=== PATIENT | male | born 1935 | race Caucasian/White ===

== ENCOUNTER → 2017-06-18 08:39 | Outpatient (POV) | payer MEDICARE, MEDICAID, SELFPAY | PROVIDERS: PCP Family Medicine; Visit Provider Podiatrist | DX: Z00.00 Encounter for general adult medical examination without abnormal findings (principal) ==

== ENCOUNTER → 2017-07-02 12:39 | Outpatient (POV) | payer MEDICARE, MEDICAID, SELFPAY | PROVIDERS: PCP Family Medicine; Visit Provider Podiatrist | DX: Z00.00 Encounter for general adult medical examination without abnormal findings (principal) ==

== ENCOUNTER → 2017-10-19 12:05 | Outpatient (CLI) | payer MEDICARE, MEDICAID, SELFPAY ==
[2017-10-19 12:24] LABS: Basophils # 0.1 K/mm3 (0-0.2); Basophils % 0.6 % (0.1-2.0); Eosinophils # 0.3 K/mm3 (0.0-0.4); Eosinophils % 2.5 % (0.1-12.0); Hematocrit 52.4 % (42.0-52.0); Hemoglobin 16.6 g/dL (14.1-18.0); Lymphocytes # 2.5 K/mm3 (0.7-4.5); Lymphocytes % 25.2 K/mm3 (10-50); Mean Corpuscular HGB Conc 31.7 g/dL (31.8-35.4); Mean Corpuscular Hemoglobin 30.7 pg (27.0-31.2); Mean Corpuscular Volume 96.9 fl (80-94); Mean Platelet Volume 7.1 fl (7.4-10.4); Monocytes # 0.6 K/mm3 (0.1-1.0); Monocytes % 5.5 % (1.7-9.3); Neutrophils # 6.5 K/mm3 (1.8-7.8); Neutrophils % 66.1 % (37.0-80.0); Platelet Count 220 K/mm3 (142-424); Red Blood Count 5.41 M/mm3 (4.60-6.20); White Blood Count 9.9 K/mm3 (4.8-10.8)
[2017-10-19 13:21] LABS: Hemoglobin A1C 8.4 % (0.0-7.0)
[2017-10-19 13:43] LABS: Erythrocyte Sedimentation Rate 12 mm/hr (0-20)
[2017-10-19 15:34] LABS: Alanine Aminotransferase 13 U/L (12-78); Albumin Level 3.6 gm/dL (3.4-5.0); Albumin/Globulin Ratio 0.9 (1.1-1.8); Alkaline Phosphatase 82 U/L (46-116); Anion Gap 14.7 mEq/L (5-15); Aspartate Amino Transferase 16 U/L (15-37); Bilirubin,Total 0.4 mg/dL (0.2-1.0); Blood Urea Nitrogen 33 mg/dL (7-18); Carbon Dioxide 29 mmol/L (21.0-32.0); Chloride 103 mmol/L (98-107); Creatinine,Serum 1.61 mg/dL (0.70-1.30); Estimated Glomerular Filt Rate 41 ml/min (>60); GFR (African American) 50 ML/MIN (>60); Globulin 3.8 gm/dl (1.3-3.2); Glucose 226 mg/dL (74-106); Potassium 4.7 mmoL/L (3.5-5.1); Sodium 142 mmol/L (136-145); Total Protein,Serum 7.4 gm/dL (6.4-8.2)
[2017-10-19 15:36] LABS: C-Reactive Protein < 0.2 mg/L (0.0-0.9)
== END ==
PROVIDERS: PCP Family Medicine; Visit Provider Podiatrist
DX: E11.8 Type 2 diabetes mellitus with unspecified complications (principal); Z51.89 Encounter for other specified aftercare
CPT/HCPCS: 36415; 80053; 83036; 85025; 85651; 86140

== ENCOUNTER → 2017-12-20 08:53 | Outpatient (CLI) | payer MEDICARE, MEDICAID, SELFPAY ==
[2017-12-20 10:11] LABS: Hemoglobin A1C 8.6 % (0.0-7.0)
[2017-12-20 10:52] LABS: Alanine Aminotransferase 10 U/L (12-78); Albumin Level 3.5 gm/dL (3.4-5.0); Albumin/Globulin Ratio 0.9 (1.1-1.8); Alkaline Phosphatase 81 U/L (46-116); Anion Gap 9.3 mEq/L (5-15); Aspartate Amino Transferase 13 U/L (15-37); Bilirubin,Total 0.6 mg/dL (0.2-1.0); Blood Urea Nitrogen 20 mg/dL (7-18); Calcium 9.3 mg/dL (8.5-10.1); Carbon Dioxide 32 mmol/L (21.0-32.0); Chloride 104 mmol/L (98-107); Chol/HDL Ratio 3.7 (1-3.5); Cholesterol 145 mg/dL (140-200); Creatinine,Serum 1.37 mg/dL (0.70-1.30); Estimated Glomerular Filt Rate 50 ml/min (>60); Free T4 (Free Thyroxine) 0.99 ng/dl (0.76-1.46); GFR (African American) 60 ML/MIN (>60); Globulin 3.7 gm/dl (1.3-3.2); Glucose 207 mg/dL (74-106); HDL Cholesterol 39 mg/dL (27-67); LDL Cholesterol 80 mg/dL (0-130); Potassium 4.3 mmoL/L (3.5-5.1); Sodium 141 mmol/L (136-145); Thyroid Stimulating Hormone 1.44 uIU/ml (0.358-3.740); Total Protein,Serum 7.2 gm/dL (6.4-8.2); Triglycerides 128 mg/dL (30-200); VLDL Cholesterol 26 mg/dL (0-40)
[2017-12-20 13:49] LABS: Creatinine,Urine Random 145 mg/dL (20-320)
[2017-12-21 16:05] LABS: Vitamin B12 1096 pg/mL (232-1245); Vitamin D 25 Hydroxy 37.9 ng/mL (30.0-100.0)
[2017-12-21 16:06] LABS: Microalbumin, Urine 12.7 ug/mL (Not Estab.)
== END ==
PROVIDERS: Visit Provider Family Medicine
DX: E11.42 Type 2 diabetes mellitus with diabetic polyneuropathy (principal); E53.8 Deficiency of other specified B group vitamins; E03.9 Hypothyroidism, unspecified; E78.2 Mixed hyperlipidemia; E55.9 Vitamin D deficiency, unspecified
CPT/HCPCS: 36415; 80053; 80061; 82043; 82570; 82607; 82652; 83036; 84439; 84443

== ENCOUNTER → 2018-03-22 16:16 | Outpatient (CLI) | payer MEDICARE, MEDICAID, SELFPAY | PROVIDERS: Visit Provider Podiatrist | DX: E11.621 Type 2 diabetes mellitus with foot ulcer (principal); L97.519 Non-pressure chronic ulcer of other part of right foot with unspecified severity | CPT/HCPCS: 87070; 87205 ==

== ENCOUNTER → 2018-03-30 13:09 | Outpatient (CLI) | payer MEDICARE, MEDICAID, SELFPAY ==
--- NOTE | 2018-03-30 13:13 | US_ITS ---
US Arterial Ankle Brachial Ind History: ITS.REASON: Ulcers Necrotic right great toe, peripheral vascular disease, claudication ORDERING PHYSICIAN: Yennifer Frey DPM PATIENT AGE: 82 years TECHNIQUE: Segmental pressures obtained of both right and left leg. These are compared to brachial blood pressure to yield index at each level sampled including summary PIPO. The data sheets from the procedure are available in PACS FINDINGS Rest study only performed today No prior studies available for comparison. Blood pressures reported are in millimeters mercury. RIGHT LEG PIPO = 1.0. RIGHT LEG TBI=1.07 Brachial BP: 140 Thigh BP: 183 Calf BP: 179 Ankle PT: 145 Ankle DP : 139 Digit =155 LEFT LEG PIPO = 0.61 LEFT LEG TBI= 0.60 Brachial BPD: 145 Thigh BP: 184 Calf BP: 86 Ankle PT:89 Ankle DP: 82 Digit = 87 Pulses and waveforms: Decreased pulses on the left with normal waveforms IMPRESSION: Low left PIPO of 0.6 indicating moderate arterial disease . The left TBI slightly low at 0.6 . There are decreased pulses on the left
--- NOTE | 2018-03-30 13:13 | XR_ITS ---
XR foot wt bearing RT 3V HISTORY: Pain and swelling ITS.REASON: ulcer ORDERING PHYSICIAN: Yennifer Frey DPM PATIENT AGE: 82 years COMPARISON: None FINDINGS: No fracture or dislocation. No lytic or blastic change. Flexion deformity of the toes most prominent at the second toe. No obvious bony erosive process. There are mild osteoarthritic changes of the first metatarsophalangeal joint IMPRESSION: No acute finding
--- NOTE | 2018-03-30 13:13 | XR_ITS ---
XR foot wt bearing LT 3V HISTORY: Pain and swelling, soft tissue ulceration ITS.REASON: ulcer ORDERING PHYSICIAN: Yennifer Frey DPM PATIENT AGE: 82 years COMPARISON: None FINDINGS: No fracture or dislocation. No lytic or blastic change. There is flexion of the toes. No obvious lytic lesion. No bony erosive process. There is prominent spur along the proximal and lateral aspect of the proximal phalanx of the great toe. There is some calcification along the plantar surface of the foot toward the calcaneus. A small calcaneal spur is present and there is an Achilles in these 5 noted. Mild osteoarthritic changes are present at the navicular cuneiform junction. IMPRESSION: 1. No acute finding. 2. Osteoarthritic and degenerative changes
== END ==
PROVIDERS: PCP Family Medicine; Visit Provider Podiatrist
DX: E11.621 Type 2 diabetes mellitus with foot ulcer (principal); L97.519 Non-pressure chronic ulcer of other part of right foot with unspecified severity; L89.612 Pressure ulcer of right heel, stage 2; L97.512 Non-pressure chronic ulcer of other part of right foot with fat layer exposed; L97.513 Non-pressure chronic ulcer of other part of right foot with necrosis of muscle; Z79.4 Long term (current) use of insulin
CPT/HCPCS: 73630; 93922

== ENCOUNTER → 2018-04-08 11:18 | Outpatient (CLI) | payer MEDICARE, MEDICAID, SELFPAY ==
[2018-04-08 12:01] LABS: Basophils # 0.1 K/mm3 (0-0.2); Basophils % 0.6 % (0.1-2.0); Eosinophils # 0.3 K/mm3 (0.0-0.4); Eosinophils % 2.6 % (0.1-12.0); Hematocrit 52.2 % (42.0-52.0); Hemoglobin 16.5 g/dL (14.1-18.0); Lymphocytes # 1.8 K/mm3 (0.7-4.5); Lymphocytes % 17.9 % (10-50); Mean Corpuscular HGB Conc 31.6 g/dL (31.8-35.4); Mean Platelet Volume 6.7 fl (7.4-10.4); Monocytes # 0.7 K/mm3 (0.1-1.0); Monocytes % 6.6 % (1.7-9.3); Neutrophils # 7.3 K/mm3 (1.8-7.8); Neutrophils % 72.4 % (37.0-80.0); Platelet Count 258 K/mm3 (142-424); Red Blood Count 5.33 M/mm3 (4.60-6.20); Red Cell Distribution Width 13.6 % (11.5-17.5); White Blood Count 10.1 K/mm3 (4.8-10.8)
[2018-04-08 12:28] LABS: Hemoglobin A1C 8.9 % (0.0-7.0)
[2018-04-08 14:10] LABS: Alanine Aminotransferase 10 U/L (12-78); Albumin Level 3.3 gm/dL (3.4-5.0); Albumin/Globulin Ratio 0.8 (1.1-1.8); Alkaline Phosphatase 78 U/L (46-116); Anion Gap 12.5 mEq/L (5-15); Aspartate Amino Transferase 22 U/L (15-37); Bilirubin,Total 0.5 mg/dL (0.2-1.0); Blood Urea Nitrogen 23 mg/dL (7-18); C-Reactive Protein 2.1 mg/L (0.0-0.9); Calcium 9.8 mg/dL (8.5-10.1); Carbon Dioxide 31 mmol/L (21.0-32.0); Chloride 103 mmol/L (98-107); Creatinine,Serum 1.46 mg/dL (0.70-1.30); Estimated Glomerular Filt Rate 46 ml/min (>60); GFR (African American) 56 ML/MIN (>60); Globulin 4.1 gm/dl (1.3-3.2); Glucose 183 mg/dL (74-106); Potassium 4.5 mmoL/L (3.5-5.1); Sodium 142 mmol/L (136-145); Total Protein,Serum 7.4 gm/dL (6.4-8.2)
[2018-04-08 14:26] LABS: Erythrocyte Sedimentation Rate 34 mm/hr (0-20)
== END ==
PROVIDERS: Visit Provider Podiatrist
DX: E11.42 Type 2 diabetes mellitus with diabetic polyneuropathy (principal); Z79.4 Long term (current) use of insulin; E11.621 Type 2 diabetes mellitus with foot ulcer; L97.519 Non-pressure chronic ulcer of other part of right foot with unspecified severity
CPT/HCPCS: 36415; 80053; 83036; 85025; 85651; 86140

== ENCOUNTER → 2018-04-15 09:47 | Outpatient (CLI) | payer MEDICARE, MEDICAID, SELFPAY ==
--- NOTE | 2018-04-15 09:49 | MR_ITS ---
MR foot RT wo/w con CLINICAL INDICATION: Diabetic foot ulcers on first and second toes as well as on the medial plantar and lateral surface of the midfoot. Foot pain redness and swelling ITS.REASON: multiple diabetic ulcers ORDERING PHYSICIAN: Yennifer Frey DPM PATIENT AGE: 82 years Comparison: None TECHNIQUE: Routine multiplanar multiecho sequences are performed without and with gadolinium enhancement FINDINGS: There is an old ununited transverse fracture at the base of the medial malleolus. There is mild enhancement of the head of the fifth metatarsal with slight increased STIR signal. There is slight soft tissue enhancement along the plantar surface at this area. No other abnormal areas of enhancement are evident. No other abnormal areas of bone marrow signal is evident. No abscess or sinus tract evident.. No obvious ligamentous or tendinous abnormalities. IMPRESSION: There is mild bone marrow edema at the head of the fifth metatarsal with mild contrast enhancement. Mild osteomyelitis cannot be excluded. There is also suggestion of some mild cellulitis at this region.
== END ==
PROVIDERS: PCP Family Medicine; Visit Provider Podiatrist
DX: L97.512 Non-pressure chronic ulcer of other part of right foot with fat layer exposed (principal); L97.513 Non-pressure chronic ulcer of other part of right foot with necrosis of muscle
CPT/HCPCS: 73720; A9576

== ENCOUNTER → 2018-04-19 14:19 | Outpatient (CLI) | payer MEDICARE, MEDICAID, SELFPAY | PROVIDERS: PCP Family Medicine; Visit Provider Urology | DX: R94.31 Abnormal electrocardiogram [ECG] [EKG] (principal) | CPT/HCPCS: 93225; 93226 ==

== ENCOUNTER 2018-04-20 08:21 | Observation (INO) ==
[2018-04-20 08:48] LABS: Basophils % 0.5 % (0.1-2.0); Eosinophils # 0.3 K/mm3 (0.0-0.4); Eosinophils % 3.6 % (0.1-12.0); Hematocrit 50.8 % (42.0-52.0); Hemoglobin 16.1 g/dL (14.1-18.0); Lymphocytes # 1.6 K/mm3 (0.7-4.5); Mean Corpuscular HGB Conc 31.7 g/dL (31.8-35.4); Mean Corpuscular Hemoglobin 30.7 pg (27.0-31.2); Mean Corpuscular Volume 96.6 fl (80-94); Mean Platelet Volume 6.9 fl (7.4-10.4); Monocytes # 0.6 K/mm3 (0.1-1.0); Neutrophils % 69.9 % (37.0-80.0); Platelet Count 265 K/mm3 (142-424); Red Blood Count 5.26 M/mm3 (4.60-6.20); Red Cell Distribution Width 13.6 % (11.5-17.5); White Blood Count 8.5 K/mm3 (4.8-10.8)
[2018-04-20 08:53] LABS: Anion Gap 11.9 mEq/L (5-15); Calcium 9.2 mg/dL (8.5-10.1); Potassium 3.9 mmoL/L (3.5-5.1)
--- NOTE | 2018-04-20 15:15 | History & Physical Report ---
*Admission Date: 04/20/18 *Chief complaint: Irregular heart beat *History of present illness: 1. Sinus Arrest (04/20/18) a. 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 Peripheral Artery Disease a. Single vessel runoff below the knee on the left side which is best treated medically and less recalcitrant claudication or limb threatening ischemia (04/20/18) 3. Diabetes a. 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 b. Brittle 4. Pressure Ulcers a. Bilateral pressure ulcers on feet. b. Managed by [facility] clinic 5. Coronary Artery Disease involving Coronary Bypass Graft of [place] heart without Angina Pectoris a. CABG x5 over 15 years ago. b. Primary industrial custodian (Dr. Casanova) 6. Essential Hypertension a. Well controlled 7. Hyperlipidemia a. Statin therapy 82 year old male admitted under [employer] service for Sinus arrest with 2nd and 3rd degree heart block. Pt underwent bilateral aortic iliac runoff this afternoon for abnormal PIPO (left 0.62) and Peripheral vascular disease. No blockages were noted. During procedure, pt was noted in sinus arrest in 2nd and 3rd degree heart block with heart rates in the 30's. Pt denies chest pain, tightness or pressure. Pt denies shortness of breath. Pt does have history of Coronary Artery disease, CABG x5 several years ago. Pt has not been following up regularly with his primary industrial custodian Dr. Casanova. Last cardiology evaluation was over one year per pt. Pt does have history of Insulin dependent diabetes which is somewhat controlled per . History of Hypertension (controlled) and Hyperlipidemia (statin therapy). Pt is currently being treated for pressure ulcers on feet managed by Dr. Frey. Preliminary echocardiogram (04/20/18) revealed Mild MR and Ejection Fraction of 50%. Aortic-Iliac Runoff (04/20/18) Impression: 1. Single vessel runoff below the knee on the left side which is best treated medically and less recalcitrant claudication or limb threatening ischemia 2. Peripheral artery disease as described above Plan: 1. Severe relative 2.5 by mouth twice a day plus aspirin 2. Medical management with aggressive risk factor modification 3. Patient appears to have pressure ulcers on the feet unrelated to macrovascular peripheral artery disease 4. Physical therapy with rehabilitation Plan: 1. Schedule pt for PPM in the morning. Discussed benefits and risk of PPM placement under anesthesia due to sinus arrest and 2nd -3rd degree heart block. Pt and are agreeable to procedure. [facility] History Medical History: Reports:: Coronary Artery Disease, Diabetes Mellitus Type 2, Gastroesophageal Reflux Disease(GERD), Hyperlipidemia, Hypertension Denies:: Asthma, Cancer, Chronic Obstructive Pulmonary Disease (COPD), MRSA, Seizures, Transient Ischemic Attacks (TIA) Other Medical History: Reports: Arthritis Laterality Cases: Right: Arthroscopy Knee Other Surgeries: Yes: Cardiac Surgery, Colonoscopy, Other Amputation: No Fractures: No - *Social History Educational Level: Completed High School Smoking Status: Never smoker Tobacco Type: smokeless tobacco # Packs/Day (cigarettes): 0 #Yrs smoked (if former smoker): 0 Alcohol Intake: never Alcohol Intake Frequency:: other Substance Use Type: denies use Occupational Status: employed, retired Housing: house Household Members: spouse - Psychiatric History Expresses thoughts of harming self/others: None Suicide Plan Description: No Plan *Family Hx:: Cancer Review of Systems - Review of Systems Review of systems:: pertinent systems reviewed and negative unless documented below - Constitutional Reports weakness - ENT Reports poor balance, Denies abnormal hearing, Denies dizziness, Denies pain with swallowing - *Cardiovascular Reports leg pain with activity, Reports irregular heart rhythm, Reports leg sores, Reports slow heart rate, Denies chest pain, Denies chest pain at rest, Denies chest pain with activity, Denies shortness of breath, Denies shortness of breath with activity - *Respiratory Denies chest congestion, Denies cough, Denies shortness of breath, Denies shortness of breath with activity, Denies wheezing - *Gastrointestinal Denies abdominal pain, Denies bloating, Denies difficulty swallowing - *Genitourinary Denies difficulty urinating - *Musculoskeletal Reports abnormal walking - Integumentary/Breasts Reports hair loss, Reports dry skin - *Neurologic Reports abnormal walking, Reports weakness, Denies abnormal hearing, Denies dizziness, Denies numbness, Denies dizziness - Psychiatric Denies abnormal sleep pattern, Denies hearing things others do not hear, Denies thoughts of hurting/killing yourself - Endocrine Denies cold intolerance, Denies increased thirst, Denies increased hunger, Denies increased urination - Hematologic/Lymphatic Denies easy bleeding - Allergic/Immunologic Denies itchy eyes, Denies seasonal runny nose Meds Home Medications Medication Instructions Recorded Confirmed Type carbidopa 25 mg-levodopa 100 1 tab PO Q8H 06/10/17 04/19/18 History mg-entacapone 200 mg tablet gabapentin 600 mg tablet 600 mg PO TID 06/10/17 04/19/18 History isosorbide mononitrate ER 30 mg 30 mg PO QAM 06/10/17 04/19/18 History tablet,extended release 24 hr linagliptin 5 mg tablet 5 mg PO QAM 06/10/17 04/19/18 History memantine 10 mg tablet 10 mg PO BID 06/10/17 04/19/18 History polyethylene glycol 3350 17 gram 17 g PO Q10M 06/10/17 04/19/18 History oral powder packet trazodone 50 mg tablet 50 mg PO QHS PRN 06/10/17 04/19/18 History atorvastatin 10 mg tablet 10 mg PO DAILY tab 04/19/18 04/19/18 History buspirone 5 mg tablet 5 mg PO DAILY tab 04/19/18 04/19/18 History docusate sodium 250 mg capsule 250 mg PO DAILY cap 04/19/18 04/19/18 History famotidine 20 mg tablet 20 mg PO DAILY 90 Days #90 tab 04/19/18 04/19/18 History fenofibrate nanocrystallized 145 145 mg PO DAILY tab 04/19/18 04/19/18 History mg tablet hydrochlorothiazide 12.5 mg capsule 12.5 mg PO DAILY cap 04/19/18 04/19/18 History insulin glargine (U-100) 100 1 unit SUB-Q DAILY ml 04/19/18 04/19/18 History unit/mL (3 mL) subcutaneous pen levothyroxine 112 mcg capsule 112 mcg PO DAILY cap 04/19/18 04/19/18 History Allergies Allergy/AdvReac Type Severity Reaction Status Date / Time codeine [CODEINE] Allergy Unknown Verified 04/19/18 13:10 Penicillins [PENICILLINS] Allergy Unknown Verified 04/19/18 13:10 Exam Vital signs and Labs for Last 24 Hours: Temp Pulse Resp BP Pulse Ox 97 F L 46 L 16 125/70 92 L 04/20/18 11:33 04/20/18 14:20 04/20/18 14:20 04/20/18 14:20 04/20/18 14:20 Laboratory Results - last 24 hr 04/20/18 08:40: WBC 8.5, RBC 5.26, Hgb 16.1, Hct 50.8, MCV 96.6 H, MCH 30.7, MCHC 31.7 L, RDW 13.6, Plt Count 265, MPV 6.9 L, Neut % (Auto) 69.9, Lymph % (Auto) 19.0, [place] % (Auto) 7.0, Eos % (Auto) 3.6, Baso % (Auto) 0.5, Neut # (Auto) 6.0, Lymph # (Auto) 1.6, [place] # (Auto) 0.6, Eos # (Auto) 0.3, Baso # (Auto) 0.0 04/20/18 08:40: Sodium 139, Potassium 3.9, Chloride 102, Carbon Dioxide 29, Anion Gap 11.9, BUN 20 H, Creatinine 1.27, Estimated Creat Clear 64, Estimated GFR 54 L, Est GFR ( Amer) 66, Glucose 266 H, Calcium 9.2 I & O for Last 24 hours: Intake & Output 04/17/18 04/18/18 04/19/18 04/20/18 23:59 23:59 23:59 23:59 Weight 223 lb - Constitutional no acute distress, obese, cooperative - *Routine HEENT Exam Head: Present: normocephalic ENT: Present: mucous membranes moist - *Routine Neck Exam Present: supple, full ROM, normal carotid upstroke, trachea midline. Absent: carotid bruit - Routine Chest/Breast/Axilla Exam Chest wall: Present: tenderness. Absent: mass, pacemaker - *Routine Respiratory Exam Present: accessory muscle use, CTA bilaterally. Absent: wheezes, crackles, diminished air movement - *Routine Cardiovascular Exam Present: RRR, Normal S1, Normal S2, murmur, bradycardia, irregularly irregular. Absent: gallop, rubs - *Routine Abdominal Exam Present: soft, normoactive bowel sounds. Absent: distended, guarding - *Routine Extremities Exam Present: full ROM, pulses intact, normal capillary refill. Absent: cyanosis, clubbing, edema Comments: Pressure ulcers noted on the feet - *Routine Skin Exam Present: intact, dry, warm. Absent: cyanosis, erythema - *Routine Neurological Exam Present: alert, oriented X3, CN II-XII intact, moving all extremities, normal speech - Routine Psychiatric Exam Present: normal affect, normal thought process, cooperative H&P: Result - Impressions Sinus Arrest with 2nd and 3rd Degree heart Block - Imaging and Cardiology EKG Status: final report (Sinus Arrest with 2nd and 3rd Degree Heart block) Assessment and Plan (1) Sinus arrest Current visit: Yes Status: Acute Category: Medical Code(s): I45.5 - Other specified heart block (2) 2nd degree AV block Current visit: Yes Status: Acute Category: Medical Code(s): I44.1 - Atrioventricular block, second degree (3) Third degree heart block Current visit: Yes Status: Acute Category: Medical Code(s): I44.2 - Atrioventricular block, complete (4) CAD (coronary artery disease) Current visit: Yes Status: Acute Category: Medical Code(s): I25.10 - Atherosclerotic heart disease of [place] coronary artery without angina pectoris (5) Hx of CABG Current visit: Yes Status: Acute Category: Surgical Code(s): Z95.1 - Presence of aortocoronary bypass graft (6) HTN (hypertension) Current visit: Yes Status: Acute Category: Medical Code(s): I10 - Essential (primary) hypertension (7) Hyperlipemia Current visit: Yes Status: Acute Category: Medical Code(s): E78.5 - Hyperlipidemia, unspecified (8) Pressure ulcer Current visit: Yes Status: Acute Category: Medical Code(s): L89.90 - Pressure ulcer of unspecified site, unspecified stage (9) PAD (peripheral artery disease) Current visit: Yes Status: Acute Category: Medical Code(s): I73.9 - Peripheral vascular disease, unspecified - Assessment and plan all Dx Assessment and Plan for all problems:: Plan: 1. Schedule pt for permanent pacemaker placement in morning due to Sinus Arrest annd 2nd-3rd degree Heart Block. 2. NPO after midnight. 3. monitor and storage bin tender. 4. Continue current home medications.
--- NOTE | 2018-04-20 15:26 | Pharmacy Consult Notes ---
[facility] VTE Monitoring - Patient Demographics Admission date: 04/20/18 Report Date: 04/20/18 Time: 15:26 Allergies/Adverse Reactions: Patient Allergies codeine [CODEINE] Allergy (Unknown, Verified 04/19/18 13:10) Penicillins [PENICILLINS] Allergy (Unknown, Verified 04/19/18 13:10) Height: 1.83 m Weight: 101.151 kg - VTE Risk Labs: VTE Related Lab Results Hgb 16.1 g/dL (14.1-18.0) 04/20/18 08:40 Hct 50.8 % (42.0-52.0) 04/20/18 08:40 Plt Count 265 K/mm3 (142-424) 04/20/18 08:40 BUN 20 mg/dL (7-18) H 04/20/18 08:40 Creatinine 1.27 mg/dL (0.70-1.30) 04/20/18 08:40 Estimated Creat Clear 64 mL/min (50-200) 04/20/18 08:40 VTE Score: 4 VTE Risk Level: Low Risk - Prophylaxis VTE Prophylaxis Ordered?: Yes Types of VTE Prophylaxis: TEDS Knee High Location of Applied Device: Bilateral Lower Extremeties
[2018-04-21 07:17] LABS: Hematocrit 49.8 % (42.0-52.0); Hemoglobin 15.6 g/dL (14.1-18.0)
--- NOTE | 2018-04-21 09:26 | Progress Note ---
Subjective Date: 04/21/18 Time: 09:22 Principal diagnosis: High degree AV block Interval history: 82-year-old white male in bed in no acute disease. Patient is ready to have his pacemaker placed today. All questions answered. No complaints overnight. Exam Vital signs and Labs for Last 24 Hours: Temp Pulse Resp BP Pulse Ox 98.0 F 52 L 16 149/75 H 94 L 04/21/18 08:00 04/21/18 08:00 04/21/18 08:00 04/21/18 08:00 04/21/18 08:00 Laboratory Results - last 24 hr 04/20/18 16:35: POC Glucose 375 H* 04/20/18 20:53: POC Glucose 264 H 04/21/18 05:58: POC Glucose 205 H 04/21/18 06:35: Hgb 15.6, Hct 49.8 04/21/18 06:35: Creatinine 1.27, Estimated Creat Clear 64, Estimated GFR 54 L, Est GFR ( Amer) 66 I & O for Last 24 hours: Intake & Output 04/18/18 04/19/18 04/20/18 04/21/18 11:59 11:59 11:59 11:59 Intake Total 360 / 360 Balance 360 / 360 Weight 223 lb 223 lb - *Routine Respiratory Exam Present: CTA bilaterally. Absent: accessory muscle use, rales, rhonchi, wheezes - *Routine Cardiovascular Exam Present: RRR. Absent: murmur, gallop, rubs Progress Note: A&P (1) Sinus arrest Status: Acute Current Visit: Yes (2) 2nd degree AV block Status: Acute Current Visit: Yes (3) Third degree heart block Status: Acute Current Visit: Yes (4) CAD (coronary artery disease) Status: Acute Current Visit: Yes (5) Hx of CABG Status: Acute Current Visit: Yes (6) HTN (hypertension) Status: Acute Current Visit: Yes (7) Hyperlipemia Status: Acute Current Visit: Yes (8) Pressure ulcer Status: Acute Current Visit: Yes (9) PAD (peripheral artery disease) Status: Acute Current Visit: Yes Assessment and Plan for All Diagnoses:: Permanent pacemaker placement today Recommend starting Xarelto 2.5 mg daily with aspirin 81 mg daily after pacemaker placement for peripheral arterial disease and coronary artery disease. Recommend medical therapy and exercise to continue to build collateral vessels.
--- NOTE | 2018-04-21 11:08 | Progress Note ---
[facility] Anesthesia Checklist - Patient Identification Patient Identification: Arm Band, Verbal (Name & ) - Structural Data Admitted From: Inpatient Planned Operative Procedure/s: Permanent pacemaker placement Consent for Planned Operative Procedure(s) Verified: Yes Verified Documents: Surgical Consent, History and Physical - NPO Status Verified Time NPO: 00:00 - Additional verifications Anesthesia Reactions: No - Airway Assessment C-Spine Mobility Assessed: Yes TMJ Mobility Assessed: Yes Dentition: Poor Dentition (Missing teeth, decay present, no upper teeth) - Neurological Assessment Level of Consciousness: Awake, Alert, Appropriate, Follows Commands Hx Seizures: No Numbness or tingling in extremities: No - Anesthesia Plan Anesthesia Risk discussed: Yes Anesthesia Plan: Verified ASA Class: III Anesthesia Type: [facility] History I have reviewed the patient's past medical history: Yes Medical History: Reports:: Coronary Artery Disease, Diabetes Mellitus Type 2, Gastroesophageal Reflux Disease(GERD), Hyperlipidemia, Hypertension, Peripheral Artery Disease Denies:: Asthma, Cancer, Chronic Obstructive Pulmonary Disease (COPD), MRSA, Seizures, Transient Ischemic Attacks (TIA) Other Medical History: Reports: Arthritis, Hypothyroidism Comment: Parkinson's disease Laterality Cases: Right: Arthroscopy Knee Other Surgeries: Yes: Cardiac Surgery (CABGx5 vessel), Colonoscopy, Other Amputation: No Fractures: No - *Social History Educational Level: Completed High School Smoking Status: Never smoker Tobacco Type: smokeless tobacco # Packs/Day (cigarettes): 0 #Yrs smoked (if former smoker): 0 Alcohol Intake: never Alcohol Intake Frequency:: other Substance Use Type: denies use Occupational Status: employed, retired Housing: house Household Members: spouse - Psychiatric History Expresses thoughts of harming self/others: None Suicide Plan Description: No Plan *Family Hx:: Cancer
--- NOTE | 2018-04-21 11:58 | Cardiology Report ---
PROCEDURE: INDICATIONS FOR THE TEST: Chest pain COPD Heart Murmur Tobacco Smoking Palpitations Fatigue+ Syncope Edema Hypertension+Diabetes Mellitus+ Rheumatic Fever SOB [place] Obesity Hyperlipidemia Family History HD Additional History PAD, CABG, ABN PIPO PATIENT INFORMATION HEIGHT: 72 WEIGHT: 222 GENDER: Male B/P: 133/75 2-D/M-MODE INTERPRETATION: 2-D MEASUREMENTS OBSERVED VALUES IN CMS Right Ventricular Dimension (RVDd) 3.1 Interventricular Septum (Thickness)(IVsd) 1.6 Left Ventricular Internal Dimensions(LVIDd) 2.1 Left Ventricular Posterior Wall (Thickness)(LVPWd) 1.5 Aortic Root 3.2 Aortic Cusp Separation Left Atrial Dimensions (LAD) 4.6 2D 1. Left atrium is mildly enlarged, left ventricle is normal size, there is mild concentric left ventricular hypertrophy, visually estimated ejection fraction 55% with no regional wall motion abnormality, Definity contrast was utilized to delineate endocardial surfaces. 2. The right atrium and right ventricle are mildly enlarged with normal contractility. 3. The aortic valve is thickened and fat leaflet continue to display mobility. 4. The mitral and tricuspid valve leaflets are minimally thickened. 5. The pulmonic valve is poorly visualized. 6. No significant pericardial effusion noted. DOPPLER INTERROGATION: Doppler interrogation of the aortic, mitral and tricuspid valvular presence of mild aortic, mild mitral and tricuspid regurgitation, tricuspid regurgitation jet velocity is inadequate for calculation of the right ventricular systolic pressure, grade 1 diastolic dysfunction seen with tissue Doppler evidence of raised left atrial pressure. CONCLUSION: 1. Mildly enlarged left atrium, normal left ventricular size, mild concentric left ventricular hypertrophy, visually estimated ejection fraction 55% with no regional wall motion abnormality, Definity contrast was utilized to delineate endocardial surfaces. Grade 1 diastolic dysfunction seen with tissue Doppler evidence of raised left atrial pressure. 2. Mild aortic, mild mitral and tricuspid regurgitation 3. No significant pericardial effusion noted.
--- NOTE | 2018-04-21 13:00 | Progress Note ---
[facility] Anesthesia Record Part I Intake, IV Amount: 400 Estimated blood loss (mL): 10 Urine output (mL): 0 (NM) Blood Products used (#): none Blood Pressure: 123/63 SaO2: 96 Pulse Rate: 70 Respiratory Rate: 14 Temperature: 97.4 F Patient is:: Awake, Stable Stable to PACU at:: 12:57
--- NOTE | 2018-04-21 13:01 | Progress Note ---
[facility] Anesthesia Record Part II Discharge Time: 13:27 Destination: Medical Surgical Department PACU nurse assessment reviewed?: Yes Patient Condition:: Good Anesthesia Complications:: None
--- NOTE | 2018-04-21 14:51 | Cardiology Report ---
[place] echo limited PROCEDURE: INDICATIONS FOR THE TEST: Chest pain COPD Heart Murmur Tobacco Smoking Palpitations Fatigue Syncope Edema Hypertension Diabetes Mellitus Rheumatic Fever SOB [place] Obesity Hyperlipidemia Family History HD Additional History DEFINITY PRE PACEMAKER LIMITED WITH DEFINITY PATIENT INFORMATION HEIGHT: 72 WEIGHT:223 GENDER: Male B/P: 2-D/M-MODE INTERPRETATION: 2-D MEASUREMENTS OBSERVED VALUES IN CMS Right Ventricular Dimension (RVDd) Interventricular Septum (Thickness)(IVsd) Left Ventricular Internal Dimensions(LVIDd) Left Ventricular Posterior Wall (Thickness)(LVPWd) Aortic Root Aortic Cusp Separation Left Atrial Dimensions (LAD) 2D DOPPLER INTERROGATION: CONCLUSION: Please refer to previously dictated echo report for Definity contrast
--- NOTE | 2018-04-22 09:23 | Discharge Summary ---
General - General Admission date:: 04/20/18 Discharge date: 04/22/18 HPI HPI: 1. Sinus Arrest (04/20/18) a. 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 Peripheral Artery Disease a. Single vessel runoff below the knee on the left side which is best treated medically and less recalcitrant claudication or limb threatening ischemia (04/20/18) 3. Diabetes a. 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 b. Brittle 4. Pressure Ulcers a. Bilateral pressure ulcers on feet. b. Managed by Wound clinic 5. Coronary Artery Disease involving Coronary Bypass Graft of nez perce heart without Angina Pectoris a. CABG x5 over 15 years ago. b. Primary jammer hooker (Dr. Casanova) 6. Essential Hypertension a. Well controlled 7. Hyperlipidemia a. Statin therapy 82 year old male admitted under [facility] service for Sinus arrest with 2nd and 3rd degree heart block. Pt underwent bilateral aortic iliac runoff this afternoon for abnormal PIPO (left 0.62) and Peripheral vascular disease. No blockages were noted. During procedure, pt was noted in sinus arrest in 2nd and 3rd degree heart block with heart rates in the 30's. Pt denies chest pain, tightness or pressure. Pt denies shortness of breath. Pt does have history of Coronary Artery disease, CABG x5 several years ago. Pt has not been following up regularly with his primary jammer hooker Dr. Casanova. Last cardiology evaluation was over one year per pt. Pt does have history of Insulin dependent diabetes which is somewhat controlled per . History of Hypertension (controlled) and Hyperlipidemia (statin therapy). Pt is currently being treated for pressure ulcers on feet managed by Dr. Frey. Preliminary echocardiogram (04/20/18) revealed Mild MR and Ejection Fraction of 50%. Aortic-Iliac Runoff (04/20/18) Impression: 1. Single vessel runoff below the knee on the left side which is best treated medically and less recalcitrant claudication or limb threatening ischemia 2. Peripheral artery disease as described above Plan: 1. Severe relative 2.5 by mouth twice a day plus aspirin 2. Medical management with aggressive risk factor modification 3. Patient appears to have pressure ulcers on the feet unrelated to macrovascular peripheral artery disease 4. Physical therapy with rehabilitation Plan: 1. Schedule pt for PPM in the morning. Discussed benefits and risk of PPM placement under anesthesia due to sinus arrest and 2nd -3rd degree heart block. Pt and are agreeable to procedure. Hospital Course Hospital Course: Admitted after LE arteriogram during which he developed transient, high degree AV block. Pt was kept on telemetry and underwent pacemaker insertion yesterday afternoon. He was kept overnight and this AM is feeling fine and ready to go home. Telemetry shows pacing in the 70's bpm. Limited use of left arm reviewed with pt and . Dr. Frey of Podiatry did see the patient for dressing changes of his feet for ongoing treatment of gangrene. Objective Vital signs: Temp Pulse Resp BP Pulse Ox 97.8 F 74 16 128/70 95 04/22/18 08:00 04/22/18 08:00 04/22/18 08:00 04/22/18 08:00 04/22/18 08:00 - *Routine Skin Exam Comments: Left chest insertion site dressing intact without drainage or evidence of complications. Results Labs on day of discharge: Labs from last 24 hours 04/22/18 04/21/18 04/21/18 06:56 21:01 16:14 POC Glucose 255 H 285 H 263 H DS: Diagnosis - Discharge Diagnosis (1) Sinus arrest Status: Acute (2) 2nd degree AV block Status: Acute (3) Third degree heart block Status: Acute (4) CAD (coronary artery disease) Status: Acute (5) Hx of CABG Status: Acute (6) HTN (hypertension) Status: Acute (7) Hyperlipemia Status: Acute (8) Pressure ulcer Status: Acute (9) PAD (peripheral artery disease) Status: Acute Discharge Plan - Patient Discharge Instructions ACTIVITY: Limited activity, No heavy lifting DIET: continue same diet Patient Instructions: DI for Surgical Site Infection, DI for Pacemaker Insertion - Follow up Plan Follow up with: Abran Rock MD [Staff Physician] - Disposition: Home, Self-Group Home Medications: Home Medications Medication Instructions Recorded Confirmed Type gabapentin 600 mg tablet 600 mg PO TID 06/10/17 04/20/18 History isosorbide mononitrate ER 30 mg 30 mg PO QAM 06/10/17 04/20/18 History tablet,extended release 24 hr linagliptin 5 mg tablet 5 mg PO QAM 06/10/17 04/20/18 History memantine 10 mg tablet 10 mg PO BID 06/10/17 04/20/18 History polyethylene glycol 3350 17 gram 17 g PO DAILY 06/10/17 04/20/18 History oral powder packet atorvastatin 10 mg tablet 10 mg PO DAILY tab 04/19/18 04/20/18 History buspirone 5 mg tablet 5 mg PO TID tab 04/19/18 04/21/18 History docusate sodium 250 mg capsule 250 mg PO DAILY cap 04/19/18 04/20/18 History famotidine 20 mg tablet 20 mg PO HS 90 Days #90 tab 04/19/18 04/21/18 History fenofibrate nanocrystallized 145 145 mg PO DAILY tab 04/19/18 04/20/18 History mg tablet hydrochlorothiazide 12.5 mg capsule 12.5 mg PO DAILY cap 04/19/18 04/20/18 History levothyroxine 112 mcg capsule 112 mcg PO DAILY cap 04/19/18 04/20/18 History Carbidopa/Levodopa 1 tab PO 1200 04/21/18 04/21/18 History [Carbidopa/Levodopa 25/100mg Tablet] Carbidopa/Levodopa 2 tab PO BID 04/21/18 04/21/18 History [Carbidopa/Levodopa 25/100mg Tablet] Insulin NPH Hum/Reg Insulin Hm 40 unit SQ BID 04/21/18 04/21/18 History [Humulin 70/30 Kwikpen] Trazodone HCl 50 mg PO HSP PRN 04/21/18 04/21/18 History Prescriptions/Medication Reconciliation: No Action memantine 10 mg tablet 10 mg PO BID isosorbide mononitrate ER 30 mg tablet,extended release 24 hr 30 mg PO QAM gabapentin 600 mg tablet 600 mg PO TID polyethylene glycol 3350 17 gram oral powder packet 17 g PO DAILY linagliptin 5 mg tablet 5 mg PO QAM collagenase clostridium histolyticum 250 unit/gram topical ointment 1 applic TOPICAL QDAY #30 g levothyroxine 112 mcg capsule 112 mcg PO DAILY cap hydrochlorothiazide 12.5 mg capsule 12.5 mg PO DAILY cap fenofibrate nanocrystallized 145 mg tablet 145 mg PO DAILY tab docusate sodium 250 mg capsule 250 mg PO DAILY cap buspirone 5 mg tablet 5 mg PO TID tab atorvastatin 10 mg tablet 10 mg PO DAILY tab famotidine 20 mg tablet 20 mg PO HS 90 Days #90 tab Trazodone HCl 50 mg PO HSP PRN PRN Reason: Sleep Insulin NPH Hum/Reg Insulin Hm [Humulin 70/30 Kwikpen] 40 unit SQ BID Carbidopa/Levodopa [Carbidopa/Levodopa 25/100mg Tablet] 1 tab PO 1200 Carbidopa/Levodopa [Carbidopa/Levodopa 25/100mg Tablet] 2 tab PO BID
--- NOTE | 2018-05-06 09:01 | Procedure Note ---
[facility] Pacemaker - Pacemaker Placement Date of Procedure:: 04/21/18 Time of Procedure:: 12:00 Procedure Performed:: Pocket formation for permanent pacemaker placement Placement of atrial sensing pacing lead into the right atrial appendage Placement of ventricular sensing pacing lead into the right ventricular apex Permanent pacemaker placement Preoperative Diagnosis:: Symptomatic Bradycardic AV Block Complications:: None Estimated Blood Loss (ml):: 10 Technique:: 1% Lidocaine with epinephrine used to anesthetize the left anterior aspect of the chest.Scalpel was used to make the initial cutaneous incision while electrocautery was used to dissect down into the fascia. The fascia was lifted off the pectoralis muscle and digitally manipulated creating a pocket for the pacemaker. The patient was then placed in Trendelenburg position and the subclavian vein was accessed via the Selinger technique. A 7 Divehi sheath was placed under fluoroscopic guidance into the subclavian vein. Following this, an additional wire was placed into the sheath. Now, with two wires inside the 7 Divehi sheath, this sheath was removed, maintaining the two wires in the subclav rose marie vein. The sheath and dilator was then placed over one of the wires while keeping the other wire in place within the subclavian vein. The dilator was removed from the sheath. Using fluoroscopic guidance, the ventricular lead was placed into the right ventricular apex, screwed and secured into place. Electronic interrogation proved acceptable thresholds and voltage within the lead. Using 3-0 silk, the ventricular lead was then secured into place. Lead was secured to the fascia using the 3-0 silk. Following this, the sheath was pealed away. An additional 7 Divehi fresh sheath and dilator was placed over the existing wire. Using fluoroscopic guidance, the atrial lead was then placed into the right atrial appendage and screwed and secured in place. Electrical interrogation demonstrated acceptable thresholds and voltage numbers. The atrial lead was then secured into place using 3-0 silk and then the lead was finally secured to the fascia. With both the atria and ventricular leads in place with acceptable thresholds and sensitivity, the atrial and ventricular leads were placed into the pacemaker generator. Pacemaker generator was then secured to the fascia using 3-0 silk. 1 gram of Ancef was used to flush the pocket. Following the pacemaker being secured to the fascia and in place, Monocryl was used to close the subcutaneous layers while jalen were used to close the cutaneous layer. A pressure dressing was placed and the patient was transferred to the postop holding area in stable condition for postoperative care. - Interrogation Narrative: Generator Model # [id number] Serial # [id number] RA Model # [id number] Serial # [id number] P-wave 2-3 mV Impedance 654 Ohms Threshold 0.5V Pulse Width .4 RVA Model #[id number] Serial # [id number] R-wave 11-12 mV Impedance 1016 Ohms Threshold 1.0 V Pulse Width .4 Pacing Parameters: Mode: DDDR Base/Max Track: 60/120 NO D/S @ 10 VOLTS Impression:: Successful pocket formation for permanent pacemaker placement Successful placement of atrial and sensing pacing lead into the right atrial appendage Successful placement of ventricular sensing and pacing lead into the right ventricular apex Successful permanent pacemaker placement Plan: Postoperative wound care
== END 2018-04-22 11:32 | disposition home or self-care (01) ==
LOC: 2ND 08:21 → CATHLAB 08:21
PROVIDERS: ADMIT Internal Medicine; ATTEND Internal Medicine
DX: E11.42 Type 2 diabetes mellitus with diabetic polyneuropathy; L97.512 Non-pressure chronic ulcer of other part of right foot with fat layer exposed; I44.2 Atrioventricular block, complete; I10 Essential (primary) hypertension; Z87.891 Personal history of nicotine dependence; L97.411 Non-pressure chronic ulcer of right heel and midfoot limited to breakdown of skin; I45.5 Other specified heart block; L97.513 Non-pressure chronic ulcer of other part of right foot with necrosis of muscle; I25.10 Atherosclerotic heart disease of native coronary artery without angina pectoris; L97.421 Non-pressure chronic ulcer of left heel and midfoot limited to breakdown of skin; Z79.4 Long term (current) use of insulin; E11.51 Type 2 diabetes mellitus with diabetic peripheral angiopathy without gangrene; I77.1 Stricture of artery; E11.621 Type 2 diabetes mellitus with foot ulcer; Z79.899 Other long term (current) drug therapy; I70.213 Atherosclerosis of native arteries of extremities with intermittent claudication, bilateral legs
CPT/HCPCS: 33208; 36246; 36248; 36415; 71010; 71045; 75630; 80048; 82565; 82962; 85014; 85018; 85025; 93005; 93225; 93306; 93308; 99152; 99153; C1725; C1769; C1785; C1898; G0378; J1644; J1956; Q9966; S0077

== ENCOUNTER → 2018-05-06 11:15 | Outpatient (CLI) | payer MEDICARE, MEDICAID, SELFPAY ==
--- NOTE | 2018-05-06 11:18 | NM_ITS ---
History and Indications: Coronary artery disease, status post bypass surgery, hypertension, diabetes, hyperlipidemia, family history and fatigue Procedure: Patient received a 0.4 mg of intravenous Lexiscan, resting heart rate was 66 bpm resting blood pressure 138/76, with Lexiscan maximum heart rate achieved was 77 bpm which is less than 85% of the maximum] heart rate and a blood pressure was 90/49. With Lexiscan patient complained of malaise. Electrocardiogram: Resting echocardiogram showed sinus rhythm first degree AV block left atrial enlargement, left bundle-branch block, with Lexiscan less than 1.[address] segment depression noted from the baseline EKG. The EKG portion of the Lexiscan Myoview is nondiagnostic. Cardiac stress and resting SPECT images: Cardiac stress and resting SPECT images were obtained using technetium 99 Myoview 31.1 mCi stress and 10.3 mCi at rest. Gated SPECT further analysis of segmental wall motion and calculation of the ejection fraction also done. Cardiac stress and rest SPECT images show a fixed defect involving the inferior and apical wall with normal contractility in the gated SPECT is likely secondary to soft tissue attenuation, no reversible ischemia seen. Computer derived ejection fraction is 53% with no regional wall motion abnormality, right ventricle is normal size and contractility, there is abnormal septal motion. Conclusion: 1. The EKG portion of the Lexiscan Myoview is nondiagnostic. 2. No scintigraphic evidence of reversible ischemia seen, computer derived ejection fraction is 53% with abnormal septal motion, right ventricle is normal size and contractility.
--- NOTE | 2018-05-06 13:33 | HMH.ITSHM ---
Current Home Medications as stated by this patient Steven Bautista or community health program representative. []RIVAROXABAN MEMANTINE LINAGLIPTIN ISOSORBIDE GABAPENTIN FAMOTIDINE BUSPIRONE TRAZODONE LEVODOPA ASA ATORVASTATIN
== END ==
PROVIDERS: PCP Family Medicine; Visit Provider Internal Medicine
DX: E78.5 Hyperlipidemia, unspecified (principal); I10 Essential (primary) hypertension; I25.10 Atherosclerotic heart disease of native coronary artery without angina pectoris; I73.9 Peripheral vascular disease, unspecified; L89.90 Pressure ulcer of unspecified site, unspecified stage; Z95.1 Presence of aortocoronary bypass graft
CPT/HCPCS: 78452; 93017; A9502; J2785

== ENCOUNTER → 2018-08-08 19:00 | Outpatient (CLI) | payer MEDICARE, MEDICAID, SELFPAY | PROVIDERS: Visit Provider Podiatrist | DX: Z51.89 Encounter for other specified aftercare (principal) | CPT/HCPCS: 87070; 87077; 87186; 87205 ==

== ENCOUNTER → 2018-09-05 11:24 | Outpatient (CLI) | payer MEDICARE, MEDICAID, SELFPAY ==
--- NOTE | 2018-09-05 11:30 | XR_ITS ---
XR foot wt bearing RT 3V HISTORY: ITS.REASON: pain ORDERING PHYSICIAN: Yennifer Frey DPM PATIENT AGE: 82 years COMPARISON: 03/30/2018 FINDINGS: No fracture or dislocation. No lytic or blastic change. There is normal mineralization.. There are osteoarthritic changes of the first metatarsal phalangeal joint. Prominent in these a thymus present at the Achilles insertion and there is a small calcaneal spur. IMPRESSION: No significant change. Osteoarthritis first metatarsophalangeal joint
--- NOTE | 2018-09-05 11:30 | XR_ITS ---
XR foot wt bearing LT 3V HISTORY: ITS.REASON: pain ORDERING PHYSICIAN: Yennifer Frey DPM PATIENT AGE: 82 years COMPARISON: 03/30/2018 FINDINGS: There are mild osteoarthritic changes of the first metatarsophalangeal joint and the first interphalangeal joint. Prominent bony spurring is noted along the plantar and lateral aspect of the proximal phalanx of the great toe. IMPRESSION: Overall no change in the osteoarthritic changes of the great toe as described above
[2018-09-05 12:48] LABS: Basophils # 0.1 K/mm3 (0-0.2); Basophils % 0.8 % (0.1-2.0); Eosinophils # 0.5 K/mm3 (0.0-0.4); Eosinophils % 5.7 % (0.1-12.0); Hematocrit 50.9 % (42.0-52.0); Hemoglobin 17.7 g/dL (14.1-18.0); Lymphocytes # 2.1 K/mm3 (0.7-4.5); Lymphocytes % 26.5 % (10-50); Mean Corpuscular HGB Conc 34.9 g/dL (31.8-35.4); Mean Corpuscular Hemoglobin 33.4 pg (27.0-31.2); Mean Corpuscular Volume 95.8 fl (80-94); Mean Platelet Volume 6.7 fl (7.4-10.4); Monocytes # 0.6 K/mm3 (0.1-1.0); Monocytes % 7.5 % (1.7-9.3); Neutrophils # 4.8 K/mm3 (1.8-7.8); Neutrophils % 59.5 % (37.0-80.0); Platelet Count 224 K/mm3 (142-424); Red Blood Count 5.31 M/mm3 (4.60-6.20); Red Cell Distribution Width 13.5 % (11.5-17.5)
[2018-09-05 13:17] LABS: Hemoglobin A1C 8.3 % (0.0-7.0)
[2018-09-05 13:52] LABS: Erythrocyte Sedimentation Rate 10 mm/hr (0-20)
[2018-09-05 14:22] LABS: Alanine Aminotransferase 17 U/L (12-78); Albumin Level 3.6 gm/dL (3.4-5.0); Albumin/Globulin Ratio 0.9 (1.1-1.8); Alkaline Phosphatase 84 U/L (46-116); Anion Gap 9.5 mEq/L (5-15); Aspartate Amino Transferase 13 U/L (15-37); Bilirubin,Total 0.4 mg/dL (0.2-1.0); Blood Urea Nitrogen 21 mg/dL (7-18); C-Reactive Protein 0.2 mg/L (0.0-0.9); Calcium 9.7 mg/dL (8.5-10.1); Carbon Dioxide 31 mmol/L (21.0-32.0); Chloride 103 mmol/L (98-107); Creatinine,Serum 1.44 mg/dL (0.70-1.30); Estimated Glomerular Filt Rate 47 ml/min (>60); GFR (African American) 57 ML/MIN (>60); Globulin 4.1 gm/dl (1.3-3.2); Glucose 267 mg/dL (74-106); Potassium 4.5 mmoL/L (3.5-5.1); Sodium 139 mmol/L (136-145); Total Protein,Serum 7.7 gm/dL (6.4-8.2)
== END ==
PROVIDERS: PCP Family Medicine; Visit Provider Podiatrist
DX: E11.621 Type 2 diabetes mellitus with foot ulcer (principal); L97.509 Non-pressure chronic ulcer of other part of unspecified foot with unspecified severity; Z51.89 Encounter for other specified aftercare; Z79.4 Long term (current) use of insulin
CPT/HCPCS: 36415; 73630; 80053; 83036; 85025; 85651; 86140

== ENCOUNTER 2018-11-16 16:00 | Outpatient (RCR) | payer MEDICARE, MEDICAID, SELFPAY ==
--- NOTE | 2018-10-26 15:38 | HMH.PTOPEV ---
PT Outpatient Evaluation Rehab PT Outpatient Evaluation Start: 10/26/18 14:11 Freq: Status: Active Protocol: Document 10/26/18 14:12 [email or web address] (Rec: 10/26/18 15:33 [email or web address] [id number]) Electronically Signed By Robb Sargent PT 10/26/18 14:12 Outpatient Therapy Subjective History Subjective History This is the initial physical therapy evaluation for Steven Bautista. Pt is an 82 y/o male referred to PT for c/o LBP. Pt reports pain began insidiously ~ 3 weeks ago. Pt reprots he feels pain when he has to rock himself to get out of his recliner or his bed . Pt reports on most sit/st transfers he has pain in low back and paraspinal areas but no radiculopathy. Pt reports standing and walking increase pain. Chief Complaint Pain,Stiff Symptom Type Ache,Throb,Dull Symptoms Relieved By Rest/Positioning,OTC Meds Symptoms Aggravated By Standing,Physical Activity, Lifting Prior Functional Limitations None Current Functional Limitations Lifting,Housework,Standing, Recreation Activity,Walking Symptom Description Intermittent Level of pain today (0-10) 0 Pain scale - at its best (0-10) 0 Pain scale - at its worst (0-10) 7 Lumbopelvic Eval Posture Thoracic Spine Posture Standing Position Increased Kyphosis Lumbar Spine Posture Standing Position Decreased Lordosis,Flexed Assistive device Assistive Devices Straight Cane Gait Observation General Gait Pattern Observation Ataxic Gait,Shuffling Step Palapation tenderness bilateral thoracic spinal tenderness Yes lumbar spinal tenderness Yes paraspinal tenderness Yes buttock tenderness No Lumbar/Sacral Palpation Findings Tenderness Range of Motion Lumbar Spine Active Flexion Range of WFL Motion (degrees) Lumbar Spine Active Extension Range of -5 deg from neutral Motion (degrees) Left Lumbar Spine Lateral Flexion Active 10 Range of Motion (degrees) Right Lumbar Spine Lateral Flexion 10 Active Range of Motion (degrees) Lumbar Spine ROM Limitations Soft Tissue Tightness,Bony Restriction Special Tests Lumbar Spine Screen Positive Forward Bending Test- Standing Negative Left,Negative Right Forward Bending Test- Sitting Negative Left,Negative Right Sciatic Nerve Tension Test Negative Left,N
== END 2018-11-16 16:05 | disposition home or self-care (01) ==
LOC: PT 16:00
PROVIDERS: Visit Provider Family Medicine
DX: M54.5 Low back pain (principal)
CPT/HCPCS: 97110; 97163

== ENCOUNTER → 2018-11-29 13:50 | Outpatient (CLI) | payer MEDICARE, MEDICAID, SELFPAY ==
[2018-11-29 14:47] LABS: Basophils # 0.1 K/mm3 (0-0.2); Basophils % 0.9 % (0.1-2.0); Eosinophils # 0.3 K/mm3 (0.0-0.4); Eosinophils % 3.4 % (0.1-12.0); Hematocrit 49.5 % (42.0-52.0); Hemoglobin 15.3 g/dL (14.1-18.0); Lymphocytes # 1.7 K/mm3 (0.7-4.5); Lymphocytes % 18.9 % (10-50); Mean Corpuscular HGB Conc 30.9 g/dL (31.8-35.4); Mean Corpuscular Hemoglobin 29.9 pg (27.0-31.2); Mean Corpuscular Volume 96.5 fl (80-94); Mean Platelet Volume 6.9 fl (7.4-10.4); Monocytes # 0.6 K/mm3 (0.1-1.0); Monocytes % 6.6 % (1.7-9.3); Neutrophils # 6.4 K/mm3 (1.8-7.8); Neutrophils % 70.2 % (37.0-80.0); Platelet Count 239 K/mm3 (142-424); Red Blood Count 5.14 M/mm3 (4.60-6.20); Red Cell Distribution Width 13.7 % (11.5-17.5); White Blood Count 9.2 K/mm3 (4.8-10.8)
[2018-11-29 16:49] LABS: Alanine Aminotransferase 13 U/L (12-78); Albumin Level 3.3 gm/dL (3.4-5.0); Albumin/Globulin Ratio 0.9 (1.1-1.8); Alkaline Phosphatase 67 U/L (46-116); Anion Gap 12.5 mEq/L (5-15); Aspartate Amino Transferase 14 U/L (15-37); Bilirubin,Total 0.6 mg/dL (0.2-1.0); Blood Urea Nitrogen 23 mg/dL (7-18); Calcium 9.4 mg/dL (8.5-10.1); Carbon Dioxide 29 mmol/L (21.0-32.0); Chloride 103 mmol/L (98-107); Creatinine,Serum 1.69 mg/dL (0.70-1.30); Estimated Glomerular Filt Rate 39 ml/min (>60); GFR (African American) 47 ML/MIN (>60); Globulin 3.6 gm/dl (1.3-3.2); Glucose 281 mg/dL (74-106); Potassium 4.5 mmoL/L (3.5-5.1); Sodium 140 mmol/L (136-145); Total Protein,Serum 6.9 gm/dL (6.4-8.2)
[2018-11-29 16:55] LABS: C-Reactive Protein < 0.2 mg/L (0.0-0.9)
[2018-11-29 18:40] LABS: Erythrocyte Sedimentation Rate 4 mm/hr (0-20)
== END ==
PROVIDERS: Visit Provider Podiatrist
DX: E11.621 Type 2 diabetes mellitus with foot ulcer (principal); L97.509 Non-pressure chronic ulcer of other part of unspecified foot with unspecified severity; Z79.4 Long term (current) use of insulin
CPT/HCPCS: 36415; 80053; 85025; 85651; 86140

== ENCOUNTER 2018-12-14 15:00 | Outpatient (RCR) | payer MEDICARE, MEDICAID, SELFPAY ==
--- NOTE | 2018-05-04 18:09 | HMH.PTOPWND ---
Rehab Outpt Wound Evaluation Rehab OP Wound Evaluation Start: 05/04/18 17:59 Freq: Status: Active Protocol: Document 05/04/18 17:59 [email or web address] (Rec: 05/04/18 18:09 [email or web address] [id number]) Electronically Signed By Robb Sargent PT 05/04/18 17:59 Subjective/History History History This is the initial OP PT wound clinic evaluation for Steven Bautista. Pt is an 82 y/o male referred to PT for wound care Subjective Subjective no complaints from pt Wound Eval Wound Left Heel Wound Type Diabetic Foot Ulcer Wound Length (cm) 5.0 Wound Width (cm) 4.0 Wound Bed Appearance Beefy Red Eschar Necrotic Percentage Granulated (%) 80 Percentage of Eschar (Black) (%) 20 Wound Margins Description Macerated Drainage Description Serosanguineous Drainage Amount Small Primary Dressing Silver Dressing Comment tegederm ag mesh Wound Debridement Method Sharps Wound Debridement Result Stopped Due to Bleeding Necrotic Tissue Remains Dressing Change Date 05/04/18 Dressing Change Patient Tolerance Tolerated Well Right Lateral Toe - 5th Digit Wound Type Diabetic Foot Ulcer Wound Length (cm) 1.3 Wound Width (cm) 1.3 Wound Bed Appearance Beefy Red Yellow Percentage Granulated (%) 25 Percentage of Slough (%) 75 Percentage of Eschar (Yellow) (%) 75 Wound Margins Description Well Defined Drainage Description Serous Drainage Amount Scant Drainage Odor No Odor Dressing Status Dry & Intact Wound Topical Solution/Irrigant Antibiotic Irrigant Primary Dressing Silver Dressing Comment tegederm AG mesh Wound Debridement Method Sharps Wound Debridement Amount of Tissue Minimal Removed Wound Debridement Result Stopped Due to Bleeding Dressing Change Date 05/04/18 Dressing Change Patient Tolerance Tolerated Well Right Great Toe Wound Type Diabetic Foot Ulcer Wound Length (cm) 1.0 Wound Width (cm) 0.7 Wound Bed Appearance Beefy Red Percentage Granulated (%) 100 Wound Margins Description Well Defined Drainage Description Sanguineous Drainage Amount Scant Drainage Odor No Odor Dressing
== END 2018-12-14 15:35 | disposition home or self-care (01) ==
LOC: PT 15:00
PROVIDERS: Visit Provider Podiatrist
DX: E11.621 Type 2 diabetes mellitus with foot ulcer (principal); L97.519 Non-pressure chronic ulcer of other part of right foot with unspecified severity
CPT/HCPCS: 97162; 97164; 97597; 97598

== ENCOUNTER → 2019-05-12 14:52 | Outpatient (CLI) | payer MEDICARE, MEDICAID, SELFPAY ==
--- NOTE | 2019-05-12 14:58 | XR_ITS ---
PROCEDURE: XR ACUTE ABDOMEN SERIES CLINICAL INDICATION: ABD PAIN Right-sided pain COMPARISON: No exams were available for comparison FINDINGS: Frontal view of the chest shows prior CABG with bipolar pacemaker. Lungs are clear. No evidence of CHF. Upright and supine views of the abdomen show a nonspecific nonobstructive bowel gas pattern. There are degenerative changes of the lumbar spine. Bilateral gamma nails are present within the hips IMPRESSION: No acute findings. Dictated by: Cornelio Younger MD 05/12/2019 17:04 Electronically signed by Cornelio Younger MD in [place] 05/12/2019 17:04
== END ==
PROVIDERS: PCP Family Medicine; Visit Provider Family Medicine
DX: R10.84 Generalized abdominal pain (principal)
CPT/HCPCS: 74021

== ENCOUNTER → 2019-05-15 15:29 | Outpatient (CLI) | payer MEDICARE, MEDICAID, SELFPAY ==
--- NOTE | 2019-05-15 15:35 | XR_ITS ---
PROCEDURE: XR FOOT WT BEARING RT 3V CLINICAL INDICATION: foot pain Diabetic ulcers COMPARISON: [id number] XR foot wt bearing RT 3V from 03/30/2018 [id number] XR foot wt bearing LT 3V from 03/30/2018 FINDINGS: There is diffuse osteopenia with flexion deformity of the toes. Prominent spurring is present along the proximal and lateral aspect of the proximal phalanx of the great toe. No bony destructive process evident that would indicate acute osteomyelitis. IMPRESSION: Chronic changes, no acute finding Dictated by: Cornelio Younger MD 05/15/2019 16:07 Electronically signed by Cornelio Younger MD in [place] 05/15/2019 16:07
[2019-05-15 16:27] LABS: Basophils # 0.1 K/mm3 (0-0.2); Basophils % 0.7 % (0.1-2.0); Eosinophils # 0.2 K/mm3 (0.0-0.4); Eosinophils % 2.4 % (0.1-12.0); Hematocrit 52.4 % (42.0-52.0); Lymphocytes # 1.9 K/mm3 (0.7-4.5); Lymphocytes % 21.4 % (10-50); Mean Corpuscular HGB Conc 30.5 g/dL (31.8-35.4); Mean Corpuscular Hemoglobin 30.6 pg (27.0-31.2); Mean Corpuscular Volume 100.3 fl (80-94); Mean Platelet Volume 7.2 fl (7.4-10.4); Monocytes # 0.6 K/mm3 (0.1-1.0); Monocytes % 6.4 % (1.7-9.3); Neutrophils # 6.3 K/mm3 (1.8-7.8); Neutrophils % 69.2 % (37.0-80.0); Platelet Count 241 K/mm3 (142-424); Red Blood Count 5.22 M/mm3 (4.60-6.20); Red Cell Distribution Width 13.3 % (11.5-17.5); White Blood Count 9.1 K/mm3 (4.8-10.8)
[2019-05-15 17:56] LABS: Hemoglobin A1C 8.3 % (0.0-7.0)
[2019-05-15 19:25] LABS: Alanine Aminotransferase 14 U/L (12-78); Albumin Level 3.5 gm/dL (3.4-5.0); Alkaline Phosphatase 77 U/L (46-116); Anion Gap 14.2 mEq/L (5-15); Aspartate Amino Transferase 17 U/L (15-37); Bilirubin,Total 0.3 mg/dL (0.2-1.0); Blood Urea Nitrogen 21 mg/dL (7-18); Calcium 9.4 mg/dL (8.5-10.1); Carbon Dioxide 28 mmol/L (21.0-32.0); Chloride 103 mmol/L (98-107); Creatinine,Serum 1.31 mg/dL (0.70-1.30); Estimated Glomerular Filt Rate 52 ml/min (>60); GFR (African American) 63 ML/MIN (>60); Globulin 3.4 gm/dl (1.3-3.2); Glucose 207 mg/dL (74-106); Potassium 4.2 mmoL/L (3.5-5.1); Sodium 141 mmol/L (136-145); Total Protein,Serum 6.9 gm/dL (6.4-8.2)
[2019-05-15 19:34] LABS: C-Reactive Protein < 0.2 mg/dL (0.0-0.9)
[2019-05-15 19:45] LABS: Erythrocyte Sedimentation Rate 6 mm/hr (0-20)
[2019-05-17 11:05] LABS: Vitamin D 25 Hydroxy 28.7 ng/mL (30.0-100.0)
== END ==
PROVIDERS: PCP Family Medicine; Visit Provider Podiatrist
DX: L84 Corns and callosities (principal); R53.83 Other fatigue; D72.829 Elevated white blood cell count, unspecified; E11.621 Type 2 diabetes mellitus with foot ulcer; Z79.4 Long term (current) use of insulin; R79.89 Other specified abnormal findings of blood chemistry; L97.519 Non-pressure chronic ulcer of other part of right foot with unspecified severity; E55.9 Vitamin D deficiency, unspecified
CPT/HCPCS: 36415; 73630; 80053; 82652; 83036; 85025; 85651; 86140; 87070; 87077; 87186; 87205

== ENCOUNTER → 2019-05-19 08:34 | Outpatient (CLI) | payer MEDICARE, MEDICAID, SELFPAY ==
--- NOTE | 2019-05-19 08:36 | US_ITS ---
APPROVED REPORT Exam Type: Lower Extremity Segmental Pressures Emergency Manager: Alicja Barragan RVT Indications Non-healing Ulcer: Bilaterally CAD Risk Factors Hypertension CAD Hyperlipidemia TIA/CVA History Diabetes Pressures/Indices Right Indices Left Indices Brachial 126.00 mmHg Brachial 126.00 mmHg Low Thigh 174.00 mmHg 1.38 Low Thigh 181.00 mmHg 1.44 Calf 158.00 mmHg 1.25 Calf 97.00 mmHg 0.77 Ankle(PT) 149.00 mmHg 1.18 Ankle(PT) 72.00 mmHg 0.57 Ankle(DP) 141.00 mmHg 1.12 Ankle(DP) 72.00 mmHg 0.57 Digit 125.00 mmHg 0.99 Digit 123.00 mmHg 0.98 Findings RT PIPO:1.18 LT PIPO:0.57 LT TBI:0.99 LT TBI:0.98 WAVEFORM DECREASED AT LEFT ANKLE OTHER LEVELS ARE NORMAL PULSES NORMAL BILATERAL Conclusion Low left PIPO with depressed waveform suggesting moderate PAD on the left Electronically signed by : Cornelio Younger MD 05/19/2019 15:52:09
== END ==
PROVIDERS: PCP Family Medicine; Visit Provider Podiatrist
DX: I73.9 Peripheral vascular disease, unspecified (principal)
CPT/HCPCS: 93923

== ENCOUNTER → 2019-05-25 10:41 | Outpatient (CLI) | payer MEDICARE, MEDICAID, SELFPAY ==
--- NOTE | 2019-05-25 10:45 | XR_ITS ---
PROCEDURE: XR CERVICAL SPINE 5V CLINICAL INDICATION: neck pain and atypical chest pain COMPARISON: No exams were available for comparison FINDINGS: The C-spine is only visualized to the C5 level on the lateral view. Multilevel degenerative disc disease is present from C1 to C7. There is foraminal narrowing on the right at C3-C4, C4-C5 and C5-C6. And on the left at C3-C4 C4-C5 and C5-C6. no obvious fracture or dislocation is evident. There is minimal calcification in the right carotid artery. IMPRESSION: Multilevel cervical spondylosis as described above. The lower cervical spine is not well visualized on the lateral view and may be better evaluated with CT or MRI if clinically desired Dictated by: Cornelio Younger MD 05/25/2019 16:57 Electronically signed by Cornelio Younger MD in [place] 05/25/2019 16:57
== END ==
PROVIDERS: PCP Family Medicine; Visit Provider Internal Medicine Cardiovascular Disease
DX: M54.2 Cervicalgia (principal)
CPT/HCPCS: 72050

== ENCOUNTER → 2019-06-02 05:58 | Outpatient (CLI) | payer MEDICARE, MEDICAID, SELFPAY ==
--- NOTE | 2019-06-02 06:14 | CA_ITS ---
APPROVED REPORT Exam: Pharmacologic Technologist: Paty Cho, Ht: 5 ft 0 in Wt: 227 lbs BSA: 1.97 m2 HR: 66 bpm BP: 145/69 mmHg Rhythm: PACED Indications: Chest pain / SOA Medical History Medical History: Diabetes, HTN Medications: Gabapentin,,,,, Citalopram,,,,, INSULIN,,,,, Montelukast,,,,, Famotidine,,,,, FeNOfibrate,,,,, DicyCLOMINE,,,,, MeMANTINE,,,,, DOxycycline,,,,, LevothROXINE,,,,, RIvaROXABAN,,,,, LiNAGLIPTIN,,,,, Allergies: CODEINE,PCN Cardiac Risk Factors: HTN, Diabetes (non-insulin), FHX of CAD Stress Test Details Test: LEXISCAN HR Resting HR: 62 bpm Max Heart Rate (APMHR): 137 bpm Max HR Achieved: 75 bpm Target HR (85% APMHR): 116 bpm % of APMHR: 54 Recovery HR: 72 bpm BP Resting BP: 145.0/69.0 mmHg Max BP: 145.0/69.0 mmHg Recovery BP: 122.0/55.0 mmHg ECG Resting ECG: PACED Clinical Exercise duration: 5.5 min Highest Stage Achieved: Exercise capacity: 1.0 METs Stress ECG Conclusion LEXICAN PORTION COMPLETED. PATIENT DENIED ANY C/O DURING PEAK INFUSION. NO CHEST PAIN,SOA OR NAUSEA/VOMITING. NO ECTOPY NOTED. GREATER THAN 1.[address] DEPRESSION NOTED. IMAGES TO FOLLOW. Test Summary REST 06:41 . . 62 . 145/ 69 . . Stage 1 01:00 . . 71 . . . . Stage 2 01:00 . . 74 . 101/ 44 . . Stage 3 01:00 . . 74 . 116/ 51 . . Stage 4 01:00 . . 72 . 116/ 52 . . Stage 4 01:01 . . 72 . 116/ 52 . Stop exercise at 04:01 RECOVERY 01:00 . . 73 . 111/ 55 . . RECOVERY 02:00 . . 72 . 122/ 55 . . RECOVERY 03:00 . . 71 . 128/ 58 . . RECOVERY 04:00 . . 71 . 127/ 63 . . RECOVERY 04:06 . . 70 . 127/ 63 . . Electronically signed by : Mika Ruiz, 06/02/2019 13:33:51
--- NOTE | 2019-06-02 06:14 | NM_ITS ---
APPROVED REPORT Exam: Nuclear Stress Test Indication: CAD, CABG X 5, HTN, D.M., HYPERLIPIDEMIA, FM. HX, C.P., SOB, FATIGUE Patient Location: Outpatient Stress Tech: Jessica Chatterjeenkson [place] Tech:Soco Saavedra, ARRT RT(R)(N) Ht: 6 ft 0 in Wt: 227 lbs HR: 66 bpm BP: 145/69 mmHg BSA: 2.25 m2 History: CAD, CABG X 5, HTN, D.M., HYPERLIPIDEMIA, FM. HX, C.P., SOB, FATIGUE Procedure: Patient received a 0.4 mg of intravenous Lexiscan, resting heart rate 66 bpm, resting blood pressure 145/69 mmHg, with Lexiscan maximum heart rate achived was 73 bpm which is Less than 85 % of the maximum predicted heart rate and blood pressure was 116/52 mmHg. Electrocardiogram Resting electrocardiogram showed electronically paced rhythm. With Lexiscan less than 1.[address] segment depression noted from the baseline EKG. The EKG portion of the Lexiscan Myoview is nondiagnostic. Cardiac Stress and Resting SPECT Images: Cardiac Stress and Resting SPECT images were obtained using technetium 99m Myoview 31.5 mCi stress and 10.67 mCi at rest. Gated SPECT with analysis of segmental wall motion and calculation of the ejection fraction also done. Cardiac stress and resting SPECT images show fixed defect involving the inferior, inferior apical and anteroseptal wall with normal contractility gated SPECT is likely secondary to soft tissue attenuation, no reversible ischemia seen. Computer derived ejection fraction is 64% with no regional wall motion abnormality, right ventricle is normal size and contractility. Conclusion: 1. The EKG portion of the Lexiscan Myoview is nondiagnostic. 2. Scintigraphic evidence of fixed defect involving the inferior, inferior apical and anteroseptal wall is likely secondary to soft tissue attenuation, computer derived ejection fraction is 64% with no regional wall motion abnormality, right ventricle is normal size and contractility. 3. Likely normal Lexiscan Myoview study. Electronically signed by : Mika Ruiz, 06/02/2019 13:37:34
== END ==
PROVIDERS: PCP Family Medicine; Visit Provider Internal Medicine Cardiovascular Disease
DX: E78.2 Mixed hyperlipidemia (principal); I10 Essential (primary) hypertension; I25.10 Atherosclerotic heart disease of native coronary artery without angina pectoris; I73.9 Peripheral vascular disease, unspecified; R07.89 Other chest pain; Z95.0 Presence of cardiac pacemaker; Z95.1 Presence of aortocoronary bypass graft
CPT/HCPCS: 78452; 93017; A9502; J2785

== ENCOUNTER → 2019-06-12 11:32 | Outpatient (CLI) | payer MEDICARE, MEDICAID, SELFPAY ==
--- NOTE | 2019-06-12 11:39 | XR_ITS ---
PROCEDURE: XR CHEST 2V CLINICAL HISTORY: HTN Atypical chest pain COMPARISON: CXR1 CHEST-PORTABLE from 03/03/2016 CXR1VP XR chest portable from 04/21/2018 XR CHEST PORTABLE from 04/22/2019 XR CHEST 2V from 04/22/2019 FINDINGS: Mild cardiomegaly. Prior CABG. Bipolar pacemaker is present. No CHF., no lobar consolidation or collapse. There is kyphosis of the thoracic spine with ankylosis of the thoracic spine and mild wedging of a mid dorsal vertebral bodies unchanged. IMPRESSION: No change with no acute finding Dictated by: Cornelio Younger MD 06/12/2019 13:42 Electronically signed by Cornelio Younger MD in [place] 06/12/2019 13:42
== END ==
PROVIDERS: PCP Family Medicine; Visit Provider Podiatrist
DX: Z01.818 Encounter for other preprocedural examination (principal); E11.621 Type 2 diabetes mellitus with foot ulcer; L97.321 Non-pressure chronic ulcer of left ankle limited to breakdown of skin; Z79.4 Long term (current) use of insulin
CPT/HCPCS: 71046

== ENCOUNTER → 2019-06-16 12:58 | Outpatient (CLI) | payer MEDICARE, MEDICAID, SELFPAY ==
--- NOTE | 2019-06-16 12:58 | CT_ITS ---
PROCEDURE: CT CERVICAL SPINE WO CON CLINICAL INDICATION: abnormal C-spine x-ray Neck pain, cervical spondylosis, incomplete imaging on the C-spine COMPARISON: CSWO CT CERVICAL SPINE W/O CONT from 11/06/2015 XR CERVICAL SPINE 5V from 05/25/2019 TECHNIQUE: Axial images obtained with sagittal and coronal reformats. All CT scans at the facility use one or more dose reduction, viz: automated exposure control, ma/kV adjustment per patient size (including targeted exams where dose is matched to indication, i.e. head), or iterative reconstruction technique. Axial spiral CT scanning performed of the cervical spine beginning at the base of the skull and continuing to the upper T-spine. 3-D multiplanar reconstruction with 3-D manipulation of volumetric data set in image rendering was completed by the radiologist and/or technologist with the supervision of the radiologist on independent workstation. FINDINGS: There is normal alignment. No fracture or dislocation. No lytic or blastic change. There is multilevel cervical spondylosis. C2-C3: Degenerative disc disease with mild left-sided foraminal narrowing from uncovertebral hypertrophy. C3-C4: Degenerate disc disease with bulging disc and endplate hypertrophic change. There is canal stenosis at 9 mm with bilateral foraminal narrowing. C4-C5: Degenerative disc disease. There is prominent posterior endplate osteophytes/calcified posterior longitudinal ligament causing severe canal stenosis of 6 mm unchanged with bilateral foraminal narrowing. C5-C6: Degenerate disc disease. C6-C7: Degenerate disc disease. C7-T1: Degenerate disc disease with posterior endplate hypertrophic change. The lung apices are clear. IMPRESSION: Multilevel cervical spondylosis as detailed above. There is canal stenosis at C3-C4 and to a greater degree at C4-C5. This does not appear significantly changed. Dictated by: Cornelio Younger MD 06/19/2019 08:25 Electronically signed by Cornelio Younger MD in [place] 06/19/2019 08:25
== END ==
PROVIDERS: PCP Family Medicine; Visit Provider Internal Medicine Cardiovascular Disease
DX: R93.7 Abnormal findings on diagnostic imaging of other parts of musculoskeletal system (principal); M54.2 Cervicalgia
CPT/HCPCS: 72125

== ENCOUNTER → 2019-06-21 09:37 | Outpatient (CLI) | payer MEDICARE, MEDICAID, SELFPAY ==
--- NOTE | 2019-06-21 09:44 | XR_ITS ---
PROCEDURE: XR CHEST 2V CLINICAL HISTORY: HTN Hypertension COMPARISON: XR CHEST PORTABLE from 04/22/2019 XR CHEST 2V from 04/22/2019 XR CHEST 2V from 06/12/2019 FINDINGS: Borderline cardiomegaly. Prior CABG with bipolar pacemaker present. No evidence of CHF. The lungs are clear without infiltrates, suspicious nodules, or pleural effusions. Mild kyphosis IMPRESSION: No change with no acute finding Dictated by: Cornelio Younger MD 06/21/2019 15:49 Electronically signed by Cornelio Younger MD in [place] 06/21/2019 15:49
--- NOTE | 2019-06-21 09:45 | XR_ITS ---
PROCEDURE: XR FOOT RT MIN 3V CLINICAL INDICATION: RT 5TH MET CHRONIC DM ULCER COMPARISON: [id number] XR foot wt bearing RT 3V from 03/30/2018 [id number] XR foot wt bearing LT 3V from 03/30/2018 XR FOOT WT BEARING RT 3V from 05/15/2019 FINDINGS: No fracture or dislocation. No lytic or blastic change. There is normal mineralization. There is diffuse osteopenia with mild osteoarthritic changes at the 1st metatarsophalangeal joint. Artifact is present from a bandage along the lateral aspect of the 5th metatarsophalangeal junction. No obvious bony erosive change. There are degenerative changes in the foot. Other findings:None. IMPRESSION: Diffuse osteopenia with osteoarthritic change Dictated by: Cornelio Younger MD 06/21/2019 15:46 Electronically signed by Cornelio Younger MD in [place] 06/21/2019 15:46
[2019-06-21 11:30] LABS: Basophils # 0.1 K/mm3 (0-0.2); Basophils % 0.7 % (0.1-2.0); Eosinophils # 0.1 K/mm3 (0.0-0.4); Eosinophils % 1.9 % (0.1-12.0); Hematocrit 47.3 % (42.0-52.0); Hemoglobin 14.8 g/dL (14.1-18.0); Lymphocytes # 1.2 K/mm3 (0.7-4.5); Lymphocytes % 15.9 % (10-50); Mean Corpuscular HGB Conc 31.2 g/dL (31.8-35.4); Mean Corpuscular Hemoglobin 30.9 pg (27.0-31.2); Mean Platelet Volume 7.8 fl (7.4-10.4); Monocytes # 0.4 K/mm3 (0.1-1.0); Neutrophils # 5.7 K/mm3 (1.8-7.8); Neutrophils % 76.4 % (37.0-80.0); Platelet Count 186 K/mm3 (142-424); Red Blood Count 4.78 M/mm3 (4.60-6.20); Red Cell Distribution Width 13.8 % (11.5-17.5); White Blood Count 7.5 K/mm3 (4.8-10.8)
[2019-06-21 12:29] LABS: Erythrocyte Sedimentation Rate 15 mm/hr (0-20)
[2019-06-21 12:46] LABS: Anion Gap 11.5 mEq/L (5-15); Blood Urea Nitrogen 22 mg/dL (7-18); C-Reactive Protein 0.4 mg/dL (0.0-0.9); Carbon Dioxide 30 mmol/L (21.0-32.0); Chloride 105 mmol/L (98-107); Creatinine,Serum 1.44 mg/dL (0.70-1.30); Estimated Glomerular Filt Rate 47 ml/min (>60); GFR (African American) 57 ML/MIN (>60); Glucose 247 mg/dL (74-106); Potassium 4.5 mmoL/L (3.5-5.1); Sodium 142 mmol/L (137-145)
== END ==
PROVIDERS: PCP Family Medicine; Visit Provider Podiatrist
DX: Z01.818 Encounter for other preprocedural examination (principal); E11.621 Type 2 diabetes mellitus with foot ulcer; L97.501 Non-pressure chronic ulcer of other part of unspecified foot limited to breakdown of skin; Z79.4 Long term (current) use of insulin
CPT/HCPCS: 36415; 71046; 73630; 80048; 85025; 85651; 86140

== ENCOUNTER → 2019-07-13 11:31 | Outpatient (CLI) | payer MEDICARE, MEDICAID, SELFPAY ==
[2019-07-13 13:27] LABS: Chloride 102 mmol/L (98-107); Potassium 4.4 mmoL/L (3.5-5.1); Sodium 139 mmol/L (136-145)
[2019-07-13 13:29] LABS: Alanine Aminotransferase 6 U/L (12-78); Aspartate Amino Transferase 26 U/L (17-59); Bilirubin,Unconjugated 0.5 mg/dL (0.0-1.1); Blood Urea Nitrogen 27 mg/dl (9-20); Estimated Glomerular Filt Rate 48 ml/min (>60); GFR (African American) 59 ML/MIN (>60)
[2019-07-13 13:30] LABS: Albumin Level 3.9 g/dl (3.5-5.0); Alkaline Phosphatase 67 U/L (38-126); Anion Gap 14.4 mEq/L (5-15); Bilirubin,Indirect 0.6 mg/dL (0.0-0.9); Bilirubin,Total 0.6 mg/dl (0.2-1.3); Carbon Dioxide 27 mmol/L (22.0-30.0)
[2019-07-13 13:36] LABS: Calcium 9.5 mg/dl (8.4-10.2)
[2019-07-13 13:41] LABS: NT Pro Brain Natriuretic Pep. 643 pg/mL (0-450)
[2019-07-13 13:48] LABS: Triiodothryronine (T3) Uptake 33 % (23.5-40.5)
[2019-07-13 13:49] LABS: Free Thyroxine Index 3.1 ug/dL (5.93-13.13); T4 (Thyroxine) 9.5 ug/dl (5.53-11.0)
[2019-07-13 14:03] LABS: Thyroid Stimulating Hormone 4.27 uIU/mL (0.465-4.68)
[2019-07-13 15:47] LABS: Glucose 245 mg/dl (74-100)
== END ==
PROVIDERS: Visit Provider Internal Medicine Cardiovascular Disease
DX: E78.2 Mixed hyperlipidemia (principal); I10 Essential (primary) hypertension; I25.10 Atherosclerotic heart disease of native coronary artery without angina pectoris; I48.91 Unspecified atrial fibrillation; I73.9 Peripheral vascular disease, unspecified; R07.89 Other chest pain; Z72.0 Tobacco use; Z95.0 Presence of cardiac pacemaker; Z95.1 Presence of aortocoronary bypass graft; E11.621 Type 2 diabetes mellitus with foot ulcer; E66.9 Obesity, unspecified; E78.5 Hyperlipidemia, unspecified; L97.509 Non-pressure chronic ulcer of other part of unspecified foot with unspecified severity; Z79.4 Long term (current) use of insulin; R06.00 Dyspnea, unspecified; R60.9 Edema, unspecified
CPT/HCPCS: 36415; 80048; 80076; 83880; 84436; 84443; 84479

== ENCOUNTER → 2019-07-18 13:00 | Outpatient (CLI) | payer MEDICARE, MEDICAID, SELFPAY ==
[2019-07-18 14:23] LABS: Anion Gap 15.8 mEq/L (5-15); Blood Urea Nitrogen 28 mg/dl (9-20); Calcium 9.9 mg/dl (8.4-10.2); Carbon Dioxide 33 mmol/L (22.0-30.0); Chloride 99 mmol/L (98-107); Estimated Glomerular Filt Rate 53 ml/min (>60); GFR (African American) 64 ML/MIN (>60); Glucose 317 mg/dl (74-100); Potassium 4.8 mmoL/L (3.5-5.1); Sodium 143 mmol/L (136-145)
[2019-07-18 14:29] LABS: NT Pro Brain Natriuretic Pep. 692 pg/mL (0-450)
== END ==
PROVIDERS: Nurse Practitioner Family; Visit Provider Internal Medicine Cardiovascular Disease
DX: E11.40 Type 2 diabetes mellitus with diabetic neuropathy, unspecified (principal); E11.621 Type 2 diabetes mellitus with foot ulcer; E66.9 Obesity, unspecified; E78.5 Hyperlipidemia, unspecified; G89.18 Other acute postprocedural pain; I10 Essential (primary) hypertension; I25.10 Atherosclerotic heart disease of native coronary artery without angina pectoris; I48.91 Unspecified atrial fibrillation; I73.9 Peripheral vascular disease, unspecified; L97.519 Non-pressure chronic ulcer of other part of right foot with unspecified severity; M21.6X1 Other acquired deformities of right foot; M21.6X2 Other acquired deformities of left foot; M79.671 Pain in right foot; M79.672 Pain in left foot; R06.00 Dyspnea, unspecified; R60.9 Edema, unspecified; Z72.0 Tobacco use; Z95.0 Presence of cardiac pacemaker; Z95.1 Presence of aortocoronary bypass graft; Z98.890 Other specified postprocedural states; Z79.4 Long term (current) use of insulin
CPT/HCPCS: 36415; 80048; 83880

== ENCOUNTER → 2019-07-27 14:29 | Outpatient (CLI) | payer MEDICARE, MEDICAID, SELFPAY ==
--- NOTE | 2019-07-27 14:37 | XR_ITS ---
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 The 5th toe remains in place . Flexion deformity involves 1st through 4th toes with mild degenerative changes in the navicular cuneiform region. Prominent Achilles enthesophyte is noted and there is a small calcaneal spur Other findings:None. IMPRESSION: A postsurgical and degenerative changes as described above Dictated by: Cornelio Younger MD 07/27/2019 17:01 Electronically signed by Cornelio Younger MD in [place] 07/27/2019 17:01
[2019-07-27 15:07] LABS: Hemoglobin A1C 6.9 % (4.0-6.0)
[2019-07-27 15:50] LABS: Basophils # 0.1 K/mm3 (0-0.2); Eosinophils # 0.5 K/mm3 (0.0-0.4); Eosinophils % 4.8 % (0.1-12.0); Hematocrit 48.1 % (42.0-52.0); Hemoglobin 15.7 g/dL (14.1-18.0); Lymphocytes # 2.2 K/mm3 (0.7-4.5); Lymphocytes % 20.7 % (10-50); Mean Corpuscular HGB Conc 32.6 g/dL (31.8-35.4); Mean Corpuscular Hemoglobin 31.4 pg (27.0-31.2); Mean Corpuscular Volume 96.3 fl (80-94); Mean Platelet Volume 7.7 fl (7.4-10.4); Monocytes # 0.7 K/mm3 (0.1-1.0); Monocytes % 6.5 % (1.7-9.3); Platelet Count 265 K/mm3 (142-424); Red Cell Distribution Width 14.2 % (11.5-17.5); White Blood Count 10.5 K/mm3 (4.8-10.8)
[2019-07-27 17:00] LABS: Erythrocyte Sedimentation Rate 37 mm/hr (0-20)
[2019-07-27 18:32] LABS: C-Reactive Protein 1.4 mg/L (0-4)
== END ==
PROVIDERS: Visit Provider Podiatrist
DX: E11.40 Type 2 diabetes mellitus with diabetic neuropathy, unspecified (principal); Z98.890 Other specified postprocedural states; E11.621 Type 2 diabetes mellitus with foot ulcer; L97.519 Non-pressure chronic ulcer of other part of right foot with unspecified severity; L97.521 Non-pressure chronic ulcer of other part of left foot limited to breakdown of skin; Z79.4 Long term (current) use of insulin
CPT/HCPCS: 36415; 73630; 83036; 85025; 85651; 86140

== ENCOUNTER 2019-08-03 12:23 | Day surgery (SDC) | payer MEDICARE, MEDICAID, SELFPAY ==
[2019-08-03 12:31] VITALS: BMI 32.0
[2019-08-03 13:29] VITALS: TEMP 37.2; O2SAT 97
[2019-08-03 13:30] VITALS: BP 89/56; PULSE 60; RESP 18; TEMP 36.7; O2SAT 98
[2019-08-03 13:34] VITALS: BP 89/56; BP 90/56; PULSE 60; RESP 18; RESP 20; TEMP 36.4; O2SAT 97; O2SAT 98
[2019-08-03 13:57] LABS: POC Glucose,Bedside 86 (70-110)
[2019-08-03 14:00] VITALS: BP 95/64; PULSE 60; RESP 16; TEMP 36.8; O2SAT 94
--- NOTE | 2019-08-03 14:09 | P.PN_ITS ---
[facility] Anesthesia Checklist - Patient Identification Patient Identification: Arm Band, Verbal (Name & ) - Structural Data Admitted From: Home Planned Operative Procedure/s: Cardioversion Consent for Planned Operative Procedure(s) Verified: Yes Verified Documents: Surgical Consent, History and Physical - NPO Status Verified Time NPO: 00:00 - Chart Verification Results Verified: CBC, BMP - Additional verifications Anesthesia Reactions: No Hx Blood Transfusions: No Blood Transfusion Reaction: No - Airway Assessment C-Spine Mobility Assessed: Yes TMJ Mobility Assessed: Yes Dentition: Poor Dentition - Neurological Assessment Level of Consciousness: Awake, Alert, Appropriate, Follows Commands Hx Seizures: No Numbness or tingling in extremities: Yes - Anesthesia Plan Anesthesia Risk discussed: Yes Anesthesia Plan: Verified ASA Class: III Anesthesia Type: MAC [facility] History I have reviewed the patient's past medical history: Yes Medical History: Reports:: Arrhythmia, Atrial Fibrillation, Coronary Artery Disease, Dementia, Depression, Diabetes Mellitus Type 2, Gastroesophageal Reflux Disease(GERD), Hyperlipidemia, Hypertension, Internal Pacemaker, Peripheral Artery Disease Denies:: Asthma, Cancer, Chronic Obstructive Pulmonary Disease (COPD), Diabetes Mellitus Type 1, MRSA, Seizures, Transient Ischemic Attacks (TIA) *Have you ever received a pneumonia vaccine?: Yes *Have you received a flu vaccine this season?: Yes Other Medical History: Reports: Arthritis, Hypothyroidism. Denies: Blood Transfusion Reaction Comment:: VELMA Anesthesia experience/problems:: none Laterality Cases: Right: Arthroscopy Knee, Bilateral: Other Other Surgeries: Yes: CABG, Cardiac Catheterization, Cardiac Surgery, Col onoscopy, Pacemaker, Other Amputation: No Fractures: No - *Social History Smoking Status: Never smoker Tobacco Type: smokeless tobacco # Packs/Day (cigarettes): 0 #Yrs smoked (if former smoker): 0 Alcohol Intake: never Alcohol Intake Frequency:: other Substance Use Type: denies use *Occupational Status:: retired Housing: house Household Members: spouse *Travel in the last 8 weeks: None (NA) - Psychiatric History Pschychiatric History:: Reports:: Depression Family Hx:: Diabetes, Hyperlipidemia, Hypertension
--- NOTE | 2019-08-31 11:16 | P.PCN_ITS ---
[facility] Cardioversion Date: 08/03/19 Provider:: JUNIOR Jansen Procedure Performed:: Synchronized electrical cardioversion Diagnosis:: Atrial fibrillation Procedure Summary:: Patient was brought to the cardiac [facility] as an outpatient. After informed consent obtained, anesthesia provided sedation and patient subsequently received synchronized 200 J shock subsequently converting the patient to sinus rhythm. Patient tolerated the procedure without complications. Monitor strip postprocedure shows sinus rhythm with intermittent AV pacing. Complications:: None Conculsion:: Successful electrical cardioversion from atrial fibrillation to sinus rhythm.
== END 2019-08-03 14:43 | disposition home or self-care (01) ==
LOC: CATHLAB 12:26
PROVIDERS: PCP Family Medicine; Visit Provider Internal Medicine Cardiovascular Disease
DX: I48.91 Unspecified atrial fibrillation (principal); I25.10 Atherosclerotic heart disease of native coronary artery without angina pectoris; I10 Essential (primary) hypertension; E11.9 Type 2 diabetes mellitus without complications; Z79.4 Long term (current) use of insulin; Z79.899 Other long term (current) drug therapy; Z88.8 Allergy status to other drugs, medicaments and biological substances; E78.5 Hyperlipidemia, unspecified
CPT/HCPCS: 82962; 87070; 87077; 87186; 87205; 92960

== ENCOUNTER → 2019-08-03 14:21 | Outpatient (CLI) | payer MEDICARE, MEDICAID, SELFPAY | PROVIDERS: Visit Provider Podiatrist | DX: S90.822A Blister (nonthermal), left foot, initial encounter (principal) | CPT/HCPCS: 87070; 87077; 87186; 87205 ==

== ENCOUNTER → 2019-08-15 10:33 | Outpatient (CLI) | payer MEDICARE, MEDICAID, SELFPAY ==
[2019-08-15 11:47] LABS: Basophils # 0.1 K/mm3 (0-0.2); Eosinophils # 0.2 K/mm3 (0.0-0.4); Eosinophils % 2.4 % (0.1-12.0); Hematocrit 48.2 % (42.0-52.0); Hemoglobin 14.8 g/dL (14.1-18.0); Lymphocytes # 1.3 K/mm3 (0.7-4.5); Lymphocytes % 16.6 % (10-50); Mean Corpuscular HGB Conc 30.7 g/dL (31.8-35.4); Mean Corpuscular Hemoglobin 30.7 pg (27.0-31.2); Mean Corpuscular Volume 100.1 fl (80-94); Mean Platelet Volume 7.5 fl (7.4-10.4); Monocytes # 0.6 K/mm3 (0.1-1.0); Monocytes % 7.4 % (1.7-9.3); Neutrophils # 5.6 K/mm3 (1.8-7.8); Neutrophils % 72.7 % (37.0-80.0); Platelet Count 227 K/mm3 (142-424); Red Blood Count 4.82 M/mm3 (4.60-6.20); White Blood Count 7.6 K/mm3 (4.8-10.8)
[2019-08-15 12:26] LABS: Anion Gap 10.7 mEq/L (5-15); Blood Urea Nitrogen 28 mg/dl (9-20); Calcium 10.2 mg/dl (8.4-10.2); Carbon Dioxide 33 mmol/L (22.0-30.0); Chloride 100 mmol/L (98-107); Estimated Glomerular Filt Rate 45 ml/min (>60); GFR (African American) 54 ML/MIN (>60); Glucose 231 mg/dl (74-100); Potassium 4.7 mmoL/L (3.5-5.1); Sodium 139 mmol/L (136-145)
[2019-08-15 12:31] LABS: C-Reactive Protein 5.1 mg/L (0-4)
[2019-08-15 12:35] LABS: Erythrocyte Sedimentation Rate 10 mm/hr (0-20)
== END ==
PROVIDERS: Podiatrist; Visit Provider Internal Medicine Cardiovascular Disease
DX: I25.10 Atherosclerotic heart disease of native coronary artery without angina pectoris (principal); Z95.0 Presence of cardiac pacemaker; Z95.1 Presence of aortocoronary bypass graft; L89.899 Pressure ulcer of other site, unspecified stage; Z98.890 Other specified postprocedural states
CPT/HCPCS: 36415; 80048; 85025; 85651; 86140

== ENCOUNTER → 2019-08-15 14:01 | Outpatient (CLI) | payer MEDICARE, MEDICAID, SELFPAY ==
--- NOTE | 2019-08-15 14:01 | CA_ITS ---
APPROVED REPORT EXAM: Comprehensive 2D, Doppler, and color-flow Echocardiogram Coating Line Worker: Chayo Pabon RT(R) Ht: 6 ft 0 in Wt: 222lbs BSA: 2.23 BP: 126/52 mmHg Indications: HTN, diabetes, hyperlipidemia, CAD, CABG, Pacemaker, hx of cardioversion, GERD, PAD M-Mode Dimensions RVDd 1.93 cm (0.9-2.6) LVDd 4.18 cm (3.5-5.7) LVDs 3.79 cm (3.5-5.7) IVSd 1.22 cm (0.6-1.1) PWd 1.14 cm (0.6-1.1) EF (Teich) 20.70% FS 9.30% EDV (Teich) 77.70 mL ESV (Teich) 61.60 mL LV Diastology E/A Ratio 0.70 Mitral Valve MV A Velocity 114.00 (40-130 cm/s) Left Ventricle Left atrium is mildly enlarged, left ventricle is normal size, mild concentric left ventricular hypertrophy, visually estimated ejection fraction 55% with no regional wall motion abnormality, endocardial sounds are poorly visualized, grade 1 diastolic dysfunction seen with tissue Doppler evidence of raise left atrial pressure. Right Ventricle Right atrium right ventricular mildly enlarged with normal contractility, there is a pacemaker lead seen right atrium and right ventricle. Aortic Valve Aortic valve is thickened and calcified leaflet chordae display good mobility, there is no aortic stenosis, there is moderate aortic insufficiency. Mitral Valve Mitral valve is minimally thickened, there is mild mitral regurgitation. Tricuspid Valve Tricuspid valve is grossly normal, there is mild tricuspid regurgitation. Tricuspid regurgitation jet velocity is inadequate for calculation of the right ventricular systolic pressure. Pulmonic Valve Pulmonic valve is poorly visualized. Pulmonic valve is poorly visualized. Great Vessels Aortic root is normal size. Pericardium No significant pericardial effusion noted. Conclusion 1. Mild biatrial abdomen, normal left ventricular size, mild concentric left ventricular hypertrophy, visually estimated ejection fraction of 55% with no regional wall motion abnormality, grade 1 diastolic dysfunction seen with tissue Doppler evidence of raise left atrial pressure. 2. Mildly enlarged right ventricle with normal contractility. 3. Thickened and calcified aortic valve without aortic stenosis, there is moderate aortic insufficiency. 4. Mild mitral and tricuspid regurgitation 5. No significant pericardial effusion noted. Electronically signed by : Mika Ruiz, 08/15/2019 17:57:11
== END ==
PROVIDERS: PCP Family Medicine; Visit Provider Internal Medicine Cardiovascular Disease
DX: I25.10 Atherosclerotic heart disease of native coronary artery without angina pectoris (principal)
CPT/HCPCS: 36415; 80048; 85025; 85651; 86140; 93306

== ENCOUNTER → 2019-08-31 14:37 | Outpatient (CLI) | payer MEDICARE, MEDICAID, SELFPAY | PROVIDERS: Visit Provider Podiatrist | DX: L89.892 Pressure ulcer of other site, stage 2 (principal) | CPT/HCPCS: 87070; 87077; 87205 ==

== ENCOUNTER → 2019-09-26 12:40 | Outpatient (CLI) | payer MEDICARE, MEDICAID, SELFPAY ==
[2019-09-26 14:11] LABS: Anion Gap 10.4 mEq/L (5-15); Blood Urea Nitrogen 31 mg/dl (9-20); Calcium 9.9 mg/dl (8.4-10.2); Carbon Dioxide 31 mmol/L (22.0-30.0); Chloride 100 mmol/L (98-107); Estimated Glomerular Filt Rate 48 ml/min (>60); GFR (African American) 59 ML/MIN (>60); Glucose 241 mg/dl (74-100); Potassium 4.4 mmoL/L (3.5-5.1); Sodium 137 mmol/L (136-145)
--- NOTE | 2019-09-26 14:27 | XR_ITS ---
PROCEDURE: XR FOOT WT BEARING RT 3V CLINICAL INDICATION: pain COMPARISON: XR FOOT WT BEARING RT 3V from 05/15/2019 XR FOOT RT MIN 3V from 06/21/2019 XR FOOT RT MIN 3V from 06/23/2019 XR FOOT WT BEARING RT 3V from 07/27/2019 FINDINGS: There has been prior amputation at the mid distal shaft of the 5th metatarsal. Osteoarthritic changes are present at the 1st MTP joint and 1st interphalangeal joint. Flexion deformity involves toes 1 through 4. There are mild osteoarthritic changes at the talonavicular and navicular cuneiform joint. 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
--- NOTE | 2019-09-26 14:27 | XR_ITS ---
PROCEDURE: XR FOOT WT BEARING LT 3V CLINICAL INDICATION: pain COMPARISON: XR FOOT WT BEARING RT 3V from 05/15/2019 XR FOOT RT MIN 3V from 06/21/2019 XR FOOT RT MIN 3V from 06/23/2019 XR FOOT WT BEARING RT 3V from 07/27/2019 FINDINGS: There are osteoarthritic changes at the 1st metatarsophalangeal joint and at the 1st interphalangeal joint. Prominent bony spurs present along the lateral aspect and proximal aspect of the proximal phalanx of the great toe. There are mild osteoarthritic changes of the posterior subtalar joint and the navicular cuneiform joint. No fracture or dislocation. No lytic or blastic change. There is some calcification along the plantar surface of the foot anterior to the calcaneal spur which may be seen with plantar fasciitis. IMPRESSION: Degenerative changes as described above. Dictated by: Cornelio Younger MD 09/26/2019 15:59 Electronically signed by Cornelio Younger MD in [place] 09/26/2019 15:59
== END ==
LOC: LAB 13:57 → RAD 14:23
PROVIDERS: PCP Family Medicine; Visit Provider Physician Assistant
DX: E11.69 Type 2 diabetes mellitus with other specified complication (principal); E66.9 Obesity, unspecified; I10 Essential (primary) hypertension; Z95.1 Presence of aortocoronary bypass graft; Z51.89 Encounter for other specified aftercare; Z79.4 Long term (current) use of insulin
CPT/HCPCS: 36415; 73630; 80048; 87070; 87077; 87186; 87205

== ENCOUNTER → 2019-10-06 08:39 | Outpatient (CLI) | payer MEDICARE, MEDICAID, SELFPAY ==
[2019-10-06 09:03] LABS: Basophils # 0.1 K/mm3 (0-0.2); Eosinophils # 0.2 K/mm3 (0.0-0.4); Eosinophils % 2.6 % (0.1-12.0); Hematocrit 49.2 % (42.0-52.0); Hemoglobin 15.6 g/dL (14.1-18.0); Lymphocytes # 1.7 K/mm3 (0.7-4.5); Lymphocytes % 20.7 % (10-50); Mean Corpuscular HGB Conc 31.7 g/dL (31.8-35.4); Mean Corpuscular Hemoglobin 32.6 pg (27.0-31.2); Mean Platelet Volume 7.4 fl (7.4-10.4); Monocytes # 0.6 K/mm3 (0.1-1.0); Monocytes % 6.9 % (1.7-9.3); Neutrophils # 5.6 K/mm3 (1.8-7.8); Neutrophils % 68.7 % (37.0-80.0); Platelet Count 225 K/mm3 (142-424); Red Blood Count 4.78 M/mm3 (4.60-6.20); Red Cell Distribution Width 14.7 % (11.5-17.5); White Blood Count 8.1 K/mm3 (4.8-10.8)
[2019-10-06 10:26] LABS: Erythrocyte Sedimentation Rate 11 mm/hr (0-20)
[2019-10-06 13:38] LABS: Hemoglobin A1C 6.4 % (4.0-6.0)
[2019-10-06 18:56] LABS: Chloride 103 mmol/L (98-107); Potassium 4.2 mmoL/L (3.5-5.1); Sodium 141 mmol/L (136-145)
[2019-10-06 18:58] LABS: Alanine Aminotransferase 10 U/L (12-78); Alkaline Phosphatase 81 U/L (38-126); Aspartate Amino Transferase 26 U/L (17-59); Bilirubin,Total 0.6 mg/dl (0.2-1.3); Blood Urea Nitrogen 32 mg/dl (9-20); Estimated Glomerular Filt Rate 45 ml/min (>60); GFR (African American) 54 ML/MIN (>60)
[2019-10-06 18:59] LABS: Albumin Level 3.8 g/dl (3.5-5.0); Albumin/Globulin Ratio 1.2 (1.1-1.8); Anion Gap 13.2 mEq/L (5-15); Calcium 9.5 mg/dl (8.4-10.2); Carbon Dioxide 29 mmol/L (22.0-30.0); Globulin 3.2 g/dL (1.3-3.2); Glucose 232 mg/dl (74-100)
[2019-10-06 19:04] LABS: C-Reactive Protein 3.8 mg/L (0-4)
== END ==
PROVIDERS: Visit Provider Podiatrist
DX: E11.40 Type 2 diabetes mellitus with diabetic neuropathy, unspecified (principal); Z51.89 Encounter for other specified aftercare; Z79.4 Long term (current) use of insulin
CPT/HCPCS: 36415; 80053; 83036; 85025; 85651; 86140

== ENCOUNTER 2019-10-27 12:41 | Emergency (ER) | payer MEDICARE, MEDICAID, SELFPAY ==
[2019-10-27 12:42] VITALS: BP 139/67; PULSE 70; RESP 16; TEMP 36.8; O2SAT 95; BMI 31.8
[2019-10-27 13:08] VITALS: BP 133/60; PULSE 67; O2SAT 93
[2019-10-27 13:10] LABS: Basophils # 0.1 K/mm3 (0-0.2); Basophils % 0.8 % (0.1-2.0); Eosinophils # 0.2 K/mm3 (0.0-0.4); Eosinophils % 1.5 % (0.1-12.0); Hematocrit 48.3 % (42.0-52.0); Hemoglobin 16.3 g/dL (14.1-18.0); Lymphocytes # 1.3 K/mm3 (0.7-4.5); Lymphocytes % 13.5 % (10-50); Mean Corpuscular HGB Conc 33.6 g/dL (31.8-35.4); Mean Corpuscular Hemoglobin 33.4 pg (27.0-31.2); Mean Corpuscular Volume 99.2 fl (80-94); Mean Platelet Volume 6.9 fl (7.4-10.4); Monocytes # 0.5 K/mm3 (0.1-1.0); Monocytes % 5.6 % (1.7-9.3); Neutrophils # 7.6 K/mm3 (1.8-7.8); Neutrophils % 78.6 % (37.0-80.0); Platelet Count 213 K/mm3 (142-424); Red Blood Count 4.87 M/mm3 (4.60-6.20); Red Cell Distribution Width 14.7 % (11.5-17.5); White Blood Count 9.7 K/mm3 (4.8-10.8)
[2019-10-27 13:12] LABS: Chloride 102 mmol/L (98-107)
[2019-10-27 13:13] LABS: Potassium 4.4 mmoL/L (3.5-5.1); Sodium 137 mmol/L (136-145)
[2019-10-27 13:15] LABS: Alanine Aminotransferase 20 U/L (12-78); Albumin Level 4.2 g/dl (3.5-5.0); Albumin/Globulin Ratio 1.2 (1.1-1.8); Alkaline Phosphatase 82 U/L (38-126); Anion Gap 10.4 mEq/L (5-15); Aspartate Amino Transferase 32 U/L (17-59); Bilirubin,Total 0.5 mg/dl (0.2-1.3); Blood Urea Nitrogen 26 mg/dl (9-20); Calcium 9.3 mg/dl (8.4-10.2); Carbon Dioxide 29 mmol/L (22.0-30.0); Creatinine Clearance Estimated 56 mL/min (50-200); Estimated Glomerular Filt Rate 45 ml/min (>60); GFR (African American) 54 ML/MIN (>60); Globulin 3.5 g/dL (1.3-3.2); Glucose 293 mg/dl (74-100); Total Protein,Serum 7.7 g/dl (6.3-8.2)
--- NOTE | 2019-10-27 13:41 | CT_ITS ---
PROCEDURE: CT ABDOMEN PELVIS WO CON CLINICAL INDICATION: abd pain Nausea vomiting and diarrhea COMPARISON: No exams were available for comparison TECHNIQUE: Axial images obtained with sagittal and coronal reformats. All CT scans at the facility use one or more dose reduction, viz: automated exposure control, ma/kV adjustment per patient size (including targeted exams where dose is matched to indication, i.e. head), or iterative reconstruction technique. FINDINGS: Lower thorax: The lower lung jones are clear and there is no pleural fluid. There is moderate generalized cardiomegaly with pacemaker electrodes noted. There is borderline aneurysmal dilatation of the ascending aorta. ABDOMEN: Liver: No masses or biliary dilatation. Gallbladder: The gallbladder is markedly contracted filled with multiple calcified gallstones. Pancreas: Somewhat atrophic in appearance with no inflammatory changes. Spleen: unremarkable Adrenals: unremarkable Kidneys/ureters: The kidneys are lower limits of normal in size and no calculi and there is no obstructive uropathy. ABDOMEN & PELVIS: Stomach bowel: The stomach is moderately distended with ingested food particles. The duodenal sweep and small bowel appear normal. There is scattered stool and gas seen throughout the entire colon. There is diffuse diverticulosis of the lower descending and particularly the sigmoid colon without evidence of diverticulitis. Peritoneum: No abnormal fluid collections. No obvious inflammatory changes. No free air. Lymph nodes: No enlarged lymph nodes apparent. Vasculature: There is diffuse arthrosclerotic calcification of the abdominal aorta and proximal common iliac arteries but there is no aneurysm. Bones: There multilevel degenerate changes of the lower thoracic and lumbar spine. There is orthopedic hardware in both hips causing streak artifact across the lower pelvis. PELVIS: Reproductive: unremarkable Bladder: The bladder is moderately distended with urine and appears normal. The prostate is borderline enlarged. There is a small right inguinal hernia containing fat only. Appendix: The appendix is not definitely visualized but there are no findings to suggest appendicitis. IMPRESSION: Contracted gallbladder without obvious cholelithiasis, prominent diffuse diverticulosis of the lower descending and sigmoid colon without evidence of diverticulitis. Dictated by: Dr. Abilio Nation MD 10/27/2019 14:[address] Abilio Nation MD in [place] 10/27/2019 14:42
[2019-10-27 13:44] LABS: Amylase 45 U/L (30-110); Lipase 41 U/L (23-300)
--- NOTE | 2019-10-27 13:53 | ECG_ITS ---
APPROVED REPORT Exam: Resting ECG HR:66 bpm ECG Measurements Heart Rate 66 AXES QRSd 202 QRS -86 QT 516 T 63 QTc 540 <Conclusion> Electronic atrial pacemaker LBBB Abnormal ECG Electronically signed by : Emanuel Laughlin, 10/28/2019 07:49:04
[2019-10-27 13:59] LABS: Troponin I < 0.01 ng/ml (0.00-0.034)
--- NOTE | 2019-10-27 14:00 | HMH.EDNVD ---
ED Disposition Clinical Impression: Renal insufficiency, Obesity (BMI 30.0-34.9) Cholelithiasis Qualifiers: Cholelithiasis location: gallbladder Cholecystitis presence: without cholecystitis Biliary obstruction: without biliary obstruction Qualified Code(s): K80.20 - Calculus of gallbladder without cholecystitis without obstruction Disposition: Home, Self-Care Condition on Discharge: Good Instructions: DI for Gallstones Additional Instructions: fluids and see pcp about gallbladder eval Prescriptions: ondansetron HCL [Zofran 4mg Tab] 4 mg PO TID #30 tab Transmission Status: Pending to [facility] Referrals: James Ambrocio MD [Primary Care Provider] - - Critical Care Critical Care Time: No Attestation: On 10/27/19, the high probability of a clinically significant, sudden or life threatening deterioration of the following system(s) required my full and direct attention, intervention and personal management. The time I documented below is in addition to time spent performing reported procedures but includes the following listed in this critical care notation. Medical Decision Making - Medical Records Medical records reviewed: Yes: I reviewed the patient's medical records. - [place] Inquiry Pt receiving controlled substance: No Vital Signs: 10/27/19 12:42 10/27/19 13:08 Temperature 98.2 F Temperature Source Oral Pulse Rate [Right Radial] 70 67 Respiratory Rate 16 Blood Pressure [Right Arm] 139/67 133/60 Blood Pressure Mean [Right Arm] 91 84 Blood Pressure Source [Right Arm] Automatic Cuff Automatic Cuff Blood Pressure Position [Right Arm] Sitting Sitting 02 Sat by Pulse Oximetry 95 93 L Oxygen Delivery Method Room Air Room Air - Lab Data Lab results reviewed: Yes: I reviewed the patient's lab results. Lab Results 10/27/19 13:00: WBC 9.7, RBC 4.87, Hgb 16.3, Hct 48.3, MCV 99.2 H, MCH 33.4 H, MCHC 33.6, RDW 14.7, Plt Count 213, MPV 6.9 L, Neut % (Auto) 78.6, Lymph % (Auto) 13.5, Beckham % (Auto) 5.6, Eos % (Auto) 1.5, Baso % (Auto) 0.8, Neut # (Auto) 7.6, Lymph # (Auto) 1.3, Beckham # (Auto) 0.5, Eos # (Auto) 0.2, Baso # (Auto) 0.1 10/27/19 13:00: Sodium 137, Potassium 4.4, Chloride 102, Carbon Dioxide 29, Anion Gap 10.4, BUN 26 H, Creatinine 1.50 H, Estimated Creat Clear 56, Estimated GFR 45 L, Est GFR ( Amer) 54 L, Glucose 293 H, Calcium 9.3, Total Bilirubin 0.5, AST 32, ALT 20, Alkaline Phosphatase 82, Total Protein 7.7, Albumin 4.2, Globulin 3.5 H, Albumin/Globulin Ratio 1.2 10/27/19 13:00: Troponin I < 0.01, Amylase 45, Lipase 41 Result diagrams: 10/27/19 13:00 10/27/19 13:00 Orders (Tests/Meds): ED MEDICATIONS Discontinued Medications Generic Name Dose Route Start Last Admin Trade Name Freq PRN Reason Stop Dose Admin Sodium Chloride 1,000 mls @ 999 mls/hr 10/27/19 12:55 10/27/19 13:03 Sod Chlor 0.9% 1000ml Bag IV 10/27/19 13:55 999 mls/hr .Q1H1M ONE Administration Ondansetron HCl 4 mg 10/27/19 12:54 10/27/19 13:01 Zofran 4mg/2ml Vial IV 10/27/19 12:55 4 mg ONCE ONE Administration ORDERS Category Date Time Status Troponin I Q3H Lab 10/27/19 16:45 Ordered Troponin I Q3H Lab 10/27/19 19:45 Ordered - Radiology Data #1 Image(s): Chest Image Reviewed: Yes I reviewed the patient's radiology image Preliminary Findings: Normal/NAD - CT Data CT Scan: Abdomen, Pelvis Time Received: 14:[address] Reviewed: Yes: I have viewed the radiologist's interpretation Preliminary Findings: Abnormal (gallstones) - ECG Data Tracing #1 Ischemic changes: other (pacemaker) Pacemaker function: normal pacer function Nausea/Vomiting/Diarrhea HPI - General Chief complaint: Nausea/Vomiting/Diarrhea Stated complaint: Nausea Time Seen by Provider: 10/27/19 13:00 Mode of Arrival: EMS Source of Information: Patient, EMS, Medical Record Limitations: No Limitations Description of Symptoms (Recalled from ER Triage Doc. by RN): PT C/O NAUSEA SINCE LA
--- NOTE | 2019-10-27 14:12 | XR_ITS ---
PROCEDURE: XR CHEST PORTABLE CLINICAL HISTORY: abd pain COMPARISON: XR CHEST 2V from 04/22/2019 XR CHEST 2V from 06/12/2019 XR CHEST 2V from 06/21/2019 FINDINGS: The lung jones are well-expanded and appear clear of infiltrate. There is mild generalized cardiomegaly, the pulmonary vascularity is normal and there is no pleural fluid. There is a left-sided cardiac pacemaker with dual chamber electrodes both in good position. There are sternal wire sutures and surgical clips from a previous CABG. IMPRESSION: Stable generalized cardiomegaly, no acute chest pathology noted Dictated by: Dr. Abilio Nation MD 10/27/2019 14:[address] Abilio Nation MD in [place] 10/27/2019 14:44
--- NOTE | 2019-10-27 14:30 | PC.NURSE ---
Pt returned from rad
[2019-10-27 15:24] VITALS: BP 133/60; PULSE 67; RESP 16; TEMP 36.8; O2SAT 93
== END 2019-10-27 15:26 | disposition home or self-care (01) ==
PROVIDERS: Emergency Provider Emergency Medicine; PCP Family Medicine
DX: K80.20 Calculus of gallbladder without cholecystitis without obstruction (principal); N28.9 Disorder of kidney and ureter, unspecified; E66.9 Obesity, unspecified; Z68.31 Body mass index [BMI] 31.0-31.9, adult; I48.20 Chronic atrial fibrillation, unspecified; I25.10 Atherosclerotic heart disease of native coronary artery without angina pectoris; K21.9 Gastro-esophageal reflux disease without esophagitis; E03.9 Hypothyroidism, unspecified; F33.1 Major depressive disorder, recurrent, moderate; I10 Essential (primary) hypertension; E78.5 Hyperlipidemia, unspecified; Z95.0 Presence of cardiac pacemaker; Z95.1 Presence of aortocoronary bypass graft; Z79.899 Other long term (current) drug therapy; Z88.0 Allergy status to penicillin; Z88.5 Allergy status to narcotic agent
CPT/HCPCS: 71045; 74176; 80053; 82150; 83690; 84484; 85025; 93005; 96365; 96375; 99283; J2405

== ENCOUNTER → 2019-11-06 08:54 | Outpatient (CLI) | payer MEDICARE, MEDICAID, SELFPAY ==
--- NOTE | 2019-11-06 09:09 | US_ITS ---
PROCEDURE: US ABDOMEN LIMITED CLINICAL INDICATION: ABD PAIN,CALCULUS OF GB Upper quadrant pain COMPARISON: CT ABDOMEN PELVIS WO CON from 10/27/2019 FINDINGS: PANCREAS: Unremarkable. No obvious mass or abnormal fluid collection. No ductal dilatation LIVER: No focal liver lesions demonstrated. Homogeneous echogenicity. No intrahepatic biliary ductal dilatation evident. There is appropriate direction of blood flow within a non dilated portal vein RIGHT KIDNEY: Unremarkable. Normal size and echogenicity. No hydronephrosis GALLBLADDER: Gallstones. No gallbladder wall thickening, pericholecystic fluid, or biliary dilatation. Common bile duct 4 mm. IMPRESSION: Cholelithiasis Dictated by: Cornelio Younger MD 11/06/2019 13:18 Electronically signed by Cornelio Younger MD in [place] 11/06/2019 13:18
== END ==
PROVIDERS: PCP Family Medicine; Visit Provider Family Medicine
DX: R10.9 Unspecified abdominal pain (principal); K80.20 Calculus of gallbladder without cholecystitis without obstruction
CPT/HCPCS: 76705

== ENCOUNTER → 2019-11-30 10:44 | Outpatient (CLI) | payer MEDICARE, MEDICAID, SELFPAY ==
[2019-11-30 12:45] LABS: Coronavirus 19 IgG Antibody Negative (Negative); Coronavirus 19 IgM Antibody Negative (Negative)
== END ==
PROVIDERS: Visit Provider Surgery
DX: K80.10 Calculus of gallbladder with chronic cholecystitis without obstruction; Z01.818 Encounter for other preprocedural examination
CPT/HCPCS: 36415; 86328

== ENCOUNTER 2019-12-01 05:52 | Day surgery (SDC) | payer MEDICARE, MEDICAID, SELFPAY ==
[2019-11-29 10:15] VITALS: BMI 31.1
[2019-12-01] VITALS (13 sets, daily range): BP systolic 120–155; BP diastolic 53–82; PULSE 60–63; RESP 16–18; TEMP 36.4–43; O2SAT 93–98
[2019-12-01 06:43] LABS: POC Glucose,Bedside 163 (70-110)
--- NOTE | 2019-12-01 07:02 | P.PN_ITS ---
[facility] Anesthesia Checklist - Patient Identification Patient Identification: Arm Band - Structural Data Admitted From: Home Planned Operative Procedure/s: laparoscopic cholecystectomy Consent for Planned Operative Procedure(s) Verified: Yes Verified Documents: Surgical Consent, History and Physical - NPO Status Verified Time NPO: 00:00 - Additional verifications Anesthesia Reactions: No Hx Blood Transfusions: No Blood Transfusion Reaction: No - Airway Assessment C-Spine Mobility Assessed: Yes TMJ Mobility Assessed: Yes Dentition: Poor Dentition (upper edentulous, lower very poor dentition with only a few remaining teeth) - Neurological Assessment Level of Consciousness: Awake, Alert - Anesthesia Plan Anesthesia Risk discussed: Yes Anesthesia Plan: Verified ASA Class: III Anesthesia Type: General [facility] History I have reviewed the patient's past medical history: Yes Medical History: Reports:: Arrhythmia, Atrial Fibrillation, Coronary Artery Disease, Dementia, Depression, Diabetes Mellitus Type 1, Diabetes Mellitus Type 2, Gastroesophageal Reflux Disease(GERD), Hyperlipidemia, Hypertension, Internal Pacemaker, Peripheral Artery Disease Denies:: Asthma, Cancer, Chronic Obstructive Pulmonary Disease (COPD), MRSA, Seizures, Transient Ischemic Attacks (TIA) *Have you ever received a pneumonia vaccine?: Yes *Have you received a flu vaccine this season?: No Other Medical History: Reports: Arthritis, Hypothyroidism, Other (parkinson's). Denies: Blood Transfusion Reaction Anesthesia experience/problems:: nac Laterality Cases: Right: Arthroscopy Knee, Bilateral: Other Other Surgeries: Yes: CABG, Cardiac Catheterization, Cardiac Surgery, Colonoscopy, Pacemaker, Other Amputation: No Fractures: No - *Social History Last grade of school completed: High school graduate Smoking Status: Never smoker Tobacco Type: smokeless tobacco # Packs/Day (cigarettes): 0 #Yrs smoked (if former smoker): 0 Alcohol Intake: never Alcohol Intake Frequency:: other Substance Use Type: denies use *Occupational Status:: retired Housing: house Household Members: spouse *Travel in the last 8 weeks: None - Psychiatric History Pschychiatric History:: Reports:: Depression Family Hx:: Diabetes, Hyperlipidemia, Hypertension
--- NOTE | 2019-12-01 09:05 | P.OP_ITS ---
Date of procedure: 12/01/19 Pre-op Diagnosis:: Chronic calculus cholecystitis Post-op Diagnosis:: Same Procedure performed:: Laparoscopic cholecystectomy Surgeon:: Yonatan Dsouza MD LIQUID COMPOUNDER:: Hosea Rodriguez Anesthesia: SUSANNE Estimated blood loss (mL): 20 Operative findings:: Elongated gallbladder Friable gallbladder tissue Severe angulation and thickening of the entire infundibulum Alek-Azevedo drains (x2) placed in gallbladder fossa Operative note:: After informed consent was obtained, the patient was taken to the operating room and placed in the supine position. General anesthesia was induced and the abdomen was prepped and draped in a sterile fashion. After infiltration with local anesthetic an infraumbilical incision was made. A Veress needle was placed in position. The abdomen was insufflated. A 5 mm optical trocar was placed in position. Under direct visualization, a 12 mm trocar was placed in the subxiphoid position and 2 additional 5 mm trocars were placed in the right upper quadrant. The gallbladder was elevated up and over the liver margin. What appeared to be the infundibulum was carefully evaluated. Dissection in this region revealed that in fact this was the mid gallbladder region . Severe angulation of the infundibulum posteriorly created anomalous changes visually. In addition, the infundibular region was elongated and thickened. Careful dissection more proximally on the gallbladder with elevation of the actual infundibulum did reveal friable tissue. Careful blunt dissection around the cystic duct revealed significant chronic inflammatory changes/elongation, as well as, friability of tissue. The decision was made to proceed with a dome down approach . The gallbladder was carefully removed from the liver margin utilizing harmonic waleska. Endoloops (x2) were then placed in position to control the cystic duct stump/infundibulum. Transection of the infundibulum with harmonic waleska was then completed. The gallbladder was placed in a retrieval bag and removed through the subxiphoid trocar site. The right upper quadrant was thoroughly irrigated. No active bleeding or bile leak was noted. #10 Alek-Azevedo drains (x2) were placed in the gallbladder fossa and exited through the right upper quadrant trocar sites. Fascia at the subxiphoid trocar site was reapproximated utilizing the NeoClose device. The remaining trocars were removed. All wounds were irrigated and skin was closed with 4-0 Monocryl in a subcuticular fashion. Steri-Strips were applied. The patient's anesthetic agents were reversed and extubation was completed prior to transfer to recovery in stable condition. Condition: stable Disposition: PACU Specimens:: Gallbladder Complications:: No immediate
--- NOTE | 2019-12-01 09:19 | HMH.ANESI ---
[facility] Anesthesia Record Part I Intake, IV Amount: 1,100 Estimated blood loss (mL): 20 Urine output (mL): 0 (NM) Blood Products used (#): none Blood Pressure: 138/78 SaO2: 93 Pulse Rate: 60 Respiratory Rate: 16 Temperature: 97.7 F Patient is:: Drowsy, Nasal O2, Stable Stable to PACU at:: 09:15
[2019-12-01 09:42] LABS: POC Glucose,Bedside 175 (70-110)
--- NOTE | 2019-12-01 18:54 | P.PN_ITS ---
[facility] Anesthesia Record Part II Discharge Time: 09:55 Destination: Surgical Day Care (OP Surgery) PACU nurse assessment reviewed?: Yes Patient Condition:: Good Anesthesia Complications:: None Swallowing reflex intact?: Yes Cyanosis?: No Blood Pressure: 136/81 Pulse Rate: 60 Temperature: 97.5 F Mental Status: Alert & Oriented (Baseline status) Pain level:: 0 Nausea and/or vomitting:: None Intake, IV Amount: 0 (Normovolemia)
== END 2019-12-01 10:45 | disposition home or self-care (01) ==
PROVIDERS: PCP Family Medicine; Visit Provider Surgery
PROC: 0FT44ZZ Resection of Gallbladder, Percutaneous Endoscopic Approach (ICD-10-PCS; CPT 47562; principal; 2019-12-01 07:30)
DX: K80.10 Calculus of gallbladder with chronic cholecystitis without obstruction (principal); K82.8 Other specified diseases of gallbladder; I48.91 Unspecified atrial fibrillation; I25.10 Atherosclerotic heart disease of native coronary artery without angina pectoris; F32.9 Major depressive disorder, single episode, unspecified; E10.9 Type 1 diabetes mellitus without complications; E11.9 Type 2 diabetes mellitus without complications; K21.9 Gastro-esophageal reflux disease without esophagitis; E78.5 Hyperlipidemia, unspecified; I10 Essential (primary) hypertension; Z95.0 Presence of cardiac pacemaker; I73.9 Peripheral vascular disease, unspecified
CPT/HCPCS: 47562; 82962; 88304; 96374; J2405

== ENCOUNTER → 2019-12-11 08:45 | Outpatient (CLI) | payer MEDICARE, MEDICAID, SELFPAY ==
--- NOTE | 2019-12-11 08:55 | XR_ITS ---
PROCEDURE: XR FOOT WT BEARING LT 3V CLINICAL INDICATION: wound, great toe COMPARISON: XR FOOT RT MIN 3V from 06/23/2019 XR FOOT WT BEARING RT 3V from 07/27/2019 XR FOOT WT BEARING RT 3V from 09/26/2019 XR FOOT WT BEARING LT 3V from 09/26/2019 FINDINGS: No fracture or dislocation. No lytic or blastic change. There is normal mineralization. Osteoarthritic changes involve the 1st metatarsophalangeal joint and the 1st interphalangeal joint. There are degenerative changes in the midfoot as before. No bony destructive process evident. Calcification is present just distal to the calcaneal spur Other findings:None. IMPRESSION: No change with no acute finding. Chronic changes Dictated by: Cornelio Younger MD 12/11/2019 10:34 Electronically signed by Cornelio Younger MD in [place] 12/11/2019 10:34
== END ==
PROVIDERS: PCP Family Medicine; Visit Provider Podiatrist
DX: Z51.89 Encounter for other specified aftercare (principal)
CPT/HCPCS: 73630

== ENCOUNTER → 2019-12-27 09:55 | Outpatient (CLI) | payer MEDICARE, MEDICAID, SELFPAY ==
[2019-12-27 10:37] LABS: Hematocrit 47.7 % (42.0-52.0); Hemoglobin 15.4 g/dL (14.1-18.0)
== END ==
PROVIDERS: Visit Provider Surgery
DX: K92.1 Melena (principal)
CPT/HCPCS: 36415; 85014; 85018

== ENCOUNTER → 2019-12-28 16:17 | Outpatient (CLI) | payer MEDICARE, MEDICAID, SELFPAY ==
[2019-12-28 16:54] LABS: Occult Blood,Stool Negative (Negative)
== END ==
PROVIDERS: Visit Provider Surgery
DX: K92.1 Melena (principal)
CPT/HCPCS: 82272; G0328

== ENCOUNTER 2020-01-08 08:00 | Outpatient (RCR) | payer MEDICARE, MEDICAID, SELFPAY ==
--- NOTE | 2019-10-09 09:17 | HMH.PTOPWND ---
Rehab Outpt Wound Evaluation Rehab OP Wound Evaluation Start: 10/09/19 07:56 Freq: Status: Active Protocol: Document 10/09/19 09:02 BYRON (Rec: 10/09/19 09:17 PHOSUKUMAR [id number]) Electronically Signed By Moris Krueger, PT 10/09/19 09:02 Subjective/History History History Pt is 83 yowm who presents with multiple wounds to B feet x many months secondary to DM -II and PAD. He has hx of frequent wounds to his feet with slow healing rate. He underwent R superior 5th MT head resection on 06/23/2019. He had PIPO performed at that time as well which shows R LE 1.18 and L LE 0.57. He has PMH of DM-II, CAD, pacemaker, HL, HTN, A-fib, PAD, depression. Subjective Subjective Currently he reports mild discomfort, worse on the R foot. 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 Wound Length (cm) 1.0 Wound Width (cm) 1.5 Wound Bed Appearance Eschar Percentage of Eschar (Black) (%) 100 Wound Margins Description Well Defined Surrounding Tissue Appearance Axis Drainage Description Serosanguineous Drainage Amount Small Primary Dressing Gauze Pad Comment betadine Wound Secondary Dressing Type Gauze Roll/Wrap,Adhering Gauze Roll Wound Debridement Method Sharps Wound Debridement Amount of Tissue Moderate Removed Dressing Change Patient Tolerance Tolerated Well Right Medial Toe - 4th Digit 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
--- NOTE | 2019-11-13 13:11 | HMH.RHREAS ---
Rehab Reassessment Rehab OP Re-assessment Start: 11/13/19 13:00 Freq: Status: Active Protocol: Document 11/13/19 13:01 BYRON (Rec: 11/13/19 13:07 BYRON [id number]) Electronically Signed By Moris Krueger, PT 11/13/19 13:01 Rehab Re-assessment Subjective Subjective Pt reports little tenderness in B feet at this point. His continues to perform dressing changes at home. Objective Objective Notes L Great toe wound: L= 0.3 cm, W= 0.2 cm. R Foot 3rd toe: med wound L= 0 .8 cm, W= 1.1 cm. Assessment Progress Assessment Progressing as Expected Assessment Notes Wounds healing steadily, R foot well granulated. Patient goals met ST,2 Goals Not Met LT,2,3,4 Revised Goals none Plan Plan Continue per initial POC. Frequency of Therapy 2 x/wk Duration of therapy 8 wks Time and Billing Re-Eval Time 15 Re-Eval Billing Units 1 PHYSICIAN CERTIFICATION: I certify the specified therapy services for Steven Bautista are required, authorized, and reviewed every 30 days.
--- NOTE | 2019-12-25 10:00 | HMH.RHREAS ---
Rehab Reassessment Rehab OP Re-assessment Start: 11/13/19 13:00 Freq: Status: Active Protocol: Document 12/25/19 09:58 BYRON (Rec: 12/25/19 10:00 BYRON [id number]) Electronically Signed By Moris Krueger, PT 12/25/19 09:58 Rehab Re-assessment Subjective Subjective Pt reports no new changes this date. Objective Objective Notes L great toe wound appears somewhat better with partial epithelialization since last visit. callus surrounding the wound, but healthy tissue at wound base. L Great toe wound: L= 0.5 cm, W= o.5 cm. Assessment Progress Assessment Progressing as Expected Assessment Notes Improving L foot wounds, R foot appears completely healed . Patient goals met ST,2 Goals Not Met LT,2,3,4 Revised Goals none Plan Plan Continue per initial POC. Frequency of Therapy 2 x/wk Duration of therapy 8 wks Time and Billing Re-Eval Time 15 Re-Eval Billing Units 1 PHYSICIAN CERTIFICATION: I certify the specified therapy services for Steven Bautista are required, authorized, and reviewed every 30 days.
== END 2020-01-08 08:45 | disposition home or self-care (01) ==
LOC: PT 08:00
PROVIDERS: PCP Family Medicine; Visit Provider Podiatrist
DX: E11.621 Type 2 diabetes mellitus with foot ulcer (principal); L97.529 Non-pressure chronic ulcer of other part of left foot with unspecified severity; L97.519 Non-pressure chronic ulcer of other part of right foot with unspecified severity; Z51.89 Encounter for other specified aftercare
CPT/HCPCS: 97163; 97164; 97597; 97598

== ENCOUNTER → 2020-03-04 11:04 | Outpatient (CLI) | payer MEDICARE, MEDICAID, SELFPAY ==
--- NOTE | 2020-03-04 11:10 | XR_ITS ---
PROCEDURE: XR CHEST 2V CLINICAL HISTORY: on amio therapy Amiodarone therapy, heart disease COMPARISON: DX XR CHEST 2V from 06/12/2019 CR XR CHEST 2V from 06/21/2019 CR XR CHEST PORTABLE from 10/27/2019 FINDINGS: There is a bipolar pacemaker present from left subclavian approach. There has been a prior CABG. Heart size is normal. No mediastinal or hilar mass. Nodularity is noted in the left hilar region and is felt to be due to overlapping vessels. The lungs are clear without infiltrates, suspicious nodules, or pleural effusions. There are degenerative changes of the thoracic spine with kyphosis and chronic wedging in the midthoracic spine. IMPRESSION: No change with no acute finding. No evidence of amiodarone lung toxicity. Dictated by: Cornelio Younger MD 03/04/2020 11:50 Cornelio Younger MD in [place] 03/04/2020 11:50
[2020-03-04 12:56] LABS: Alanine Aminotransferase 9 U/L (12-78); Albumin Level 4.3 g/dl (3.5-5.0); Alkaline Phosphatase 64 U/L (38-126); Aspartate Amino Transferase 27 U/L (17-59); Bilirubin,Direct 0.1 mg/dl (0.0-0.4); Bilirubin,Indirect 0.5 mg/dL (0.0-0.9); Bilirubin,Total 0.6 mg/dl (0.2-1.3); Bilirubin,Unconjugated 0.5 mg/dL (0.0-1.1); Chol/HDL Ratio 3.3 (1-3.5); Cholesterol 176 mg/dl (140-200); HDL Cholesterol 53 mg/dl (40-60); Total Protein,Serum 7.8 g/dl (6.3-8.2); Triglycerides 180 mg/dl (30-150); VLDL Cholesterol 36 mg/dL (0-40)
[2020-03-04 13:08] LABS: Direct LDL Cholesterol 85.52 mg/dL (100-129)
[2020-03-04 13:14] LABS: Triiodothryronine (T3) Uptake 32 % (23.5-40.5)
[2020-03-04 13:15] LABS: Free Thyroxine Index 3.6 ug/dL (5.93-13.13); T4 (Thyroxine) 11.2 ug/dl (5.53-11.0)
[2020-03-04 13:28] LABS: Thyroid Stimulating Hormone 4.08 uIU/mL (0.465-4.68)
== END ==
PROVIDERS: PCP Family Medicine; Visit Provider Internal Medicine Cardiovascular Disease
DX: R42 Dizziness and giddiness (principal); I48.91 Unspecified atrial fibrillation; Z79.899 Other long term (current) drug therapy
CPT/HCPCS: 36415; 71046; 80061; 80076; 84436; 84443; 84479

== ENCOUNTER → 2020-03-14 11:26 | Outpatient (CLI) | payer MEDICARE, MEDICAID, SELFPAY ==
[2020-03-14 11:59] LABS: Basophils # 0.1 K/mm3 (0-0.2); Eosinophils # 0.1 K/mm3 (0.0-0.4); Eosinophils % 1.2 % (0.1-12.0); Hematocrit 49.4 % (42.0-52.0); Hemoglobin 15.3 g/dL (14.1-18.0); Lymphocytes # 1.6 K/mm3 (0.7-4.5); Lymphocytes % 17.2 % (10-50); Mean Corpuscular HGB Conc 30.9 g/dL (31.8-35.4); Mean Corpuscular Hemoglobin 32.4 pg (27.0-31.2); Mean Corpuscular Volume 104.9 fl (80-94); Mean Platelet Volume 7.3 fl (7.4-10.4); Monocytes # 0.5 K/mm3 (0.1-1.0); Monocytes % 5.1 % (1.7-9.3); Neutrophils # 7.3 K/mm3 (1.8-7.8); Neutrophils % 75.6 % (37.0-80.0); Platelet Count 198 K/mm3 (142-424); Red Blood Count 4.71 M/mm3 (4.60-6.20); Red Cell Distribution Width 13.8 % (11.5-17.5); White Blood Count 9.6 K/mm3 (4.8-10.8)
[2020-03-14 13:03] LABS: Erythrocyte Sedimentation Rate 40 mm/hr (0-20)
[2020-03-14 13:30] LABS: Alanine Aminotransferase 8 U/L (12-78); Albumin/Globulin Ratio 1.3 (1.1-1.8); Alkaline Phosphatase 77 U/L (38-126); Anion Gap 11.6 mEq/L (5-15); Aspartate Amino Transferase 25 U/L (17-59); Bilirubin,Total 0.5 mg/dl (0.2-1.3); Blood Urea Nitrogen 44 mg/dl (9-20); Calcium 9.5 mg/dl (8.4-10.2); Carbon Dioxide 30 mmol/L (22.0-30.0); Chloride 105 mmol/L (98-107); Estimated Glomerular Filt Rate 36 ml/min (>60); GFR (African American) 44 ML/MIN (>60); Globulin 3.1 g/dL (1.3-3.2); Glucose 260 mg/dl (74-100); Potassium 4.6 mmoL/L (3.5-5.1); Sodium 142 mmol/L (136-145); Total Protein,Serum 7.1 g/dl (6.3-8.2)
[2020-03-14 13:37] LABS: C-Reactive Protein 2.2 mg/L (0-4)
[2020-03-14 13:52] LABS: Hemoglobin A1C 7.1 % (4.0-6.0)
== END ==
PROVIDERS: Visit Provider Nurse Practitioner
DX: E11.40 Type 2 diabetes mellitus with diabetic neuropathy, unspecified (principal); E11.621 Type 2 diabetes mellitus with foot ulcer; L97.529 Non-pressure chronic ulcer of other part of left foot with unspecified severity; Z51.89 Encounter for other specified aftercare
CPT/HCPCS: 36415; 80053; 83036; 85025; 85651; 86140

== ENCOUNTER 2020-03-23 04:56 | Emergency (ER) | payer MEDICARE, MEDICAID, SELFPAY ==
[2020-03-23 04:56] VITALS: BP 143/75; PULSE 60; RESP 16; TEMP 36.4; O2SAT 95; BMI 31.8
--- NOTE | 2020-03-23 05:09 | XR_ITS ---
PROCEDURE: 1...CR XR SHOULDER LT MIN 2V..... From 03/23/2020 2...CR XR HUMERUS LT..... From 03/23/2020 Referring Doctor: Jose Sr Patient Age:84Y CLINICAL INDICATION: Fall. Left shoulder and left humerus pain COMPARISON: CR SHOU1R [id number] VIEW-RT from 11/26/2014 CR XR HUMERUS LT from 03/23/2020 CR XR SHOULDER RT MIN 2V from 03/23/2020 FINDINGS: Left SHOULDER: 3 views AP internal and external rotation along with Y-view No acute fracture or dislocation. Glenohumeral joint intact humeral head and neck intact. Left AC joint hypertrophy-Mild to moderate Left upper ribs intact mild chronic changes left apex. Left scapula intact Left HUMERUS 2 view: AP and lateral Left humerus intact with no fracture. No lesions and symmetrical to the left humerus IMPRESSION: No acute findings left shoulder or left upper arm. Left shoulder. Mild AC joint hypertrophy Left humerus-negative/intact IMPRESSION: No acute findings. Dictated by: Federico Shultz MD 03/23/2020 11:58 Federico Shultz MD in [place] 03/23/2020 12:09
--- NOTE | 2020-03-23 05:09 | XR_ITS ---
PROCEDURE: 1..CR SHOU1R [id number] VIEW-RT. From 11/26/2014 2..CR XR SHOULDER RT MIN 2V Referring Doctor: Jose Sr Patient Age:84Y CLINICAL INDICATION: fall Right shoulder and right upper arm pain COMPARISON: CR SHOU1R [id number] VIEW-RT from 11/26/2014 CR XR CHEST 2V from 03/04/2020 CR XR CHEST AP from 03/23/2020 CR XR SHOULDER LT MIN 2V from 03/23/2020 CR XR HUMERUS LT from 03/23/2020 CR XR HUMERUS RT from 03/23/2020 FINDINGS: RIGHT SHOULDER: 3 views AP internal and external rotation along with Y-view No acute fracture or dislocation. Glenohumeral joint intact humeral head and neck intact. AC joint hypertrophy-Mild to moderate RIGHT HUMERUS 2 view: AP and lateral Right humerus intact with no fracture. No lesions and symmetrical to the left humerus IMPRESSION: No acute findings. Right shoulder. Mild AC joint hypertrophy Right humerus-negative/intact Dictated by: Federico Shultz MD 03/23/2020 11:56 Federico Shultz MD in [place] 03/23/2020 11:56
--- NOTE | 2020-03-23 05:09 | CT_ITS ---
PROCEDURE: CT CERVICAL SPINE WO CON Referring Doctor: Jose Sr Patient Age:84Y CLINICAL INDICATION: Fall at 4 a.m.. Multiple injuries. Neck pain. Head injury and laceration evident COMPARISON: CT CT CERVICAL SPINE WO CON from 06/16/2019 TECHNIQUE: No IV contrast Helical axial images obtained with thickened axial as well as sagittal and coronal reformats on CT workstation. All CT scans at the facility use one or more dose reduction, viz: automated exposure control, ma/kV adjustment per patient size (including targeted exams where dose is matched to indication, i.e. head), or iterative reconstruction technique. FINDINGS: No acute fracture or subluxation evident. Normal alignment C-spine. No lytic or blastic changes. No compression fractures. Prevertebral soft tissues satisfactory Multilevel degenerative changes cervical spondylosis throughout most evident C3/4 and C4/5: C1-C2, normal relationships C2-C3: Mild degenerative disc disease... Incomplete segmentation and fusion of the facets and posterior elements noted. C3-C4: Prominent degenerate disc disease with central disc bulge/protrusion and endplate hypertrophic change.. These features yield central canal stenosis measuring 7.5 mm at midline ; also mild foraminal encroachment due to be mild uncovertebral joint hypertrophy and bilateral facet hypertrophy . C4-C5: Prominent degenerative disc disease.. Prominent posterior endplate osteophytes midline into the left of midline/calcified posterior longitudinal ligament. This focal spurring yields causing severe canal stenosis. 6.5 Mm AP at midline due this central spurring spur. Also mild bilateral recess/foraminal stenosis at this level. The. C5-C6: Mild degenerate disc disease. C6-C7: Moderate degenerate disc disease and narrowing. C7-T1: Degenerate disc disease with posterior endplate hypertrophic change, central spurring which slightly narrows the spinal canal The lung apices are clear. Calcified right carotid bifurcation more so than left incidentally noted IMPRESSION: No acute fracture or subluxation cervical spine. Multilevel cervical spondylosis and degenerative changes. These features most pronounced C3/4 and C4/5 yielding central canal stenosis; &followed by the C7/T1 Overall findings similar to previous study. Dictated by: Federico Shultz MD 03/23/2020 09:02 Federico Shultz MD in [place] 03/23/2020 09:02
--- NOTE | 2020-03-23 05:09 | XR_ITS ---
PROCEDURE: XR PELVIS 1-2V Referring Doctor: Jose Sr Patient Age:84Y CLINICAL INDICATION: fall multiple injuries. Bilateral previous hip fractures with ORIF hips COMPARISON: CR PELAP PELVIS AP ONLY from 11/06/2015 TECHNIQUE: XR Pelvis AP View FINDINGS: Single AP view pelvis radiograph performed and compared to October 2015. No acute fracture or dislocation is evident.. Bilateral hip ORIF unchanged since prior studies. Right hip of intramedullary sandra and gamma nail compression screw. Left hip with compression screw in conjunction with metallic plate applied laterally to the proximal femoral shaft. There is hypertrophic ridging at the superior rim of acetabulum bilaterally. Superior hip joint space is fairly well maintained and stable. The bones are well mineralized with the iliac bone, is pubic symphysis superior and inferior ramus unchanged. Some additional calcification, hypertrophic changes along the mid and inner margin of the right acetabulum are stable Urinary bladder mildly distended. At left pelvis vascular calcifications at the left iliac,, more so than right. Degenerative changes L4/5 IMPRESSION: No acute fracture at pelvis Old bilateral hip ORIF appear stable Dictated by: Federico Shultz MD 03/23/2020 12:14 Federico Shultz MD in [place] 03/23/2020 12:14
--- NOTE | 2020-03-23 05:09 | XR_ITS ---
PROCEDURE: 1..CR SHOU1R [id number] VIEW-RT. From 11/26/2014 2..CR XR SHOULDER RT MIN 2V Referring Doctor: Jose Sr Patient Age:84Y CLINICAL INDICATION: fall Right shoulder and right upper arm pain COMPARISON: CR SHOU1R [id number] VIEW-RT from 11/26/2014 CR XR CHEST 2V from 03/04/2020 CR XR CHEST AP from 03/23/2020 CR XR SHOULDER LT MIN 2V from 03/23/2020 CR XR HUMERUS LT from 03/23/2020 CR XR HUMERUS RT from 03/23/2020 FINDINGS: RIGHT SHOULDER: 3 views AP internal and external rotation along with Y-view No acute fracture or dislocation. Glenohumeral joint intact humeral head and neck intact. AC joint hypertrophy-Mild to moderate RIGHT HUMERUS 2 view: AP and lateral Right humerus intact with no fracture. No lesions and symmetrical to the left humerus IMPRESSION: No acute findings. Right shoulder. Mild AC joint hypertrophy Right humerus-negative/intact Dictated by: Federico Shultz MD 03/23/2020 11:56 Federico Shultz MD in [place] 03/23/2020 11:56
--- NOTE | 2020-03-23 05:09 | CT_ITS ---
PROCEDURE: CT HEAD/BRAIN WO CON Referring Doctor: Jose Sr Patient Age:84Y CLINICAL INDICATION: fall hit head slipped on rug 4 a.m. this morning hit head on counter then landed on left shoulder and right shoulder. Unsure regarding LOC. Abrasions forehead and laceration top of head COMPARISON: CT HDWO CT HEAD W/O CONTRAST from 11/26/[address] CERVICAL SPINE W/O CONT from 11/06/[address] HEAD W/O CONTRAST from 11/06/[address] CERVICAL SPINE WO CON from 06/16/[address] CERVICAL SPINE WO CON from 03/23/2020 TECHNIQUE: No IV contrast axial images were obtained. All CT scans at the facility use one or more dose reduction, viz: automated exposure control, ma/kV adjustment per patient size (including targeted exams where dose is matched to indication, i.e. head), or iterative reconstruction technique. FINDINGS: Brain. As reported on the [facility] preliminary report note subtle minimal thickening of the slight hyperdense left tentorial leaflet which is a subtle change since previous CT head studies, and possibly reflecting a very acute small subdural hematoma along the left tentorial leaflet.. This subtle thickening also suggested on coronal reconstruction images from today's CT C-spine. No associated mass effect no subdural collections overlying the cerebral hemispheres but. The falx superior to this demonstrates dense falx calcifications but no intra hemispheric falx hematoma.. Left transverse sinus is slightly more evident on today's study and perhaps very slightly more generous. The slightly more evident hyperdense appearance at transverse sinus could merely reflect the patient's elevated hematocrit and dehydration; nonetheless on follow-up studies of you may want consider including post contrast CTV head better exclude unlikely dural venous abnormality or thrombosis changes. More likely this is merely asymmetric transverse sinus. Diffuse cerebral atrophy is similar to previous 2016 exam.. Patchy low-density in the periventricular deep white matter reflecting chronic small vessel deep white-matter ischemic gliotic changes was seen previously and if anything slightly more evident today.. With this note small stable roughly 5 mm lacune centrum semiovale deep white matter left cerebral hemisphere Note slight additional low-density extending from white matter overlying the anterior aspect right lateral ventricle, extending laterally into peripherally right frontal lobe (axial slice 26, 27). Subtle interval change, which suggests there has been some additional ischemic changes here and encephalomalacia right frontal lobe-most likely old but cannot exclude recent event Lateral ventricles are mildly dilated reflecting the cerebral atrophy but clear and stable. The basal cisterns are clear. Trace cerebellar atrophy stable The Skull appears intact. No skull fracture or lesion There is soft tissue swelling at left forehead of reflecting contusion and small hematoma here.. Underlying skull and left frontal sinus region unremarkable .. Mastoid air cells are well developed and and overall clear except to note opacification 1 or 2 mastoid air cells at right mastoid tip.. Unimpressive.. The middle ear clear. IAC's symmetric. Nosinus air-fluid level. Visualized portions of the paranasal sinuses clear with tooth seen at base of right maxillary sinus IMPRESSION: 1.. Subtle left tentorial leaflet thickening mildly hyperdense. This subtle change since previous studies, and may reflect a subtle, very small subdural hematoma along the left tentorial leaflet. No associated mass effect. 2..Diffuse cerebral atrophy with chronic small vessel white matter ischemic gliotic changes. .
--- NOTE | 2020-03-23 05:09 | XR_ITS ---
PROCEDURE: 1...CR XR SHOULDER LT MIN 2V..... From 03/23/2020 2...CR XR HUMERUS LT..... From 03/23/2020 Referring Doctor: Jose Sr Patient Age:84Y CLINICAL INDICATION: Fall. Left shoulder and left humerus pain COMPARISON: CR SHOU1R [id number] VIEW-RT from 11/26/2014 CR XR HUMERUS LT from 03/23/2020 CR XR SHOULDER RT MIN 2V from 03/23/2020 FINDINGS: Left SHOULDER: 3 views AP internal and external rotation along with Y-view No acute fracture or dislocation. Glenohumeral joint intact humeral head and neck intact. Left AC joint hypertrophy-Mild to moderate Left upper ribs intact mild chronic changes left apex. Left scapula intact Left HUMERUS 2 view: AP and lateral Left humerus intact with no fracture. No lesions and symmetrical to the left humerus IMPRESSION: No acute findings left shoulder or left upper arm. Left shoulder. Mild AC joint hypertrophy Left humerus-negative/intact IMPRESSION: No acute findings. Dictated by: Federico Shultz MD 03/23/2020 11:58 Federico Shultz MD in [place] 03/23/2020 12:09
--- NOTE | 2020-03-23 05:13 | XR_ITS ---
PROCEDURE: XR CHEST AP Referring Doctor: Jose Sr Patient Age:84Y CLINICAL HISTORY: fall Chest pain with bilateral shoulder injuries and pain. Patient history of CABG and pacemaker COMPARISON: CR XR CHEST 2V from 06/21/2019 CR XR CHEST PORTABLE from 10/27/2019 CR XR CHEST 2V from 03/04/2020 FINDINGS: AP portable upright CXR performed today and compared to 10/27/2019 P CXR; and 03/04/2020 PA and lateral CXR Less optimal inspiration today with diaphragm only down to the anterior 5th rib appears a down to the anterior 7th rib on previous CXR studies but this crowds markings slightly with some mild basilar atelectasis I suspect at the medial right and lung base but no discrete acute findings otherwise but no pneumothorax but no pleural effusion. Stable small calcified granuloma at the left mid lung. Central markings upper normal in prominence most likely reflecting the less than optimal inspiration.. Similarly the heart is upper normal likely accentuated by suboptimal inspiration-. Borderline/mild cardiomegaly noted today.. Prior CABG and median sternotomy. Pacemaker enters from left leads appear unchanged. Chest wall unremarkable on this study. AC joint hypertrophy bilaterally noted IMPRESSION: Nothing definitely acute Less optimal inspiration on today's portable chest film a likely accounts for the mild accentuation in crowding of central markings. The central pulmonary vascularity upper normal in prominence . Borderline/mild cardiomegaly with CABG and pacemaker Dictated by: Federico Shultz MD 03/23/2020 11:41 Federico Shultz MD in [place] 03/23/2020 11:41
--- NOTE | 2020-03-23 06:42 | PC.NURSE ---
speaking with KOFI at this time.
--- NOTE | 2020-03-23 06:43 | PC.NURSE ---
speaking to citlali
--- NOTE | 2020-03-23 06:44 | PC.NURSE ---
C spine cleared, c-collar removed at this time per MD
[2020-03-23 06:48] VITALS: BP 169/75; PULSE 60; RESP 18; O2SAT 97
[2020-03-23 06:48] LABS: Basophils # 0.1 K/mm3 (0-0.2); Basophils % 0.7 % (0.1-2.0); Eosinophils # 0.2 K/mm3 (0.0-0.4); Eosinophils % 2.3 % (0.1-12.0); Hematocrit 52.8 % (42.0-52.0); Hemoglobin 16.9 g/dL (14.1-18.0); Lymphocytes # 1.4 K/mm3 (0.7-4.5); Lymphocytes % 14.9 % (10-50); Mean Corpuscular Hemoglobin 32.7 pg (27.0-31.2); Mean Corpuscular Volume 102.3 fl (80-94); Mean Platelet Volume 7.9 fl (7.4-10.4); Monocytes # 0.5 K/mm3 (0.1-1.0); Monocytes % 5.4 % (1.7-9.3); Neutrophils # 7.3 K/mm3 (1.8-7.8); Neutrophils % 76.7 % (37.0-80.0); Platelet Count 219 K/mm3 (142-424); Red Blood Count 5.16 M/mm3 (4.60-6.20); Red Cell Distribution Width 14.4 % (11.5-17.5); White Blood Count 9.6 K/mm3 (4.8-10.8)
--- NOTE | 2020-03-23 06:48 | PC.NURSE ---
calling [facility] at this time
--- NOTE | 2020-03-23 06:49 | PC.NURSE ---
Pt remains A&Ox4, PERRL at 2mm, pt able to move all extremities. Pt only c/o pain in shoulders at this time.
[2020-03-23 06:53] LABS: Chloride 102 mmol/L (98-107); Potassium 4.4 mmoL/L (3.5-5.1); Sodium 140 mmol/L (136-145)
--- NOTE | 2020-03-23 06:54 | PC.NURSE ---
[employer] called and accepted flight
[2020-03-23 06:56] LABS: Alanine Aminotransferase 7 U/L (12-78); Albumin Level 4.1 g/dl (3.5-5.0); Albumin/Globulin Ratio 1.2 (1.1-1.8); Alkaline Phosphatase 80 U/L (38-126); Anion Gap 9.4 mEq/L (5-15); Aspartate Amino Transferase 32 U/L (17-59); Bilirubin,Total 0.6 mg/dl (0.2-1.3); Blood Urea Nitrogen 34 mg/dl (9-20); Carbon Dioxide 33 mmol/L (22.0-30.0); Creatinine Clearance Estimated 55 mL/min (50-200); Estimated Glomerular Filt Rate 45 ml/min (>60); GFR (African American) 54 ML/MIN (>60); Globulin 3.5 g/dL (1.3-3.2); Glucose 224 mg/dl (74-100); Total Protein,Serum 7.6 g/dl (6.3-8.2)
--- NOTE | 2020-03-23 06:56 | PC.NURSE ---
[employer] in route at this time. 12 min eta
[2020-03-23 06:57] LABS: Creatine Kinase 156 U/L (55-170)
--- NOTE | 2020-03-23 07:01 | HMH.EDFALL ---
ED Disposition Clinical Impression: Multiple contusions, Subdural hematoma Disposition: Xfer Short-Term Hosp Condition on Discharge: Good Instructions: How to Prevent Falls Referrals: James Ambrocio MD [Primary Care Provider] - - Critical Care Critical Care Time: No Attestation: On 03/23/20, the high probability of a clinically significant, sudden or life threatening deterioration of the following system(s) required my full and direct attention, intervention and personal management. The time I documented below is in addition to time spent performing reported procedures but includes the following listed in this critical care notation. Medical Decision Making - Medical Records Medical records reviewed: Yes: I reviewed the patient's medical records. - Albaro Inquiry Pt receiving controlled substance: No Vital Signs: 03/23/20 04:56 03/23/20 06:48 Temperature 97.6 F Temperature Source Oral Pulse Rate [Left Radial] 60 60 Respiratory Rate 16 18 Blood Pressure [Right Arm] 143/75 H 169/75 H Blood Pressure Mean [Right Arm] 97 106 Blood Pressure Source [Right Arm] Automatic Cuff Blood Pressure Position [Right Arm] Supine 02 Sat by Pulse Oximetry 95 97 Oxygen Delivery Method Room Air - Lab Data Lab results reviewed: Yes: I reviewed the patient's lab results. Lab Results 03/23/20 06:42: Total Creatine Kinase 156 03/23/20 06:42: WBC 9.6, RBC 5.16, Hgb 16.9, Hct 52.8 H, MCV 102.3 H, MCH 32.7 H, MCHC 32.0, RDW 14.4, Plt Count 219, MPV 7.9, Neut % (Auto) 76.7, Lymph % (Auto) 14.9, [place] % (Auto) 5.4, Eos % (Auto) 2.3, Baso % (Auto) 0.7, Neut # (Auto) 7.3, Lymph # (Auto) 1.4, [place] # (Auto) 0.5, Eos # (Auto) 0.2, Baso # (Auto) 0.1 03/23/20 06:42: Sodium 140, Potassium 4.4, Chloride 102, Carbon Dioxide 33 H, Anion Gap 9.4, BUN 34 H, Creatinine 1.50 H, Estimated Creat Clear 55, Estimated GFR 45 L, Est GFR ( Amer) 54 L, Glucose 224 H, Calcium 10.0, Total Bilirubin 0.6, AST 32, ALT 7 L, Alkaline Phosphatase 80, Total Protein 7.6, Albumin 4.1, Globulin 3.5 H, Albumin/Globulin Ratio 1.2 Result diagrams: 03/23/20 06:42 03/23/20 06:42 Orders (Tests/Meds): ED MEDICATIONS Discontinued Medications Generic Name Dose Route Start Last Admin Trade Name Freq PRN Reason Stop Dose Admin Enalaprilat 1.25 mg 03/23/20 06:51 03/23/20 06:53 Enalaprilat 2.5mg/2ml Vial IV 03/23/20 06:52 1.25 mg ONCE ONE Administration Morphine Sulfate 4 mg 03/23/20 06:53 03/23/20 06:55 Morphine 4mg/Ml Syringe IV 03/23/20 06:54 4 mg ONCE ONE Administration Ondansetron HCl 4 mg 03/23/20 06:53 03/23/20 06:55 Ondansetron 4mg/2ml Vial IV 03/23/20 06:54 4 mg ONCE ONE Administration ORDERS Category Date Time Status CT cervical spine wo con Stat Cat Scan 03/23/20 05:[address] head/brain wo con Stat Cat Scan 03/23/20 05:09 Taken Chest XR AP view [XR chest AP] Stat Exams 03/23/20 05:13 Taken XR humerus LT Stat Exams 03/23/20 05:09 Taken XR humerus RT Stat Exams 03/23/20 05:09 Taken XR pelvis 1-2V Stat Exams 03/23/20 05:09 Taken XR shoulder LT min 2V Stat Exams 03/23/20 05:09 Taken XR shoulder RT min 2V Stat Exams 03/23/20 05:09 Taken - Radiology Data #1 Image(s): Shoulder, Pelvis, Hip Preliminary Findings: Normal/NAD - CT Data CT Scan: Head Time Received: 07:00 Preliminary Findings: Abnormal (Subdural hematoma) Medical Decision Narrative: Patient's pain improved after medication. Patient's blood pressure is now improved as well. She has been transferred [facility] [place] Dr. Cohen is the accepting physician Fall HPI - General Chief Complaint: Fall Stated Complaint: fall Time Seen by Provider: 03/23/20 07:00 Mode of Arrival: EMS Source of Information: Patient Limitations: No Limitations Description of Symptoms (Recalled from ER Triage Doc. by RN): Pt fell getting out of bed to use bathroom. Pt unsure of how long he was down. Pt thinks he fell over his rug
[2020-03-23 07:10] VITALS: BP 147/90; PULSE 62; O2SAT 95
--- NOTE | 2020-03-23 07:10 | PC.NURSE ---
Report called to Brigitte Granda RN at at this time.
[2020-03-23 07:28] VITALS: BP 145/87; PULSE 65; RESP 18; TEMP 36.7; O2SAT 96
--- NOTE | 2020-03-23 07:30 | PC.NURSE ---
Pt transported via [facility] at this time
== END 2020-03-23 07:29 | disposition short-term general hospital (02) ==
PROVIDERS: Emergency Provider Family Medicine; PCP Family Medicine
DX: S06.5X9A Traumatic subdural hemorrhage with loss of consciousness of unspecified duration, initial encounter (principal); T07.XXXA Unspecified multiple injuries, initial encounter; W06.XXXA Fall from bed, initial encounter; Y92.013 Bedroom of single-family (private) house as the place of occurrence of the external cause; I10 Essential (primary) hypertension; E03.9 Hypothyroidism, unspecified; E11.9 Type 2 diabetes mellitus without complications; I48.20 Chronic atrial fibrillation, unspecified; E78.5 Hyperlipidemia, unspecified; K21.9 Gastro-esophageal reflux disease without esophagitis; Z79.899 Other long term (current) drug therapy; Z88.0 Allergy status to penicillin
CPT/HCPCS: 70450; 71045; 72125; 72170; 73030; 73060; 80053; 82550; 85025; 96374; 96375; 99284; J2405

== ENCOUNTER 2020-04-29 10:49 | Emergency (ER) | payer MEDICARE, MEDICAID, SELFPAY ==
[2020-04-29] VITALS (7 sets, daily range): BP systolic 90–108; BP diastolic 41–58; PULSE 60–80; RESP 13–20; TEMP 36.8; O2SAT 94–98; BMI 31.6
--- NOTE | 2020-04-29 10:51 | ECG_ITS ---
APPROVED REPORT Exam: Resting ECG HR:60 bpm ECG Measurements Heart Rate 60 AXES IL 208 P QRSd 224 QRS 269 QT 536 T 79 QTc 536 Conclusion Electronic atrial pacemaker Abnormal ECG Electronically signed by : Emanuel Laughlin, 04/30/2020 17:29:41
--- NOTE | 2020-04-29 11:03 | XR_ITS ---
PROCEDURE: XR CHEST PORTABLE CLINICAL HISTORY: near syncope Heart disease COMPARISON: CR XR CHEST PORTABLE from 10/27/2019 CR XR CHEST 2V from 03/04/2020 CR XR CHEST AP from 03/23/2020 FINDINGS: There is a bipolar pacemaker present from left subclavian approach. There has been a prior CABG. The heart size normal. The lungs are clear without infiltrates, suspicious nodules, or pleural effusions. No acute bony abnormalities. IMPRESSION: No acute findings. Dictated by: Cornelio Younger MD 04/29/2020 13:50 Cornelio Younger MD in [facility] 04/29/2020 13:50
--- NOTE | 2020-04-29 11:05 | XR_ITS ---
PROCEDURE: XR KNEE RT 3V CLINICAL INDICATION: recent fall Pain COMPARISON: No exams were available for comparison FINDINGS: No fracture or dislocation. No lytic or blastic change. There is normal mineralization. Mild osteoarthritic changes are present. There is generalized vascular calcification. Other findings:None. IMPRESSION: Degenerative changes, no acute finding Dictated by: Cornelio Younger MD 04/29/2020 13:52 Cornelio Younger MD in [facility] 04/29/2020 13:52
--- NOTE | 2020-04-29 11:05 | XR_ITS ---
PROCEDURE: XR HIP RT 2-3V W/PELVIS CLINICAL INDICATION: recent fall Pain COMPARISON: CR XR PELVIS 1-2V from 03/23/2020 FINDINGS: There is a right-sided gamma nail with short intramedullary sandra. Bony hypertrophic changes are present along the greater trochanter. There are moderate osteoarthritic changes of both hips. No acute fracture or dislocation is evident. Calcification is present along the lower pelvis on the left not significantly changed. There is also a left gamma nail with bony sideplate IMPRESSION: No acute fracture Dictated by: Cornelio Younger MD 04/29/2020 13:53 Cornelio Younger MD in [facility] 04/29/2020 13:53
[2020-04-29 11:18] LABS: Basophils # 0.1 K/mm3 (0-0.2); Basophils % 1.1 % (0.1-2.0); Eosinophils # 0.2 K/mm3 (0.0-0.4); Eosinophils % 1.6 % (0.1-12.0); Hemoglobin 16.8 g/dL (14.1-18.0); Lymphocytes # 2.4 K/mm3 (0.7-4.5); Mean Corpuscular HGB Conc 31.6 g/dL (31.8-35.4); Mean Corpuscular Hemoglobin 32.9 pg (27.0-31.2); Mean Corpuscular Volume 103.9 fl (80-94); Mean Platelet Volume 7.6 fl (7.4-10.4); Monocytes # 0.8 K/mm3 (0.1-1.0); Monocytes % 7.5 % (1.7-9.3); Neutrophils # 7.3 K/mm3 (1.8-7.8); Neutrophils % 67.8 % (37.0-80.0); Platelet Count 277 K/mm3 (142-424); Red Cell Distribution Width 14.5 % (11.5-17.5); White Blood Count 10.7 K/mm3 (4.8-10.8)
[2020-04-29 11:24] LABS: Chloride 103 mmol/L (98-107); Potassium 4.4 mmoL/L (3.5-5.1); Sodium 141 mmol/L (136-145)
[2020-04-29 11:27] LABS: Alanine Aminotransferase 10 U/L (12-78); Albumin Level 4.5 g/dl (3.5-5.0); Albumin/Globulin Ratio 1.2 (1.1-1.8); Alkaline Phosphatase 72 U/L (38-126); Anion Gap 14.4 mEq/L (5-15); Aspartate Amino Transferase 29 U/L (17-59); Bilirubin,Total 0.6 mg/dl (0.2-1.3); Blood Urea Nitrogen 35 mg/dl (9-20); Calcium 10.2 mg/dl (8.4-10.2); Carbon Dioxide 28 mmol/L (22.0-30.0); Creatinine Clearance Estimated 39 mL/min (50-200); Estimated Glomerular Filt Rate 30 ml/min (>60); GFR (African American) 37 ML/MIN (>60); Globulin 3.7 g/dL (1.3-3.2); Glucose 163 mg/dl (74-100); Total Protein,Serum 8.2 g/dl (6.3-8.2)
[2020-04-29 11:32] LABS: D-Dimer 1.34 ug/mL (0.15-8.0)
--- NOTE | 2020-04-29 11:40 | HMH.EDGENADL ---
ED Disposition Clinical Impression: Dizziness, nonspecific, Dehydration, Acute kidney injury Deep vein blood clot of right lower extremity Qualifiers: Affected thrombotic vein of extremity: tibial Chronicity: acute Qualified Code(s): I82.441 - Acute embolism and thrombosis of right tibial vein Disposition: Home, Self-Care Condition on Discharge: Good Instructions: Dizziness, Nonvertigo Additional Instructions: Use the blood thinner as prescribed and increase oral hydration daily. Recommend following up with your primary care within a week for reevaluation. Take extra care to prevent falls due to the initiation of the blood thinner. Return to the ED for any new or worsening symptoms including dark or bloody stools vomiting blood or a fall with injury to the head. Prescriptions: Apixaban [Eliquis 5mg Tablet] 5 mg PO BID 30 Days #60 tab Transmission Status: Pending to [facility] Referrals: James Ambrocio MD [Primary Care Provider] - - Critical Care Critical Care Time: No Attestation: On 04/29/20, the high probability of a clinically significant, sudden or life threatening deterioration of the following system(s) required my full and direct attention, intervention and personal management. The time I documented below is in addition to time spent performing reported procedures but includes the following listed in this critical care notation. Total Critical Care Time: 0 Medical Decision Making - Medical Records Medical records reviewed: Yes: I reviewed the patient's medical records. - Albaro Inquiry Pt receiving controlled substance: No Vital Signs: 04/29/20 10:59 04/29/20 12:49 Temperature 98.2 F Temperature Source Oral Pulse Rate [Left Radial] 80 60 Respiratory Rate 13 16 Blood Pressure [Right Arm] 97/41 L 101/53 L Blood Pressure Mean [Right Arm] 59 69 Blood Pressure Source [Right Arm] Automatic Cuff Automatic Cuff Blood Pressure Position [Right Arm] Sitting 02 Sat by Pulse Oximetry 96 98 Oxygen Delivery Method Room Air - Lab Data Lab Results 04/29/20 10:55: WBC 10.7, RBC 5.10, Hgb 16.8, Hct 53.0 H, MCV 103.9 H, MCH 32.9 H, MCHC 31.6 L, RDW 14.5, Plt Count 277, MPV 7.6, Neut % (Auto) 67.8, Lymph % (Auto) 22.0, [place] % (Auto) 7.5, Eos % (Auto) 1.6, Baso % (Auto) 1.1, Neut # (Auto) 7.3, Lymph # (Auto) 2.4, [place] # (Auto) 0.8, Eos # (Auto) 0.2, Baso # (Auto) 0.1 04/29/20 10:55: Sodium 141, Potassium 4.4, Chloride 103, Carbon Dioxide 28, Anion Gap 14.4, BUN 35 H, Creatinine 2.10 H, Estimated Creat Clear 39, Estimated GFR 30 L, Est GFR ( Amer) 37 L, Glucose 163 H, Calcium 10.2, Total Bilirubin 0.6, AST 29, ALT 10 L, Alkaline Phosphatase 72, Total Protein 8.2, Albumin 4.5, Globulin 3.7 H, Albumin/Globulin Ratio 1.2 04/29/20 10:55: D-Dimer 1.34 Result diagrams: 04/29/20 10:55 04/29/20 10:55 Orders (Tests/Meds): ED MEDICATIONS Generic Name Dose Route Start Last Admin Trade Name Freq PRN Reason Stop Dose Admin Sodium Chloride 500 mls @ 500 mls/hr 04/29/20 12:15 04/29/20 12:16 Sod Chlor 0.9% 500ml Bag IV 05/29/20 12:14 500 mls/hr .Q1H NICK Administration Discontinued Medications Generic Name Dose Route Start Last Admin Trade Name Freq PRN Reason Stop Dose Admin Cyanocobalamin 1,000 mcg 04/29/20 11:26 04/29/20 11:48 Vitamin B-12 1,000 Mcg 1ml Vial IM 04/29/20 11:27 1,000 mcg ONCE ONE Administration Folic Acid 1 mg 04/29/20 11:26 04/29/20 11:48 Folic Acid 1mg Tablet PO 04/29/20 11:27 1 mg ONCE ONE Administration Sodium Chloride 1,000 mls @ 999 mls/hr 04/29/20 11:15 04/29/20 11:10 Sod Chlor 0.9% 1000ml Bag IV 04/29/20 12:15 999 mls/hr .Q1H1M NICK Administration ORDERS Category Date Time Status Hip XR right minimum 2 views [XR hip RT 2-3V w/pelvis] Exams 04/29/20 11:05 Taken Stat Knee XR right 3 views [XR knee RT 3V] Stat Exams 04/29/20 11:05 Taken XR chest portable Stat Exams 04/29/20 11:03 Taken MAG [Magnesium] Stat
--- NOTE | 2020-04-29 12:08 | PC.NURSE ---
Radiology states that due to pt kidney function they cannot do IV contrast for Chest/pe. MD aware and they are checking to see if they can do a VQ scan
--- NOTE | 2020-04-29 12:13 | CA_ITS ---
APPROVED REPORT Right Lower Extremity Venous Study for DVT. Insurance Claim Approver: Alicja Barragan RVT Indications Lower Extremity Pain: Right CAD dvt exam elevated d dimer,weakness rle Risk Factors Cardiac Disease CAD Medications Pt was on Xarelto Vein Imaging CFV (R): compressive, spontaneous, phasic, augmentation FEM (R): compressive, spontaneous, phasic, augmentation POP (R): compressive, spontaneous, phasic, augmentation PTV (R): Partially Compressible, Thrombus GSV (R): Compressible Peroneals (R):Compressible GAS (R): Compressible Findings Study suggests parital thrombus distal right posterior tibial vein. Other deep veins are normal. Study suggests no evidence of SVT of the right lower extremity. Conclusion Study suggests parital thrombus distal right posterior tibial vein. Other deep veins are normal. Study suggests no evidence of SVT of the right lower extremity. Critical Notification Physician Notified Date: 04/29/2020 Time: 13:20 Physician Name: Lesly Rodney Electronically signed by : Cornelio Younger MD 04/30/2020 17:02:48
[2020-04-29 13:41] LABS: Magnesium 2.3 mg/dl (1.6-2.3)
[2020-04-30 02:15] LABS: POC Glucose,Bedside 150 (70-110)
== END 2020-04-29 15:30 | disposition home or self-care (01) ==
PROVIDERS: Emergency Provider Student in an Organized Health Care Education/Training Program; PCP Family Medicine
DX: G89.18 Other acute postprocedural pain (principal); R42 Dizziness and giddiness; M54.5 Low back pain; M79.661 Pain in right lower leg
CPT/HCPCS: 71045; 73502; 73562; 80053; 82962; 83735; 85025; 85378; 93005; 93971; 96365; 96367; 99283

== ENCOUNTER → 2020-05-07 16:08 | Outpatient (CLI) | payer MEDICARE, MEDICAID, SELFPAY | PROVIDERS: Visit Provider Nurse Practitioner | DX: Z51.89 Encounter for other specified aftercare (principal); E11.621 Type 2 diabetes mellitus with foot ulcer; L97.502 Non-pressure chronic ulcer of other part of unspecified foot with fat layer exposed; Z79.4 Long term (current) use of insulin | CPT/HCPCS: 87070; 87077; 87186; 87205 ==

== ENCOUNTER → 2020-05-21 10:54 | Outpatient (CLI) | payer MEDICARE, MEDICAID, SELFPAY ==
--- NOTE | 2020-05-21 11:09 | XR_ITS ---
PROCEDURE: XR FOOT WT BEARING LT 3V CLINICAL INDICATION: foot pain COMPARISON: CR XR FOOT WT BEARING RT 3V from 07/27/2019 CR XR FOOT WT BEARING RT 3V from 09/26/2019 CR XR FOOT WT BEARING LT 3V from 09/26/2019 CR XR FOOT WT BEARING LT 3V from 12/11/2019 FINDINGS: Mild osteoarthritic changes are present at the 1st metatarsophalangeal joint with prominent bony spurring laterally similar to the previous exam. Mild osteoarthritic changes are present at the talonavicular and navicular cuneiform joint. Calcaneal spurs present. There is calcification along the plantar fascial region which could be seen with chronic plantar fasciitis or old injury. Overall no significant change from the previous exam. Other findings:None. IMPRESSION: Chronic degenerative changes as described above. Focal calcification of the plantar fascia which may be seen with chronic plantar fasciitis. Overall no significant change Dictated by: Cornelio Younger MD 05/21/2020 18:59 Cornelio Younger MD in [place] 05/21/2020 18:59
== END ==
PROVIDERS: PCP Family Medicine; Visit Provider Nurse Practitioner
DX: M79.675 Pain in left toe(s) (principal); Z51.89 Encounter for other specified aftercare
CPT/HCPCS: 73630

== ENCOUNTER → 2020-06-04 09:11 | Outpatient (CLI) | payer MEDICARE, MEDICAID, SELFPAY ==
--- NOTE | 2020-06-04 09:11 | US_ITS ---
APPROVED REPORT Seconds Handler: Hannah RCS, RVS Indications left foot ulcer Pressures/Indices Right Indices Left Indices Brachial 120.00 mmHg Brachial 120.00 mmHg Low Thigh 183.00 mmHg 1.53 Low Thigh 255.00 mmHg 0.00 Calf 137.00 mmHg 1.14 Calf 83.00 mmHg 0.69 Ankle(PT) 128.00 mmHg 1.07 Ankle(PT) 93.00 mmHg 0.78 Ankle(DP) 136.00 mmHg 1.13 Ankle(DP) 68.00 mmHg 0.57 Digit 120.00 mmHg 1.00 Digit 98.00 mmHg 0.82 Findings RT PIPO=1.13 LT PIPO=0.78 RT TPI=1.0 LT PIPO=0.82 DUE TO OPEN WOUND ON LEFT GREAT TOE, SECOND DIGIT WAS UTILIZED FOR LEFT TOE PRESSURE. Conclusion RT PIPO=1.13 LT PIPO=0.78 RT TPI=1.0 LT PIPO=0.82 DUE TO OPEN WOUND ON LEFT GREAT TOE, SECOND DIGIT WAS UTILIZED FOR LEFT TOE PRESSURE. Moderate left arterial disease Electronically signed by : Cornelio Younger MD 06/04/2020 16:35:02
== END ==
PROVIDERS: PCP Family Medicine; Visit Provider Podiatrist
DX: E11.621 Type 2 diabetes mellitus with foot ulcer (principal); L97.521 Non-pressure chronic ulcer of other part of left foot limited to breakdown of skin; L97.529 Non-pressure chronic ulcer of other part of left foot with unspecified severity; Z79.4 Long term (current) use of insulin
CPT/HCPCS: 93923

== ENCOUNTER → 2020-07-09 17:39 | Outpatient (CLI) | payer MEDICARE, MEDICAID, SELFPAY | PROVIDERS: Visit Provider Podiatrist | DX: Z51.89 Encounter for other specified aftercare (principal); L97.521 Non-pressure chronic ulcer of other part of left foot limited to breakdown of skin | CPT/HCPCS: 87070; 87186; 87205 ==

== ENCOUNTER → 2020-07-19 09:29 | Outpatient (CLI) | payer MEDICARE, MEDICAID, SELFPAY ==
[2020-07-19 12:04] LABS: Alanine Aminotransferase 5 U/L (12-78); Albumin Level 4.1 g/dl (3.5-5.0); Alkaline Phosphatase 75 U/L (38-126); Aspartate Amino Transferase 30 U/L (17-59); Bilirubin,Direct 0.1 mg/dl (0.0-0.4); Bilirubin,Indirect 0.4 mg/dL (0.0-0.9); Bilirubin,Total 0.5 mg/dl (0.2-1.3); Bilirubin,Unconjugated 0.4 mg/dL (0.0-1.1); Cholesterol 176 mg/dl (140-200); HDL Cholesterol 58 mg/dl (40-60); Total Protein,Serum 7.3 g/dl (6.3-8.2); Triglycerides 143 mg/dl (30-150); VLDL Cholesterol 29 mg/dL (0-40)
[2020-07-19 12:15] LABS: Direct LDL Cholesterol 84.01 mg/dL (100-129)
== END ==
PROVIDERS: Visit Provider Internal Medicine Cardiovascular Disease
DX: E66.9 Obesity, unspecified (principal); E78.2 Mixed hyperlipidemia; I10 Essential (primary) hypertension; I25.10 Atherosclerotic heart disease of native coronary artery without angina pectoris; I48.91 Unspecified atrial fibrillation; I73.9 Peripheral vascular disease, unspecified; R06.09 Other forms of dyspnea; R29.898 Other symptoms and signs involving the musculoskeletal system; R42 Dizziness and giddiness; R60.9 Edema, unspecified; R68.89 Other general symptoms and signs; Z95.0 Presence of cardiac pacemaker; Z95.1 Presence of aortocoronary bypass graft
CPT/HCPCS: 36415; 80061; 80076

== ENCOUNTER 2020-07-22 10:30 | Outpatient (RCR) | payer MEDICARE, MEDICAID, SELFPAY ==
--- NOTE | 2020-05-13 11:03 | HMH.RHREAS ---
Rehab Reassessment Rehab OP Re-assessment Start: 05/13/20 10:56 Freq: Status: Active Protocol: Document 05/13/20 10:57 BYRON (Rec: 05/13/20 11:03 BYRON [id number]) Electronically Signed By Moris rKueger, PT 05/13/20 10:57 Rehab Re-assessment Subjective Subjective Pt reports the [employer] E[employer]MENT INST[employer]ER at his [facility] office performed significant debridement on his last visit. Objective Objective Notes L plantar great toe wound: L= 1.0 cm, W= 0.6 cm. Wound base remains dusky red with no apparent slough noted currently. Assessment Progress Assessment Progressing as Expected Assessment Notes Pt continues to requires frequent sharp excisional debridement. Some mild tunneling noted this date. Patient goals met none Goals Not Met ST LT,2 Revised Goals none Plan Plan Continues per initial POC Frequency of Therapy 2 x/wk Duration of therapy 8 wks Time and Billing Re-Eval Time 15 Re-Eval Billing Units 1 PHYSICIAN CERTIFICATION: I certify the specified therapy services for Steven Bautista are required, authorized, and reviewed every 30 days.
--- NOTE | 2020-06-17 10:30 | HMH.RHREAS ---
Rehab Reassessment Rehab OP Re-assessment Start: 05/13/20 10:56 Freq: Status: Active Protocol: Document 06/17/20 10:28 BYRON (Rec: 06/17/20 10:30 BYRON [id number]) Electronically Signed By Moris Krueger, PT 06/17/20 10:28 Rehab Re-assessment Subjective Subjective Pt with no c/o pain, he reports cardiology changed some of his meds which seems to be helping him overall. Objective Objective Notes Wound on the plantar surface of L great toe appears closed, medial L great toe is smaller but with continued serosanguineous drainage. L Med Great Toe wound: L= 1.7 cm, W= 2.6 cm. Assessment Progress Assessment Progressing as Expected Assessment Notes WOund had increased on medial side of L great toe for unknown reason, remains macerated slightly. Some improved healing this date. Patient goals met none Goals Not Met ST LT,2 Revised Goals none Plan Plan Continues per initial POC Frequency of Therapy 2 x/wk Duration of therapy 8 wks Time and Billing Re-Eval Time 15 Re-Eval Billing Units 1 PHYSICIAN CERTIFICATION: I certify the specified therapy services for Steven Bautista are required, authorized, and reviewed every 30 days.
--- NOTE | 2020-07-16 10:18 | HMH.RHREAS ---
Rehab Reassessment Rehab OP Re-assessment Start: 05/13/20 10:56 Freq: Status: Active Protocol: Document 07/16/20 10:15 BYRON (Rec: 07/16/20 10:18 BYRON [id number]) Electronically Signed By Moris Krueger, PT 07/16/20 10:15 Rehab Re-assessment Subjective Subjective Pt with no c/o pain. He reports, They cut on my other heel last time, I don't know why they did that.' Objective Objective Notes L great toe wound: L= 0.1 cm, W= 0.1 cm on lateral side of great toe. Assessment Progress Assessment Progressing as Expected Assessment Notes L great toe wound appears much more healthy and almost completely healed at this time . Some overlying dry, callused skin noted may need further treatment as necessary. Patient goals met ST Goals Not Met LT,2 Revised Goals none Plan Plan Continues per initial POC Frequency of Therapy 2 x/wk Duration of therapy 8 wks Time and Billing Re-Eval Time 15 Re-Eval Billing Units 1 PHYSICIAN CERTIFICATION: I certify the specified therapy services for Steven Bautista are required, authorized, and reviewed every 30 days.
== END 2020-07-22 10:35 | disposition home or self-care (01) ==
LOC: PT 10:30
PROVIDERS: PCP Family Medicine; Visit Provider Nurse Practitioner
DX: E11.621 Type 2 diabetes mellitus with foot ulcer (principal); L97.521 Non-pressure chronic ulcer of other part of left foot limited to breakdown of skin; Z79.4 Long term (current) use of insulin
CPT/HCPCS: 97162; 97164; 97597

== ENCOUNTER → 2020-10-18 10:24 | Outpatient (CLI) | payer MEDICARE, MEDICAID, SELFPAY ==
--- NOTE | 2020-10-18 11:08 | XR_ITS ---
PROCEDURE: XR CHEST 2V CLINICAL HISTORY: on amio Evaluate for amiodarone fibrosis COMPARISON: CR XR CHEST 2V from 03/04/2020 CR XR CHEST AP from 03/23/2020 CR XR CHEST PORTABLE from 04/29/2020 FINDINGS: Prior CABG. Bipolar pacemaker is present from left subclavian approach. Borderline cardiomegaly without failure. The lungs are clear without infiltrates, suspicious nodules, or pleural effusions. No convincing evidence of amiodarone lung fibrosis. Thoracic kyphosis with wedge compression changes of T11-T10 and T9 T8 and T7 not significantly changed. IMPRESSION: No acute finding. No evidence of amiodarone lung fibrosis Dictated by: Cornelio Younger MD 10/18/2020 11:31 Cornelio Younger MD in [place] 10/18/2020 11:31
[2020-10-18 12:38] LABS: Triiodothryronine (T3) Uptake 33 % (23.5-40.5)
[2020-10-18 12:39] LABS: Free Thyroxine Index 3.9 ug/dL (5.93-13.13); T4 (Thyroxine) 11.8 ug/dl (5.53-11.0)
[2020-10-18 12:52] LABS: Thyroid Stimulating Hormone 0.99 uIU/mL (0.465-4.68)
== END ==
PROVIDERS: Visit Provider Urology
DX: I73.9 Peripheral vascular disease, unspecified (principal); Z79.899 Other long term (current) drug therapy; Z51.81 Encounter for therapeutic drug level monitoring; Z79.01 Long term (current) use of anticoagulants; I48.91 Unspecified atrial fibrillation
CPT/HCPCS: 36415; 71046; 84436; 84443; 84479

== ENCOUNTER 2021-01-04 13:52 | Observation (INO) | payer MEDICARE, MEDICAID, SELFPAY ==
[2021-01-04] VITALS (10 sets, daily range): BP systolic 111–140; BP diastolic 49–71; PULSE 68–79; RESP 18–20; TEMP 36.7–37.2; O2SAT 92–95; BMI 27.1
--- NOTE | 2021-01-04 14:08 | XR_ITS ---
PROCEDURE INFORMATION: Exam: XR Chest Exam date and time: 01/04/2021 2:08 PM Age: 85 years old Clinical indication: Other: Weakness; Prior surgery; Surgery date: 6+ months; Surgery type: Open heart, pacemaker TECHNIQUE: Imaging protocol: XR of the chest. Views: 1 view. COMPARISON: CR XR CHEST 2V 10/18/2020 11:09 AM FINDINGS: Tubes, catheters and devices: A pacemaker device is present, and its leads are in appropriate position. There are sternal wires consistent with previous sternotomy incision. Lungs: Atelectatic changes noted within both lung bases. Pleural spaces: There is no evidence of pneumothorax. There are no pleural effusions present. Heart/Mediastinum: The heart demonstrates mild diffuse enlargement. Bones/joints: The thoracic spine demonstrates mild degenerative changes at multiple levels. IMPRESSION: 1. The heart demonstrates mild diffuse enlargement. 2. Atelectatic changes noted within both lung bases.
--- NOTE | 2021-01-04 14:08 | XR_ITS ---
PROCEDURE INFORMATION: Exam: XR Left Foot Exam date and time: 01/04/2021 2:08 PM Age: 85 years old Clinical indication: Pain; Toes; Patient HX: Left great toe wound; Additional info: Weakness TECHNIQUE: Imaging protocol: XR Left foot. Views: 3 or more views. COMPARISON: CT FOOT LT WO CON 01/04/2021 2:29 PM FINDINGS: Bones/joints: There is no evidence of acute fracture. Moderate degenerative changes of the 1st metatarsophalangeal and interphalangeal joints. There is no evidence of joint malalignment or dislocation. Bones are osteopenic. Calcaneal spurs are present. Soft tissues: Soft tissue swelling is noted along the distal aspect of the great toe along the plantar aspect with soft tissue disruption is well. IMPRESSION: 1. No evidence of acute fracture. 2. Soft tissue swelling is noted along the distal aspect of the great toe along the plantar aspect with soft tissue disruption is well. 3. Moderate degenerative changes of the 1st metatarsophalangeal and interphalangeal joints. 4. No evidence of acute dislocation. 5. Bones are osteopenic. 6. Calcaneal spurs are present.
--- NOTE | 2021-01-04 14:08 | CT_ITS ---
PROCEDURE INFORMATION: Exam: CT Left Lower Extremity Without Contrast, Foot Exam date and time: 01/04/2021 2:08 PM Age: 85 years old Clinical indication: Pain; Toes; Left; Patient HX: Patient has great toe wound, redness, swollen; Additional info: Left great toe wound TECHNIQUE: Imaging protocol: CT of the Left lower extremity without contrast was performed. Exam focused on the foot. Radiation optimization: All CT scans at this facility use at least one of these dose optimization techniques: automated exposure control; mA and/or kV adjustment per patient size (includes targeted exams where dose is matched to clinical indication); or iterative reconstruction. COMPARISON: US ARTERIAL LOWER EXT REST 06/04/2020 9:16 AM FINDINGS: Bones/joints: Large calcaneal spurs are present. Bones are osteopenic. No definite evidence of osteomyelitis as imaged. There is no evidence of acute fracture. There is no evidence of joint malalignment or dislocation. [id number] degenerative changes of the foot. Soft tissues: There is soft tissue disruption noted along the plantar aspect of the great toe distally. IMPRESSION: 1. There is soft tissue disruption noted along the plantar aspect of the great toe distally. 2. No definite evidence of osteomyelitis as imaged. 3. No evidence of acute fracture. 4. No evidence of acute dislocation.
--- NOTE | 2021-01-04 14:18 | HMH.EDSKAF ---
ED Disposition Clinical Impression: Type 2 diabetes mellitus with foot ulcer, with long-term current use of insulin, Cardiac pacemaker in situ, Cellulitis and abscess of foot Disposition: Admitted as Observation Condition on Discharge: Good - Critical Care Critical Care Time: No Attestation: On , the high probability of a clinically significant, sudden or life threatening deterioration of the following system(s) required my full and direct attention, intervention and personal management. The time I documented below is in addition to time spent performing reported procedures but includes the following listed in this critical care notation. Medical Decision Making - Medical Records Medical records reviewed: Yes: I reviewed the patient's medical records. - [place] Inquiry Pt receiving controlled substance: No Vital Signs: 01/04/21 13:52 01/04/21 15:01 01/04/21 15:30 Temperature 98.2 F Temperature Source Oral Pulse Rate 69 68 Pulse Rate [Right Radial] 79 Respiratory Rate 18 20 18 Blood Pressure 133/64 122/62 Blood Pressure [Right Arm] 135/57 L Blood Pressure Mean 75 73 Blood Pressure Mean [Right Arm] 83 Blood Pressure Source [Right Arm] Automatic Cuff Blood Pressure Position [Right Arm] Sitting 02 Sat by Pulse Oximetry 92 L 92 L 92 L Oxygen Delivery Method Room Air Nasal Cannula Nasal Cannula Oxygen Flow Rate (LPM) 2 2 - Lab Data Lab results reviewed: Yes: I reviewed the patient's lab results. Lab Results 01/04/21 15:33: WBC 11.6 H, RBC 5.23, Hgb 16.6, Hct 53.4 H, MCV 102.2 H, MCH 31.8 H, MCHC 31.1 L, RDW 13.5, Plt Count 252, MPV 8.6, Neut % (Auto) 89.1 H, Lymph % (Auto) 4.4 L, [place] % (Auto) 5.3, Eos % (Auto) 0.4, Baso % (Auto) 0.8, Neut # (Auto) 10.3 H, Lymph # (Auto) 0.5 L, [place] # (Auto) 0.6, Eos # (Auto) 0.1, Baso # (Auto) 0.1, Total Counted 100, Neutrophils % (Manual) 73, Band Neutrophils % 7.0, Lymphocytes % (Manual) 16, Monocytes % (Manual) 2, Eosinophils % (Manual) 1, Basophils % (Manual) 1.0, Platelet Estimate Normal, RBC Morphology Not Reportable, Hypochromasia 1+, Macrocytosis 1+, ESR 14 01/04/21 15:33: Sodium 141, Potassium 4.5, Chloride 102, Carbon Dioxide 31 H, Anion Gap 12.5, BUN 30 H, Creatinine 1.60 H, Estimated Creat Clear 43, Estimated GFR 41 L, Est GFR ( Amer) 50 L, Glucose 220 H, Calcium 9.4, Total Bilirubin 0.6, AST 49, ALT 14, Alkaline Phosphatase 94, C-Reactive Protein 46.8 H, Total Protein 8.0, Albumin 4.0, Globulin 4.0 H, Albumin/Globulin Ratio 1.0 L 01/04/21 15:33: Lactate 1.9 01/04/21 16:04: SARS-CoV-2 (PCR) Not detected, Influenza A Untype (PCR) Not detected, Influenza Type B (PCR) Not detected Result diagrams: 01/04/21 15:33 01/04/21 15:33 Orders (Tests/Meds): ED MEDICATIONS Discontinued Medications Generic Name Dose Route Start Last Admin Trade Name Freq PRN Reason Stop Dose Admin Vancomycin HCl 2,000 mg/ 250 mls @ 125 mls/hr 01/04/21 14:30 01/04/21 15:44 Sodium Chloride IV 01/04/21 16:29 125 mls/hr ONCE ONE Administration ORDERS Category Date Time Status Blood Culture Stat Micro 01/04/21 15:33 Received - Radiology Data #1 Image(s): Chest, Foot/Toes Image Reviewed: Yes I have reviewed radiologist's interpretation Preliminary Findings: Abnormal - CT Data CT Scan: Other (lt foot ) Time Received: 16:[address] Reviewed: Yes: I have viewed the radiologist's interpretation Preliminary Findings: Abnormal (see report) - ECG Data Tracing #1 Arrhythmias present: other (paced) Conduction abnormalities present: LBBB ECG compared to prior tracings: there are no significant changes - Physician Consults Physician Consulted: dinesh Reason -: Admission Medical Decision Narrative: has weakness and abn xrays and clinical exam lt great toe Skin/Abscess/FB HPI - General Chief complaint: Weakness Stated complaint: weakness Time Seen by Provider: 01/04/21 14:18 Mode of Arrival: EMS Source of Information: [facility]
--- NOTE | 2021-01-04 15:03 | ECG_ITS ---
APPROVED REPORT Exam: Resting ECG HR:71 bpm ECG Measurements Heart Rate 71 AXES WY 166 P 6 QRSd 218 QRS 267 QT 482 T 77 QTc 523 Conclusion Normal sinus rhythm Nonspecific intraventricular block Possible Lateral infarct, age undetermined Inferior infarct, age undetermined Abnormal ECG Electronically signed by : Emanuel Laughlin MD 01/05/2021 17:07:11
[2021-01-04 15:56] LABS: Basophils # 0.1 K/mm3 (0-0.2); Basophils % 0.8 % (0.1-2.0); Eosinophils # 0.1 K/mm3 (0.0-0.4); Eosinophils % 0.4 % (0.1-12.0); Hematocrit 53.4 % (42.0-52.0); Hemoglobin 16.6 g/dL (14.1-18.0); Lymphocytes # 0.5 K/mm3 (0.7-4.5); Lymphocytes % 4.4 % (10-50); Mean Corpuscular HGB Conc 31.1 g/dL (31.8-35.4); Mean Corpuscular Hemoglobin 31.8 pg (27.0-31.2); Mean Corpuscular Volume 102.2 fl (80-94); Mean Platelet Volume 8.6 fl (7.4-10.4); Monocytes # 0.6 K/mm3 (0.1-1.0); Monocytes % 5.3 % (1.7-9.3); Neutrophils # 10.3 K/mm3 (1.8-7.8); Neutrophils % 89.1 % (37.0-80.0); Platelet Count 252 K/mm3 (142-424); Red Blood Count 5.23 M/mm3 (4.60-6.20); Red Cell Distribution Width 13.5 % (11.5-17.5); White Blood Count 11.6 K/mm3 (4.8-10.8)
[2021-01-04 16:16] LABS: MANUAL DIFFERENTIAL MANUAL DIFFERENTIAL (MANUAL DIFF)
[2021-01-04 16:18] LABS: Coronavirus 19, PCR Not Detected (NotDetected); Influenza A, PCR Not Detected (NotDetected); Influenza B, PCR Not Detected (NotDetected)
[2021-01-04 16:26] LABS: Chloride 102 mmol/L (98-107); Potassium 4.5 mmoL/L (3.5-5.1); Sodium 141 mmol/L (136-145)
[2021-01-04 16:28] LABS: Blood Urea Nitrogen 30 mg/dl (9-20); Creatinine Clearance Estimated 43 mL/min (50-200); Estimated Glomerular Filt Rate 41 ml/min (>60); GFR (African American) 50 ML/MIN (>60)
[2021-01-04 16:29] LABS: Alanine Aminotransferase 14 U/L (12-78); Alkaline Phosphatase 94 U/L (38-126); Anion Gap 12.5 mEq/L (5-15); Aspartate Amino Transferase 49 U/L (17-59); Bilirubin,Total 0.6 mg/dl (0.2-1.3); Calcium 9.4 mg/dl (8.4-10.2); Carbon Dioxide 31 mmol/L (22.0-30.0); Glucose 220 mg/dl (74-100); Lactic Acid 1.9 mmol/L (0.7-2.1)
[2021-01-04 16:34] LABS: C-Reactive Protein 46.8 mg/L (0-4); Erythrocyte Sedimentation Rate 14 mm/hr (0-20)
[2021-01-04 16:56] LABS: Eosinophils % 1 % (0-3); Lymphocytes % 16 % (10-50); Macrocytosis 1+; Monocytes % 2 % (2-9); Neutrophils % 73 % (42-76); Platelet Estimate Normal; Total Cells Counted 100
[2021-01-04 16:57] LABS: Hypochromasia 1+
--- NOTE | 2021-01-04 18:39 | PC.NURSE ---
Report called to [facility].
--- NOTE | 2021-01-04 19:42 | PC.NURSE ---
Called and gave an update on pts condition, admission status, and POC. Set up password as Darnell Alejo as pt has a hx of dementia.
--- NOTE | 2021-01-04 20:16 | PC.NURSE ---
UNABLE TO RECONCILE MEDS AT THIS TIME. PATIENT UNABLE TO CONFIRM MED LIST.
--- NOTE | 2021-01-04 21:24 | PC.NURSE ---
PT ARRIVED TO FLOOR VIA STRETCHER FROM ED W/STAFF AT 2123
[2021-01-05 01:06] LABS: POC Glucose,Bedside 229 (70-110)
[2021-01-05 04:00] VITALS: BP 134/60; PULSE 63; RESP 18; TEMP 36.8; O2SAT 95
--- NOTE | 2021-01-05 04:33 | PC.NURSE ---
A&OX4. TOLERATING 2LNC WELL. PT HAS HAD NO C/O PAIN/NA/VO THUS FAR. PT HAS SLEPT WELL MAJORITY OF SHIFT. ABSCESS NOTED TO LARGE TOE ON L FOOT. PICTURE HAS BEEN TAKEN. PT HAS HAD EPISODES OF INCONTINENCE T/O SHIFT. BRIEF APPLIED, KEPT CLEAN AND DRY. VSS WILL CONTINUE TO MONITOR.
--- NOTE | 2021-01-05 05:39 | PC.NURSE ---
UNABLE TO OBTAIN WEIGHT . BED SCALE DOES NOT WORK. RN AWARE
[2021-01-05 08:00] VITALS: BP 130/60; PULSE 64; RESP 24; TEMP 36.3; O2SAT 95
[2021-01-05 08:03] LABS: Chloride 103 mmol/L (98-107); Sodium 138 mmol/L (136-145)
[2021-01-05 08:05] LABS: Blood Urea Nitrogen 26 mg/dl (9-20); Creatinine Clearance Estimated 58 mL/min (50-200); Estimated Glomerular Filt Rate 58 ml/min (>60); GFR (African American) 70 ML/MIN (>60)
[2021-01-05 08:06] LABS: Calcium 8.7 mg/dl (8.4-10.2); Carbon Dioxide 27 mmol/L (22.0-30.0); Glucose 201 mg/dl (74-100); Magnesium 1.8 mg/dl (1.6-2.3)
[2021-01-05 08:17] LABS: Basophils # 0.1 K/mm3 (0-0.2); Basophils % 0.8 % (0.1-2.0); Eosinophils % 0.3 % (0.1-12.0); Hematocrit 44.7 % (42.0-52.0); Lymphocytes # 1.2 K/mm3 (0.7-4.5); Lymphocytes % 12.9 % (10-50); Mean Corpuscular HGB Conc 32.4 g/dL (31.8-35.4); Mean Corpuscular Hemoglobin 32.3 pg (27.0-31.2); Mean Corpuscular Volume 99.7 fl (80-94); Monocytes # 0.9 K/mm3 (0.1-1.0); Monocytes % 9.7 % (1.7-9.3); Neutrophils # 6.9 K/mm3 (1.8-7.8); Neutrophils % 76.3 % (37.0-80.0); Platelet Count 195 K/mm3 (142-424); Red Blood Count 4.48 M/mm3 (4.60-6.20); Red Cell Distribution Width 13.7 % (11.5-17.5)
--- NOTE | 2021-01-05 08:34 | HMH.HP ---
*Admission Date: 01/04/21 *Chief complaint: Weakness *History of present illness: 85 year old male with an extensive medical history presented to [facility] ER yesterday complaining of a couple day history of not feeling well. He had symptoms of generalized fatigue and weakness and poor oral intake. He states he has a wound on the bottom of his left great toe and he has seen Dr. Frey for treatment but he can not recall specific treatment plan at this time. [facility] History Medical History: Reports:: Arrhythmia, Atrial Fibrillation, Coronary Artery Disease, Dementia, Depression, Diabetes Mellitus Type 2, Gastroesophageal Reflux Disease(GERD), Hyperlipidemia, Hypertension, Internal Pacemaker, Peripheral Artery Disease Denies:: Asthma, Cancer, Chronic Obstructive Pulmonary Disease (COPD), MRSA, Seizures, Transient Ischemic Attacks (TIA) *Have you ever received a pneumonia vaccine?: No *Have you received a flu vaccine this season?: No Other Medical History: Reports: Arthritis, Cataracts, Hypothyroidism, Other. Denies: Blood Transfusion Reaction Laterality Cases: Left: Arthroscopy Knee, Bilateral: Other Other Surgeries: Yes: No Previous Surgery, CABG, Cardiac Catheterization, Cardiac Surgery, Cholecystectomy, Colonoscopy, Pacemaker, Other Amputation: No Fractures: No - *Social History Last grade of school completed: High school graduate Smoking Status: Never smoker Tobacco Type: smokeless tobacco # Packs/Day (cigarettes): 0 #Yrs smoked (if former smoker): 0 Alcohol Intake: never Alcohol Intake Frequency:: other Substance Use Type: denies use *Occupational Status:: retired, disabled Housing: apartment Household Members: spouse *Travel in the last 8 weeks: None - Psychiatric History Pschychiatric History:: Reports:: Depression Family Hx:: Diabetes, Hyperlipidemia, Hypertension Review of Systems - Constitutional Denies chills, Denies fever(s) - Eyes Denies blurry vision - ENT Denies bleeding gums - *Cardiovascular Denies chest pain - *Respiratory Denies cough - *Gastrointestinal Denies abdominal pain - *Genitourinary Denies difficulty urinating - *Musculoskeletal Reports joint pain (knees) - Integumentary/Breasts Denies rash - *Neurologic Reports weakness, Denies headache(s) - Psychiatric Denies anxiety Meds Home Medications Medication Instructions Recorded Confirmed Type gabapentin 600 mg tablet 600 mg PO TID 06/10/17 12/17/20 History memantine 10 mg tablet 10 mg PO BID 06/10/17 12/17/20 History atorvastatin 10 mg tablet 10 mg PO DAILY tab 04/19/18 12/17/20 History famotidine 20 mg tablet 20 mg PO HS 90 Days #90 tab 04/19/18 12/17/20 History levothyroxine 112 mcg capsule 112 mcg PO DAILY cap 04/19/18 12/17/20 History Trazodone HCl 50 mg PO HS PRN 04/21/18 12/17/20 History montelukast 10 mg tablet 10 mg PO QPM 01/16/19 12/17/20 History isosorbide mononitrate 30 mg 30 mg PO QAM #30 tab 05/25/19 12/17/20 Rx tablet,extended release 24 hr citalopram 20 mg tablet 20 mg PO DAILY 05/30/19 12/17/20 History linagliptin 5 mg tablet 5 mg PO DAILY 05/30/19 12/17/20 History fenofibric acid (choline) 45 mg 45 mg PO DAILY 06/06/19 12/17/20 History capsule,delayed release insulin NPH-regular 70-30 U-100 55 unit SQ BID ml 06/12/19 12/17/20 History insulin 100 unit/mL subcutaneous pen Cholecalciferol (Vitamin D3) 1,000 unit PO DAILY 03/23/20 12/17/20 History [Vitamin D3 1,000 Unit Cap] Cyanocobalamin (Vitamin B-12) 1,000 mcg PO DAILY 03/23/20 12/17/20 History [Vitamin B12 2.5mg Tab] Potassium 99 mg PO DAILY 03/23/20 12/17/20 History amiodarone 200 mg tablet See Rx Instructions .ROUTE 10/18/20 12/17/20 Rx .COMPLEX #90 tab carbidopa 25 mg-levodopa 100 mg 2 tab PO DIRECTED tab 10/18/20 12/17/20 History tablet cilostazol 50 mg tablet 25 mg PO BID tab 10/18/20 12/17/20 History furosemide 40 mg tablet 40 mg PO DAILY tab 10/18/20 12/17/20 History metoprolol succinate 25 mg 25 mg PO DAILY tab
[2021-01-05 08:36] LABS: Hemoglobin 14.9 g/dL (14.1-18.0)
--- NOTE | 2021-01-05 09:25 | HMH.PHACONS ---
- Pharmacy Consult Date: 01/05/21 Time: 09:25 Referring provider: JERO Reason for Consult:: VANCOMYCIN DOSING CONSULT Allergies and ADEs:: Allergies Allergy/AdvReac Type Severity Reaction Status Date / Time codeine [CODEINE] Allergy Unknown Verified 12/17/20 10:51 Penicillins [PENICILLINS] Allergy Unknown Verified 12/17/20 10:51 Home Medications:: Home Medications Medication Instructions Recorded Confirmed Type gabapentin 600 mg tablet 600 mg PO TID 06/10/17 12/17/20 History memantine 10 mg tablet 10 mg PO BID 06/10/17 12/17/20 History atorvastatin 10 mg tablet 10 mg PO DAILY tab 04/19/18 12/17/20 History famotidine 20 mg tablet 20 mg PO HS 90 Days #90 tab 04/19/18 12/17/20 History levothyroxine 112 mcg capsule 112 mcg PO DAILY cap 04/19/18 12/17/20 History Trazodone HCl 50 mg PO HS PRN 04/21/18 12/17/20 History montelukast 10 mg tablet 10 mg PO QPM 01/16/19 12/17/20 History isosorbide mononitrate 30 mg 30 mg PO QAM #30 tab 05/25/19 12/17/20 Rx tablet,extended release 24 hr citalopram 20 mg tablet 20 mg PO DAILY 05/30/19 12/17/20 History linagliptin 5 mg tablet 5 mg PO DAILY 05/30/19 12/17/20 History fenofibric acid (choline) 45 mg 45 mg PO DAILY 06/06/19 12/17/20 History capsule,delayed release insulin NPH-regular 70-30 U-100 55 unit SQ BID ml 06/12/19 12/17/20 History insulin 100 unit/mL subcutaneous pen Cholecalciferol (Vitamin D3) 1,000 unit PO DAILY 03/23/20 12/17/20 History [Vitamin D3 1,000 Unit Cap] Cyanocobalamin (Vitamin B-12) 1,000 mcg PO DAILY 03/23/20 12/17/20 History [Vitamin B12 2.5mg Tab] Potassium 99 mg PO DAILY 03/23/20 12/17/20 History amiodarone 200 mg tablet See Rx Instructions .ROUTE 10/18/20 12/17/20 Rx .COMPLEX #90 tab carbidopa 25 mg-levodopa 100 mg 2 tab PO DIRECTED tab 10/18/20 12/17/20 History tablet cilostazol 50 mg tablet 25 mg PO BID tab 10/18/20 12/17/20 History furosemide 40 mg tablet 40 mg PO DAILY tab 10/18/20 12/17/20 History metoprolol succinate 25 mg 25 mg PO DAILY tab 10/18/20 12/17/20 History tablet,extended release 24 hr rivaroxaban 15 mg tablet 15 mg PO DAILY #90 tab 10/18/20 12/17/20 Rx spironolactone 25 mg tablet 12.5 mg PO Q OTHER DAY #30 tab 12/27/20 Rx Height: 1.83 m Weight: 90.718 kg Laboratory Results:: Laboratory Results - last 24 hr 01/04/21 15:33: WBC 11.6 H, RBC 5.23, Hgb 16.6, Hct 53.4 H, MCV 102.2 H, MCH 31.8 H, MCHC 31.1 L, RDW 13.5, Plt Count 252, MPV 8.6, Neut % (Auto) 89.1 H, Lymph % (Auto) 4.4 L, [place] % (Auto) 5.3, Eos % (Auto) 0.4, Baso % (Auto) 0.8, Neut # (Auto) 10.3 H, Lymph # (Auto) 0.5 L, [place] # (Auto) 0.6, Eos # (Auto) 0.1, Baso # (Auto) 0.1, Total Counted 100, Neutrophils % (Manual) 73, Band Neutrophils % 7.0, Lymphocytes % (Manual) 16, Monocytes % (Manual) 2, Eosinophils % (Manual) 1, Basophils % (Manual) 1.0, Platelet Estimate Normal, RBC Morphology Not Reportable, Hypochromasia 1+, Macrocytosis 1+, ESR 14 01/04/21 15:33: Sodium 141, Potassium 4.5, Chloride 102, Carbon Dioxide 31 H, Anion Gap 12.5, BUN 30 H, Creatinine 1.60 H, Estimated Creat Clear 43, Estimated GFR 41 L, Est GFR ( Amer) 50 L, Glucose 220 H, Calcium 9.4, Total Bilirubin 0.6, AST 49, ALT 14, Alkaline Phosphatase 94, C-Reactive Protein 46.8 H, Total Protein 8.0, Albumin 4.0, Globulin 4.0 H, Albumin/Globulin Ratio 1.0 L 01/04/21 15:33: Lactate 1.9 01/04/21 16:04: SARS-CoV-2 (PCR) Not detected, Influenza A Untype (PCR) Not detected, Influenza Type B (PCR) Not detected 01/04/21 22:34: POC Glucose 229 H 01/05/21 07:15: WBC 9.0, RBC 4.48 L, Hgb 14.9 D, Hct 44.7, MCV 99.7 H, MCH 32.3 H, MCHC 32.4, RDW 13.7, Plt Count 195, MPV 8.0, Neut % (Auto) 76.3, Lymph % (Auto) 12.9, [place] % (Auto) 9.7 H, Eos % (Auto) 0.3, Baso % (Auto) 0.8, Neut # (Auto) 6.9, Lymph # (Auto) 1.2, [place] # (Auto) 0.9, Eos # (Auto) 0.0, Baso # (Auto) 0.1 01/05/21 07:15: Sodium 138, Potassium 4.0, Chloride 103, Carbon Dioxide 27, Anion Gap 12.0, BUN 26 H, Creatinine 1.20 D, Estimated
[2021-01-05 16:00] VITALS: BP 143/64; PULSE 60; RESP 20; TEMP 37; O2SAT 95
[2021-01-05 17:32] LABS: POC Glucose,Bedside 288 (70-110)
[2021-01-05 20:00] VITALS: BP 140/73; PULSE 60; RESP 20; TEMP 36.6; O2SAT 95
[2021-01-06 01:01] LABS: POC Glucose,Bedside 194 (70-110)
[2021-01-06 01:01] LABS: POC Glucose,Bedside 252 (70-110)
[2021-01-06 01:01] LABS: POC Glucose,Bedside 287 (70-110)
[2021-01-06 01:01] LABS: POC Glucose,Bedside 273 (70-110)
[2021-01-06 04:00] VITALS: BP 110/71; PULSE 58; RESP 20; TEMP 36.6; O2SAT 97
[2021-01-06 05:00] VITALS: BMI 26.9
[2021-01-06 05:43] LABS: POC Glucose,Bedside 203 (70-110)
--- NOTE | 2021-01-06 06:56 | PC.NURSE ---
A&OX4. TOLERATING 2LNC. PT HAS HAD NO C/O THUS FAR. REMAINS INCONTINENT. RESTING WELL T/O SHIFT. VSS WILL CONTINUE TO MONITOR.
[2021-01-06 08:00] VITALS: BP 149/67; PULSE 68; RESP 20; TEMP 36.6; O2SAT 94
--- NOTE | 2021-01-06 08:23 | HMH.ORTHOCON ---
*Admission Date: 01/04/21 <Natalie Callahan - 01/06/21 08:33> *Reason for consult:: Left foot wound with cellulitis <Natalie Callahan - 01/06/21 08:33> *History of present illness: 85 year old male with an extensive medical history presented to [facility] ER yesterday complaining of a couple day history of not feeling well. He had symptoms of generalized fatigue and weakness and poor oral intake. He states he has a wound on the bottom of his left great toe and he has seen Dr. Frey for treatment but he can not recall specific treatment plan at this time. [facility] History Medical History: Reports:: Arrhythmia, Atrial Fibrillation, Coronary Artery Disease, Dementia, Depression, Diabetes Mellitus Type 2, Gastroesophageal Reflux Disease(GERD), Hyperlipidemia, Hypertension, Internal Pacemaker, Peripheral Artery Disease Denies:: Asthma, Cancer, Chronic Obstructive Pulmonary Disease (COPD), MRSA, Seizures, Transient Ischemic Attacks (TIA) *Have you ever received a pneumonia vaccine?: No *Have you received a flu vaccine this season?: No Other Medical History: Reports: Arthritis, Cataracts, Hypothyroidism, Other. Denies: Blood Transfusion Reaction Laterality Cases: Left: Arthroscopy Knee, Bilateral: Other Other Surgeries: Yes: No Previous Surgery, CABG, Cardiac Catheterization, Cardiac Surgery, Cholecystectomy, Colonoscopy, Pacemaker, Other Amputation: No Fractures: No - *Social History Last grade of school completed: High school graduate Smoking Status: Never smoker Tobacco Type: smokeless tobacco # Packs/Day (cigarettes): 0 #Yrs smoked (if former smoker): 0 Alcohol Intake: never Alcohol Intake Frequency:: other Substance Use Type: denies use *Occupational Status:: retired, disabled Housing: apartment Household Members: spouse *Travel in the last 8 weeks: None Podiatry consult-patient sitting up in bed this morning denies any pain with his left foot. Patient states is feeling better than he was when he got admitted. Patient's labs are improving and white count and ESR is within normal limits and CRP from 01/04/2021 is still little elevated at 46.8. Patient had been receiving IV vancomycin while inpatient. Based on patient's last cultures he will need doxycycline 100 mg p.o. twice daily x14 days after discharge. We will dress and lightly debride the left subfirst and patient has a area to the right anterior mckeon that is superficial. Patient's nails are long and I will trim them today. Patient's left lateral heel has a small bruise-like area that appears to be like a pressure area starting. Discussed with RN and showed her the area of concern and discussed keeping the heel offloaded to avoid any breakdown to the area. Patient still very weak will need to physical therapy to help him up out of bed today before discharge. From the looks of the wound today there will be no surgical procedures performed or needed at this time. <Natalie Callahan 01/06/21 08:33> [facility] History I have reviewed the patient's past medical history: Yes <Natalie Callahan 01/06/21 16:39> Medical History: Reports:: Arrhythmia, Atrial Fibrillation, Coronary Artery Disease, Dementia, Depression, Diabetes Mellitus Type 1, Diabetes Mellitus Type 2, Gastroesophageal Reflux Disease(GERD), Hyperlipidemia, Hypertension, Internal Pacemaker, Peripheral Artery Disease Denies:: Asthma, Cancer, Chronic Obstructive Pulmonary Disease (COPD), MRSA, Seizures, Transient Ischemic Attacks (TIA) <Natalie Callahan 01/06/21 08:33> *Have you ever received a pneumonia vaccine?: No <Natalie Callahan 01/06/21 08:33> *Have you received a flu vaccine this season?: No <Natalie Callahan 01/06/21 08:33> Other Medical History: Reports: Arthritis, Cataracts, Hypothyroidism, Other. Denies: Blood Transfusion Reaction <Natalie Callahan 01/06/21 08:33> Laterality Cases: Left: Arthroscopy Knee, Bilateral: Other <Natalie Callahan 01/06/21 08:33> Other Surgeries: Yes: No Previous Surgery, CABG, Cardiac Cathete
--- NOTE | 2021-01-06 08:46 | HMH.ACPN2 ---
Internal Medicine - PN: Subj *Date: 01/06/21 *Time: 08:46 Interval history: Patient has no new complaints today, anxious to go home. Exam Vital signs and Labs for Last 24 Hours: Temp Pulse Resp BP Pulse Ox 98 F 58 L 20 110/71 97 01/06/21 04:00 01/06/21 04:00 01/06/21 04:00 01/06/21 04:00 01/06/21 04:00 Laboratory Results - last 24 hr 01/05/21 05:18: POC Glucose 194 H 01/05/21 09:34: POC Glucose 287 H 01/05/21 11:28: POC Glucose 252 H 01/05/21 17:16: POC Glucose 288 H 01/05/21 20:59: POC Glucose 273 H 01/06/21 05:32: POC Glucose 203 H Vital Signs - 24 hr 01/05/21 16:00 01/05/21 20:00 01/06/21 04:00 Temperature 98.6 F 97.9 F 98 F Pulse Rate [Right Radial] 60 60 58 L Respiratory Rate 20 20 20 Blood Pressure [Right Arm] 143/64 H 140/73 110/71 02 Sat by Pulse Oximetry 95 95 97 I & O for Last 24 hours: Intake & Output 01/03/21 01/04/21 01/05/21 01/06/21 23:59 23:59 23:59 23:59 Intake Total 1920 / 2160 240 / 240 Output Total 650 / 650 Balance 1920 / 1510 -410 / -410 Weight 200 lb 199 lb - Constitutional no acute distress - *Routine Respiratory Exam Present: CTA bilaterally - *Routine Cardiovascular Exam Present: RRR Assessment and Plan (1) Cellulitis and abscess of foot Status: Acute Category: Medical Code(s): L03.119 - Cellulitis of unspecified part of limb; L02.619 - Cutaneous abscess of unspecified foot (2) Cardiac pacemaker in situ Status: Chronic Category: Medical Code(s): Z95.0 - Presence of cardiac pacemaker (3) Type 2 diabetes mellitus with foot ulcer, with long-term current use of insulin Status: Chronic Category: Medical Code(s): E11.621 - Type 2 diabetes mellitus with foot ulcer; L97.509 - Non-pressure chronic ulcer of other part of unspecified foot with unspecified severity; Z79.4 - care home (current) use of insulin (4) Acquired bilateral pes cavus Status: Acute Category: Medical Code(s): M21.6X1 - Other acquired deformities of right foot; M21.6X2 - Other acquired deformities of left foot (5) Acquired equinus deformity of both feet Status: Acute Category: Medical Code(s): M21.6X1 - Other acquired deformities of right foot; M21.6X2 - Other acquired deformities of left foot (6) Acquired hallux valgus of right foot Status: Acute Category: Medical Code(s): M20.11 - Hallux valgus (acquired), right foot (7) Acquired hammer toes of both feet Status: Acute Category: Medical Code(s): M20.41 - Other hammer toe(s) (acquired), right foot; M20.42 - Other hammer toe(s) (acquired), left foot (8) Renal insufficiency Status: Acute Category: Medical Code(s): N28.9 - Disorder of kidney and ureter, unspecified (9) Atrial fibrillation Status: Chronic Qualifiers: Qualified Code(s): I48.91 - Unspecified atrial fibrillation Category: Medical Code(s): I48.91 - Unspecified atrial fibrillation (10) CAD (coronary artery disease) Status: Chronic Qualifiers: Qualified Code(s): I25.10 - Atherosclerotic heart disease of [place] coronary artery without angina pectoris Category: Medical Code(s): I25.10 - Atherosclerotic heart disease of [place] coronary artery without angina pectoris (11) HTN (hypertension) Status: Chronic Category: Medical Code(s): I10 - Essential (primary) hypertension (12) Hx of CABG Status: Chronic Category: Surgical Code(s): Z95.1 - Presence of aortocoronary bypass graft (13) Hyperlipemia Status: Chronic Qualifiers: Qualified Code(s): E78.2 - Mixed hyperlipidemia Category: Medical Code(s): E78.5 - Hyperlipidemia, unspecified (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 Frey.
--- NOTE | 2021-01-06 10:53 | HMH.PTEV ---
Physical Therapy Evaluation Rehab PT IP Evaluation Start: 01/06/21 08:54 Freq: ONCE Status: Active Protocol: Document 01/06/21 09:30 [email or web address] (Rec: 01/06/21 10:53 PHORNE [id number]) Subjective/History History History 85 yowm adm to [facility] with L great toe cellulitis. He reports he lives with , no steps to enter the home, uses a RW for ambulation. Subjective Subjective Currently no c/o pain at this time. Rehab PT IP Eval Objective Appearance Patient Behavior Appropriate Patient Orientation Person,Place,Time Difficulty following instructions none Speech Pattern Clear Ambulation Patient Able to Ambulate Yes Ambulation Observation IP General Gait Pattern Observation Wide Based Gait,Shuffling Step Ambulation Distance (feet) 30 Ambulation Assistive Device Rolling Walker Ambulation Ability Supervision/Stand by Balance Ability to Arise Able, uses arms to help Sitting Balance Steady, safe Standing Balance Steady, wide stance Dynamic Sitting Balance Ability Good Dynamic Standing Balance Ability Fair Transfers Bed Transfer Ability Supervision/Stand by Chair Transfer Ability Supervision/Stand by Sit to Stand Bed Transfer Ability Supervision/Stand by Sit to Stand Chair Transfer Ability Supervision/Stand by ROM All Extremities PT ROM Status WFL MMT All Extremities PT MMT WFL Rehab PT IP prob,goals,plan Problems Date of Evaluation: 01/06/21 Discharge Plan PT Discharge Plan Pt is appropriate to return home once medically stable. Recommend continued outpatient wound care. G -code Required No Eval Complexity Eval Charge Codes 31115 - Moderate Complexity PHYSICIAN CERTIFICATION: I certify the specified therapy services for Steven Bautista are required, authorized, and reviewed every 30 days.
[2021-01-06 11:50] LABS: POC Glucose,Bedside 301 (70-110)
[2021-01-06 13:58] VITALS: BMI 26.9
--- NOTE | 2021-01-06 15:13 | HMH.PHAINT ---
MEDICATION DISCHARGE COUNSELING COMPLETE. PATIENT HAD NO QUESTIONS HE STATED HE HAD TAKEN NEW MEDICATION BEFORE. I COUNSELED HIM ON HOW TO TAKE ABX / WHAT TO EXPECT / WHAT TO WATCH OUT FOR.
--- NOTE | 2021-01-09 14:08 | HMH.DCSUM ---
General - General Admission date:: 01/04/21 Discharge date: 01/06/21 HPI HPI: 85 year old male with an extensive medical history presented to [facility] ER yesterday complaining of a couple day history of not feeling well. He had symptoms of generalized fatigue and weakness and poor oral intake. He stated he had a wound on the bottom of his left great toe and he had seen Dr. Frey for treatment. He was unable to recall a specific treatment plan. Hospital Course Hospital Course: Patient was given IV vancomycin on admission. Podiatry was consulted with the following notation: Assessment and Plan for all problems:: Onychodystrophy- [facility] NAIL CARE: nail debridement on 01/06/21 Plan 1. Nails were debrided x?s 10 utilizing manual debridement with a nail nipper. 2. Patient tolerated the procedure well. 3. Recommend the use of pauly board to file nails down and keep thinner. 4. Follow up in 3 months or as needed. 5. Patient should call me sooner if any questions or concerns arise. DM Wound: left hallux ulcer, Left great toe ulcer: distal plantar, dorsal lateral ulcer, dorsal medial HIPJ ulcer, Right anterior mckeon Wounds cleansed with Betadine..Ulcer was sharply excisionally debrided with a 15 blade: plantar ulcer through skin into/involving subcutaneous tissue No new drainage to culture. Improving cellulitis. Patient will need once discharged to continue Doxy 100mg BID x 2 weeks. Date of Service: 01/04/21 Procedure(s): XR foot LT min 3V FINDINGS: Bones/joints: There is no evidence of acute fracture. Moderate degenerative changes of the 1st metatarsophalangeal and interphalangeal joints. There is no evidence of joint malalignment or dislocation. Bones are osteopenic. Calcaneal spurs are present.Soft tissues: Soft tissue swelling is noted along the distal aspect of the great toe along the plantar aspect with soft tissue disruption is well. IMPRESSION: 1. No evidence of acute fracture. 2. Soft tissue swelling is noted along the distal aspect of the great toe along the plantar aspect with soft tissue disruption is well. 3. Moderate degenerative changes of the 1st metatarsophalangeal and interphalangeal joints. 4. No evidence of acute dislocation. 5. Bones are osteopenic. 6. Calcaneal spurs are present. Date of Service: 08/28/21 Procedure(s): CT foot LT wo con FINDINGS: Bones/joints: Large calcaneal spurs are present. Bones are osteopenic. No definite evidence of osteomyelitis as imaged. There is no evidence of acute fracture. There is no evidence of joint malalignment or dislocation. [id number] degenerative changes of the foot. Soft tissues: There is soft tissue disruption noted along the plantar aspect of the great toe distally. IMPRESSION: 1. There is soft tissue disruption noted along the plantar aspect of the great toe distally. 2. No definite evidence of osteomyelitis as imaged. 3. No evidence of acute fracture. 4. No evidence of acute dislocation. -Do not soak or bathe the area. Dry between the interspaces -Betadine dressings changes daily -WBAT in postop shoe to avoid pressure to the ulcers. -Patient will need physical therapy to help get him up today to help him ambulate before discharge -We discussed with the patient of possible application of wound graft to the area while inpatient but after discussing with the wound graft company regarding his insurance would not be beneficial for graft placement inpatient and if he was to receive outpatient the patient would still be responsible for 20% of the expense of the graft each application of the graft. We will hold off on this idea until circumstances may change at a later time. For now we will continue wound care and dressing changes. -No plans for surgical intervention at this time. -Patient needs to keep the left heel offloaded to avoid any pressure ulcer starting on the lateral heel. -Patient is good from Podiatry standpoint to be discharged when ready per
== END 2021-01-06 14:30 | disposition home or self-care (01) ==
LOC: ER 15:16 → 2ND 17:32
PROVIDERS: Admitting Provider Family Medicine; Emergency Provider Emergency Medicine; PCP Family Medicine; Visit Provider Family Medicine
DX: L03.116 Cellulitis of left lower limb (principal); E11.621 Type 2 diabetes mellitus with foot ulcer; L97.521 Non-pressure chronic ulcer of other part of left foot limited to breakdown of skin; L97.211 Non-pressure chronic ulcer of right calf limited to breakdown of skin; Z20.822 Contact with and (suspected) exposure to COVID-19; I48.91 Unspecified atrial fibrillation; I25.10 Atherosclerotic heart disease of native coronary artery without angina pectoris; E03.9 Hypothyroidism, unspecified; Z79.4 Long term (current) use of insulin; M21.6X1 Other acquired deformities of right foot; M21.6X2 Other acquired deformities of left foot; M20.41 Other hammer toe(s) (acquired), right foot; M20.42 Other hammer toe(s) (acquired), left foot; Z95.0 Presence of cardiac pacemaker; Z95.1 Presence of aortocoronary bypass graft
CPT/HCPCS: 11042; G0378; 36415; 71045; 73630; 73700; 80048; 80053; 82962; 83605; 83735; 85007; 85025; 85651; 86140; 87040; 93005; 96365; 97162; 99284; J3370; U0003

== ENCOUNTER → 2021-01-14 20:37 | Outpatient (CLI) | payer MEDICARE, MEDICAID, SELFPAY | PROVIDERS: Visit Provider Podiatrist | DX: E11.621 Type 2 diabetes mellitus with foot ulcer (principal); L97.529 Non-pressure chronic ulcer of other part of left foot with unspecified severity; Z51.89 Encounter for other specified aftercare; Z79.4 Long term (current) use of insulin | CPT/HCPCS: 87070; 87077; 87186; 87205 ==

== ENCOUNTER → 2021-01-28 12:08 | Outpatient (CLI) | payer MEDICARE, MEDICAID, SELFPAY ==
[2021-01-28 12:59] LABS: Basophils # 0.1 K/mm3 (0-0.2); Eosinophils # 0.2 K/mm3 (0.0-0.4); Eosinophils % 2.1 % (0.1-12.0); Hematocrit 51.1 % (42.0-52.0); Hemoglobin 15.6 g/dL (14.1-18.0); Lymphocytes # 1.9 K/mm3 (0.7-4.5); Lymphocytes % 20.7 % (10-50); Mean Corpuscular HGB Conc 30.6 g/dL (31.8-35.4); Mean Corpuscular Hemoglobin 31.6 pg (27.0-31.2); Mean Corpuscular Volume 103.5 fl (80-94); Mean Platelet Volume 8.2 fl (7.4-10.4); Monocytes # 0.7 K/mm3 (0.1-1.0); Monocytes % 7.4 % (1.7-9.3); Neutrophils # 6.2 K/mm3 (1.8-7.8); Neutrophils % 68.8 % (37.0-80.0); Platelet Count 238 K/mm3 (142-424); Red Blood Count 4.94 M/mm3 (4.60-6.20); Red Cell Distribution Width 13.9 % (11.5-17.5)
[2021-01-28 13:42] LABS: Chloride 105 mmol/L (98-107); Potassium 5.2 mmoL/L (3.5-5.1); Sodium 143 mmol/L (136-145)
[2021-01-28 13:45] LABS: Alanine Aminotransferase 6 U/L (12-78); Albumin Level 3.6 g/dl (3.5-5.0); Albumin/Globulin Ratio 1.1 (1.1-1.8); Alkaline Phosphatase 88 U/L (38-126); Anion Gap 13.2 mEq/L (5-15); Aspartate Amino Transferase 38 U/L (17-59); Bilirubin,Total 0.4 mg/dl (0.2-1.3); Blood Urea Nitrogen 23 mg/dl (9-20); Calcium 9.4 mg/dl (8.4-10.2); Carbon Dioxide 30 mmol/L (22.0-30.0); Estimated Glomerular Filt Rate 48 ml/min (>60); GFR (African American) 58 ML/MIN (>60); Globulin 3.3 g/dL (1.3-3.2); Glucose 210 mg/dl (74-100); Total Protein,Serum 6.9 g/dl (6.3-8.2)
[2021-01-28 13:47] LABS: Erythrocyte Sedimentation Rate 15 mm/hr (0-20)
[2021-01-28 13:51] LABS: C-Reactive Protein 11.4 mg/L (0-4)
== END ==
PROVIDERS: Visit Provider Podiatrist
DX: E11.621 Type 2 diabetes mellitus with foot ulcer (principal); L97.529 Non-pressure chronic ulcer of other part of left foot with unspecified severity; Z79.4 Long term (current) use of insulin
CPT/HCPCS: 36415; 80053; 85025; 85651; 86140

== ENCOUNTER → 2021-02-10 12:42 | Outpatient (CLI) | payer MEDICARE, MEDICAID, SELFPAY | PROVIDERS: Visit Provider Podiatrist | DX: E11.621 Type 2 diabetes mellitus with foot ulcer (principal); L97.529 Non-pressure chronic ulcer of other part of left foot with unspecified severity | CPT/HCPCS: 87070; 87077; 87186; 87205 ==

== ENCOUNTER → 2021-02-10 12:50 | Outpatient (CLI) | payer MEDICARE, MEDICAID, SELFPAY ==
--- NOTE | 2021-02-10 13:02 | XR_ITS ---
PROCEDURE: XR FOOT WT BEARING LT 3V CLINICAL INDICATION: Left Great Hallux Ulcer COMPARISON: CR XR FOOT WT BEARING LT 3V from 09/26/2019 CR XR FOOT WT BEARING LT 3V from 12/11/2019 CR XR FOOT WT BEARING LT 3V from 05/21/2020 CR XR FOOT LT MIN 3V from 01/04/2021 FINDINGS: Hyperdensity is present in the nail bed of the great toe somewhat obscuring the mid and distal aspect the distal phalanx. A lucent defect is present at the tuft of the distal phalanx not readily apparent on previous exams only well seen on the AP view which is somewhat obscured by artifact. This defect measures approximately 5 by 3 mm consistent with osteomyelitis. There are degenerative changes in the midfoot, small calcaneal spur, Achilles enthesophyte, and calcification along the plantar fascia posteriorly unchanged. Other findings:None. IMPRESSION: Suspected lytic defect at the tuft of the distal phalanx of the great toe suspicious for osteomyelitis. Artifact somewhat obscures this area. Would suggest confirmation with repeat exam without the artifact. Dictated by: Cornelio Younger MD 02/10/2021 17:40 Cornelio Younger MD in [place] 02/10/2021 17:40
== END ==
PROVIDERS: PCP Family Medicine; Visit Provider Podiatrist
DX: E11.621 Type 2 diabetes mellitus with foot ulcer (principal); L97.529 Non-pressure chronic ulcer of other part of left foot with unspecified severity; Z79.4 Long term (current) use of insulin
CPT/HCPCS: 73630; 87070; 87077; 87186; 87205

== ENCOUNTER → 2021-02-14 09:20 | Outpatient (CLI) | payer MEDICARE, MEDICAID, SELFPAY ==
[2021-02-14 10:46] LABS: Alanine Aminotransferase 7 U/L (12-78); Albumin Level 3.7 g/dl (3.5-5.0); Albumin/Globulin Ratio 1.1 (1.1-1.8); Alkaline Phosphatase 99 U/L (38-126); Anion Gap 10.3 mEq/L (5-15); Aspartate Amino Transferase 29 U/L (17-59); Bilirubin,Total 0.5 mg/dl (0.2-1.3); Blood Urea Nitrogen 21 mg/dl (9-20); Calcium 9.4 mg/dl (8.4-10.2); Carbon Dioxide 31 mmol/L (22.0-30.0); Chloride 105 mmol/L (98-107); Estimated Glomerular Filt Rate 58 ml/min (>60); GFR (African American) 70 ML/MIN (>60); Globulin 3.5 g/dL (1.3-3.2); Glucose 174 mg/dl (74-100); Phosphorous 3.3 mg/dl (2.5-4.5); Potassium 4.3 mmoL/L (3.5-5.1); Sodium 142 mmol/L (136-145); Total Protein,Serum 7.2 g/dl (6.3-8.2)
[2021-02-14 10:59] LABS: 25-OH Vitamin D, Total 29.9 ng/mL (30-100)
[2021-02-14 11:14] LABS: Intact Parathyroid Hormone 70.5 pg/mL (7.5-53.5)
[2021-02-14 11:51] LABS: Vitamin B12 802 pg/mL (239-931)
== END ==
PROVIDERS: Visit Provider Family Medicine
DX: N18.32 Chronic kidney disease, stage 3b (principal); E53.8 Deficiency of other specified B group vitamins; E55.9 Vitamin D deficiency, unspecified
CPT/HCPCS: 36415; 80053; 82306; 82607; 83970; 84100

== ENCOUNTER → 2021-02-18 08:09 | Outpatient (CLI) | payer MEDICARE, MEDICAID, SELFPAY ==
--- NOTE | 2021-02-18 08:20 | CT_ITS ---
PROCEDURE: CT FOOT LT WO CON CLINICAL HISTORY: Toe ulcer, osteomyelitis COMPARISON: CT CT FOOT LT WO CON from 01/04/2021 CR XR FOOT WT BEARING LT 3V from 02/10/2021 TECHNIQUE: Axial images obtained with sagittal and coronal reformats. All CT scans at the facility use one or more dose reduction, viz: automated exposure control, ma/kV adjustment per patient size (including targeted exams where dose is matched to indication, i.e. head), or iterative reconstruction technique. FINDINGS: There is an enthesophyte at the Achilles insertion. There is normal mineralization. Scattered osteophytes and ununited ossicles are present in the foot. No acute fracture or dislocation. Minimal calcification noted in the plantar fascia posteriorly with a small calcaneal spur. Soft tissue swelling is present surrounding the great toe. New erosive changes are present at the tuft of the distal phalanx of the great toe consistent with osteomyelitis. Along the nail bed there is artifact presumably from prior surgery. Soft tissue disruption is present at the distal and lateral aspect of the great toe.. IMPRESSION: New mild erosive changes involving the tuft of the distal phalanx of the great toe consistent with osteomyelitis with surrounding soft tissue swelling indicating cellulitis and minimal disruption in the cutaneous tissue of the great toe distally and laterally. Dictated by: Cornelio Younger MD 02/19/2021 12:11 Cornelio Younger MD in [facility] 02/19/2021 12:11
== END ==
PROVIDERS: PCP Family Medicine; Visit Provider Podiatrist
DX: E11.621 Type 2 diabetes mellitus with foot ulcer (principal); L97.529 Non-pressure chronic ulcer of other part of left foot with unspecified severity; L03.116 Cellulitis of left lower limb; Z79.4 Long term (current) use of insulin
CPT/HCPCS: 73700

== ENCOUNTER → 2021-02-25 15:28 | Outpatient (CLI) | payer MEDICARE, MEDICAID, SELFPAY ==
--- NOTE | 2021-02-25 15:36 | XR_ITS ---
PROCEDURE INFORMATION: Exam: XR Chest Exam date and time: 02/25/2021 3:36 PM Age: 85 years old Clinical indication: Pre-operative exam; Respiratory screening exam; Additional info: HX of allergies that cause SOB TECHNIQUE: Imaging protocol: XR of the chest. Views: 2 views. COMPARISON: CR XR CHEST PORTABLE 01/04/2021 2:46 PM FINDINGS: Tubes, catheters and devices: Again noted is the pacemaker. Lungs: Unremarkable. No consolidation. Pleural spaces: Unremarkable. No pleural effusion. No pneumothorax. Heart/Mediastinum: Surgical changes consistent with CABG again noted. No cardiomegaly. Bones/joints: Diffuse osteopenia in the spine. Exaggerated kyphotic curvature. No acute fractures. IMPRESSION: No acute cardiopulmonary disease.
--- NOTE | 2021-02-25 16:12 | ECG_ITS ---
APPROVED REPORT Exam: Resting ECG HR:63 bpm ECG Measurements Heart Rate 63 AXES VA 202 P 103 QRSd 226 QRS 263 QT 532 T 58 QTc 544 Conclusion Suspect arm lead reversal, interpretation assumes no reversal Normal sinus rhythm Nonspecific intraventricular block Possible Lateral infarct, age undetermined Inferior infarct, age undetermined Abnormal ECG Electronically signed by : Emanuel Laughlin MD 02/26/2021 17:28:03
[2021-02-25 16:22] LABS: Basophils # 0.1 K/mm3 (0-0.2); Basophils % 1.4 % (0.1-2.0); Eosinophils # 0.2 K/mm3 (0.0-0.4); Eosinophils % 2.1 % (0.1-12.0); Hematocrit 52.5 % (42.0-52.0); Hemoglobin 16.2 g/dL (14.1-18.0); Lymphocytes # 1.6 K/mm3 (0.7-4.5); Lymphocytes % 16.2 % (10-50); Mean Corpuscular HGB Conc 30.8 g/dL (31.8-35.4); Mean Corpuscular Volume 103.9 fl (80-94); Mean Platelet Volume 7.3 fl (7.4-10.4); Monocytes # 0.7 K/mm3 (0.1-1.0); Monocytes % 7.1 % (1.7-9.3); Neutrophils # 7.2 K/mm3 (1.8-7.8); Neutrophils % 73.2 % (37.0-80.0); Platelet Count 249 K/mm3 (142-424); Red Blood Count 5.06 M/mm3 (4.60-6.20); Red Cell Distribution Width 13.6 % (11.5-17.5); White Blood Count 9.9 K/mm3 (4.8-10.8)
[2021-02-25 17:36] LABS: Chloride 108 mmol/L (98-107); Potassium 4.5 mmoL/L (3.5-5.1); Sodium 145 mmol/L (136-145)
[2021-02-25 17:38] LABS: Blood Urea Nitrogen 19 mg/dl (9-20); Estimated Glomerular Filt Rate 64 ml/min (>60); GFR (African American) 77 ML/MIN (>60)
[2021-02-25 17:39] LABS: Alanine Aminotransferase 15 U/L (12-78); Albumin Level 3.7 g/dl (3.5-5.0); Alkaline Phosphatase 97 U/L (38-126); Anion Gap 14.5 mEq/L (5-15); Aspartate Amino Transferase 34 U/L (17-59); Bilirubin,Total 0.3 mg/dl (0.2-1.3); Calcium 9.4 mg/dl (8.4-10.2); Carbon Dioxide 27 mmol/L (22.0-30.0); Globulin 3.6 g/dL (1.3-3.2); Glucose 216 mg/dl (74-100); Total Protein,Serum 7.3 g/dl (6.3-8.2)
[2021-02-25 17:41] LABS: Erythrocyte Sedimentation Rate 22 mm/hr (0-20)
[2021-02-25 17:44] LABS: C-Reactive Protein 13.9 mg/L (0-4)
== END ==
PROVIDERS: PCP Family Medicine; Visit Provider Podiatrist
DX: Z01.818 Encounter for other preprocedural examination (principal); Z11.52 Encounter for screening for COVID-19; E11.621 Type 2 diabetes mellitus with foot ulcer; L97.529 Non-pressure chronic ulcer of other part of left foot with unspecified severity; L03.032 Cellulitis of left toe; M86.9 Osteomyelitis, unspecified; Z79.4 Long term (current) use of insulin
CPT/HCPCS: 36415; 71046; 80053; 85025; 85651; 86140; 93005; C9803; U0003; U0005

== ENCOUNTER 2021-02-27 10:49 | Day surgery (SDC) | payer MEDICARE, MEDICAID, SELFPAY ==
[2021-02-27 11:18] VITALS: BP 134/59; PULSE 60; RESP 20; TEMP 36.8; O2SAT 95; BMI 32.5
[2021-02-27 11:20] LABS: POC Glucose,Bedside 162 (70-110)
--- NOTE | 2021-02-27 13:41 | HMH.ANESCL ---
[facility] Anesthesia Checklist - Structural Data Admitted From: Home Planned Operative Procedure/s: l hallux amp Consent for Planned Operative Procedure(s) Verified: Yes - Additional verifications Anesthesia Reactions: No Hx Blood Transfusions: No Blood Transfusion Reaction: No - Airway Assessment C-Spine Mobility Assessed: Yes TMJ Mobility Assessed: Yes Dentition: Poor Dentition - Neurological Assessment Level of Consciousness: Awake, Alert, Appropriate - Anesthesia Plan Anesthesia Risk discussed: Yes Anesthesia Plan: Verified ASA Class: III Anesthesia Type: MAC [facility] History I have reviewed the patient's past medical history: Yes Medical History: Reports:: Arrhythmia, Atrial Fibrillation, Coronary Artery Disease, Dementia, Depression, Diabetes Mellitus Type 2, Gastroesophageal Reflux Disease(GERD), Hyperlipidemia, Hypertension, Internal Pacemaker, Peripheral Artery Disease Denies:: Asthma, Cancer, Chronic Obstructive Pulmonary Disease (COPD), Diabetes Mellitus Type 1, MRSA, Seizures, Transient Ischemic Attacks (TIA) *Have you ever received a pneumonia vaccine?: Yes *Have you received a flu vaccine this season?: Yes Other Medical History: Reports: Arthritis, Cataracts, Hypothyroidism, Other. Denies: Blood Transfusion Reaction Anesthesia experience/problems:: none Laterality Cases: Left: Arthroscopy Knee, Bilateral: Other Other Surgeries: Yes: No Previous Surgery, CABG, Cardiac Catheterization, Cardiac Surgery, Cholecystectomy, Colonoscopy, Pacemaker, Other Amputation: No Fractures: No - *Social History Last grade of school completed: High school graduate Smoking Status: Never smoker Tobacco Type: smokeless tobacco # Packs/Day (cigarettes): 0 #Yrs smoked (if former smoker): 0 Alcohol Intake: never Alcohol Intake Frequency:: other Substance Use Type: denies use *Occupational Status:: retired Housing: apartment Household Members: spouse *Travel in the last 8 weeks: None - Psychiatric History Pschychiatric History:: Reports:: Depression Family Hx:: No significant family history
--- NOTE | 2021-02-27 14:04 | XR_ITS ---
PROCEDURE: XR FOOT LT MIN 3V CLINICAL INDICATION: Post op partial hallux amp COMPARISON: CR XR FOOT WT BEARING LT 3V from 12/11/2019 CR XR FOOT WT BEARING LT 3V from 05/21/2020 CR XR FOOT LT MIN 3V from 01/04/2021 CR XR FOOT WT BEARING LT 3V from 02/10/2021 FINDINGS: Status post amputation the distal phalanx of the 1st digit. No bony erosive process. Calcification present in the plantar fascia posteriorly as before. Hammertoe deformity digits 2 through 5. IMPRESSION: S/p amputation distal phalanx 1st digit Dictated by: Cornelio Younger MD 02/27/2021 14:31 Cornelio Younger MD in [place] 02/27/2021 14:31
[2021-02-27 14:10] VITALS: BP 134/72; PULSE 68; RESP 18; TEMP 36.3; O2SAT 93
--- NOTE | 2021-02-27 14:17 | HMH.OPNOTE ---
Date of procedure: 02/27/21 Pre-op Diagnosis:: 1. Left hallux osteomyelitis 2. Left diabetic foot ulcer Post-op Diagnosis:: Same Procedure performed:: 1. Left hallux partial amputation 2. Left hallux irrigation and debridement with ulcer excision 3. Left HIPJ sesamoid excision Surgeon:: Yennifer Frey DPM Anesthesia: MAC, local (10cc 0.5% marcaine plain) Estimated blood loss (mL): 5 Clinical Note:: We discussed conservative versus surgical treatment options. Conservative treatment options include local wound care, oral and IV antibiotics, change in shoe wear, taping/padding, and off-loading. We discussed surgical intervention for amputation of the left great toe. Patient understands that there is a chance that the toes can migrate to fill the gap or the foot may change shape after surgery. Patient also understands that they could have wound healing complications including delayed healing and infection. We discussed that if the wound does not heal, it is possible that they may need a more proximal amputation and could result in further loss of digits, loss of partial foot or loss of leg. We discussed the risks and benefits in great detail. Other surgical risks include: prolonged pain and swelling, further infection requiring oral or IV antibiotics, delay in healing of soft tissue or bone, nerve or blood vessel damage, CRPS/RSD, DVT, anesthesia complications, and even . All questions answered. Patient verbalized understanding. Consent obtained. Discussed plan of care with PCP, Dr. Ambrocio. Cardiology granted clearance. Pre-op labs reviewed. Operative findings:: Left hallux has absent toenail. There is a small opening 0.3 x 0.2 x 0.4 cm that does track to the distal phalanx bone medially. Ulcer noted to the distal hallux tip. Predebridement the ulcer was 0.5 x 0.3 x 0.1 cm and extended through skin into subcutaneous tissue. No omari purulence noted. The distal phalanx was soft and crumbly. The ulcers were moved in total with partial hallux amputation. The head of the proximal phalanx was intact. Infection appeared to be localized distally and did not track up the tendons. Operative note:: On this date and time patient was deemed an appropriate surgical candidate. With informed consent signed, the patient was taken to the operating theater. The patient was positioned supine. MAC anesthesia was induced. No tourniquet used. IV Vanocmycin given. The lower extremity was prepped and drapped in normal sterile fashion. 10cc 0.5% marcaine plain given. Left hallux partial amputation, irrigation and debridement with ulcer excision: A fish mouth incision was mapped out over the HIPJ of the great toe. Utilizing a 15 blade dissection was carried down sharply to the level of the bone around the distal phalanx which was disarticulated from the proximal phalanx. The ulcers were removed in total along with the toe distal phalanx bone. All nonviable soft tissue was debrided. The distal phalanx bone was soft and crumbly and no malodor to it. It was sent for bone culture. The base the distal phalanx was sent for bone path proximal margin. Attention was then directed to the proximal phalanx. The head was intact with no cortical erosions noted. It was not removed. Left HIPJ sesamoid excision: There was a prominent sesamoid noted under the proximal phalanx head. It was removed to avoid plantar prominence. Neck saline with gentamicin was used as irrigation to flush the wound. The wound was reexplored and no further signs of infection noted. Bleeding noted to the plantar aspect of the hallux. Vessels ligated with electrocautery and tied. 2-0 Prolene was used to close skin in an interrupted suture fashion. The wounds were cleansed. Xerofrom, dry sterile dressing was then applied to the foot. The patient was awoken from anesthesia and transferred to recovery with vital signs stable and neurovascular status intact, further monitoring before being discharged home today. Materials:
[2021-02-27 14:20] VITALS: BP 124/69; PULSE 60; RESP 18; O2SAT 92
[2021-02-27 14:31] VITALS: BP 133/73; PULSE 60; RESP 18; O2SAT 93
== END 2021-02-27 14:40 | disposition home or self-care (01) ==
LOC: OR 10:50
PROVIDERS: PCP Family Medicine; Visit Provider Podiatrist
PROC: (CPT 28315; principal; 2021-02-27 12:30)
DX: E11.621 Type 2 diabetes mellitus with foot ulcer (principal); L97.522 Non-pressure chronic ulcer of other part of left foot with fat layer exposed; L03.032 Cellulitis of left toe; Z79.4 Long term (current) use of insulin; M86.672 Other chronic osteomyelitis, left ankle and foot; E11.69 Type 2 diabetes mellitus with other specified complication; I48.91 Unspecified atrial fibrillation; E03.9 Hypothyroidism, unspecified; Z95.0 Presence of cardiac pacemaker; Z95.1 Presence of aortocoronary bypass graft; Z79.899 Other long term (current) drug therapy; Z79.01 Long term (current) use of anticoagulants; I10 Essential (primary) hypertension
CPT/HCPCS: 28315; 28825; 73630; 82962; 88304; 88305; 88311; 96374

== ENCOUNTER → 2021-03-11 14:14 | Outpatient (CLI) | payer MEDICARE, MEDICAID, SELFPAY ==
[2021-03-11 14:25] LABS: Basophils # 0.1 K/mm3 (0-0.2); Basophils % 1.2 % (0.1-2.0); Eosinophils # 0.3 K/mm3 (0.0-0.4); Eosinophils % 2.6 % (0.1-12.0); Hematocrit 48.9 % (42.0-52.0); Hemoglobin 15.4 g/dL (14.1-18.0); Lymphocytes # 1.3 K/mm3 (0.7-4.5); Lymphocytes % 13.5 % (10-50); Mean Corpuscular HGB Conc 31.4 g/dL (31.8-35.4); Mean Corpuscular Hemoglobin 31.6 pg (27.0-31.2); Mean Corpuscular Volume 100.6 fl (80-94); Mean Platelet Volume 8.5 fl (7.4-10.4); Monocytes # 0.8 K/mm3 (0.1-1.0); Monocytes % 7.8 % (1.7-9.3); Neutrophils # 7.2 K/mm3 (1.8-7.8); Neutrophils % 74.9 % (37.0-80.0); Platelet Count 309 K/mm3 (142-424); Red Blood Count 4.86 M/mm3 (4.60-6.20); White Blood Count 9.6 K/mm3 (4.8-10.8)
[2021-03-11 14:53] LABS: Erythrocyte Sedimentation Rate 18 mm/hr (0-20)
[2021-03-11 15:48] LABS: Alanine Aminotransferase 8 U/L (12-78); Albumin Level 3.6 g/dl (3.5-5.0); Alkaline Phosphatase 98 U/L (38-126); Anion Gap 12.2 mEq/L (5-15); Aspartate Amino Transferase 30 U/L (17-59); Bilirubin,Total 0.8 mg/dl (0.2-1.3); Blood Urea Nitrogen 22 mg/dl (9-20); Calcium 9.2 mg/dl (8.4-10.2); Carbon Dioxide 30 mmol/L (22.0-30.0); Chloride 105 mmol/L (98-107); Estimated Glomerular Filt Rate 58 ml/min (>60); GFR (African American) 70 ML/MIN (>60); Globulin 3.7 g/dL (1.3-3.2); Glucose 155 mg/dl (74-100); Potassium 4.2 mmoL/L (3.5-5.1); Sodium 143 mmol/L (136-145); Total Protein,Serum 7.3 g/dl (6.3-8.2)
[2021-03-11 15:54] LABS: C-Reactive Protein 20.7 mg/L (0-4)
== END ==
PROVIDERS: Visit Provider Podiatrist
DX: Z98.890 Other specified postprocedural states (principal); S90.425A Blister (nonthermal), left lesser toe(s), initial encounter; I45.5 Other specified heart block
CPT/HCPCS: 80053; 85025; 85651; 86140; 87070; 87205

== ENCOUNTER 2021-05-20 10:00 | Outpatient (RCR) | payer MEDICARE, MEDICAID, SELFPAY ==
--- NOTE | 2020-11-20 13:20 | HMH.PTOPWND ---
Rehab Outpt Wound Evaluation Rehab OP Wound Evaluation Start: 11/20/20 13:14 Freq: Status: Active Protocol: Document 11/20/20 13:15 BYRON (Rec: 11/20/20 13:20 PHORNE [id number]) Electronically Signed By Moris Krueger, PT 11/20/20 13:15 Subjective/History History History Pt is 85 yowm who presents with c/o L great toe wound x ~ 1 mo. He reports he is unsure when this wound re-appeared exactly. He has undergone treatment for a wound in the same area earlier this year. 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 He reports no pain, but has limited sensation in the L foot. Subjective Subjective No c/o this pm. 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 No Wound Length (cm) 0.9 Wound Width (cm) 0.9 Wound Bed Appearance Beefy Red,Dusky Red Percentage Granulated (%) 99 Wound Margins Description Well Defined Surrounding Tissue Appearance [place] Drainage Description Sanguineous Drainage Amount Small Wound Topical Solution/Irrigant Saline Irrigant Primary Dressing Silver Dressing Comment opticell Ag Wound Secondary Dressing Type Composite,Gauze Roll/Wrap Comment optifoam gentle border lite Wound Debridement Method Sharps,Gauze Wound Debridement Amount of Tissue Minimal Removed Wound Debridement Result Healthy Tissue Revealed Dressing Change Patient Tolerance Tolerated Well Wound Problems/Impairments Impairments Problems/Impairmments Wound Care Needs,Impaired Self Care/Self Management Prognosis Rehab Potential Good Clinical Impression Consistent with Diagnosis Yes Short Term Goals Number of Weeks 4 Decrease Wound Area Yes: by 50% Senior Care Goals Number of Weeks 8 Decrease Wound Area Yes: by 100% Patient to be Ind w/ Home Wound Care/ Yes Dressing Changes Outpatient Therapy Plan of Care Treatment Plan May Include Therapeutic Exercise Including Home Yes Exercise Program Manual Therapy Techniques Yes Neuromuscular Re-education Yes Therapeutic Activities to Return to Yes Previous Functional/Work Level ADL/Self Care Education Yes Orthotics/Bracing/Splinting Yes Mass
--- NOTE | 2021-01-09 10:59 | HMH.RHREAS ---
Rehab Reassessment Rehab OP Re-assessment Start: 01/09/21 10:54 Freq: Status: Active Protocol: Document 01/09/21 10:57 BYRON (Rec: 01/09/21 10:59 BYRON [id number]) Electronically Signed By Moris Krueger, PT 01/09/21 10:57 Rehab Re-assessment Subjective Subjective Pt reports no new c/o pain or tenderness to the Left great toe. He was recently hospitalized with dx of Left great toe cellulitis. Objective Objective Notes Wound appears to be stable at this time, mild callus around the perimeter. L= 0.7 cm, W= 0 .7 cm. Assessment Progress Assessment Progressing as Expected Assessment Notes Wound appears to be healing steadily, although recent cellulits has slowed healing at this point. Patient goals met none Goals Not Met ST LT,2 Revised Goals none Plan Plan Continue per initial POC Frequency of Therapy 2 x/wk Duration of therapy 8 wks Time and Billing Re-Eval Time 15 Re-Eval Billing Units 0 PHYSICIAN CERTIFICATION: I certify the specified therapy services for Steven Bautista are required, authorized, and reviewed every 30 days.
--- NOTE | 2021-02-05 10:37 | HMH.RHREAS ---
Rehab Reassessment Rehab OP Re-assessment Start: 01/09/21 10:54 Freq: Status: Active Protocol: Document 02/05/21 10:31 BYRON (Rec: 02/05/21 10:37 BYRON [id number]) Electronically Signed By Moris Krueger, PT 02/05/21 10:31 Rehab Re-assessment Subjective Subjective Pt reports no new c/o this date, No pain in the L great toe. Pt is concerned about redness of his L foot. Objective Objective Notes L great toe wound: L= 2.2 cm, W= 3.0 cm. ~ 75 eschar on wound this date. Assessment Progress Assessment Progressing as Expected Assessment Notes L great toe wound appears to have more eschar this date, with wound dressing extremely dry and adhered to the wound bed. Area of abcess noted under eschar on the anterior/ plantar surface fo the L great toe. Sharp excisional debridement performed with scalpel to remove as much eschar as possible this date. Patient goals met none Goals Not Met ST LT,2 Revised Goals none Plan Plan Continue per initial POC Frequency of Therapy 2 x/wk Duration of therapy 8 wks Time and Billing Re-Eval Time 15 Re-Eval Billing Units 0 PHYSICIAN CERTIFICATION: I certify the specified therapy services for Steven Bautista are required, authorized, and reviewed every 30 days.
--- NOTE | 2021-03-07 10:13 | HMH.RHREAS ---
Rehab Reassessment Rehab OP Re-assessment Start: 01/09/21 10:54 Freq: Status: Active Protocol: Document 03/07/21 10:09 BYRON (Rec: 03/07/21 10:13 BYRON [id number]) Electronically Signed By Moris Krueger, PT 03/07/21 10:09 Rehab Re-assessment Subjective Subjective Pt reports mild soreness in the L great toe this date. Objective Objective Notes Pt S/P OR 02/27 for resection of L distal great toe due to osteomyeliits. Currently incision is dry and appears intact with crusted scab around the perimeter and sutures in place. Incision L= 1.0 cm, W= 4.0 cm. Concern for lateral corner of incision irritation on the medial side of L 2nd toe with mild maceration noted in this area. Small area of eschar noted at lateral edge of L great toe incision this date. Assessment Progress Assessment Slower Than Expected Assessment Notes Pt had surgical intervention which directly results in delayed healing at this time. Concern for poor healing to continue despite surgery. Bone culture showed no growth after 5 days. As noted above, L lateral great toe incision has eschar and is likely to cause problems on the medial L 2nd toe without proper interventions and wound care. Patient goals met none Goals Not Met ST LT,2 Revised Goals none Plan Plan Continue per initial POC Frequency of Therapy 2 x/wk Duration of therapy 8 wks Time and Billing Re-Eval Time 15 Re-Eval Billing Units 0 PHYSICIAN CERTIFICATION: I certify the specified therapy services for Steven Bautista are required, authorized, and reviewed every 30 days.
--- NOTE | 2021-04-15 10:51 | HMH.RHREAS ---
Rehab Reassessment Rehab OP Re-assessment Start: 01/09/21 10:54 Freq: Status: Active Protocol: Document 04/15/21 10:50 BYRON (Rec: 04/15/21 10:51 BYRON [id number]) Electronically Signed By Moris Krueger, PT 04/15/21 10:50 Rehab Re-assessment Subjective Subjective Pt reports no new c/o this date. Objective Objective Notes Pt L great toe incisions appear to be well healed. Some erythema noted on top of L great toe, but appears healthy at this time. L Lateral heel wound with slight increase in depth and mild maceration noted. L Lateral Heel: L= 2.3 cm, W= 1.4 cm, D= 0.3 cm Assessment Progress Assessment Progressing as Expected Assessment Notes Continues to improve steadily, L Lateral heel wound more concerning at this time due to depth and cara-wound maceration. Patient goals met none Goals Not Met ST LT,2 Revised Goals none Plan Plan Continue per initial POC Frequency of Therapy 2 x/wk Duration of therapy 8 wks Time and Billing Re-Eval Time 15 Re-Eval Billing Units 0 PHYSICIAN CERTIFICATION: I certify the specified therapy services for Steven Bautista are required, authorized, and reviewed every 30 days.
--- NOTE | 2021-05-20 11:34 | HMH.RHREAS ---
Rehab Reassessment Rehab OP Re-assessment Start: 01/09/21 10:54 Freq: Status: Active Protocol: Document 05/20/21 11:32 BYRON (Rec: 05/20/21 11:34 BYRON [id number]) Electronically Signed By Moris Krueger, PT 05/20/21 11:32 Rehab Re-assessment Subjective Subjective Pt reports he feels like he is doing better with his wounds. Objective Objective Notes Pt L great toe incisions appear to be well healed. L lateral heel wound with less maceration and increasing granulation tissue. L Lateral Heel: L= 1.9 cm, W= 1.4 cm, D= 0.3 cm Assessment Progress Assessment Progressing as Expected Assessment Notes Continues to heel slowly due to multiple co-morbidities. More granulation tissue noted, L Great Toe fully healed. Patient goals met none Goals Not Met ST LT,2 Revised Goals none Plan Plan Continue per initial POC Frequency of Therapy 2 x/wk Duration of therapy 8 wks Time and Billing Re-Eval Time 15 Re-Eval Billing Units 0 PHYSICIAN CERTIFICATION: I certify the specified therapy services for Steven Bautista are required, authorized, and reviewed every 30 days.
== END 2021-05-20 10:05 | disposition home or self-care (01) ==
LOC: PT 10:00
PROVIDERS: PCP Family Medicine; Visit Provider Podiatrist
DX: E11.621 Type 2 diabetes mellitus with foot ulcer (principal); L97.529 Non-pressure chronic ulcer of other part of left foot with unspecified severity
CPT/HCPCS: 97162; 97164; 97597

== ENCOUNTER 2021-06-22 15:34 | Observation (INO) | payer MEDICARE, MEDICAID, SELFPAY ==
[2021-06-22 15:36] VITALS: BP 135/65; PULSE 62; RESP 18; TEMP 37.1; O2SAT 86; BMI 28.0
--- NOTE | 2021-06-22 15:40 | XR_ITS ---
PROCEDURE INFORMATION: Exam: XR Chest Exam date and time: 06/22/2021 3:40 PM Age: 85 years old Clinical indication: Shortness of breath; Additional info: New oxygen requirement TECHNIQUE: Imaging protocol: XR of the chest. Views: 1 view. COMPARISON: CR XR CHEST 2V 02/25/2021 3:40 PM FINDINGS: Tubes, catheters and devices: Transvenous pacemaker leads are unchanged in position. Lungs: Mild pulmonary vascular congestion. No acute airspace consolidation. Pleural spaces: Unremarkable. No pleural effusion. No pneumothorax. Heart/Mediastinum: Cardiomegaly. Bones/joints: Median sternotomy. IMPRESSION: Cardiomegaly and mild pulmonary vascular congestion.
[2021-06-22 15:45] VITALS: BP 126/63; PULSE 64; O2SAT 94
--- NOTE | 2021-06-22 15:54 | PC.NURSE ---
per nurse; oxygen was placed on pt on 2L at this time. pt resting in bed.
[2021-06-22 16:00] VITALS: BP 138/71; PULSE 60; O2SAT 94
--- NOTE | 2021-06-22 16:27 | HMH.EDGENADL ---
ED Disposition Clinical Impression: Acute encephalopathy, Weakness Disposition: Admitted As Inpatient Condition on Discharge: Good - Critical Care Critical Care Time: No Attestation: On 06/22/21, the high probability of a clinically significant, sudden or life threatening deterioration of the following system(s) required my full and direct attention, intervention and personal management. The time I documented below is in addition to time spent performing reported procedures but includes the following listed in this critical care notation. Medical Decision Making - Medical Records Medical records reviewed: Yes: I reviewed the patient's medical records. - Albaro Inquiry Pt receiving controlled substance: No Vital Signs: 06/22/21 15:36 06/22/21 15:45 06/22/21 16:00 Temperature 98.7 F Temperature Source Oral Pulse Rate 64 60 Pulse Rate [Right Radial] 62 Respiratory Rate 18 Blood Pressure 126/63 138/71 Blood Pressure [Right Arm] 135/65 Blood Pressure Mean 78 Blood Pressure Mean [Right Arm] 88 Blood Pressure Source [Right Arm] Automatic Cuff Blood Pressure Position [Right Arm] Sitting 02 Sat by Pulse Oximetry 86 L 94 L 94 L Oxygen Delivery Method Room Air Nasal Cannula Nasal Cannula Oxygen Flow Rate (LPM) 2 2 06/22/21 17:00 Temperature Temperature Source Pulse Rate 60 Pulse Rate [Right Radial] Respiratory Rate 16 Blood Pressure 134/76 Blood Pressure [Right Arm] Blood Pressure Mean Blood Pressure Mean [Right Arm] Blood Pressure Source [Right Arm] Blood Pressure Position [Right Arm] 02 Sat by Pulse Oximetry 95 Oxygen Delivery Method Nasal Cannula Oxygen Flow Rate (LPM) 2 - Lab Data Lab results reviewed: Yes: I reviewed the patient's lab results. Lab Results 06/22/21 15:42: VBG pH 7.33, VBG pCO2 53.4 H, VBG pO2 37.8, VBG HCO3 27.7, VBG Total CO2 29.4 H, VBG O2 Saturation 70.8 H, VBG Base Excess 1.8 06/22/21 16:11: WBC 14.1 H, RBC 4.63, Hgb 14.5, Hct 46.3, MCV 100.0 H, MCH 31.3 H, MCHC 31.3 L, RDW 14.9, Plt Count 285, MPV 8.0, Neut % (Auto) 87.8 H, Lymph % (Auto) 4.7 L, Kenton % (Auto) 6.0, Eos % (Auto) 0.9, Baso % (Auto) 0.6, Neut # (Auto) 12.4 H, Lymph # (Auto) 0.7, Kenton # (Auto) 0.9, Eos # (Auto) 0.1, Baso # (Auto) 0.1, Total Counted 100, Neutrophils % (Manual) 79 H, Band Neutrophils % 10.0 H, Lymphocytes % (Manual) 8 L, Monocytes % (Manual) 3, Platelet Estimate Normal, Hypochromasia 1+, Macrocytosis 2+ 06/22/21 16:11: Sodium 138, Potassium 5.2 H, Chloride 102, Carbon Dioxide 31 H, Anion Gap 10.2, BUN 30 H, Creatinine 1.60 H, Estimated Creat Clear 41, Estimated GFR 41 L, Est GFR ( Amer) 50 L, Glucose 223 H, Calcium 8.8, Total Bilirubin 0.7, AST 34, ALT 17, Alkaline Phosphatase 84, Troponin I < 0.01, Total Protein 7.3, Albumin 3.9, Globulin 3.4 H, Albumin/Globulin Ratio 1.1 06/22/21 16:11: Lactate 2.0 06/22/21 16:42: Urine Color Yellow, Urine Appearance Clear, Urine pH 6.0, Ur Specific Pierpont 1.020, Urine Protein Negative, Urine Glucose (UA) Negative, Urine Ketones Negative, Urine Blood Negative, Urine Nitrate Negative, Urine Bilirubin Negative, Urine Urobilinogen 0.2, Ur Leukocyte Esterase Negative, Urine RBC None, Urine WBC Occasional, Ur Squamous Epith Cells None, Urine Bacteria Trace Result diagrams: 06/22/21 16:11 06/22/21 16:11 Orders (Tests/Meds): ED MEDICATIONS Generic Name Dose Route Start Last Admin Trade Name Freq PRN Reason Stop Dose Admin Levothyroxine Sodium 112 mcg 06/23/21 07:00 Levothyroxine 112mcg (0.112mg) Tab PO 07/23/21 06:59 DAILYDM NICK Memantine 10 mg 06/22/21 21:00 Memantine 10mg Tablet PO 07/22/21 20:59 BID NICK Montelukast Sodium 10 mg 06/22/21 18:00 Montelukast Sodium 10mg Tab PO 07/22/21 17:59 PM NICK ORDERS Category Date Time Status Rapid PCR Covid and Flu A/B Stat Lab 06/22/21 17:23 Received Troponin I Q3H Lab 06/22/21 18:45 Ordered Troponin I Q3H Lab 06/22/21 21:45 Ordered Urine Cultur
--- NOTE | 2021-06-22 16:28 | CT_ITS ---
PROCEDURE INFORMATION: Exam: CT Head Without Contrast Exam date and time: 06/22/2021 4:28 PM Age: 85 years old Clinical indication: Injury or trauma; Fall; Bleeding/hemorrhage; Additional info: Multipel falls TECHNIQUE: Imaging protocol: Computed tomography of the head without contrast. Radiation optimization: All CT scans at this facility use at least one of these dose optimization techniques: automated exposure control; mA and/or kV adjustment per patient size (includes targeted exams where dose is matched to clinical indication); or iterative reconstruction. COMPARISON: CT HEAD/BRAIN WO CON 03/23/2020 6:00 AM FINDINGS: Brain: There is age-appropriate cerebral atrophy. Severe changes of chronic small vessel ischemia within the cerebral white matter regions bilaterally. Areas of right frontal lobe encephalomalacia. No acute infarct or hemorrhage. Cerebral ventricles: No ventriculomegaly. Paranasal sinuses: Chronic left maxillary and bilateral ethmoid sinus disease. Mastoid air cells: Visualized mastoid air cells are well aerated. Bones/joints: Unremarkable. No acute fracture. Soft tissues: Unremarkable. Other findings: . IMPRESSION: 1. No acute intracranial abnormality. 2. 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 3. Chronic sinus disease.
--- NOTE | 2021-06-22 16:30 | ECG_ITS ---
APPROVED REPORT Exam: Resting ECG HR:60 bpm ECG Measurements Heart Rate 60 AXES MI 210 P -1 QRSd 200 QRS 235 QT 526 T 58 QTc 526 Conclusion ELECTRONIC ATRIAL PACEMAKER ELECTRONIC VENTRICULAR PACEMAKER ABNORMAL RHYTHM ECG UNCONFIRMED REPORT Electronically signed by : Emanuel Laughlin MD 06/25/2021 21:10:24
--- NOTE | 2021-06-22 16:41 | PC.NURSE ---
radiology bedside taking patient to CT scan at this time.
[2021-06-22 16:52] LABS: VBG Base Excess 1.8 mmol/L (-2.4-2.3); VBG HCO3 27.7 mmol/L (23-30); VBG Oxygen Saturation 70.8 % (50-70); VBG PCO2 53.4 mmol/L (35-51); VBG PH 7.33 mmol/L (7.31-7.41); VBG PO2 37.8 mmol/L (28-40); VBG Total CO2 29.4 mmol/L (23-27)
--- NOTE | 2021-06-22 16:56 | PC.NURSE ---
pt is back from CT scan
[2021-06-22 16:59] LABS: Alanine Aminotransferase 17 U/L (12-78); Albumin Level 3.9 g/dl (3.5-5.0); Albumin/Globulin Ratio 1.1 (1.1-1.8); Alkaline Phosphatase 84 U/L (38-126); Anion Gap 10.2 mEq/L (5-15); Aspartate Amino Transferase 34 U/L (17-59); Bilirubin,Total 0.7 mg/dl (0.2-1.3); Blood Urea Nitrogen 30 mg/dl (9-20); Calcium 8.8 mg/dl (8.4-10.2); Carbon Dioxide 31 mmol/L (22.0-30.0); Chloride 102 mmol/L (98-107); Creatinine Clearance Estimated 41 mL/min (50-200); Estimated Glomerular Filt Rate 41 ml/min (>60); GFR (African American) 50 ML/MIN (>60); Globulin 3.4 g/dL (1.3-3.2); Glucose 223 mg/dl (74-100); Potassium 5.2 mmoL/L (3.5-5.1); Sodium 138 mmol/L (136-145); Total Protein,Serum 7.3 g/dl (6.3-8.2)
[2021-06-22 17:00] VITALS: BP 134/76; PULSE 60; RESP 16; O2SAT 95
[2021-06-22 17:09] LABS: Microscopic, Urine URINE MICROSCOPIC (MICROSCOPIC)
[2021-06-22 17:11] LABS: Appearance,Urine CLEAR (Clear); Bilirubin,Urine Negative (Negative); Blood, Urine Negative (Negative); Color,Urine YELLOW (Yellow); Glucose,Urine (UA) Negative (Negative); Ketones,Urine Negative (Negative); Leukocyte Esterase,Urine Negative (Negative); Nitrate,Urine Negative (Negative); Protein,Urine Negative (Negative); Urobilinogen,Urine 0.2 EU/dl (0.2)
[2021-06-22 17:12] LABS: Troponin I < 0.01 ng/ml (0.00-0.034)
[2021-06-22 17:17] LABS: Basophils # 0.1 K/mm3 (0-0.2); Basophils % 0.6 % (0.1-2.0); Eosinophils # 0.1 K/mm3 (0.0-0.4); Eosinophils % 0.9 % (0.1-12.0); Hematocrit 46.3 % (42.0-52.0); Hemoglobin 14.5 g/dL (14.1-18.0); Lymphocytes # 0.7 K/mm3 (0.7-4.5); Lymphocytes % 4.7 % (10-50); Mean Corpuscular HGB Conc 31.3 g/dL (31.8-35.4); Mean Corpuscular Hemoglobin 31.3 pg (27.0-31.2); Monocytes # 0.9 K/mm3 (0.1-1.0); Neutrophils # 12.4 K/mm3 (1.8-7.8); Neutrophils % 87.8 % (37.0-80.0); Platelet Count 285 K/mm3 (142-424); Red Blood Count 4.63 M/mm3 (4.60-6.20); Red Cell Distribution Width 14.9 % (11.5-17.5); White Blood Count 14.1 K/mm3 (4.8-10.8)
[2021-06-22 17:21] LABS: MANUAL DIFFERENTIAL MANUAL DIFFERENTIAL (MANUAL DIFF)
--- NOTE | 2021-06-22 17:23 | PC.NURSE ---
COVID swab obtained and sent to lab
[2021-06-22 17:24] LABS: Bacteria,Urine Trace /lpf; WBC,Urine Occasional #/hpf (0-3)
--- NOTE | 2021-06-22 17:33 | PC.NURSE ---
call placed to molder operator to get in touch with whoever is on for Dr. Ambrocio.
--- NOTE | 2021-06-22 17:40 | PC.NURSE ---
Dr. Weinstein called back and spoke with ED Dr. Ellison at this time.
--- NOTE | 2021-06-22 18:00 | PC.NURSE ---
Call house to report an admission. Will get a bed.
[2021-06-22 18:11] VITALS: BMI 35.7
[2021-06-22 18:13] LABS: Lymphocytes % 8 % (10-50); Monocytes % 3 % (2-9); Neutrophils % 79 % (42-76); Total Cells Counted 100
[2021-06-22 18:14] LABS: Hypochromasia 1+; Macrocytosis 2+; Platelet Estimate Normal
[2021-06-22 18:18] LABS: Coronavirus 19, PCR Not Detected (NotDetected); Influenza A, PCR Not Detected (NotDetected); Influenza B, PCR Not Detected (NotDetected)
--- NOTE | 2021-06-22 18:39 | PC.NURSE ---
lab is bedside
--- NOTE | 2021-06-22 18:58 | PC.NURSE ---
Med surgical services manager down here to get patient to take him up to his inpatient room.
--- NOTE | 2021-06-22 19:05 | PC.NURSE ---
PT ARRIVED TO FLOOR VIA STRETCHER FROM ED W/STAFF@ 1905
[2021-06-22 19:07] VITALS: BP 153/75; PULSE 89; RESP 19; TEMP 36.7; O2SAT 98
[2021-06-22 19:13] LABS: Alanine Aminotransferase 18 U/L (12-78); Albumin Level 3.4 g/dl (3.5-5.0); Albumin/Globulin Ratio 1.1 (1.1-1.8); Alkaline Phosphatase 73 U/L (38-126); Anion Gap 8.8 mEq/L (5-15); Aspartate Amino Transferase 34 U/L (17-59); Bilirubin,Total 0.5 mg/dl (0.2-1.3); Blood Urea Nitrogen 32 mg/dl (9-20); Calcium 8.1 mg/dl (8.4-10.2); Carbon Dioxide 27 mmol/L (22.0-30.0); Chloride 107 mmol/L (98-107); Creatinine Clearance Estimated 44 mL/min (50-200); Estimated Glomerular Filt Rate 44 ml/min (>60); GFR (African American) 54 ML/MIN (>60); Globulin 3.2 g/dL (1.3-3.2); Glucose 225 mg/dl (74-100); Potassium 4.8 mmoL/L (3.5-5.1); Sodium 138 mmol/L (136-145); Total Protein,Serum 6.6 g/dl (6.3-8.2)
[2021-06-22 19:33] LABS: Troponin I < 0.01 ng/ml (0.00-0.034)
[2021-06-22 20:00] VITALS: BP 137/69; PULSE 60; PULSE 62; RESP 16; TEMP 37.1; O2SAT 92
[2021-06-23] VITALS (7 sets, daily range): BP systolic 127–172; BP diastolic 52–62; PULSE 60–81; RESP 18–22; TEMP 36.6–37.6; O2SAT 90–95; BMI 35.7
--- NOTE | 2021-06-23 01:24 | PC.NURSE ---
Admission is done to the best of this RN's ability. Patient is partially confused at times.
[2021-06-23 06:41] LABS: Basophils # 0.1 K/mm3 (0-0.2); Basophils % 0.4 % (0.1-2.0); Eosinophils # 0.2 K/mm3 (0.0-0.4); Eosinophils % 1.6 % (0.1-12.0); Hematocrit 43.4 % (42.0-52.0); Hemoglobin 13.5 g/dL (14.1-18.0); Lymphocytes # 0.9 K/mm3 (0.7-4.5); Lymphocytes % 7.4 % (10-50); Mean Corpuscular HGB Conc 31.2 g/dL (31.8-35.4); Mean Corpuscular Hemoglobin 31.1 pg (27.0-31.2); Mean Corpuscular Volume 99.8 fl (80-94); Monocytes # 0.8 K/mm3 (0.1-1.0); Monocytes % 6.1 % (1.7-9.3); Neutrophils # 10.6 K/mm3 (1.8-7.8); Neutrophils % 84.4 % (37.0-80.0); Platelet Count 237 K/mm3 (142-424); Red Blood Count 4.35 M/mm3 (4.60-6.20); Red Cell Distribution Width 14.9 % (11.5-17.5); White Blood Count 12.5 K/mm3 (4.8-10.8)
[2021-06-23 06:59] LABS: Chloride 104 mmol/L (98-107); Sodium 135 mmol/L (136-145)
[2021-06-23 07:00] LABS: Potassium 4.4 mmoL/L (3.5-5.1)
[2021-06-23 07:02] LABS: Alanine Aminotransferase 19 U/L (12-78); Albumin Level 3.5 g/dl (3.5-5.0); Alkaline Phosphatase 80 U/L (38-126); Anion Gap 6.4 mEq/L (5-15); Aspartate Amino Transferase 31 U/L (17-59); Bilirubin,Total 1.1 mg/dl (0.2-1.3); Blood Urea Nitrogen 28 mg/dl (9-20); Carbon Dioxide 29 mmol/L (22.0-30.0); Creatinine Clearance Estimated 60 mL/min (50-200); Estimated Glomerular Filt Rate 48 ml/min (>60); GFR (African American) 58 ML/MIN (>60); Globulin 3.4 g/dL (1.3-3.2); Total Protein,Serum 6.9 g/dl (6.3-8.2)
[2021-06-23 07:03] LABS: Glucose 191 mg/dl (74-100)
--- NOTE | 2021-06-23 07:11 | P.CONPHA_ITS ---
[facility] Pharmacy VTE Monitoring - Patient Demographics Admission date: 06/22/21 Report Date: 06/23/21 Time: 07:11 Allergies/Adverse Reactions: Patient Allergies codeine [CODEINE] Allergy (Unknown, Verified 05/29/21 10:43) Penicillins [PENICILLINS] Allergy (Unknown, Verified 05/29/21 10:43) Height: 1.75 m Weight: 109.588 kg Patient Problems: Current Active Problems Acute encephalopathy (Acute) Weakness (Acute) - VTE Risk Labs: VTE Related Lab Results Hgb 13.5 g/dL (14.1-18.0) L 06/23/21 05:26 Hct 43.4 % (42.0-52.0) 06/23/21 05:26 Plt Count 237 K/mm3 (142-424) 06/23/21 05:26 BUN 32 mg/dl (9-20) H 06/22/21 18:45 Creatinine 1.50 mg/dl (0.66-1.25) H 06/22/21 18:45 Estimated Creat Clear 44 mL/min (50-200) 06/22/21 18:45 Was VTE Risk Assessment Performed: Yes VTE Score: 5 VTE Risk Level: Low Risk - Prophylaxis VTE Prophylaxis Ordered?: Yes Types of VTE Prophylaxis: TEDS Knee High Location of Applied Device: Bilateral Lower Extremeties
--- NOTE | 2021-06-23 08:33 | HMH.HP ---
*Admission Date: 06/22/21 <Alejandra Ventura - 06/23/21 08:34> *Chief complaint: Falls; weakness, altered mental status <Alejandra Ventura - 06/23/21 08:34> *History of present illness: HPI narrative: Mr. Bautista is a 85 yo male w/ PMH for Parkinson disease, s/p pacemaker, CABG, afib, HTN, HLD, T2DM non insulin dependent who presents to the ED for multiple unexplained falls and increased confusion. History provided by EMS. Patient usually ambulates with walker. EMS reports they have been called multiple times to scene for falls. Patient reports dysuria, but denies any other symptoms. No headache, abdominal pain, chest pain, back pain or extremity pain. Limited hx given patients current mentation. I spoke to the patients via phone and she reports the patient has had hateful behavior and is extremely weak in his LE. Patient has had multiple falls due to weakness. She reports there are periods where he can hardly stand and support himself, she is having difficulty taking care of him. Patient PCP currently monitors his parkinsons', no neurology team as of yet per . She also reports the patient has had diarrhea over the last week, but has been drinking fluids. The above is per emergency room documentation. Mr. 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 His noticed increased in his confusion and a change of behavior. He was last seen in the office of [facility] by Dr. Ambrocio on June 16, 2021 with refill of medications. Laboratory data at that time showed A1c of 6.5, and CBC with a hemoglobin of 14.7 hematocrit of 46.5 and white blood cell count of 8800. TSH was noted to be 0.561. Cholesterol profile showed a total cholesterol of 149 triglycerides of 97 HDL of 44 and LDL of 85. Complete metabolic profile showed a sodium of 144, potassium of 4.6, chloride 106, calcium of 9.3, BUN of 21 and creatinine of 1.23. Vitamin D was noted to be low at 22.6. Vitamin B12 was normal at 624. With assessment this a.m. with physical exam patient states his whole body hurts. This includes arms, legs, chest and abdomen. He states he has a headache. He does not recall yesterday and does not remember exactly when and how he fell. This a.m. he states he is short of breath as well. He does not remember if he was eating or drinking well. His did report that he had diarrhea for about a week. . With evaluation in the emergency room he was noted to be afebrile with a normal blood pressure. O2 sats were 86% on room air 94% with oxygen per nasal cannula. White blood cell count was noted to be 14,100, potassium was 5.2, BUN 30 and creatinine of 1.6. <Alejandra Ventura 06/23/21 13:37> [facility] History Medical History: Reports:: Arrhythmia, Atherosclerotic Heart Disease, Atrial Fibrillation, Coronary Artery Disease, Dementia, Depression, Diabetes Mellitus Type 2, Gastroesophageal Reflux Disease(GERD), Hyperlipidemia, Hypertension, Internal Pacemaker, Myocardial Infarction, Peripheral Artery Disease Denies:: Asthma, Cancer, Chronic Obstructive Pulmonary Disease (COPD), Diabetes Mellitus Type 1, MRSA, Seizures, Transient Ischemic Attacks (TIA) <Alejandra Ventura 06/23/21 12:15> *Have you ever received a pneumonia vaccine?: Yes <Alejandra Ventura 06/23/21 08:34> *Have you received a flu vaccine this season?: Yes <Alejandra Ventura 06/23/21 08:34> Other Medical History: Reports: Arthritis, Cataracts, Hypothyroidism, Other. Denies: Blood Transfusion Reaction <Alejandra Ventura 06/23/21 08:34> Laterality Cases: Left: Arthroscopy Knee, Bilateral: Other <Alejandra Ventura 06/23/21 08:34> [facility]
--- NOTE | 2021-06-23 10:00 | HMH.PHAINT ---
Home Med Rec complete. Verified via insurance prescription list and primary care physician office.
--- NOTE | 2021-06-23 13:39 | PC.NURSE ---
notified podiatry of consult
--- NOTE | 2021-06-23 14:06 | DIET.NUTRFU ---
Rd notified of high residuals with TF on hold. Spoke to NH that patient lives at, he uses 2cal at 45ml/hr x18hrs. Formula is not available to hospital. Current formula continues to be best choice. Spoke to nursing about checking residuals in 4 hours and starting at 30ml/hr and increase as tolerated. Also spoke to nursing about starting his regular omeprazole dose. Patient was also started on dextrose to tx hyponatremia. The dextrose/potassium was discontinued yesterday d/t potassium WNL.
--- NOTE | 2021-06-23 15:48 | HMH.PTEV ---
Physical Therapy Evaluation Rehab PT IP Evaluation Start: 06/23/21 13:32 Freq: ONCE Status: Active Protocol: Document 06/23/21 15:45 BYRON (Rec: 06/23/21 15:48 PHOSUKUMAR [id number]) Subjective/History History History 85 yowm adm to [facility] with LUANN and encephaolopathy. He is generally independent with all mobility using RW and lives with his with no steps to enter the home. Subjective Subjective Currently pt reports feeling very tired and weak. Rehab PT IP Eval Objective Appearance Patient Behavior Appropriate,Confused Patient Orientation Person Difficulty following instructions none Speech Pattern Clear,Delayed Ambulation Patient Able to Ambulate No Balance Ability to Arise Unable Sitting Balance Leans or slides in chair Standing Balance Unsteady Dynamic Sitting Balance Ability Poor Dynamic Standing Balance Ability Zero Transfers Bed Transfer Ability Maximum x 1 (75% assist) Sit to Stand Bed Transfer Ability Total/Dependent (100%) Rehab PT IP prob,goals,plan Problems Date of Evaluation: 06/23/21 PT IP Problems Bed Mobility,Transfers,Gait, Balance,Self care Rehab Potential Rehab Potential Fair Plan PT Intervention Plan Bed Mobility,Transfers,Gait, Balance,Self care,Therapeutic Exercise PT Plan Frequency BID Duration LOS Discharge Goals Bed Transfer Ability Moderate x 2 (50% assist) Sit to Stand Chair Transfer Ability Maximum x 1 (75% assist) Ambulation Assistive Device Rolling Walker Ambulation Distance (feet) 3 Discharge Plan PT Discharge Plan Pt is currently most appropriate for rehab placement once medically stable. G -code Required No Eval Complexity Eval Charge Codes 04093 - Moderate Complexity PHYSICIAN CERTIFICATION: I certify the specified therapy services for Steven Bautista are required, authorized, and reviewed every 30 days.
--- NOTE | 2021-06-23 15:57 | XR_ITS ---
PROCEDURE INFORMATION: Exam: XR Right Foot Exam date and time: 06/23/2021 3:57 PM Age: 85 years old Clinical indication: Other: H/o ulcer; Additional info: HX ulcer TECHNIQUE: Imaging protocol: XR Right foot. Views: 3 or more views. 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 Degenerative changes of the DIP joints. Soft tissues: Mild soft tissue swelling. Other findings: No discrete abscess formation. IMPRESSION: 1. 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 2. Mild soft tissue swelling. 3. No discrete abscess formation. 4. Degenerative changes of the DIP joints.
--- NOTE | 2021-06-23 15:57 | XR_ITS ---
PROCEDURE INFORMATION: Exam: XR Left Foot Complete, Hallux Valgus Exam date and time: 06/23/2021 3:57 PM Age: 85 years old Clinical indication: Condition or disease; Other: Lt hallux dfu; Additional info: Left hallux dfu TECHNIQUE: Imaging protocol: XR Left foot. Views: 3 or more views. 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 Degenerative changes of the 2nd through 5th DIP joints. There is no evidence of acute fracture. There is no evidence of joint malalignment or dislocation. Calcaneal spurs are present. Soft tissues: Soft tissue swelling noted over the 1st digit without evidence of abscess formation. IMPRESSION: 1. 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 2. Soft tissue swelling noted over the 1st digit without evidence of abscess formation. 3. Degenerative changes of the 2nd through 5th DIP joints. 4. No evidence of acute fracture. 5. No evidence of acute dislocation.
[2021-06-23 16:26] LABS: POC Glucose,Bedside 237 (70-110)
--- NOTE | 2021-06-23 16:52 | PC.NURSE ---
[facility] SEAN SCORE TRIGGERED NUTRITION CONSULT AND PT WOUND EVAL
--- NOTE | 2021-06-23 16:58 | PC.NURSE ---
PLEASANTLY CONFUSED THIS SHIFT. 2LNC FOR O2 SUPPORT. PT WILL RING OUT AND WHEN STAFF ANSWERS HE WILL STATE THAT HE DOESNT NEED ANYTHING. BED ALARM FOR SAFETY. TOLERATING PO MEDS AND THIN LIQUIDS WELL BUT APPETITE IS DECREASED.
--- NOTE | 2021-06-23 18:44 | P.CONS_ITS ---
*Admission Date: 06/22/21 <Zoya Mayorga 06/23/21 18:48> *Reason for consult:: Foot ulcer <Zoya Mayorga 06/23/21 20:08> *History of present illness: Patient is a 85 year- old diabetic male well-known to the podiatry team who was admitted 06/22/21 for falls, weakness, altered mental status. PCP team consulted podiatry for continued ongoing management of foot ulcers. Patient resting in bed alert and oriented to person and place. He was calm and cooperative. Podiatry cu rrent order is for b/l foot diabetic ulcers dressing to be changed every other day with allegra. <Zoya Mayorga 06/23/21 20:43> [facility] History Medical History: Reports:: Arrhythmia, Atherosclerotic Heart Disease, Atrial Fibrillation, Coronary Artery Disease, Dementia, Depression, Diabetes Mellitus Type 2, Gastroesophageal Reflux Disease(GERD), Hyperlipidemia, Hypertension, Internal Pacemaker, Myocardial Infarction, Peripheral Artery Disease Denies:: Asthma, Cancer, Chronic Obstructive Pulmonary Disease (COPD), Diabetes Mellitus Type 1, MRSA, Seizures, Transient Ischemic Attacks (TIA) <Parul Mayorgaher 06/23/21 18:48> *Have you ever received a pneumonia vaccine?: Yes <TierraZoya 06/23/21 18:48> *Have you received a flu vaccine this season?: Yes <Parul Mayorgaher 06/23/21 18:48> Other Medical History: Reports: Arthritis, Cataracts, Hypothyroidism, Other. Denies: Blood Transfusion Reaction <padmaZoya 06/23/21 18:48> Laterality Cases: Left: Arthroscopy Knee, Bilateral: Other <[facility] 06/23/21 18:48> Other Surgeries: Yes: No Previous Surgery, CABG, Cardiac Catheterization, Cardiac Surgery, Cholecystectomy, Colonoscopy, Coronary Stent, Hernia Repair (X2), Pacemaker, Other <DaianaZoya 06/23/21 18:48> Amputation: No <[facility] 06/23/21 18:48> Fractures: No <[facility] 06/23/21 18:48> - *Social History Smoking Status: Never smoker <[facility] 06/23/21 18:48> Tobacco Type: smokeless tobacco [facility] 06/23/21 18:48> # Packs/Day (cigarettes): 0 <[facility] 06/23/21 18:48> #Yrs smoked (if former smoker): 0 <[facility] 06/23/21 18:48> Alcohol Intake: never <[facility] 06/23/21 18:48> Alcohol Intake Frequency:: other <[facility] 06/23/21 18:48> Substance Use Type: denies use <[facility] 06/23/21 18:48> *Occupational Status:: retired <[facility] 06/23/21 18:48> Housing: [facility] 06/23/21 18:48> Household Members: spouse <[facility] 06/23/21 18:48> *Travel in the last 8 weeks: None <[facility] 06/23/21 18:48> - Psychiatric History Pschychiatric History:: Reports:: Depression <[facility] 06/23/21 18:48> Family Hx:: Coronary Artery Disease, Diabetes, Hypertension, Stroke <[facility] 06/23/21 18:48> Review of Systems - Constitutional Reports weakness <[facility] 06/23/21 20:08> - Eyes Denies change in vision <[facility] 06/23/21 20:08> - ENT Denies abnormal hearing <[facility] 06/23/21 20:08> - *Cardiovascular Denies chest pain <[facility] 06/23/21 20:08> - *Respiratory Denies shortness of breath <[facility] 06/23/21 20:08> - *Gastrointestinal Denies abdominal pain <[facility] 06/23/21 20:08> - *Genitourinary Reports other (patient has an indwelling conn catheter in place.) <Zoya Mayorga - 06/23/21 20:08> - *Musculoskeletal Reports muscle weakness, Denies back pain <Zoya Mayorga 06/23/21 20:08> - Integumentary/Breasts Reports wounds (left lateral plantar heel and right medial heel) <Zoya Mayorga 06/23
--- NOTE | 2021-06-23 18:44 | HMH.ORTHOCON ---
*Admission Date: 06/22/21 <Zoya Mayorga 06/23/21 18:48> *Reason for consult:: Foot ulcer <Parul Mayorgaher 06/23/21 20:08> *History of present illness: Patient is a 85 year- old diabetic male well-known to the podiatry team who was admitted 06/22/21 for falls, weakness, altered mental status. PCP team consulted podiatry for continued ongoing management of foot ulcers. Patient resting in bed alert and oriented to person and place. He was calm and cooperative. Podiatry current order is for b/l foot diabetic ulcers dressing to be changed every other day with allegra. <Parul Mayorgaher 06/23/21 20:43> [facility] History Medical History: Reports:: Arrhythmia, Atherosclerotic Heart Disease, Atrial Fibrillation, Coronary Artery Disease, Dementia, Depression, Diabetes Mellitus Type 2, Gastroesophageal Reflux Disease(GERD), Hyperlipidemia, Hypertension, Internal Pacemaker, Myocardial Infarction, Peripheral Artery Disease Denies:: Asthma, Cancer, Chronic Obstructive Pulmonary Disease (COPD), Diabetes Mellitus Type 1, MRSA, Seizures, Transient Ischemic Attacks (TIA) <padmaZoya 06/23/21 18:48> *Have you ever received a pneumonia vaccine?: Yes <[facility] 06/23[facility] 18[facility]48> *Have you received a flu vaccine this season?: Yes <padmaZoya 06/23/21 18:48> Other Medical History: Reports: Arthritis, Cataracts, Hypothyroidism, Other. Denies: Blood Transfusion Reaction <[facility] 06/[facility] 18[facility]48> Laterality Cases: Left: Arthroscopy Knee, Bilateral: Other <[facility] 06/23/21 18:48> Other Surgeries: Yes: No Previous Surgery, CABG, Cardiac Catheterization, Cardiac Surgery, Cholecystectomy, Colonoscopy, Coronary Stent, Hernia Repair (X2), Pacemaker, Other [facility] 06/23/21 18:48> Amputation: No <[facility] 06/23/21 18:48> Fractures: No <[facility] 06/23/21 18:48> - *Social History Smoking Status: Never smoker <Parul Mayorgaher 06/23/21 18:48> Tobacco Type: smokeless tobacco <[facility] 06/23/21 18:48> # Packs/Day (cigarettes): 0 <[facility] 06/23/21 18:48> #Yrs smoked (if former smoker): 0 <[facility] 06/23/21 18:48> Alcohol Intake: never <[facility] 06/23/21 18:48> Alcohol Intake Frequency:: other <[facility] 06/23/21 18:48> Substance Use Type: denies use <[facility] 06/23/21 18:48> *Occupational Status:: retired [facility] 06/[facility] 18:48> Housing: apartment <[facility] 06/23/21 18:48> Household Members: spouse <[facility] 06/23/21 18:48> *Travel in the last 8 weeks: None <[facility] 06/23/21 18:48> - Psychiatric History Pschychiatric History:: Reports:: Depression <[facility] 06/23/21 18:48> Family Hx:: Coronary Artery Disease, Diabetes, Hypertension, Stroke <[facility] 06/23/21 18:48> Review of Systems - Constitutional Reports weakness <[facility] 06/23/21 20:08> - Eyes Denies change in vision <[facility] 06/23/21 20:08> - ENT Denies abnormal hearing <[facility] 06/23/21 20:08> - *Cardiovascular Denies chest pain <[facility] 06/23/21 20:08> - *Respiratory Denies shortness of breath <[facility] 06/23/21 20:08> - *Gastrointestinal Denies abdominal pain <[facility] 06/23/21 20:08> - *Genitourinary Reports other (patient has an indwelling conn catheter in place.) <[facility] 06/23/21 20:08> - *Musculoskeletal Reports muscle weakness, Denies back pain <[facility] 06/23/21 20:08> - Integumentary/Breasts Reports wounds (left lateral plantar heel and right medial heel) <[facility] 06/23/21 20:08> - *Neurologic Reports abnormal walking, Reports confusion (A& O x 2 person and time), Reports weakness (admitted for weakness) <padmaZoya 06/23/21 20:08> Meds Home Medications Medication Instructions Recorded Confirmed Type gabapentin 600 mg tablet 600 mg PO TID 06/10/17 06/23/21 Hist
[2021-06-23 21:56] LABS: POC Glucose,Bedside 276 (70-110)
[2021-06-23 21:56] LABS: POC Glucose,Bedside 200 (70-110)
[2021-06-24] VITALS (9 sets, daily range): BP systolic 132–145; BP diastolic 52–74; PULSE 60–80; RESP 16–20; TEMP 36.7–37.3; O2SAT 92–96; BMI 35.0
[2021-06-24 06:16] LABS: POC Glucose,Bedside 227 (70-110)
--- NOTE | 2021-06-24 06:44 | PC.NURSE ---
Pt has been a + o to person only. Pt has remained awake t/o most of shift, has been very confused, and has tried to get out of bed multiple times t/o shift. Magdaleno catheter in place draining hematuria to gravity. No complaints have been voiced to staff. Dressing in place to bilat heels, CDI. Bed alarm on for safety. Call nicole within reach.
--- NOTE | 2021-06-24 08:17 | HMH.ACPN2 ---
<Alejandra Ventura - Last Filed: 06/24/21 08:17> Internal Medicine - PN: Subj *Date: 06/24/21 *Time: 08:17 Interval history: Patient states he is doing okay today. He feels that he slept well. He ate well for breakfast. He denies chest pain, shortness of breath, and any discomfort. He did work with physical therapy and needed maximum assist. He walked 3 feet with PT. He continues with Magdaleno catheter to bedside drainage Patient seen by podiatry yesterday with the following note: Date of Service: 06/23/21. Procedure (s): XR foot RT min 3V. 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 Degenerative changes of the DIP joints. Soft tissues: Mild soft tissue swelling. other findings: No discrete abcess formation. IMPRESSION: 1. 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 2. Mild soft tissue swelling. 3. No discrete abscess formation. 4. Degenerative changes of the DIP joints. Date of Service: 06/23/21. Procedure (s): XR left foot Complete, Hallux Valgus. FINDINGS: Bones/joints: Status post amputation of the distal phalanx of the great toe. Denegerative changes of the 2nd trhough 5th DIP joints. There is no evidence of acute fracture. There is no evidence of joint malalignment or dislocation. Calcaneal spurs are present. Soft tissues: Soft tissue swelling noted over the 1st digit without evidence of abscess formation. IMPRESSION: 1. 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 2. Soft tissue swelling noted over the 1st digit without evidence of abscess formation. 3. Degenerative changes of the 2nd through 5th DIP joints. 4. No evidence of acute fracture. 5. No evidence of acute dislocation. -Patient seen at bedside, wound sharply debrided (see skin section). -Drea dressing applied to b/l heels ulcers. Secure with optifoam pads and coban tape. -Change dressing every other day with drea collagen. -Off load b/l heels. Avoid pressure to heels. -Plan for podiatry dressing change with drea every other day. -No plans for surgical intervention at this time. Documented By: Zoya Mayorga APRN Exam Vital signs and Labs for Last 24 Hours: Temp Pulse Resp BP Pulse Ox 98.7 F 70 16 141/68 H 96 06/24/21 07:31 06/24/21 07:31 06/24/21 07:31 06/24/21 07:31 06/24/21 07:31 Laboratory Results - last 24 hr 06/23/21 06:05: POC Glucose 200 H 06/23/21 15:44: POC Glucose 237 H 06/23/21 20:13: POC Glucose 276 H 06/24/21 05:34: POC Glucose 227 H I & O for Last 24 hours: Intake & Output 06/21/21 06/22/21 06/23/21 06/24/21 11:59 11:59 11:59 11:59 Intake Total 360 / 360 540 / 540 Output Total 1525 / 1525 950 / 950 Balance -1165 / -1165 -410 / -410 Weight 241 lb 6.499 oz 236 lb 12.8 oz Microbiology Reports for the Last 24 Hours: Microbiology 06/22/21 16:42 Urethra Urine Culture - Preliminary NO GROWTH AFTER 24 HOURS - Constitutional no acute distress - *Routine Respiratory Exam Present: CTA bilaterally (Anteriorly and posteriorly) - *Routine Cardiovascular Exam Present: RRR - *Routine Abdominal Exam Present: soft, normoactive bowel sounds. Absent: tenderness, distended - *Routine Extremities Exam Present: edema (Trace) - *Routine Neurological Exam Present: alert, facial asymmetry. Absent: oriented X3 Responses are slow. Speech is clear. Assessment and Plan (1) Acute encephalopathy Status: Acute Category: Medical Code(s): G93.40 - Encephalopathy, unspecified (2) Weakness Status: Acute Category: Medical Code(s): R53.1 - Weakness (3) Dehydration Status: Acute Category: Medical Code(s): E86.0 - Dehydration (4) Renal insufficiency Status: Acute Category: Medical Code(s): N28.9 - Disorder of kidney and ureter, unspecified (5) Weakness of both lower extremities Status: Chronic Category: Medical Code(s): R29.898 - Other symptoms and signs involving the musculoskeletal system
--- NOTE | 2021-06-24 10:04 | SW/DCPLANNER ---
Addendum entered by [facility] 06/26/21 14:31: Mac has stated that patient does NOT require a COVID swab prior to discharge. Addendum entered by [facility] 06/26/21 08:58: This patient will discharge to [facility] today via ambulance. Patient will require a COVID swab prior to discharging. Addendum entered by [facility] 06/25/21 07:31: Mac with [facility] has stated that she can accept this patient once medically stable for discharge. Patient will require a prior auth and COVID swab prior to discharge. Addendum entered by [facility] 06/24/21 14:56: Mac is coming to [facility] to evaluate this patient. Addendum entered by [facility] 06/24/21 12:41: [facility] is currently reviewing patient information and is calling patients . Original Note: I spoke with patients regarding plans once medically stable for discharge. I explained to that PT evaluated this patient yesterday and has recommended SNF level of care once medically stable for discharge. I explained SNF level of care and options with patients insurance include [facility] and [facility] ([facility] and [facility] are NOT in network with patients insurance). has stated that she prefers [facility] and if they can not meet patients needs she [facility] be [facility] Patient information has been faxed to [facility] at this time. I will continue to follow up with: patient, family, MD and facilities. Discharge date is unknown at this time.
--- NOTE | 2021-06-24 10:28 | DIET.NUTRFU ---
RD reviewed diet with pt's . Pt likes snacking, fish, tuna, potato chips, soups, sandwiches, breakfast sandwiches, thin oatmeal, cereal, sausage, eggs, cottage cheese and fruit. He dislikes chicken. noted that pt can chew but limits tough meats d/t teeth. She indicated that pt may improve with snack foods and items easy to black pickler. Nursing reported that pt needs assistance with eating. Food selection discussed with kitchen staff. Rd consulted d/t low kathy score and risk for skin breakdown, indicating pt has increased protein needs. Providing Glucerna TID for additional calories and protein, will discontinue if appetite improves.
--- NOTE | 2021-06-24 10:37 | HMH.PTWOUND ---
Rehab Inpt Wound Evaluation Rehab IP Wound Evaluation Start: 06/23/21 16:51 Freq: ONCE Status: Active Protocol: Document 06/24/21 10:33 [email or web address] (Rec: 06/24/21 10:37 [email or web address] [id number]) Rehab PT Wound Assessment Patient Status Premedicated Prior to Dressing Change No Subjective Subjective Pt reports he wishes to return home and not go to [facility] home Wound Left Heel Wound Type Pressure Ulcer Wound Staging Stage II Query Text:Stage I - Unbroken, red skin, no blanching. Stage II - Skin broken, superficial skin loss involving epidermis alone or also dermis. Partial loss of skin layers. Stage III - Pressure area involves epidermis, dermis and subcutaneous tissue, full thickness skin loss. Stage IV - Pressure area involves epidermis, subcutaneous tissue, bone and other supportive tissue. Full thickness skin loss with extensive destruction of underlying tissue and structures. Wound Length (cm) 3.0 Wound Width (cm) 1.5 Wound Bed Appearance Beefy Red,Yellow Wound Margins Description Well Defined Primary Dressing Absorbant Pad Comment optifoam Right Heel Wound Type Pressure Ulcer Wound Staging Stage III Query Text:Stage I - Unbroken, red skin, no blanching. Stage II - Skin broken, superficial skin loss involving epidermis alone or also dermis. Partial loss of skin layers. Stage III - Pressure area involves epidermis, dermis and subcutaneous tissue, full thickness skin loss. Stage IV - Pressure area involves epidermis, subcutaneous tissue, bone and other supportive tissue. Full thickness skin loss with extensive destruction of underlying tissue and structures. Wound Length (cm) 3.0 Wound Width (cm) 2.0 Wound Bed Appearance Beefy Red,Yellow Wound Margins Description Well Defined Primary Dressing Absorbant Pad Comment optifoam Plan/Recommendation Comment wounds being followed by podiatric medicine - DPM to change dressings PRN - wound care team to follow but no direct intervention needed at this time. Eval Complexity Eval Charge Codes 48889 - High Complexity G-codes PT Carolyne
--- NOTE | 2021-06-24 18:30 | PC.NURSE ---
AO TO PERSON AND HAS BEEN CONFUSED THIS SHIFT. BHATIA CATH REMAINS IN PLACE WITH HEMATURIA NOTED IN DRAINAGE BACK
[2021-06-24 22:00] LABS: POC Glucose,Bedside 264 (70-110)
[2021-06-24 22:00] LABS: POC Glucose,Bedside 240 (70-110)
[2021-06-25] VITALS (9 sets, daily range): BP systolic 124–157; BP diastolic 53–74; PULSE 60–70; RESP 16–20; TEMP 36.6–37.9; O2SAT 92–97; BMI 35.4
[2021-06-25 05:08] LABS: POC Glucose,Bedside 207 (70-110)
[2021-06-25 06:36] LABS: Chloride 102 mmol/L (98-107); Potassium 4.4 mmoL/L (3.5-5.1); Sodium 132 mmol/L (136-145)
[2021-06-25 06:39] LABS: Anion Gap 7.4 mEq/L (5-15); Blood Urea Nitrogen 22 mg/dl (9-20); Carbon Dioxide 27 mmol/L (22.0-30.0); Creatinine Clearance Estimated 83 mL/min (50-200); Estimated Glomerular Filt Rate 71 ml/min (>60); GFR (African American) 86 ML/MIN (>60); Glucose 209 mg/dl (74-100)
[2021-06-25 06:52] LABS: Basophils # 0.1 K/mm3 (0-0.2); Basophils % 0.4 % (0.1-2.0); Eosinophils # 0.3 K/mm3 (0.0-0.4); Eosinophils % 2.5 % (0.1-12.0); Hematocrit 41.8 % (42.0-52.0); Hemoglobin 13.3 g/dL (14.1-18.0); Lymphocytes # 1.1 K/mm3 (0.7-4.5); Lymphocytes % 8.9 % (10-50); Mean Corpuscular HGB Conc 31.9 g/dL (31.8-35.4); Mean Corpuscular Hemoglobin 30.8 pg (27.0-31.2); Mean Corpuscular Volume 96.5 fl (80-94); Mean Platelet Volume 7.6 fl (7.4-10.4); Monocytes % 8.1 % (1.7-9.3); Neutrophils % 80.2 % (37.0-80.0); Platelet Count 222 K/mm3 (142-424); Red Blood Count 4.33 M/mm3 (4.60-6.20); Red Cell Distribution Width 14.3 % (11.5-17.5); White Blood Count 12.5 K/mm3 (4.8-10.8)
--- NOTE | 2021-06-25 08:19 | HMH.ACPN2 ---
Internal Medicine - PN: Subj *Date: 06/25/21 *Time: 08:19 Interval history: Patient with no new complaints today, still reports occasional abdominal pain, eating well. Exam Vital signs and Labs for Last 24 Hours: Temp Pulse Resp BP Pulse Ox 98.6 F 60 18 151/73 H 94 L 06/25/21 07:26 06/25/21 07:26 06/25/21 07:26 06/25/21 07:26 06/25/21 07:26 Laboratory Results - last 24 hr 06/24/21 16:56: POC Glucose 264 H 06/24/21 21:48: POC Glucose 240 H 06/25/21 04:58: POC Glucose 207 H 06/25/21 06:09: WBC 12.5 H, RBC 4.33 L, Hgb 13.3 L, Hct 41.8 L, MCV 96.5 H, MCH 30.8, MCHC 31.9, RDW 14.3, Plt Count 222, MPV 7.6, Neut % (Auto) 80.2 H, Lymph % (Auto) 8.9 L, Island % (Auto) 8.1, Eos % (Auto) 2.5, Baso % (Auto) 0.4, Neut # (Auto) 10.0 H, Lymph # (Auto) 1.1, Island # (Auto) 1.0, Eos # (Auto) 0.3, Baso # (Auto) 0.1 06/25/21 06:09: Sodium 132 L, Potassium 4.4, Chloride 102, Carbon Dioxide 27, Anion Gap 7.4, BUN 22 H, Creatinine 1.00 D, Estimated Creat Clear 83, Estimated GFR 71, Est GFR ( Amer) 86 D, Glucose 209 H, Calcium 8.0 L Vital Signs - 24 hr 06/24/21 10:58 06/24/21 12:00 06/24/21 14:55 Temperature 99.2 F 98.0 F Pulse Rate 70 Pulse Rate [Right Radial] 69 67 Respiratory Rate 16 18 Blood Pressure [Right Arm] 136/64 141/69 H 02 Sat by Pulse Oximetry 93 L 94 L 06/24/21 16:00 06/24/21 20:00 06/25/21 00:00 Temperature 98.4 F 97.8 F Pulse Rate 70 70 60 Pulse Rate [Right Radial] 65 66 Respiratory Rate 20 16 Blood Pressure [Right Arm] 132/74 152/64 H 02 Sat by Pulse Oximetry 95 93 L 06/25/21 04:00 06/25/21 05:02 06/25/21 07:26 Temperature 100.3 F H 98.8 F 98.6 F Pulse Rate 60 Pulse Rate [Right Radial] 67 60 Respiratory Rate 20 18 Blood Pressure [Right Arm] 157/74 H 151/73 H 02 Sat by Pulse Oximetry 97 94 L I & O for Last 24 hours: Intake & Output 06/22/21 06/23/21 06/24/21 06/25/21 23:59 23:59 23:59 23:59 Intake Total 780 / 780 720 / 720 360 / 360 Output Total 2175 / 2475 1425 / 2425 1000 / 1000 Balance -1395 / -1695 -705 / -1705 -640 / -640 Weight 241 lb 9.6 oz 241 lb 6.499 oz 236 lb 12.8 oz 239 lb 6.4 oz Microbiology Reports for the Last 24 Hours: Microbiology 06/22/21 16:42 Urethra Urine Culture - Final NO GROWTH AFTER 48 HOURS - Constitutional no acute distress - *Routine HEENT Exam Head: Present: normocephalic Eye: Present: EOMI, PERRL ENT: Present: mucous membranes moist - *Routine Neck Exam Present: supple. Absent: lymphadenopathy - *Routine Respiratory Exam Present: CTA bilaterally - *Routine Cardiovascular Exam Present: RRR - *Routine Abdominal Exam Present: soft, normoactive bowel sounds. Absent: tenderness - *Routine Extremities Exam Absent: cyanosis, clubbing, edema - *Routine Skin Exam Present: warm. Absent: rash - *Routine Neurological Exam Present: alert (mentation is still slow) Assessment and Plan (1) Acute encephalopathy Status: Acute Category: Medical Code(s): G93.40 - Encephalopathy, unspecified (2) Weakness Status: Acute Category: Medical Code(s): R53.1 - Weakness (3) Dehydration Status: Acute Category: Medical Code(s): E86.0 - Dehydration (4) Renal insufficiency Status: Acute Category: Medical Code(s): N28.9 - Disorder of kidney and ureter, unspecified (5) Weakness of both lower extremities Status: Chronic Category: Medical Code(s): R29.898 - Other symptoms and signs involving the musculoskeletal system (6) Atrial fibrillation Status: Chronic Qualifiers: Atrial fibrillation type: unspecified Qualified Code(s): I48.91 - Unspecified atrial fibrillation Category: Medical Code(s): I48.91 - Unspecified atrial fibrillation (7) CAD (coronary artery disease) Status: Chronic Qualifiers: Coronary Disease-Associated Artery/Lesion type: [place] artery [place] vs. transplanted heart: [place] heart Associated angina: witho
--- NOTE | 2021-06-25 08:53 | P.PN_ITS ---
Subjective Date: 06/25/21 Time: 08:10 Principal diagnosis: B/L DM pressure ulcers Interval history: Patient was sitting in bed with physical therapy, Tereso at bedside. Patient seemed slow and a little confused upon first interaction. Bilateral foot dressings changed. PN: Obj Ex Vital signs: Temp Pulse Resp BP Pulse Ox 98.6 F 60 18 151/73 H 94 L 06/25/21 07:26 06/25/21 07:26 06/25/21 07:26 06/25/21 07:26 06/25/21 07:26 - Constitutional no acute distress, chronically ill appearing, disheveled - Routine HEENT Exam Head: Present: normocephalic - Routine Respiratory Exam Absent: respiratory distress - Routine Extremities Exam Absent: edema - Detailed Lower Extremity Exam Bottom foot image: 1 - Diabetic foot ulcers noted to b/l heels. 1) left lateral plantar heel sharply and excisionally debrided with a currette thru skin into/including subq. Post debridement ulcer measures: 3.0 x 2.5 x 0.1cm. Wound bed 100% granular. 2) The right medial heel has minimal erythema surrounding the ulcer. Post: right medial heel ulcer, 2.0 x 2.0 x 0.1cm, superficial thru skin/subq pressure sore, no deep ulcer. B/l feet dry skin noted. 3) Left hallux amputation site sutures previously removed, skin abrasion <0.2x0.2x0.0cm. No opening and no new SOI. - Urinary Catheter Management Magdaleno Cath placed during this visit: no Progress Note: A&P (1) Acute encephalopathy Status: Acute (2) Weakness Status: Acute (3) Dehydration Status: Acute (4) Renal insufficiency Status: Acute (5) Weakness of both lower extremities Status: Chronic (6) Atrial fibrillation Status: Chronic (7) CAD (coronary artery disease) Status: Chronic (8) Cardiac pacemaker in situ Status: Chronic (9) HTN (hypertension) Status: Chronic (10) Type 2 diabetes mellitus with foot ulcer, with long-term current use of insulin Status: Chronic (11) Altered mental status Status: Acute (12) Diabetic ulcer of both feet Status: Acute Assessment and Plan for All Diagnoses:: B/L Plantar Heel DM Pressure Ulcers: -Patient seen at bedside, b/l heel wounds sharply debrided (see skin section). -Betadine soaked gauze, dressing applied to b/l heels ulcers. -Change dressing every other day with allegra collagen. Secure with optifoam pads and coban tape. -Off load b/l heels. Avoid pressure to heels. -Outpatient: continue weekly [facility] and altering with every other week Podiatry f/u. -No plans for Podiatric surgical intervention at this time.
--- NOTE | 2021-06-25 09:17 | CT_ITS ---
FINAL REPORT TECHNIQUE: After the administration of IV contrast, axial images through the head/brain was performed by computed tomography. This study was performed with techniques to keep radiation doses as low as reasonably achievable (ALARA). Individualized dose reduction techniques using automated exposure control or adjustment of mA and/or kV according to the patient's size were employed. CLINICAL HISTORY: Rule out CVA COMPARISON: 06/22/2021 FINDINGS: Axial images of the head were obtained without contrast. Coronal reformatted images were also obtained. This study was performed with techniques to keep radiation doses as low as reasonably achievable (ALARA). Individualized dose reduction techniques using automated exposure control or adjustment of mA and/or kV according to the patient''s size were employed. There is generalized age-appropriate atrophy. Periventricular low-attenuation areas are seen consistent with moderate chronic ischemic changes. There are areas of right frontal encephalomalacia, stable. No definite acute abnormality is identified. There is no evidence of intracranial hemorrhage or mass. There is no evidence of acute infarct. There is no evidence of shift of the midline structures. No skull abnormality is seen on the bone window images. There is no abnormal contrast enhancement. There is mucosal thickening of the left maxilla sinus with fluid level. IMPRESSION: Chronic ischemic changes with encephalomalacia. No definite acute abnormality is identified. If indicated, MRI may be helpful. Reviewed, Interpreted and Dictated by Rudy Dietrich III, MD Transcribed by Alejandra Bowers Authenticated by Rudy Dietrich III, MD on 06/25/2021 09:12:08 AM [facility]
[2021-06-25 16:49] LABS: POC Glucose,Bedside 335 (70-110)
[2021-06-25 16:49] LABS: POC Glucose,Bedside 255 (70-110)
[2021-06-26] VITALS: BP 124/68; PULSE 68; PULSE 75; RESP 19; TEMP 37; O2SAT 93
[2021-06-26 01:54] LABS: POC Glucose,Bedside 270 (70-110)
[2021-06-26 04:00] VITALS: BP 134/68; PULSE 60; PULSE 64; RESP 17; TEMP 37.1; O2SAT 96
[2021-06-26 05:00] VITALS: BMI 35.4
[2021-06-26 06:21] LABS: POC Glucose,Bedside 222 (70-110)
[2021-06-26 08:00] VITALS: BP 162/56; PULSE 61; PULSE 64; RESP 19; TEMP 36.6; O2SAT 94
--- NOTE | 2021-06-26 08:12 | HMH.ACPN2 ---
<Ely Hand - Last Filed: 06/26/21 08:12> Internal Medicine - PN: Subj *Date: 06/26/21 *Time: 08:12 Interval history: Patient states he is feeling a little bit better this morning. He still has some upper abdominal pain. He states he did not sleep well. He is ready to sit up and try to eat some breakfast this morning. Exam Vital signs and Labs for Last 24 Hours: Temp Pulse Resp BP Pulse Ox 98.7 F 64 17 134/68 96 06/26/21 04:00 06/26/21 04:00 06/26/21 04:00 06/26/21 04:00 06/26/21 04:00 Laboratory Results - last 24 hr 06/24/21 11:22: POC Glucose 270 H 06/25/21 11:26: POC Glucose 255 H 06/25/21 16:30: POC Glucose 335 H* 06/26/21 06:08: POC Glucose 222 H I & O for Last 24 hours: Intake & Output 06/23/21 06/24/21 06/25/21 06/26/21 11:59 11:59 11:59 11:59 Intake Total 360 / 360 540 / 540 960 / 960 600 / 600 Output Total 1525 / 1525 950 / 950 2125 / 2125 3200 / 3200 Balance -1165 / -1165 -410 / -410 -1165 / -1165 -2600 / -2600 Weight 241 lb 6.499 oz 236 lb 12.8 oz 239 lb 6.4 oz 239 lb 5 oz - Constitutional no acute distress - *Routine HEENT Exam Head: Present: normocephalic Eye: Present: EOMI, PERRL ENT: Present: mucous membranes dry - *Routine Neck Exam Present: supple. Absent: lymphadenopathy - *Routine Respiratory Exam Present: CTA bilaterally - *Routine Cardiovascular Exam Present: RRR - *Routine Abdominal Exam Present: soft, normoactive bowel sounds, tenderness (Right upper quadrant) - *Routine Extremities Exam Absent: cyanosis, clubbing, edema - *Routine Skin Exam Present: warm. Absent: rash - *Routine Neurological Exam Present: alert, oriented X3 Assessment and Plan (1) Acute encephalopathy Status: Acute Category: Medical Code(s): G93.40 - Encephalopathy, unspecified (2) Weakness Status: Acute Category: Medical Code(s): R53.1 - Weakness (3) Dehydration Status: Acute Category: Medical Code(s): E86.0 - Dehydration (4) Renal insufficiency Status: Acute Category: Medical Code(s): N28.9 - Disorder of kidney and ureter, unspecified (5) Weakness of both lower extremities Status: Chronic Category: Medical Code(s): R29.898 - Other symptoms and signs involving the musculoskeletal system (6) Atrial fibrillation Status: Chronic Qualifiers: Atrial fibrillation type: unspecified Qualified Code(s): I48.91 - Unspecified atrial fibrillation Category: Medical Code(s): I48.91 - Unspecified atrial fibrillation (7) CAD (coronary artery disease) Status: Chronic Qualifiers: Coronary Disease-Associated Artery/Lesion type: [place] artery [place] vs. transplanted heart: [place] heart Associated angina: without angina Qualified Code(s): I25.10 - Atherosclerotic heart disease of [place] coronary artery without angina pectoris Category: Medical Code(s): I25.10 - Atherosclerotic heart disease of [place] coronary artery without angina pectoris (8) Cardiac pacemaker in situ Status: Chronic Category: Medical Code(s): Z95.0 - Presence of cardiac pacemaker (9) HTN (hypertension) Status: Chronic Qualifiers: Hypertension type: unspecified Qualified Code(s): I10 - Essential (primary) hypertension Category: Medical Code(s): I10 - Essential (primary) hypertension (10) Type 2 diabetes mellitus with foot ulcer, with long-term current use of insulin Status: Chronic Category: Medical Code(s): E11.621 - Type 2 diabetes mellitus with foot ulcer; L97.509 - Non-pressure chronic ulcer of other part of unspecified foot with unspecified severity; Z79.4 - snf (current) use of insulin (11) Altered mental status Status: Acute Category: Medical Code(s): R41.82 - Altered mental status, unspecified (12) Diabetic ulcer of both feet Status: Acute Category: Medical Code(s): E11.621 - Type 2 diabetes mellitus with foot ulcer; L97.519 - Non-pressure chronic ulcer of other part of right foot wit
[2021-06-26 09:02] VITALS: O2SAT 93
--- NOTE | 2021-06-26 09:43 | PC.NURSE ---
O2 weaned successfully, oxygen saturation is 93 RA
--- NOTE | 2021-06-26 10:44 | PC.NURSE ---
Pt has urinated since conn has been removed
--- NOTE | 2021-06-26 11:48 | HMH.DCSUM ---
General - General Admission date:: 06/22/21 Discharge date: 06/26/21 HPI HPI: HPI narrative: Mr. Bautista is a 85 yo male w/ PMH for Parkinson disease, s/p pacemaker, CABG, afib, HTN, HLD, T2DM non insulin dependent who presents to the ED for multiple unexplained falls and increased confusion. History provided by EMS. Patient usually ambulates with walker. EMS reports they have been called multiple times to scene for falls. Patient reports dysuria, but denies any other symptoms. No headache, abdominal pain, chest pain, back pain or extremity pain. Limited hx given patients current mentation. I spoke to the patients via phone and she reports the patient has had hateful behavior and is extremely weak in his LE. Patient has had multiple falls due to weakness. She reports there are periods where he can hardly stand and support himself, she is having difficulty taking care of him. Patient PCP currently monitors his parkinsons', no neurology team as of yet per . She also reports the patient has had diarrhea over the last week, but has been drinking fluids. The above is per emergency room documentation. Mr. 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 His noticed increased in his confusion and a change of behavior. He was last seen in the office of [facility] by Dr. Ambrocio on June 16, 2021 with refill of medications. Laboratory data at that time showed A1c of 6.5, and CBC with a hemoglobin of 14.7 hematocrit of 46.5 and white blood cell count of 8800. TSH was noted to be 0.561. Cholesterol profile showed a total cholesterol of 149 triglycerides of 97 HDL of 44 and LDL of 85. Complete metabolic profile showed a sodium of 144, potassium of 4.6, chloride 106, calcium of 9.3, BUN of 21 and creatinine of 1.23. Vitamin D was noted to be low at 22.6. Vitamin B12 was normal at 624. With assessment this a.m. with physical exam patient states his whole body hurts. This includes arms, legs, chest and abdomen. He states he has a headache. He does not recall yesterday and does not remember exactly when and how he fell. This a.m. he states he is short of breath as well. He does not remember if he was eating or drinking well. His did report that he had diarrhea for about a week. With evaluation in the emergency room he was noted to be afebrile with a normal blood pressure. O2 sats were 86% on room air 94% with oxygen per nasal cannula. White blood cell count was noted to be 14,100, potassium was 5.2, BUN 30 and creatinine of 1.6. Hospital Course Hospital Course: The patient's white blood cell count improved as did his renal function. His chest x-ray showed cardiomegaly and pulmonary vascular congestion. 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 He was placed on sliding scale insulin and Dr. Funes was consulted for wound care of his foot ulcers. The patient's wounds were debrided and dressings were applied. There was no plan for surgical intervention. The x-rays of his left foot showed soft tissue swelling over the first digit without evidence of abscess formation. X-rays of the right foot showed mild soft tissue swelling but no discrete abscess. The patient was able to work with physical therapy and needed maximum assistance. He was able to walk 3 feet with therapy. Care management was consulted for disposition. He did complain off-and-on of some abdominal pain. There was blood in his urine but it showed no growth after 48 hours. He had a repeat CT scan of the brain w
[2021-06-26 12:00] VITALS: BP 144/62; PULSE 60; PULSE 63; RESP 20; TEMP 36.7; O2SAT 92
[2021-06-26 14:39] VITALS: O2SAT 94
--- NOTE | 2021-06-26 15:09 | PC.NURSE ---
Report called to Luisa at [facility]
--- NOTE | 2021-06-26 15:10 | PC.NURSE ---
Ambulance notified for transport, state they will be here shortly
--- NOTE | 2021-06-26 15:55 | PC.NURSE ---
Ambulance here for transport
[2021-06-28 01:15] LABS: POC Glucose,Bedside 295 (70-110)
[2021-06-28 01:15] LABS: POC Glucose,Bedside 220 (70-110)
== END 2021-06-26 16:00 ==
LOC: ER 16:08 → 2ND 18:12
PROVIDERS: Admitting Provider Family Medicine; Emergency Provider Student in an Organized Health Care Education/Training Program; PCP Family Medicine; Visit Provider Family Medicine
DX: G93.40 Encephalopathy, unspecified (principal); G20 Parkinson's disease; R29.6 Repeated falls; I10 Essential (primary) hypertension; I48.91 Unspecified atrial fibrillation; E78.5 Hyperlipidemia, unspecified; E86.0 Dehydration; N39.0 Urinary tract infection, site not specified; F02.81 Dementia in other diseases classified elsewhere, unspecified severity, with behavioral disturbance; Z20.822 Contact with and (suspected) exposure to COVID-19; E11.621 Type 2 diabetes mellitus with foot ulcer; L97.422 Non-pressure chronic ulcer of left heel and midfoot with fat layer exposed; L97.412 Non-pressure chronic ulcer of right heel and midfoot with fat layer exposed; Z95.0 Presence of cardiac pacemaker; Z79.01 Long term (current) use of anticoagulants; Z95.1 Presence of aortocoronary bypass graft; Z79.4 Long term (current) use of insulin
CPT/HCPCS: 11042; G0378; 36415; 70450; 70460; 71045; 73630; 80048; 80053; 81001; 82803; 82962; 83605; 84484; 85007; 85025; 87086; 93005; 94761; 97162; 97530; 99284; C9803; Q9967; U0003; U0005

== ENCOUNTER 2021-08-13 15:24 | Emergency (ER) | payer MEDICARE, MEDICAID, SELFPAY ==
[2021-08-13 15:25] VITALS: BP 144/63; PULSE 62; RESP 16; TEMP 36.8; O2SAT 94; BMI 31.8
--- NOTE | 2021-08-13 15:26 | XR_ITS ---
FINAL REPORT CLINICAL HISTORY: foot wound COMPARISON: June 23, 2021 FINDINGS: LEFT FOOT Three views of the left foot demonstrate no acute fracture or dislocation. There has been amputation of the great toe at the IP joint. There are mild and moderate degenerative changes. The bones are osteopenic. Calcaneal spurs are present. There is calcification in the region of the posterior plantar aponeurosis. IMPRESSION: Postoperative and degenerative changes. Reviewed, Interpreted and Dictated by Rudy Dietrich III, MD Transcribed by Duong Amin Authenticated by Rudy Dietrich III, MD on 08/13/2021 04:24:59 PM [facility]
--- NOTE | 2021-08-13 15:26 | XR_ITS ---
FINAL REPORT CLINICAL HISTORY: foot pian FINDINGS: LEFT ANKLE Three views demonstrate no acute fracture or dislocation. There are mild degenerative changes. Calcaneal spurs are present. There is calcification in the region of the posterior plantar aponeurosis. IMPRESSION: No acute bony abnormality. Reviewed, Interpreted and Dictated by Rudy Dietrich III, MD Transcribed by Duong Amin Authenticated by Rudy Dietrich III, MD on 08/13/2021 04:24:58 PM [facility]
--- NOTE | 2021-08-13 15:31 | HMH.EDGENADL ---
ED Disposition Clinical Impression: Visit for wound check Disposition: Home, Self-Care Condition on Discharge: Good Instructions: Skin Wound Additional Instructions: Please follow-up with your primary care physician in 2 to 3 days for further management and wound check. You have also been referred to wound care for outpatient management. Please continue to change dressing daily with your home health nurse. If any worsening symptoms such as pain, redness, purulent white drainage, fevers, chills, vomiting or any other infectious symptoms please return back to the emergency department. Prescriptions: Sulfamethoxazole/Trimethoprim [Bactrim DS tablet] 1 each PO BID #20 tab Transmission Status: Received by [facility] Referrals: James Ambrocio MD [Primary Care Provider] - - Critical Care Critical Care Time: No Attestation: On , the high probability of a clinically significant, sudden or life threatening deterioration of the following system(s) required my full and direct attention, intervention and personal management. The time I documented below is in addition to time spent performing reported procedures but includes the following listed in this critical care notation. Medical Decision Making - Medical Records Medical records reviewed: Yes: I reviewed the patient's medical records. - [place] Inquiry Pt receiving controlled substance: No Vital Signs: 08/13/21 15:25 08/13/21 17:20 Temperature 98.3 F 98.3 F Temperature Source Oral Oral Pulse Rate 60 Pulse Rate [Right Radial] 62 Respiratory Rate 16 16 Blood Pressure 140/64 Blood Pressure [Right Arm] 144/63 H Blood Pressure Mean [Right Arm] 90 02 Sat by Pulse Oximetry 94 L Oxygen Delivery Method Room Air Room Air - Lab Data Lab results reviewed: Yes: I reviewed the patient's lab results. Lab Results 08/13/21 15:45: WBC 9.7, RBC 4.39 L, Hgb 14.0 L, Hct 44.2, MCV 100.9 H, MCH 31.8 H, MCHC 31.5 L, RDW 14.8, Plt Count 282, MPV 7.6, Neut % (Auto) 71.4, Lymph % (Auto) 17.9, [place] % (Auto) 7.9, Eos % (Auto) 2.0, Baso % (Auto) 0.8, Neut # (Auto) 6.9, Lymph # (Auto) 1.7, [place] # (Auto) 0.8, Eos # (Auto) 0.2, Baso # (Auto) 0.1, ESR 27 H 08/13/21 15:45: Sodium 142, Potassium 3.9, Chloride 106, Carbon Dioxide 32 H, Anion Gap 7.9, BUN 28 H, Creatinine 1.40 H, Estimated Creat Clear 58, Estimated GFR 48 L, Est GFR ( Amer) 58 L, Glucose 80, Calcium 8.4, Total Bilirubin 0.5, AST 28, ALT 7 L, Alkaline Phosphatase 103, C-Reactive Protein 40.4 H, Total Protein 7.7, Albumin 3.7, Globulin 4.0 H, Albumin/Globulin Ratio 0.9 L Result diagrams: 08/13/21 15:45 08/13/21 15:45 Medical Decision Narrative: Mr. Bautista is a 85 yo male w/ PMH for poorly controlled DM who presents to the ED for worsening infection of (L) foot. Patient is afebrile and hemodynamically stable on arrival, non toxic appearing. Physical exam remarkable for well-appearing male. 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 Patient has mild to moderate erythema but nonpainful to palpation. No purulent drainage noted. No odor noted. X-ray of the left foot and ankle show no evidence of bony involvement low suspicion for osteomyelitis at this time given current physical exam and x-ray findings. Patient likely has a superficial cellulitis of a chronic wound. Basic labs, ESR, CRP are remarkable for normal WBC and mildly elevated inflammatory markers. Given LRINEC score low and physical exam I have low suspicion for necrotizing infection at this time we will not investigate further. Patient is given Bactrim for outpatient management and is discharged in stable condition. Patient is provided strict return precautions such as progression of erythema, purulent drainage, fevers, chills or any other worsening symptoms. Patient instructed to continue to keep the area marked to monitor redness. Patient has an outpatient appointment with wound clinic provide
[2021-08-13 16:03] LABS: Basophils # 0.1 K/mm3 (0-0.2); Basophils % 0.8 % (0.1-2.0); Eosinophils # 0.2 K/mm3 (0.0-0.4); Hematocrit 44.2 % (42.0-52.0); Lymphocytes # 1.7 K/mm3 (0.7-4.5); Lymphocytes % 17.9 % (10-50); Mean Corpuscular HGB Conc 31.5 g/dL (31.8-35.4); Mean Corpuscular Hemoglobin 31.8 pg (27.0-31.2); Mean Corpuscular Volume 100.9 fl (80-94); Mean Platelet Volume 7.6 fl (7.4-10.4); Monocytes # 0.8 K/mm3 (0.1-1.0); Monocytes % 7.9 % (1.7-9.3); Neutrophils # 6.9 K/mm3 (1.8-7.8); Neutrophils % 71.4 % (37.0-80.0); Platelet Count 282 K/mm3 (142-424); Red Blood Count 4.39 M/mm3 (4.60-6.20); Red Cell Distribution Width 14.8 % (11.5-17.5); White Blood Count 9.7 K/mm3 (4.8-10.8)
[2021-08-13 16:05] LABS: Chloride 106 mmol/L (98-107); Potassium 3.9 mmoL/L (3.5-5.1); Sodium 142 mmol/L (136-145)
[2021-08-13 16:08] LABS: Alanine Aminotransferase 7 U/L (12-78); Albumin Level 3.7 g/dl (3.5-5.0); Albumin/Globulin Ratio 0.9 (1.1-1.8); Alkaline Phosphatase 103 U/L (38-126); Anion Gap 7.9 mEq/L (5-15); Aspartate Amino Transferase 28 U/L (17-59); Bilirubin,Total 0.5 mg/dl (0.2-1.3); Blood Urea Nitrogen 28 mg/dl (9-20); Carbon Dioxide 32 mmol/L (22.0-30.0); Creatinine Clearance Estimated 58 mL/min (50-200); Estimated Glomerular Filt Rate 48 ml/min (>60); GFR (African American) 58 ML/MIN (>60); Total Protein,Serum 7.7 g/dl (6.3-8.2)
[2021-08-13 16:09] LABS: Calcium 8.4 mg/dl (8.4-10.2); Glucose 80 mg/dl (74-100)
[2021-08-13 16:14] LABS: C-Reactive Protein 40.4 mg/L (0-4)
[2021-08-13 16:31] LABS: Erythrocyte Sedimentation Rate 27 mm/hr (0-20)
--- NOTE | 2021-08-13 16:59 | PC.NURSE ---
Called , she advised she would be on the way to pick him up.
[2021-08-13 17:20] VITALS: BP 140/64; PULSE 60; RESP 16; TEMP 36.8; O2SAT 95
== END 2021-08-13 17:25 | disposition home or self-care (01) ==
PROVIDERS: Emergency Provider Student in an Organized Health Care Education/Training Program; PCP Family Medicine
DX: R42 Dizziness and giddiness (principal); M54.2 Cervicalgia; L08.9 Local infection of the skin and subcutaneous tissue, unspecified; I10 Essential (primary) hypertension; R07.89 Other chest pain; R93.7 Abnormal findings on diagnostic imaging of other parts of musculoskeletal system; R94.39 Abnormal result of other cardiovascular function study; I25.10 Atherosclerotic heart disease of native coronary artery without angina pectoris; I73.9 Peripheral vascular disease, unspecified; I25.2 Old myocardial infarction; I48.91 Unspecified atrial fibrillation; K21.9 Gastro-esophageal reflux disease without esophagitis; E11.9 Type 2 diabetes mellitus without complications; E03.9 Hypothyroidism, unspecified; M20.62 Acquired deformities of toe(s), unspecified, left foot; M19.90 Unspecified osteoarthritis, unspecified site; F03.90 Unspecified dementia, unspecified severity, without behavioral disturbance, psychotic disturbance, mood disturbance, and anxiety; F32.A Depression, unspecified; F17.290 Nicotine dependence, other tobacco product, uncomplicated; Z79.4 Long term (current) use of insulin; Z79.51 Long term (current) use of inhaled steroids; Z79.899 Other long term (current) drug therapy; Z88.0 Allergy status to penicillin; Z88.5 Allergy status to narcotic agent; Z95.5 Presence of coronary angioplasty implant and graft; Z95.0 Presence of cardiac pacemaker; Z82.49 Family history of ischemic heart disease and other diseases of the circulatory system; Z83.3 Family history of diabetes mellitus
CPT/HCPCS: 73610; 73630; 80053; 85025; 85651; 86140; 99285

== ENCOUNTER → 2021-09-02 08:35 | Outpatient (CLI) | payer MEDICARE, MEDICAID, SELFPAY | PROVIDERS: PCP Family Medicine; Visit Provider Podiatrist | DX: Z51.89 Encounter for other specified aftercare (principal); E11.621 Type 2 diabetes mellitus with foot ulcer; Z79.4 Long term (current) use of insulin; L97.502 Non-pressure chronic ulcer of other part of unspecified foot with fat layer exposed | CPT/HCPCS: 87070; 87077; 87186; 87205; 88305 ==

== ENCOUNTER → 2021-09-29 12:15 | Outpatient (CLI) | payer MEDICARE, MEDICAID, SELFPAY | PROVIDERS: PCP Family Medicine; Visit Provider Nurse Practitioner Family | DX: Z51.89 Encounter for other specified aftercare (principal) | CPT/HCPCS: 87070; 87077; 87186; 87205 ==

== ENCOUNTER 2021-11-06 14:35 | Outpatient (RCR) | payer MEDICARE, MEDICAID, SELFPAY ==
--- NOTE | 2021-11-06 15:33 | HMH.PTOPWND ---
Rehab Outpt Wound Evaluation Rehab OP Wound Evaluation Start: 11/06/21 15:25 Freq: Status: Active Protocol: Document 11/06/21 15:25 BYRON (Rec: 11/06/21 15:33 PHORRADHA [id number]) Electronically Signed By Moris Krueger, PT 11/06/21 15:25 Subjective/History History History Pt is 85 yowm who presents with B heel wounds x 2-3 mos at least after long illness with hospital and nsg home stays. He reports no c/o pain at this time and home health has been dressing his wounds every other day for him since he returned home. He has multiple co-morbities which complicate his care, especially poorly controlled DM-II. 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 Wound Length (cm) 0.2 Wound Width (cm) 0.4 Wound Bed Appearance Beefy Red,Yellow Percentage Granulated (%) 50 Percentage of Slough (%) 50 Wound Margins Description Well Defined Drainage Description Serous Drainage Amount Small Wound Topical Solution/Irrigant Saline Irrigant Primary Dressing Composite Comment betadine, optifoam gentle Wound Debridement Method Sharps,Forceps,Gauze Wound Debridement Amount of Tissue Minimal Removed Dressing Change Patient Tolerance Tolerated Well Right Posterior Heel Wound Type Pressure Ulcer Is This a Chronic Wound Yes Wound Staging Stage II Query Text:Stage I - Unbroken, red skin, no blanching. Stage II - Skin broken, superficial skin loss involving epidermis alone or also dermis. Partial loss of skin layers. Stage III - Pressure area involves epidermis, dermis and subcutaneous tissue, full thickness skin loss. Stage IV - Pressure area involves epidermis, subcutaneous tissue, bone and other supportive tissue. Full thickness skin loss with extensive destruction of underlying tissue and structures. Wound Length (cm) 3.1 Wound Width (cm) 2.8 Wound Bed Appearance Beefy Red,Yellow Percentage Granulated (%) 75 Percentage of Slough (%) 25 Wound Margins Description Well Defined Drainage Description Pur
== END 2021-11-06 14:40 | disposition home or self-care (01) ==
LOC: PT 14:35
PROVIDERS: PCP Family Medicine; Visit Provider Podiatrist
DX: L97.422 Non-pressure chronic ulcer of left heel and midfoot with fat layer exposed (principal); L97.413 Non-pressure chronic ulcer of right heel and midfoot with necrosis of muscle
CPT/HCPCS: 97163

== ENCOUNTER 2021-12-31 09:15 | Observation (INO) | payer MEDICARE, MEDICAID, SELFPAY ==
[2021-12-31] VITALS (15 sets, daily range): BP systolic 131–160; BP diastolic 56–83; PULSE 67–76; RESP 16–19; TEMP 36.7–36.9; O2SAT 90–96; BMI 32.1; BMI 31.6
--- NOTE | 2021-12-31 | CT_ITS ---
FINAL REPORT TECHNIQUE: Axial imaging of the lumbar spine was obtained without contrast. Sagittal and coronal reformatted images were also obtained and reviewed. This study was performed with techniques to keep radiation doses as low as reasonably achievable (ALARA). Individualized dose reduction techniques using automated exposure control or adjustment of mA and/or kV according to the patient''s size were employed. CLINICAL HISTORY: FALL, BACK PAIN FINDINGS: There is no fracture. The vertebral alignment is normal. There is advanced disc space narrowing at L5-S1. There is prominent anterior osteophyte formation at T12-L1, L1-L2 and L2-L3. There is no evidence of significant central canal stenosis. L1-L2: No evidence of central canal stenosis or neural foraminal narrowing. L2-L3: There is mild to moderate diffuse disc bulge with with endplate hypertrophy and moderate to high-grade bilateral neural foraminal narrowing L3-L4: There is a diffuse disc bulge with endplate hypertrophy and facet hypertrophy. There is moderate to high-grade bilateral neural foraminal narrowing. L4-L5: There is a moderate diffuse disc bulge with facet hypertrophy and high-grade bilateral neural foraminal narrowing. L5-S1: There is endplate hypertrophy and facet hypertrophy with moderate to high-grade right neural foraminal narrowing. IMPRESSION: Advanced changes of degenerative disc disease with bilateral neural foraminal narrowing, most evident bilaterally at L2-3 through L4-5 and on the right at L5-5 S1. No fracture.. Reviewed, Interpreted and Dictated by Sanket Fernandez MD Transcribed by Shobha Hobbs Authenticated and [facility]
--- NOTE | 2021-12-31 | CT_ITS ---
FINAL REPORT CLINICAL HISTORY: FALL, BACK PAIN FINDINGS: Axial CT images of the thoracic spine were obtained without contrast. Sagittal and coronal reformatted images were also obtained. This study was performed with techniques to keep radiation doses as low as reasonably achievable (ALARA). Individualized dose reduction techniques using automated exposure control or adjustment of mA and/or kV according to the patient's size were employed. There is no acute fracture. The vertebral alignment is normal. There is accentuation of thoracic kyphosis. There is ossification of the anterior longitudinal ligament. There is no evidence of significant canal stenosis. No paraspinous soft tissue abnormality is identified. There is some scarring at the lung bases. IMPRESSION: No fracture or acute bony abnormality. No significant central canal stenosis. Reviewed, Interpreted and Dictated by Sanket Fernandez MD Transcribed by Shobha Hobbs Authenticated and . [facility]
--- NOTE | 2021-12-31 | CT_ITS ---
FINAL REPORT TECHNIQUE: Axial CT images were performed through the head. Coronal reformatted images were submitted. This study was performed with techniques to keep radiation doses as low as reasonably achievable (ALARA). Individualized dose reduction techniques using automated exposure control or adjustment of mA and/or kV according to the patient's size were employed. CLINICAL HISTORY: DIZZINESS COMPARISON: June 22, 2021. FINDINGS: There is moderate atrophy and proportionate ventriculomegaly. There is encephalomalacia in the right frontal lobe anteriorly and superiorly. There is dense calcification of the anterior inner hemisphere of the falx. There is no evidence of acute hemorrhage, mass effect or edema identified. There is no abnormal extra-axial fluid seen. The sinuses are well aerated. 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 No acute intracranial process. Reviewed, Interpreted and Dictated by Sanket Fernandez MD Transcribed by Shobha Hobbs Authenticated and [facility]
--- NOTE | 2021-12-31 | CT_ITS ---
FINAL REPORT TECHNIQUE: Axial images were obtained of the cervical spine by computed tomography. Coronal and sagittal reconstruction process performed. This study was performed with techniques to keep radiation doses as low as reasonably achievable (ALARA). Individualized dose reduction techniques using automated exposure control or adjustment of mA and/or kV according to the patient''s size were employed. CLINICAL HISTORY: FALL, BACK PAIN COMPARISON: March 23, 2020 FINDINGS: Cervical vertebrae show normal height. There is moderate disc space narrowing at C3-4 and C4-5. There is no malalignment. The facets are properly aligned. C2-3: No central canal stenosis or neural foraminal narrowing. C3-4: There is a moderate midline disc protrusion with endplate hypertrophy. There is moderate spinal canal compromise and moderate bilateral neural foraminal narrowing. C4-5: There is a prominent posterior osteophyte with moderate spinal canal compromise. C5-6: No central canal stenosis or neural foraminal narrowing. C6-7: There is mild endplate hypertrophy. C7-T1: There is a small posterior osteophyte in the midline. IMPRESSION: Midline disc protrusions and osteophytes at C3-4 and C4-5 with moderate spinal canal compromise. No fractures identified. Reviewed, Interpreted and Dictated by Sanket Fernandez MD Transcribed by Shobha Hobbs Authenticated and [facility]
--- NOTE | 2021-12-31 09:22 | ECG_ITS ---
APPROVED REPORT Exam: Resting ECG HR:71 bpm ECG Measurements Heart Rate 71 AXES OH 153 P -66 QRSd 210 QRS 235 QT 494 T 29 QTc 517 Conclusion ELECTRONIC VENTRICULAR PACEMAKER ABNORMAL RHYTHM ECG UNCONFIRMED REPORT Electronically signed by : Emanuel Laughlin MD 01/03/2022 08:12:42
[2021-12-31 10:23] LABS: Alanine Aminotransferase 14 U/L (12-78); Albumin Level 3.8 g/dl (3.5-5.0); Alkaline Phosphatase 101 U/L (38-126); Aspartate Amino Transferase 35 U/L (17-59); Bilirubin,Total 1.3 mg/dl (0.2-1.3); Blood Urea Nitrogen 28 mg/dl (9-20); Calcium 9.2 mg/dl (8.4-10.2); Carbon Dioxide 30 mmol/L (22.0-30.0); Creatinine Clearance Estimated 50 mL/min (50-200); Estimated Glomerular Filt Rate 41 ml/min (>60); GFR (African American) 50 ML/MIN (>60); Globulin 3.8 g/dL (1.3-3.2); Glucose 195 mg/dl (74-100); Potassium 4.4 mmoL/L (3.5-5.1); Sodium 139 mmol/L (136-145); Total Protein,Serum 7.6 g/dl (6.3-8.2)
[2021-12-31 10:35] LABS: Troponin I 0.04 ng/ml (0.00-0.034)
[2021-12-31 10:36] LABS: Anion Gap 10.4 mEq/L (5-15); Chloride 103 mmol/L (98-107)
[2021-12-31 10:38] LABS: Basophils # 0.1 K/mm3 (0-0.2); Basophils % 0.4 % (0.1-2.0); Eosinophils # 0.1 K/mm3 (0.0-0.4); Eosinophils % 0.3 % (0.1-12.0); Hemoglobin 14.3 g/dL (14.1-18.0); Lymphocytes # 0.8 K/mm3 (0.7-4.5); Lymphocytes % 3.4 % (10-50); Mean Corpuscular HGB Conc 29.9 g/dL (31.8-35.4); Mean Corpuscular Hemoglobin 30.6 pg (27.0-31.2); Mean Corpuscular Volume 102.3 fl (80-94); Mean Platelet Volume 8.2 fl (7.4-10.4); Monocytes # 1.4 K/mm3 (0.1-1.0); Monocytes % 6.4 % (1.7-9.3); Neutrophils % 89.5 % (37.0-80.0); Platelet Count 250 K/mm3 (142-424); Red Blood Count 4.69 M/mm3 (4.60-6.20); Red Cell Distribution Width 14.6 % (11.5-17.5); White Blood Count 22.4 K/mm3 (4.8-10.8)
--- NOTE | 2021-12-31 10:43 | PC.NURSE ---
pt return from CT via stretcher
--- NOTE | 2021-12-31 10:52 | PC.NURSE ---
rounded on pt and asked if she needed anything. Pt stated that she had no needs at this time.
[2021-12-31 10:53] LABS: MANUAL DIFFERENTIAL MANUAL DIFFERENTIAL (MANUAL DIFF)
[2021-12-31 11:04] LABS: Lymphocytes % 10 % (10-50); Monocytes % 3 % (2-9); Neutrophils % 87 % (42-76); Platelet Estimate Normal; RBC Morphology Normal; Total Cells Counted 100
--- NOTE | 2021-12-31 11:15 | PC.NURSE ---
notified ER of pt elevated wbc
--- NOTE | 2021-12-31 11:24 | HMH.EDGENADL ---
Discharge Plan Disposition Patient Disposition: Admitted as Observation Condition: Fair Chief Complaint: Fall Clinical Impressions Clinical Impression: Acute UTI, Fall, Low back pain Discharge ED Provider: Cole Ying Adult HPI General Chief complaint: Fall Stated complaint: back pain Time Seen by Provider: 12/31/21 11:24 Mode of Arrival: EMS Limitations: No Limitations Description of Symptoms (Recalled from ER Triage Doc. by RN): Pt states that he fell yesterday. Advises that he become dizzy, causing him to fall. C/O lower rt back pain History of Present Illness HPI narrative: Patient is a poor historian. He is brought in by ambulance. He complains of back pain. Indicates that it is in his right lower back. States that he fell on Wednesday 4 days ago. He denies any other complaints at this time. Denies fever, URI symptoms, vomiting or diarrhea, urinary symptoms. Related Data Home Medications Medication Instructions Recorded Confirmed memantine 10 mg tablet 10 mg PO BID dementia 06/10/17 12/31/21 famotidine 20 mg tablet 20 mg PO HS GERD 90 days #90 tabs 04/19/18 12/31/21 levothyroxine 112 mcg capsule 112 mcg PO DAILY thyroid 04/19/18 12/31/21 trazodone 50 mg tablet 50 mg PO HS PRN Sleep 04/21/18 12/31/21 montelukast 10 mg tablet 10 mg PO QPM allergies 01/16/19 12/31/21 citalopram 20 mg tablet 20 mg PO DAILY mood 05/30/19 12/31/21 linagliptin 5 mg tablet (Tradjenta) 5 mg PO DAILY Diabetes 05/30/19 12/31/21 insulin NPH-regular 70-30 U-100 50 unit SQ BID Diabetes 06/12/19 12/31/21 insulin 100 unit/mL subcutaneous pen cholecalciferol (vitamin D3) 25 1,000 unit PO DAILY Diet supplement 03/23/20 09/29/21 mcg (1,000 unit) capsule cyanocobalamin (vitamin B-12) 1,000 mcg PO DAILY Diet supplement 03/23/20 09/29/21 2,500 mcg tablet potassium 99 mg tablet 99 mg PO DAILY Diet supplement 03/23/20 09/29/21 carbidopa 25 mg-levodopa 100 mg 2 tab PO DIRECTED parkinsons 10/18/20 12/31/21 tablet fenofibrate 54 mg tablet 54 mg PO DAILY High cholesterol 02/25/21 12/31/21 fluticasone propionate 50 1 spray NOSTRIL-B DAILY Allergy 03/11/21 12/31/21 mcg/actuation nasal symptoms spray,suspension atorvastatin 10 mg tablet 10 mg PO DAILY High cholesterol 06/23/21 12/31/21 amiodarone 200 mg tablet 200 mg PO DAILY heart 12/31/21 12/31/21 furosemide 40 mg tablet 40 mg PO DAILY Fluid 12/31/21 12/31/21 gabapentin 600 mg tablet 600 mg PO BID Pain 12/31/21 12/31/21 (Neurontin) rivaroxaban 15 mg tablet (Xarelto) 15 mg PO DAILY Blood thinner 12/31/21 12/31/21 Previous Rx's Medication Instructions Recorded isosorbide mononitrate 30 mg 30 mg PO QAM Hypertension #30 tabs 05/25/19 tablet,extended release 24 hr Allergies Allergy/AdvReac Type Severity Reaction Status Date / Time codeine [CODEINE] Allergy Unknown Verified 09/29/21 11:15 Penicillins [PENICILLINS] Allergy Unknown Verified 09/29/21 11:[address] [facility] Medical History (Updated 12/31/21 @ 19:42 by James Ambrocio MD) Abnormal ankle brachial index (PIPO) Abnormal x-ray of neck Alzheimer's dementia Anxiety Atrial fibrillation Atypical chest pain Depression Diabetes mellitus, type 2 Dizziness Dyspnea Edema History of cardiac pacemaker in situ History of ID (myocardial infarction) History of pacemaker Hypothyroidism Neck pain Parkinson disease Weakness of both lower extremities Surgical History (Updated 12/31/21 @ 17:33 by JUNIOR Bocanegra) H/O hernia repair History of cholecystectomy History of coronary artery stent placement History of left knee surgery Family History (Updated 12/31/21 @ 17:34 by JUNIOR Bocanegra) Other Coronary artery disease Family history of arthritis Family history of cancer Family history of diabetes mellitus type II Hypertension Stroke Social History (Updated 12/31/21 @ 17:46 by JUNIOR Bocanegra) Smoking Status: Never smoker second hand exposure: Yes alcohol intake: never subst
--- NOTE | 2021-12-31 11:27 | PC.NURSE ---
checked on pt at this time, pt resting in bed, will continue to monitor
--- NOTE | 2021-12-31 11:29 | PC.NURSE ---
CURT MCKINNEY at
[2021-12-31 11:39] LABS: Coronavirus 19, PCR Not Detected (NotDetected); Influenza A, PCR Not Detected (NotDetected); Influenza B, PCR Not Detected (NotDetected)
--- NOTE | 2021-12-31 11:44 | XR_ITS ---
FINAL REPORT CLINICAL HISTORY: elevated wbc COMPARISON: June 22, 2021 FINDINGS: SINGLE VIEW CHEST. Sternotomy wires are present. A left subclavian pacemaker is present. There is mild cardiomegaly. There is a calcified granuloma in the left mid lung. There is no pneumothorax. IMPRESSION: No acute process. Reviewed, Interpreted and Dictated by Sanket Fernandez MD Transcribed by Shobha Hobbs Authenticated and [facility]
[2021-12-31 12:13] LABS: Microscopic, Urine URINE MICROSCOPIC (MICROSCOPIC)
[2021-12-31 12:15] LABS: Appearance,Urine SL CLOUDY (Clear); Bilirubin,Urine Negative (Negative); Blood, Urine 3+ (Negative); Color,Urine YELLOW (Yellow); Glucose,Urine (UA) Negative (Negative); Ketones,Urine Negative (Negative); Leukocyte Esterase,Urine 1+ (Negative); Nitrate,Urine Negative (Negative); PH,Urine 5.5 (5.0-8.5); Protein,Urine TRACE (Negative); Specific Gravity, Urine 1.025 (1.005-1.030); Urobilinogen,Urine 0.2 EU/dl (0.2)
[2021-12-31 12:29] LABS: Bacteria,Urine 4+ /lpf; WBC,Urine 50-100 #/hpf (0-3)
[2021-12-31 13:17] LABS: Lactic Acid 1.8 mmol/L (0.7-2.1)
[2021-12-31 13:37] LABS: Troponin I 0.04 ng/ml (0.00-0.034)
--- NOTE | 2021-12-31 14:09 | PC.NURSE ---
pt repositioned in bed
--- NOTE | 2021-12-31 14:16 | PC.NURSE ---
pt here and updated with pt condition
--- NOTE | 2021-12-31 14:25 | PC.NURSE ---
Dr Ambrocio called , dr patterson was suturing, he said he would call back
--- NOTE | 2021-12-31 14:49 | PC.NURSE ---
speaking with Dr Ambrocio
--- NOTE | 2021-12-31 14:59 | PC.NURSE ---
notified care management of admission, spoke with carlton
--- NOTE | 2021-12-31 15:26 | PC.NURSE ---
pt had urinated in his shorts, pt cleaned up, bed sheets changed, depends placed on pt, pt in a gown, covered with warm blanket. Redness noted to pt radha buttocks area, no open skin noted.
--- NOTE | 2021-12-31 15:43 | PC.NURSE ---
attempted to call report to second floor, primary receiving nurse not available at this time, award clerk states she will have them call the ER to get report
--- NOTE | 2021-12-31 15:57 | PC.NURSE ---
report called to abby jean baptiste on second floor at this time, states she will send staff down to transport pt.
--- NOTE | 2021-12-31 16:04 | PC.NURSE ---
Stated to tech patient was ready to be justyn up. Tach stated she would get patient after cleaning up another pt on floor
--- NOTE | 2021-12-31 16:24 | PC.NURSE ---
patient arrived from ED by wheelchair
--- NOTE | 2021-12-31 16:57 | PC.WOUNDNOTE ---
STAGE 2 WITH DRAINAGE/REDNESS NOTED TO THE RIGHT HEEL STAGE 2 WITH DRAINAGE/REDNESS NOTED TO LEFT HEEL
--- NOTE | 2021-12-31 17:19 | EXP.HP ---
*Admission Date: 12/31/21 *Reason for consult:: weakness, fall at home *History of present illness: Mr. Bautista is an 86-year-old male with a history of coronary artery disease, [place], type 2 diabetes, hyperlipidemia, hypothyroidism, anxiety, depression, neuropathy, Parkinson's, Alzheimer's, atrial fibrillation, and symptomatic bradycardia who states he has been getting weaker at home. He has had 2 falls. He states his last fall he was walking with his walker but could not find the brakes and he fell on his right side. He denies hitting his head but states his could not get him out of the floor so they had to call 911. He states he has had some sinus congestion and a sore throat along with a mild cough and some burning with urination. He was evaluated in the emergency room and did complain of some back pain, which he denies at this time. His white blood cell count was found to be elevated and his kidney function was elevated as well. His troponin was also mildly elevated. His urine showed blood and bacteria and it was felt he had a UTI. He was admitted and started on IV antibiotics. He is a poor historian. [facility] Medical History (Updated 12/31/21 @ 19:42 by James Ambrocio MD) Abnormal ankle brachial index (PIPO) Abnormal x-ray of neck Alzheimer's dementia Anxiety Atrial fibrillation Atypical chest pain Depression Diabetes mellitus, type 2 Dizziness Dyspnea Edema History of cardiac pacemaker in situ History of [place] (myocardial infarction) History of pacemaker Hypothyroidism Neck pain Parkinson disease Weakness of both lower extremities Surgical History (Updated 12/31/21 @ 17:33 by JUNIOR Bocanegra) H/O hernia repair History of cholecystectomy History of coronary artery stent placement History of left knee surgery Family History (Updated 12/31/21 @ 17:34 by JUNIOR Bocanegra) Family history of cancer Family history of arthritis Coronary artery disease Family history of diabetes mellitus type II Hypertension Stroke Social History (Updated 12/31/21 @ 17:46 by JUNIOR Bocanegra) Smoking Status: Never smoker second hand exposure: Yes alcohol intake: never substance use type: denies use current occupational status: retired household members: spouse housing: apartment current occupational exposures/hazards: No caffeine: Yes Review of Systems Constitutional Constitutional: Denies body ache(s), Reports fatigue, Denies fever(s), Reports frequent falls and Reports weakness Eyes Eyes: Denies blurry vision and Denies diplopia ENT Ears, Nose, Mouth, and Throat: Reports nasal congestion, Reports sore throat and Denies vertigo *Cardiovascular Cardiovascular: Denies chest pain and Denies dyspnea *Respiratory Respiratory: Reports cough and Denies dyspnea *Gastrointestinal Gastrointestinal: Denies abdominal pain, Denies diarrhea, Denies nausea and Denies vomiting *Genitourinary Genitourinary: Denies difficulty urinating and Reports dysuria *Musculoskeletal Musculoskeletal: Reports muscle weakness, Denies myalgias and Denies numbness *Neurologic Neurologic: Denies localized weakness, Reports frequent falls, Denies numbness, Denies vertigo and Reports weakness Endocrine Endocrine: Reports fatigue Meds Home Medications and Allergies Home Medications Medication Instructions Recorded Confirmed Type memantine 10 mg tablet 10 mg PO BID dementia 06/10/17 12/31/21 History famotidine 20 mg tablet 20 mg PO HS GERD 90 days #90 tabs 04/19/18 12/31/21 History levothyroxine 112 mcg capsule 112 mcg PO DAILY thyroid 04/19/18 12/31/21 History trazodone 50 mg tablet 50 mg PO HS PRN Sleep 04/21/18 12/31/21 History montelukast 10 mg tablet 10 mg PO QPM allergies 01/16/19 12/31/21 History isosorbide mononitrate 30 mg 30 mg PO QAM Hypertension #30 tabs 05/25/19 12/31/21 Rx tablet,extended release 24 hr citalopram 20 mg tablet 20 mg PO DAILY mood 05/30/19 12/31/21 History linagliptin 5 mg tablet (Tradjenta) 5 mg PO
--- NOTE | 2021-12-31 18:31 | PC.NURSE ---
Patient admitted from ER. 20 left ac iv in place on arrival. Patient alert and oriented but not able to remember medications. VS stable, patient remained on room air.
[2022-01-01 04:00] VITALS: BP 123/58; PULSE 60; RESP 16; TEMP 36.9; O2SAT 94
[2022-01-01 06:22] LABS: Basophils # 0.1 K/mm3 (0-0.2); Basophils % 0.4 % (0.1-2.0); Eosinophils # 0.2 K/mm3 (0.0-0.4); Eosinophils % 1.1 % (0.1-12.0); Hematocrit 41.2 % (42.0-52.0); Lymphocytes # 1.3 K/mm3 (0.7-4.5); Lymphocytes % 6.7 % (10-50); Mean Corpuscular HGB Conc 30.8 g/dL (31.8-35.4); Mean Corpuscular Hemoglobin 31.3 pg (27.0-31.2); Mean Corpuscular Volume 101.5 fl (80-94); Mean Platelet Volume 8.6 fl (7.4-10.4); Monocytes # 1.2 K/mm3 (0.1-1.0); Monocytes % 6.3 % (1.7-9.3); Neutrophils # 16.4 K/mm3 (1.8-7.8); Neutrophils % 85.5 % (37.0-80.0); Platelet Count 203 K/mm3 (142-424); Red Blood Count 4.06 M/mm3 (4.60-6.20); Red Cell Distribution Width 14.7 % (11.5-17.5); White Blood Count 19.2 K/mm3 (4.8-10.8)
[2022-01-01 06:25] LABS: Hemoglobin 12.7 g/dL (14.1-18.0); MANUAL DIFFERENTIAL MANUAL DIFFERENTIAL (MANUAL DIFF)
[2022-01-01 06:38] LABS: Chloride 103 mmol/L (98-107); Potassium 3.8 mmoL/L (3.5-5.1); Sodium 138 mmol/L (136-145)
[2022-01-01 06:41] LABS: Calcium 8.9 mg/dl (8.4-10.2); Glucose 253 mg/dl (74-100)
--- NOTE | 2022-01-01 06:55 | PC.NURSE ---
AOx4 to orientation questions but will become confused at times. Pt has had 2 loose BMS this shift and has been incontinent. Brief in place. Pt attempted to transfer to BSC with 2x assist but was not able due to weakness. No c/o voiced to staff. Call light within reach.
[2022-01-01 06:58] LABS: POC Glucose,Bedside 211 (70-110)
[2022-01-01 07:18] LABS: Lymphocytes % 7 % (10-50); Monocytes % 3 % (2-9); Neutrophils % 90 % (42-76); Platelet Estimate Normal; RBC Morphology Normal; Total Cells Counted 100
[2022-01-01 07:37] LABS: Blood Urea Nitrogen 30 mg/dl (9-20); Creatinine Clearance Estimated 57 mL/min (50-200); Estimated Glomerular Filt Rate 48 ml/min (>60); GFR (African American) 58 ML/MIN (>60)
--- NOTE | 2022-01-01 07:46 | EXP.PHA.VTE ---
[facility] Pharmacy VTE Monitoring Patient Demographics Patient Allergies codeine [CODEINE] Allergy (Unknown, Verified 09/29/21 11:15) Penicillins [PENICILLINS] Allergy (Unknown, Verified 09/29/21 11:15) Height: 1.83 m Weight: 105.857 kg Current Active Problems (Updated 12/31/21 @ 19:42 by James Ambrocio MD) Leukocytosis (Acute) Acute UTI (Acute) Weakness (Acute) Fall (Acute) Alzheimer's dementia (Chronic) Hypothyroidism (Chronic) CAD (coronary artery disease) (Chronic) Hx of CABG (Chronic) HTN (hypertension) (Chronic) Hyperlipemia (Chronic) Pressure ulcer (Acute) PAD (peripheral artery disease) (Chronic) Cardiac pacemaker in situ (Chronic) Tobacco abuse (Chronic) Renal insufficiency (Acute) Acute kidney injury (Acute) Low back pain (Acute) Atrial fibrillation (Chronic) VTE Risk Labs: VTE Related Lab Results Hgb 12.7 g/dL (14.1-18.0) L D 01/01/22 05:56 Hct 41.2 % (42.0-52.0) L 01/01/22 05:56 Plt Count 203 K/mm3 (142-424) 01/01/22 05:56 BUN 30 mg/dl (9-20) H 01/01/22 05:56 Creatinine 1.40 mg/dl (0.66-1.25) H 01/01/22 05:56 Estimated Creat Clear 57 mL/min (50-200) 01/01/22 05:56 VTE Score: 1 Clinical Trial Participant: No Prophylaxis VTE Prophylaxis Ordered?: Yes Types of VTE Prophylaxis: TEDS Knee High
[2022-01-01 07:52] LABS: Anion Gap 14.8 mEq/L (5-15); Carbon Dioxide 24 mmol/L (22.0-30.0)
[2022-01-01 08:00] VITALS: BP 145/69; PULSE 63; RESP 17; TEMP 36.8; O2SAT 93
--- NOTE | 2022-01-01 08:16 | EXP.ACUTE.PN ---
Documented by User: JUNIOR Bocanegra 01/01/22 08:28 Subjective *Date: 01/01/22 *Time: 08:16 Interval history: Patient states he is feeling better this morning. He denies any pain. He states he did not rest very well. He ate all of his breakfast and wants to go home. Medical Exam Vital signs and Labs for Last 24 Hours: Temp Pulse Resp BP Pulse Ox 98.4 F 60 16 123/58 L 94 L 01/01/22 04:00 01/01/22 04:00 01/01/22 04:00 01/01/22 04:00 01/01/22 04:00 Laboratory Results - last 24 hr 12/31/21 10:05: WBC 22.4 H*, RBC 4.69, Hgb 14.3, Hct 48.0, MCV 102.3 H, MCH 30.6, MCHC 29.9 L, RDW 14.6, Plt Count 250, MPV 8.2, Neut % (Auto) 89.5 H, Lymph % (Auto) 3.4 L, [place] % (Auto) 6.4, Eos % (Auto) 0.3, Baso % (Auto) 0.4, Neut # (Auto) 20.0 H, Lymph # (Auto) 0.8, [place] # (Auto) 1.4 H, Eos # (Auto) 0.1, Baso # (Auto) 0.1, Total Counted 100, Neutrophils % (Manual) 87 H, Lymphocytes % (Manual) 10, Monocytes % (Manual) 3, Platelet Estimate Normal, RBC Morphology Normal 12/31/21 10:05: Sodium 139, Potassium 4.4, Chloride 103, Carbon Dioxide 30, Anion Gap 10.4, BUN 28 H, Creatinine 1.60 H, Estimated Creat Clear 50, Estimated GFR 41 L, Est GFR ( Amer) 50 L, Glucose 195 H, Calcium 9.2, Total Bilirubin 1.3, AST 35, ALT 14, Alkaline Phosphatase 101, Troponin I 0.04 H, Total Protein 7.6, Albumin 3.8, Globulin 3.8 H, Albumin/Globulin Ratio 1.0 L 12/31/21 11:36: SARS-CoV-2 (PCR) Not detected, Influenza A Untype (PCR) Not detected, Influenza Type B (PCR) Not detected 12/31/21 12:03: Urine Color Yellow, Urine Appearance Sl cloudy, Urine pH 5.5, Ur Specific [place] 1.025, Urine Protein Trace, Urine Glucose (UA) Negative, Urine Ketones Negative, Urine Blood 3+, Urine Nitrate Negative, Urine Bilirubin Negative, Urine Urobilinogen 0.2, Ur Leukocyte Esterase 1+ A, Urine RBC 3-5, Urine WBC 50-100, Ur Squamous Epith Cells 3-5, Urine Bacteria 4+ 12/31/21 12:53: Lactate 1.8 12/31/21 13:11: Troponin I 0.04 H 01/01/22 05:56: Sodium 138, Potassium 3.8, Chloride 103, Carbon Dioxide 24, Anion Gap 14.8, BUN 30 H, Creatinine 1.40 H, Estimated Creat Clear 57, Estimated GFR 48 L, Est GFR ( Amer) 58 L, Glucose 253 H D, Calcium 8.9 01/01/22 05:56: WBC 19.2 H, RBC 4.06 L, Hgb 12.7 L D, Hct 41.2 L, MCV 101.5 H, MCH 31.3 H, MCHC 30.8 L, RDW 14.7, Plt Count 203, MPV 8.6, Neut % (Auto) 85.5 H, Lymph % (Auto) 6.7 L, [place] % (Auto) 6.3, Eos % (Auto) 1.1, Baso % (Auto) 0.4, Neut # (Auto) 16.4 H, Lymph # (Auto) 1.3, [place] # (Auto) 1.2 H, Eos # (Auto) 0.2, Baso # (Auto) 0.1, Total Counted 100, Neutrophils % (Manual) 90 H, Lymphocytes % (Manual) 7 L, Monocytes % (Manual) 3, Platelet Estimate Normal, RBC Morphology Normal 01/01/22 06:43: POC Glucose 211 H I & O for Labs for Last 24 Hours: Intake & Output 12/29/21 12/30/21 12/31/21 01/01/22 11:59 11:59 11:59 11:59 Intake Total 964 / 964 Output Total 0 / 0 Balance 964 / 964 Weight 237 lb 233 lb 6 oz Microbiology Reports for the Last 24 Hours: Microbiology 12/31/21 12:03 Urine,Clean Catch Urine Culture - Preliminary Gram Negative Rods 12/31/21 12:53 Blood Blood Culture - Preliminary Constitutional: no acute distress Respiratory: CTA bilaterally Cardiac: Reg Rate and Rhythm GI: soft, tenderness or normal bowel sounds Extremities: edema Skin: intact Neuro: alert and oriented x 3 Assessment and Plan *Assessment and plan (1) Acute UTI: Status: Acute Category: Medical Code(s): N39.0 - Urinary tract infection, site not specified (2) Weakness: Status: Acute Category: Medical Code(s): R53.1 - Weakness (3) Fall: Status: Acute Category: Medical Code(s): W19.XXXA - Unspecified fall, initial encounter (4) Acute kidney injury: Status: Acute Category: Medical Code(s): N17.9 - Acute kidney failure, unspecified (5) Pressure ulcer: Status: Acute Qualifiers: Pressure injury location
--- NOTE | 2022-01-01 10:18 | PC.NURSE ---
Rounded on pt, cleaned and straightened room. Pt up to chair watching tv. No needs voiced at this time.
--- NOTE | 2022-01-01 10:58 | HMH.PTEV ---
Physical Therapy Evaluation Rehab PT IP Evaluation Start: 01/01/22 08:26 Freq: ONCE Status: Active Protocol: Document 01/01/22 10:34 CINDYMAXIMINO (Rec: 01/01/22 10:58 CINDYMAXIMINO [id number]) Subjective/History History History This is the physical therapy IP IE for Steven Bautista, an 86 y/o who reports a recent fall Sat 12/27 in which he fell on his R side. Pt admitted to [facility] w/ suspected acute UTI. Pt has h/o coronary artery disease, [place], Type II DM, hyperlipedemia, hypothyroidism , Parkinson's, Alzheimer's, and atrial fibrillation. Written by Vani Monaco, SPT Subjective Subjective Pt lives with his in one- story home - notes that she's been having good and bad days as well. Prior to admission, pt was using a walker. Pt's ambulation distance limited by IV line. Rehab PT IP Eval Objective Appearance Patient Behavior Appropriate,Cooperative, Wandering Patient Orientation Person,Place,Name,Situation Difficulty following instructions none Speech Pattern Clear,Appropriate Ambulation Patient Able to Ambulate Yes Ambulation Observation IP General Gait Pattern Observation Wide Based Gait,Shuffling Step Ambulation Distance (feet) 8 Ambulation Assistive Device Rolling Walker Ambulation Ability Supervision/Stand by,Contact Guard/Hand Hold Balance Ability to Arise Able, uses arms to help Sitting Balance Leans or slides in chair Standing Balance Narrow stance w/o support Dynamic Sitting Balance Ability Fair Dynamic Standing Balance Ability Fair Transfers Chair Transfer Ability Contact Guard/Hand Hold Sit to Stand Chair Transfer Ability Minimal x 2 (25% assist), Moderate x 2 (50% assist) Rehab PT IP prob,goals,plan Problems Date of Evaluation: 01/01/22 PT IP Problems Bed Mobility,Transfers,Gait, Balance,Self care,Safety Rehab Potential Rehab Potential Fair Equipment Needs Assistive Devices Rolling / Wheeled Walker Plan PT Intervention Plan Bed Mobility,Transfers,Gait, Balance,Self care,Safety, Therapeutic Exercise PT Plan
[2022-01-01 11:27] LABS: POC Glucose,Bedside 263 (70-110)
--- NOTE | 2022-01-01 13:46 | PC.NURSE ---
rounded on patient. patient is up to chair with chair alarm in place. noted to have some confusion during discussion. no questions or concerns. noted. seems in good spirits and eager to feel better and go home. encouraged him to use call light and educated on this.
[2022-01-01 15:09] VITALS: BP 114/51; PULSE 60; RESP 16; TEMP 36.5; O2SAT 95
[2022-01-01 16:53] LABS: POC Glucose,Bedside 252 (70-110)
--- NOTE | 2022-01-01 18:41 | PC.NURSE ---
PT/OT eval for patient. Patient able to get up with 1-2 assist. Patient alert and oriented during shift. Incontinence noted despite encouraging patient to use bedside commode. VS stable and pt remained on room air and able to tolerate sitting up in chair.
[2022-01-01 19:57] LABS: POC Glucose,Bedside 300 (70-110)
[2022-01-01 20:00] VITALS: BP 155/74; PULSE 64; RESP 16; TEMP 36.9; O2SAT 94
[2022-01-02 04:00] VITALS: BP 146/77; PULSE 67; RESP 16; TEMP 36.9; O2SAT 95
--- NOTE | 2022-01-02 05:27 | PC.NURSE ---
Patient a&o x3 with mild confusion at times. Patient able to stand with 1-2 assist but ambulates with stand by assist. Patient ambulated in room before bed last night with walker. Incontinence of bowl and bladder noted throughout night. VSS. Patient up to chair this AM with chair alarm on.
[2022-01-02 05:58] LABS: POC Glucose,Bedside 240 (70-110)
[2022-01-02 06:34] LABS: Basophils % 0.3 % (0.1-2.0); Eosinophils # 0.2 K/mm3 (0.0-0.4); Eosinophils % 1.6 % (0.1-12.0); Hematocrit 42.8 % (42.0-52.0); Hemoglobin 12.7 g/dL (14.1-18.0); Lymphocytes # 0.6 K/mm3 (0.7-4.5); Lymphocytes % 4.9 % (10-50); Mean Corpuscular HGB Conc 29.8 g/dL (31.8-35.4); Mean Corpuscular Hemoglobin 30.5 pg (27.0-31.2); Mean Corpuscular Volume 102.4 fl (80-94); Mean Platelet Volume 8.5 fl (7.4-10.4); Monocytes # 0.8 K/mm3 (0.1-1.0); Monocytes % 6.4 % (1.7-9.3); Neutrophils # 10.6 K/mm3 (1.8-7.8); Neutrophils % 86.8 % (37.0-80.0); Platelet Count 216 K/mm3 (142-424); Red Blood Count 4.18 M/mm3 (4.60-6.20); Red Cell Distribution Width 14.5 % (11.5-17.5); White Blood Count 12.2 K/mm3 (4.8-10.8)
[2022-01-02 06:52] LABS: MANUAL DIFFERENTIAL MANUAL DIFFERENTIAL (MANUAL DIFF)
[2022-01-02 07:22] LABS: Anion Gap 9.8 mEq/L (5-15); Blood Urea Nitrogen 27 mg/dl (9-20); Calcium 8.7 mg/dl (8.4-10.2); Carbon Dioxide 29 mmol/L (22.0-30.0); Chloride 100 mmol/L (98-107); Creatinine Clearance Estimated 66 mL/min (50-200); Estimated Glomerular Filt Rate 57 ml/min (>60); GFR (African American) 69 ML/MIN (>60); Glucose 224 mg/dl (74-100); Potassium 3.8 mmoL/L (3.5-5.1); Sodium 135 mmol/L (136-145)
[2022-01-02 07:55] LABS: Anisocytosis 1+; Eosinophils % 1 % (0-3); Hypochromasia 1+; Lymphocytes % 5 % (10-50); Macrocytosis 1+; Monocytes % 6 % (2-9); Neutrophils % 87 % (42-76); Platelet Estimate Normal; Total Cells Counted 100
[2022-01-02 08:00] VITALS: BP 137/65; PULSE 60; RESP 18; TEMP 36.9; O2SAT 94
--- NOTE | 2022-01-02 08:07 | EXP.ACUTE.PN ---
Subjective *Date: 01/02/22 *Time: 08:13 Interval history: Patient with no new complaints today, ate all of his breakfast, walked several times with P.T. yesterday. Medical Exam Vital signs and Labs for Last 24 Hours: Temp Pulse Resp BP Pulse Ox 98.5 F 67 16 146/77 H 95 01/02/22 04:00 01/02/22 04:00 01/02/22 04:00 01/02/22 04:00 01/02/22 04:00 Laboratory Results - last 24 hr 12/31/21 12:03: Urine Color Yellow, Urine Appearance Sl cloudy, Urine pH 5.5, Ur Specific [place] 1.025, Urine Protein Trace, Urine Glucose (UA) Negative, Urine Ketones Negative, Urine Blood 3+, Urine Nitrate Negative, Urine Bilirubin Negative, Urine Urobilinogen 0.2, Ur Leukocyte Esterase 1+ A, Urine RBC 3-5, Urine WBC 50-100, Ur Squamous Epith Cells 3-5, Urine Bacteria 4+ 01/01/22 11:19: POC Glucose 263 H 01/01/22 16:41: POC Glucose 252 H 01/01/22 19:48: POC Glucose 300 H 01/02/22 05:47: POC Glucose 240 H 01/02/22 06:10: WBC 12.2 H D, RBC 4.18 L, Hgb 12.7 L, Hct 42.8, MCV 102.4 H, MCH 30.5, MCHC 29.8 L, RDW 14.5, Plt Count 216, MPV 8.5, Neut % (Auto) 86.8 H, Lymph % (Auto) 4.9 L, [place] % (Auto) 6.4, Eos % (Auto) 1.6, Baso % (Auto) 0.3, Neut # (Auto) 10.6 H, Lymph # (Auto) 0.6 L, [place] # (Auto) 0.8, Eos # (Auto) 0.2, Baso # (Auto) 0.0, Total Counted 100, Neutrophils % (Manual) 87 H, Band Neutrophils % 1.0, Lymphocytes % (Manual) 5 L, Monocytes % (Manual) 6, Eosinophils % (Manual) 1, Platelet Estimate Normal, Hypochromasia 1+, Anisocytosis 1+, Macrocytosis 1+ 01/02/22 06:10: Sodium 135 L, Potassium 3.8, Chloride 100, Carbon Dioxide 29, Anion Gap 9.8, BUN 27 H, Creatinine 1.20, Estimated Creat Clear 66, Estimated GFR 57 L, Est GFR ( Amer) 69, Glucose 224 H, Calcium 8.7 I & O for Labs for Last 24 Hours: Intake & Output 12/30/21 12/31/21 01/01/22 01/02/22 23:59 23:59 23:59 23:59 Intake Total 240 / 240 2674 / 2674 865 / 865 Output Total 0 / 0 0 / 0 Balance 240 / 240 2674 / 2674 865 / 865 Weight 233 lb 6 oz 233 lb 6 oz Microbiology Reports for the Last 24 Hours: Microbiology 12/31/21 12:03 Urine,Clean Catch Urine Culture - Final Escherichia coli Constitutional: no acute distress and cooperative Respiratory: CTA bilaterally Cardiac: Reg Rate and Rhythm and Regular Rate Assessment and Plan *Assessment and plan (1) Acute UTI: Status: Acute Category: Medical Code(s): N39.0 - Urinary tract infection, site not specified (2) Weakness: Status: Acute Category: Medical Code(s): R53.1 - Weakness (3) Fall: Status: Acute Category: Medical Code(s): W19.XXXA - Unspecified fall, initial encounter (4) Acute kidney injury: Status: Acute Category: Medical Code(s): N17.9 - Acute kidney failure, unspecified (5) Pressure ulcer: Status: Acute Qualifiers: Pressure injury location: unspecified location Pressure injury stage: unspecified pressure injury stage Qualified Code(s): L89.90 - Pressure ulcer of unspecified site, unspecified stage Category: Medical Code(s): L89.90 - Pressure ulcer of unspecified site, unspecified stage (6) CAD (coronary artery disease): Status: Chronic Qualifiers: Associated angina: without angina Coronary Disease-Associated Artery/Lesion type: [place] artery [place] vs. transplanted heart: [place] heart Qualified Code(s): I25.10 - Atherosclerotic heart disease of [place] coronary artery without angina pectoris Category: Medical Code(s): I25.10 - Atherosclerotic heart disease of [place] coronary artery without angina pectoris (7) PAD (peripheral artery disease): Status: Chronic Category: Medical Code(s): I73.9 - Peripheral vascular disease, unspecified (8) Hyperlipemia: Status: Chronic Qualifiers: Hyperlipidemia type: mixed hyperlipidemia Qualified Code(s): E78.2 - Mixed hyperlipidemia Category: Medica
--- NOTE | 2022-01-02 10:27 | HMH.PHAINT1 ---
Pharmacy Intervention Comments: DISCHARGE MEDICATION COUNSELING PROVIDED TO PATIENT. DISCUSSED SHORT-COURSE LEVAQUIN THERAPY (TAKE DAILY WITH FOOD TO CUT BACK ON GI SIDE EFFECTS, WATCH FOR NAUSEA/VOMITING/DIARRHEA, RARE RISK OF TENDON RUPTURE). PATIENT VERBALIZED NO QUESTIONS AT THIS TIME.
--- NOTE | 2022-01-02 11:40 | PC.NURSE ---
Pt discharged at this time, condition stable. Discharge instructions discussed with pts r/t pts confusion, verbalized understanding. concerned that she may no longer be able to care for him at home, instructed on discussing rehab plan with MD.
--- NOTE | 2022-01-02 12:48 | EXP.DC.SUM ---
General Admission date:: 12/31/21 Discharge date: 01/02/22 HPI HPI HPI: Mr. Bautista is an 86-year-old male with a history of coronary artery disease, MD, type 2 diabetes, hyperlipidemia, hypothyroidism, anxiety, depression, neuropathy, Parkinson's, Alzheimer's, atrial fibrillation, and symptomatic bradycardia who states he has been getting weaker at home. He has had 2 falls. He states his last fall he was walking with his walker but could not find the brakes and he fell on his right side. He denies hitting his head but states his could not get him out of the floor so they had to call 911. He states he has had some sinus congestion and a sore throat along with a mild cough and some burning with urination. He was evaluated in the emergency room and did complain of some back pain, which he denies at this time. His white blood cell count was found to be elevated and his kidney function was elevated as well. His troponin was also mildly elevated. His urine showed blood and bacteria and it was felt he had a UTI. He was admitted and started on IV antibiotics. He is a poor historian. Hospital Course Hospital Course Hospital Course: The patient was admitted and started on IV antibiotics for his UTI. He was also started on some of his home medications. The patient did begin feeling better throughout his stay. He denied pain and was able to eat. His white blood cell count improved, as did his renal function. His troponin was initially mildly elevated, but remained stable. A PT and OT evaluation were ordered due to patient's leg weakness. He was able to walk several times with PT. His urine culture grew E. coli. He was stable to be discharged home on oral Levaquin and will resume home health physical therapy. Exam Data for Last 24 hours Vital signs and Labs for Last 24 Hours: Temp Pulse Resp BP Pulse Ox 98.4 F 60 18 137/65 94 L 01/02/22 08:00 01/02/22 08:00 01/02/22 08:00 01/02/22 08:00 01/02/22 08:00 Laboratory Results - last 24 hr 01/01/22 16:41: POC Glucose 252 H 01/01/22 19:48: POC Glucose 300 H 01/02/22 05:47: POC Glucose 240 H 01/02/22 06:10: WBC 12.2 H D, RBC 4.18 L, Hgb 12.7 L, Hct 42.8, MCV 102.4 H, MCH 30.5, MCHC 29.8 L, RDW 14.5, Plt Count 216, MPV 8.5, Neut % (Auto) 86.8 H, Lymph % (Auto) 4.9 L, [place] % (Auto) 6.4, Eos % (Auto) 1.6, Baso % (Auto) 0.3, Neut # (Auto) 10.6 H, Lymph # (Auto) 0.6 L, [place] # (Auto) 0.8, Eos # (Auto) 0.2, Baso # (Auto) 0.0, Total Counted 100, Neutrophils % (Manual) 87 H, Band Neutrophils % 1.0, Lymphocytes % (Manual) 5 L, Monocytes % (Manual) 6, Eosinophils % (Manual) 1, Platelet Estimate Normal, Hypochromasia 1+, Anisocytosis 1+, Macrocytosis 1+ 01/02/22 06:10: Sodium 135 L, Potassium 3.8, Chloride 100, Carbon Dioxide 29, Anion Gap 9.8, BUN 27 H, Creatinine 1.20, Estimated Creat Clear 66, Estimated GFR 57 L, Est GFR ( Amer) 69, Glucose 224 H, Calcium 8.7 I & O for Last 24 hours: Intake & Output 12/31/21 01/01/22 01/02/22 01/03/22 11:59 11:59 11:59 11:59 Intake Total 1444 / 1444 2815 / 2815 Output Total 0 / 0 0 / 0 Balance 1444 / 1444 2815 / 2815 Weight 237 lb 233 lb 6 oz Microbiology Reports for the Last 24 Hours: Microbiology 12/31/21 12:03 Urine,Clean Catch Urine Culture - Final Escherichia coli Narrative: Constitutional Constitutional: no acute distress *Routine HEENT Exam Head: Present normocephalic Eye: Present EOMI and PERRL ENT: Present mucous membranes dry *Routine Neck Exam Neck: Present supple; Absent lymphadenopathy *Routine Respiratory Exam Respiratory: Present CTA bilaterally *Routine Cardiovascular Exam Cardiovascular: Present RRR *Routine Abdominal Exam Abdominal: Present soft and normoactive bowel sounds; Absent tenderness *Routine Rectal Exam Rectal:: deferred *Routine Genitalia Exam Genitalia:: deferred *Routine Extremities Exam Extremities: Absent cyanosis, clubbing or edema *Routine Ski
--- NOTE | 2022-01-06 14:33 | CARE MANAGER ---
called back and states that the patient is doing well. He is aware of follow up appointments and is taking antibiotic. They deny any questions or concerns at this time. MELINA Ro
== END 2022-01-02 11:40 | disposition home health service (06) ==
LOC: ER 14:58 → 2ND 15:29
PROVIDERS: Admitting Provider Family Medicine; Emergency Provider Emergency Medicine; Visit Provider Family Medicine
DX: N39.0 Urinary tract infection, site not specified (principal); R53.1 Weakness; M54.9 Dorsalgia, unspecified; I48.91 Unspecified atrial fibrillation; G30.9 Alzheimer's disease, unspecified; F02.80 Dementia in other diseases classified elsewhere, unspecified severity, without behavioral disturbance, psychotic disturbance, mood disturbance, and anxiety; E03.9 Hypothyroidism, unspecified; Z79.899 Other long term (current) drug therapy; F32.A Depression, unspecified; W19.XXXA Unspecified fall, initial encounter; F41.9 Anxiety disorder, unspecified; E11.40 Type 2 diabetes mellitus with diabetic neuropathy, unspecified; Z95.5 Presence of coronary angioplasty implant and graft
CPT/HCPCS: G0378; 36415; 70450; 71045; 72125; 72128; 72131; 80048; 80053; 81001; 82962; 83605; 84484; 85007; 85025; 87040; 87077; 87086; 87088; 87186; 93005; 97116; 97161; 99285; C9803; J1956; U0003; U0005

== ENCOUNTER → 2022-03-03 12:42 | Outpatient (CLI) | payer MEDICARE, MEDICAID, SELFPAY ==
--- NOTE | 2022-03-03 12:48 | XR_ITS ---
FINAL REPORT CLINICAL HISTORY: LOW BACK PAIN FINDINGS: LUMBAR SPINE Five views demonstrate no acute fracture. The disc spaces are well preserved. There is no malalignment. There are moderate to severe degenerative changes with osteophytes. Moderate vascular calcification is identified. IMPRESSION: Degenerative changes with no acute process. Reviewed, Interpreted and Dictated by Rudy Dietrich III, MD Transcribed by Alejandra Bowers Authenticated and [facility]
== END ==
PROVIDERS: PCP Family Medicine; Visit Provider Family Medicine
DX: M54.50 Low back pain, unspecified (principal)
CPT/HCPCS: 72110

== ENCOUNTER → 2022-03-10 14:32 | Outpatient (POV) | payer MEDICARE, MEDICAID, SELFPAY | PROVIDERS: Visit Provider Dermatology | DX: Z00.00 Encounter for general adult medical examination without abnormal findings (principal) ==

== ENCOUNTER → 2022-03-26 13:32 | Outpatient (CLI) | payer MEDICARE, MEDICAID, SELFPAY ==
--- NOTE | 2022-03-26 13:38 | CT_ITS ---
FINAL REPORT TECHNIQUE: Axial images were performed through the lumbar spine by computed tomography. Sagittal reconstruction images were also performed. This study was performed with techniques to keep radiation doses as low as reasonably achievable, (ALARA). Individualized dose reduction techniques using automated exposure control or adjustment of mA and/or kV according to the patient''s size were employed. CLINICAL HISTORY: LUMBAGO W/SCIATICA,DDD,LUMBAR FACET ARTHROPATHY FINDINGS: No fracture is identified. There is moderate disc space narrowing at L5-S1. There is moderate to advanced anterior osteophyte formation from L1-2 through L5-S1. There is vacuum disc phenomenon at L4-5. T12-L1: There is no significant canal stenosis or neural foraminal narrowing. L1-2: There is no significant canal stenosis or neural foraminal narrowing. L2-3: Moderate diffuse disc bulge is present. There is marked facet hypertrophy. There is high-grade spinal canal compromise and moderate to high-grade bilateral neural foraminal narrowing, left greater than right. L3-4: Moderate diffuse disc bulge is present. There is bilateral facet hypertrophy. There is moderate to high-grade spinal and bilateral neural foraminal compromise. L4-5: Moderate diffuse disc bulge is present. There is a large left posterolateral disc protrusion resulting in high-grade compromise of the spinal canal. There is bilateral facet hypertrophy. There is high-grade left neural foraminal narrowing. L5-S1: Diffuse disc bulge and endplate hypertrophy are present. There is moderate to high-grade right and moderate left neural foraminal narrowing. 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 Neural foraminal compromise, most evident on the left at L4-5 and on the right at L5-S1. Reviewed, Interpreted and Dictated by Sanket Fernandez MD Transcribed by Alejandra Bowers Authenticated and . [facility]
== END ==
PROVIDERS: PCP Family Medicine; Visit Provider Family Medicine
DX: M54.41 Lumbago with sciatica, right side (principal); M51.36 Other intervertebral disc degeneration, lumbar region; M47.816 Spondylosis without myelopathy or radiculopathy, lumbar region
CPT/HCPCS: 72131

== ENCOUNTER → 2022-04-09 12:44 | Outpatient (POV) | payer MEDICARE, MEDICAID, SELFPAY ==
[2022-04-09 13:12] VITALS: BP 109/60; PULSE 63; RESP 18; O2SAT 95; BMI 30.9
--- NOTE | 2022-04-09 13:47 | EXP.PAIN.OV ---
HPI Data of Consult Patient: new to practice Consult date: 04/09/22 Requesting Physician: Leah Qureshi APRN Primary Care Provider: James Ambrocio MD Consult Narrative Reason for consult: Low back pain, right hip pain History of present illness: Mr. Bautista is a 86 year old male who presents today as a new patient. He is a referral from James Ambrocio's office. Today he rates his pain a 10 out of 10. Patient states the pain is all in his low back and radiates into his right hip. Patient states this has been going on for approximately 2 months although he has had some low back problems in the past. Patient states this is a sore, sharp achy sensation that is worse with increased activity or certain movements. Patient does state it causes issues with activities of daily living and frequently cannot tolerate prolonged standing or walking due to the pain. Patient does present today in office in a wheelchair for ambulation. Patient states that he does use [id number] Tylenol with minimal improvements of his symptoms. Patient states he is also tried a heating pad however this did not provide additional improvement. Patient is currently managed with gabapentin 600 mg 3 times a day from Dr. Ambrocio's office. Patient denies any side effects from this medication. He states this medication does help some of his pain symptoms. His Albaro is [id number]. It has been reviewed and appropriate. CC: Leah Qureshi APRN [facility] Disclaimer: The information contained in this section may have been updated after the patient was seen, as this information can be updated by other users. Medical History (Updated 04/09/22 @ 13:56 by Leah Qureshi APRN) Abnormal ankle brachial index (PIPO) Abnormal x-ray of neck Alzheimer's dementia Anxiety Atrial fibrillation Atypical chest pain Depression Diabetes mellitus, type 2 Dizziness Dyspnea Edema History of cardiac pacemaker in situ History of PA (myocardial infarction) History of pacemaker Hypothyroidism Neck pain Parkinson disease Weakness of both lower extremities Surgical History H/O hernia repair History of cholecystectomy History of coronary artery stent placement History of left knee surgery Family History Other Coronary artery disease Family history of arthritis Family history of cancer Family history of diabetes mellitus type II Hypertension Stroke Social History (Updated 04/09/22 @ 13:14 by Ruba William RN) Smoking Status: Never smoker second hand exposure: Yes alcohol intake: never substance use type: denies use current occupational status: retired Travel in the last 8 weeks: None household members: spouse housing: apartment current occupational exposures/hazards: No caffeine: Yes Review of Systems Review of Systems Review of systems:: pertinent systems reviewed and negative unless documented below Review of systems (narrative): Review of Systems: General: No recent weight changes, no fever, no sleep disturbances Respiratory: No cough, no shortness of air, no recurring pulmonary infections Cardiovascular/peripheral vascular: No chest pain, no palpitations, no edema, no shortness of breath Gastrointestinal: No new onset incontinence, normal bowel movements reported Genitourinary: No new onset incontinence Musculoskeletal: Low back pain, right hip pain Psychiatric: [Normal mood/affect] Neurological: [Denies weakness in extremities], [denies balance issues] Meds Home Medications and Allergies Home Medications Medication Instructions Recorded Confirmed Type memantine 10 mg tablet 10 mg PO BID dementia 06/10/17 04/09/22 History famotidine 20 mg tablet 20 mg PO HS acid reflux 90 days 04/19/18 04/09/22 History #90 tabs levothyroxine 112 mcg capsule 112 mcg PO DAILY thyroid 04/19/18 04/09/22 History trazodone 50 mg tablet 50 m
== END | disposition home or self-care (01) ==
PROVIDERS: PCP Family Medicine; Visit Provider Nurse Practitioner Family
DX: M51.36 Other intervertebral disc degeneration, lumbar region (principal); M47.816 Spondylosis without myelopathy or radiculopathy, lumbar region; M48.061 Spinal stenosis, lumbar region without neurogenic claudication; M25.551 Pain in right hip; Z79.899 Other long term (current) drug therapy
CPT/HCPCS: 99202; G0463

== ENCOUNTER 2022-04-21 13:08 | Day surgery (SDC) | payer MEDICARE, MEDICAID, SELFPAY ==
[2022-04-21 13:32] VITALS: RESP 18; TEMP 36.3; O2SAT 97; BMI 30.9
--- NOTE | 2022-04-21 13:33 | EXP.PAIN.PRO ---
Procedure Date: 04/21/22 Time: 13:25 Anesthesiologist:: Marquise Chamorro CRNA Complications:: None Pre-procedure Diagnosis:: Degenerative disc disease lumbar spine multilevels. Lumbar radiculopathy. Multilevel lumbar disc bulge Post-procedure Diagnosis:: Same. Indications for Procedure:: Patient is a pleasant 86-year-old male that comes our clinic today for lumbar epidural steroid injection at L3-4 level. Patient complains of low back pain as well as bilateral hip and leg radicular symptoms. He rates his pain 10/10. Patient arrives in a wheelchair. He has difficulty ambulating. Patient is unable to lie prone on the fluoroscopy table. The injection will be done with the patient in the sitting position. Procedure Details:: Procedure: Lumbar epidural steroid injection under fluoroscopy Informed consent was obtained and the risks and benefits of the procedure were explained to the patient. The patient was taken to the procedure room and noninvasive monitors placed, including noninvasive blood pressure cuff and pulse oximeter. The back was prepped using Chloraprep as a cleansing solution and the L4-L5 interspace was palpated. Skin and subcutaneous tissues were anesthetized using lidocaine 1.5% and a 25-gauge needle. After this, an 18-gauge Touhy epidural needle was placed into the L4-L5 interspace and advanced using loss of resistance to air until the epidural space was encountered. After confirmation of needle placement in the epidural space, with dye, a solution containing normal saline, 3 mL and Depo-Medrol 80 mg were incrementally injected into the lumbar epidural space. The patient tolerated the procedure well with no complications. The patient was observed in the Pain Clinic and then discharged home neurologically intact. Plan and Disposition:: Patient was discharged without incident.
[2022-04-21 13:35] VITALS: BP 153/76; PULSE 68; RESP 18; TEMP 36.3; O2SAT 98
== END 2022-04-21 13:40 | disposition home or self-care (01) ==
PROVIDERS: PCP Family Medicine; Visit Provider Nurse Anesthetist, Certified Registered
DX: M51.16 Intervertebral disc disorders with radiculopathy, lumbar region (principal)
CPT/HCPCS: 62323; J1040

== ENCOUNTER 2022-05-02 10:38 | Observation (INO) | payer MEDICARE, MEDICAID, SELFPAY ==
[2022-05-02 10:38] VITALS: BP 152/60; PULSE 67; RESP 18; TEMP 36.7; O2SAT 97; BMI 30.9
--- NOTE | 2022-05-02 10:38 | PC.NURSE ---
DR. HILL AT BEDSIDE
--- NOTE | 2022-05-02 10:40 | HMH.EDGENADL ---
Discharge Plan Disposition Patient Disposition: Admitted As Inpatient Condition: Fair Chief Complaint: Weakness Prescriptions Prescriptions: No Action memantine 10 mg tablet 10 mg PO BID levothyroxine 112 mcg capsule 112 mcg PO DAILY famotidine 20 mg tablet 20 mg PO HS 90 Days Qty: 90 isosorbide mononitrate 30 mg tablet extended release 24 hr 30 mg PO QAM Qty: 30 5RF fluticasone propionate 50 mcg/actuation spray,suspension 1 spray intranasal DAILY montelukast 10 mg tablet 10 mg PO PM Tradjenta 5 mg tablet 5 mg PO DAILY citalopram 20 mg tablet 20 mg PO DAILY fenofibrate 54 mg tablet 54 mg PO DAILY trazodone 50 MG tablet 50 mg PO HSP PRN (Reason: Sleep) insulin NPH and regular human 100 unit/mL (70-30) insulin pen 50 unit SQ BID carbidopa-levodopa 25-100 mg tablet 2 tab PO DIRECTED Rx Instructions: 2 tabs in the morning, 1 tab at noon and 2 tabs at night cholecalciferol (vitamin D3) 1,000 UNIT capsule 1,000 unit PO DAILY cyanocobalamin (vitamin B-12) 2,500 MCG tablet 1,000 mcg PO DAILY atorvastatin 10 MG tablet 10 mg PO HS gabapentin [Neurontin] 600 mg tablet 600 mg PO TID Xarelto 15 mg tablet 15 mg PO DAILY furosemide 40 mg tablet See Rx Instructions .ROUTE .COMPLEX Rx Instructions: TAKE 1 TABLET BY MOUTH ONCE DAILY amiodarone 200 mg tablet 200 mg PO DAILY baclofen 5 mg tablet 5 mg PO HS Referrals Follow up/Referrals: James Ambrocio MD [Primary Care Provider] - See instructions Clinical Impressions Clinical Impression: Acute UTI, LUANN (acute kidney injury), Delirium Discharge ED Provider: Eduin Mullins General Adult HPI General Chief complaint: Weakness Stated complaint: flu like symptoms Time Seen by Provider: 05/02/22 10:40 Mode of Arrival: EMS Source of Information: Patient and EMS Limitations: No Limitations History of Present Illness HPI narrative: This is an 86-year-old male with history of ACS, DE status post CABG currently on Xarelto with AICD placed, hypothyroidism, parkinsonism, diabetes type 2, CHF hyperlipidemia, hypertension presenting with sick symptoms. Per EMS and , patient has been talking out of his head, and had symptoms such as cough, vomiting, diarrhea for the past 3 to 4 days. No documented fever. Patient states that he has been vomiting nonbloody/nonbilious vomit, having diarrhea that is nonbloody and coughing, but denies confusion, chest pain, shortness of breath, abdominal pain, dysuria, hematuria, numbness/weakness/tingling on one side of his body or the other, bowel or bladder dysfunction, trauma, or any other concerning history. Related Data Home Medications Medication Instructions Recorded Confirmed memantine 10 mg tablet 10 mg PO BID dementia 06/10/17 05/02/22 famotidine 20 mg tablet 20 mg PO HS acid reflux 90 days 04/19/18 05/02/22 #90 tabs levothyroxine 112 mcg capsule 112 mcg PO DAILY thyroid 04/19/18 05/02/22 trazodone 50 mg tablet 50 mg PO HSP PRN Sleep 04/21/18 05/02/22 montelukast 10 mg tablet 10 mg PO PM allergies 01/16/19 05/02/22 citalopram 20 mg tablet 20 mg PO DAILY mood 05/30/19 05/02/22 linagliptin 5 mg tablet (Tradjenta) 5 mg PO DAILY Diabetes 05/30/19 05/02/22 insulin NPH-regular 70-30 U-100 50 unit SQ BID Diabetes 06/12/19 05/02/22 insulin 100 unit/mL subcutaneous pen cholecalciferol (vitamin D3) 25 1,000 unit PO DAILY Diet supplement 03/23/20 05/02/22 mcg (1,000 unit) capsule cyanocobalamin (vitamin B-12) 1,000 mcg PO DAILY Diet supplement 03/23/20 05/02/22 2,500 mcg tablet carbidopa 25 mg-levodopa 100 mg 2 tab PO DIRECTED parkinsons 10/18/20 05/02/22 tablet fenofibrate 54 mg tablet 54 mg PO DAILY TRIGLYCERIDES 02/25/21 05/02/22 fluticasone propionate 50 1 spray intranasal DAILY Allergy 03/11/21 05/02/22 mcg/actuation nasal symptoms spray,suspension atorvastatin 10
--- NOTE | 2022-05-02 10:47 | CT_ITS ---
PROCEDURE INFORMATION: Exam: CT Head Without Contrast Exam date and time: 05/02/2022 11:05 AM Age: 86 years old Clinical indication: Altered mental status/memory loss; Additional info: AMS on xarelto TECHNIQUE: Imaging protocol: Computed tomography of the head without contrast. Radiation optimization: All CT scans at this facility use at least one of these dose optimization techniques: automated exposure control; mA and/or kV adjustment per patient size (includes targeted exams where dose is matched to clinical indication); or iterative reconstruction. COMPARISON: CT HEAD/BRAIN WO CON 12/31/2021 10:23 AM FINDINGS: Brain: There are stable regions of encephalomalacia in the right frontal lobe. There is white matter hypodensity most consistent with chronic small vessel ischemic change. There are stable prominent dural calcifications. Cerebral ventricles: The ventricles and CSF spaces are proportionately enlarged. Paranasal sinuses: Visualized sinuses are unremarkable. No fluid levels. Mastoid air cells: Visualized mastoid air cells are well aerated. Orbital cavities: There are postoperative changes from prior cataract surgery. Bones/joints: There is atherosclerotic disease involving the vertebral basilar system and cavernous ICAs. Soft tissues: Unremarkable. IMPRESSION: 1. Atrophy and the sequela of chronic ischemia. 2. There is no acute intracranial abnormality.
[2022-05-02 10:56] LABS: Coronavirus 19, PCR Not Detected (NotDetected); Influenza A, PCR Not Detected (NotDetected); Influenza B, PCR Not Detected (NotDetected)
--- NOTE | 2022-05-02 10:58 | XR_ITS ---
PROCEDURE INFORMATION: Exam: XR Chest Exam date and time: 05/02/2022 11:22 AM Age: 86 years old Clinical indication: Other: Weakness; Additional info: General weakness TECHNIQUE: Imaging protocol: Radiologic exam of the chest. Views: 1 view. COMPARISON: CR XR CHEST PORTABLE 12/31/2021 11:57 AM FINDINGS: Tubes, catheters and devices: There is a pacemaker in place from a left-sided approach. Lungs: No consolidation. Stable left granuloma. Pleural spaces: No pleural effusion. No pneumothorax. Heart/Mediastinum: There are postop changes from a CABG. The heart is mildly enlarged. Bones/joints: There are sternal wires. There are degenerative changes of the spine and right shoulder. IMPRESSION: No evidence of active pulmonary disease.
[2022-05-02 11:00] LABS: Basophils # 0.1 K/mm3 (0-0.2); Basophils % 1.2 % (0.1-2.0); Eosinophils # 0.1 K/mm3 (0.0-0.4); Eosinophils % 1.3 % (0.1-12.0); Hemoglobin 14.8 g/dL (14.1-18.0); Lymphocytes # 1.8 K/mm3 (0.7-4.5); Lymphocytes % 18.9 % (10-50); Mean Corpuscular HGB Conc 30.7 g/dL (31.8-35.4); Mean Corpuscular Hemoglobin 31.2 pg (27.0-31.2); Mean Corpuscular Volume 101.4 fl (80-94); Mean Platelet Volume 8.1 fl (7.4-10.4); Monocytes # 0.6 K/mm3 (0.1-1.0); Monocytes % 6.3 % (1.7-9.3); Neutrophils # 6.7 K/mm3 (1.8-7.8); Neutrophils % 72.2 % (37.0-80.0); Platelet Count 363 K/mm3 (142-424); Red Blood Count 4.74 M/mm3 (4.60-6.20); Red Cell Distribution Width 14.3 % (11.5-17.5); White Blood Count 9.3 K/mm3 (4.8-10.8)
--- NOTE | 2022-05-02 11:00 | PC.NURSE ---
PT TO CT
[2022-05-02 11:12] LABS: Alanine Aminotransferase 9 U/L (12-78); Albumin Level 4.3 g/dl (3.5-5.0); Alkaline Phosphatase 68 U/L (38-126); Aspartate Amino Transferase 25 U/L (17-59); Bilirubin,Total 0.7 mg/dl (0.2-1.3); Blood Urea Nitrogen 41 mg/dl (9-20); Calcium 10.1 mg/dl (8.4-10.2); Carbon Dioxide 33 mmol/L (22.0-30.0); Chloride 103 mmol/L (98-107); Creatine Kinase 71 U/L (55-170); Creatinine Clearance Estimated 43 mL/min (50-200); Estimated Glomerular Filt Rate 36 ml/min (>60); GFR (African American) 44 ML/MIN (>60); Globulin 4.1 g/dL (1.3-3.2); Glucose 109 mg/dl (74-100); Sodium 142 mmol/L (136-145); Total Protein,Serum 8.4 g/dl (6.3-8.2)
--- NOTE | 2022-05-02 11:16 | PC.NURSE ---
PT RETURNED FROM CT
[2022-05-02 11:28] LABS: Troponin I < 0.01 ng/ml (0.00-0.034)
[2022-05-02 11:29] LABS: T4 (Thyroxine) 10.9 ug/dl (5.53-11.0)
--- NOTE | 2022-05-02 11:31 | ECG_ITS ---
APPROVED REPORT Exam: Resting ECG HR:66 bpm ECG Measurements Heart Rate 66 AXES QRSd 209 QRS 214 QT 486 T 25 QTc 500 Conclusion ELECTRONIC VENTRICULAR PACEMAKER ABNORMAL RHYTHM ECG UNCONFIRMED REPORT Electronically signed by : Emanuel Laughlin MD 05/04/2022 11:14:55
[2022-05-02 11:32] LABS: Microscopic, Urine URINE MICROSCOPIC (MICROSCOPIC)
[2022-05-02 11:40] LABS: Appearance,Urine CLOUDY (Clear); Bilirubin,Urine Negative (Negative); Blood, Urine 3+ (Negative); Color,Urine YELLOW (Yellow); Glucose,Urine (UA) Negative (Negative); Ketones,Urine Negative (Negative); Leukocyte Esterase,Urine 2+ (Negative); Nitrate,Urine Negative (Negative); Protein,Urine TRACE (Negative); Specific Gravity, Urine 1.015 (1.005-1.030); Urobilinogen,Urine 0.2 EU/dl (0.2)
[2022-05-02 11:43] LABS: Thyroid Stimulating Hormone 5.92 uIU/mL (0.465-4.68)
[2022-05-02 11:58] LABS: WBC,Urine 20-50 #/hpf (0-3)
--- NOTE | 2022-05-02 12:27 | PC.NURSE ---
CURT MCKINNEY speaking with hospitalist at this time
--- NOTE | 2022-05-02 12:29 | PC.NURSE ---
DR. HILL SPEAKING WITH HOSPITALIST FOR ADMISSION
--- NOTE | 2022-05-02 13:46 | PC.NURSE ---
ALARM SERVICE TECHNICIAN NOTIFIED OF ADMISSION
--- NOTE | 2022-05-02 14:10 | PC.NURSE ---
REPORT GIVEN TO Carolyn SORIA RN
[2022-05-02 14:55] VITALS: BP 156/71; PULSE 60; RESP 18; TEMP 36.7; O2SAT 97
--- NOTE | 2022-05-02 14:58 | PC.NURSE ---
arrived to floor by stretcher from ED
[2022-05-02 15:28] VITALS: BP 143/71; PULSE 62; RESP 18; TEMP 36.5; O2SAT 97; BMI 29.9
[2022-05-02 17:27] LABS: Lactic Acid 1.2 mmol/L (0.7-2.1)
[2022-05-02 17:40] LABS: POC Glucose,Bedside 144 (70-110)
--- NOTE | 2022-05-02 18:41 | PC.NURSE ---
pt alert x4, incont of bowel and bladder majority of the time. stage 2 on buttocks, mepilex applied. excoriation in the folds of groin, cleaned area and applied powder. unstageable to bilat heels, dsg were in place when pt arrived to floor, pt states, the home health nurse wrapped them. dsg removed and mepilex applied to both heels.
--- NOTE | 2022-05-02 18:51 | PC.WOUNDNOTE ---
Left Heel Left Heel Left Heel Right Heel
[2022-05-02 20:00] VITALS: BP 152/81; PULSE 66; RESP 20; TEMP 36.9; O2SAT 94
--- NOTE | 2022-05-02 22:24 | PC.NURSE ---
spoke with MD anderson regarding pt. insulin orders of 50 units, FSBS 171, ordered to give 15 units instead of 50.
[2022-05-02 22:41] LABS: POC Glucose,Bedside 171 (70-110)
[2022-05-03 04:00] VITALS: BP 145/67; PULSE 65; RESP 18; TEMP 36.8; O2SAT 96; BMI 29.5
[2022-05-03 08:00] VITALS: BP 147/69; PULSE 65; RESP 16; TEMP 37.1; O2SAT 95
[2022-05-03 08:09] LABS: Basophils # 0.1 K/mm3 (0-0.2); Basophils % 0.9 % (0.1-2.0); Eosinophils # 0.1 K/mm3 (0.0-0.4); Eosinophils % 0.8 % (0.1-12.0); Hematocrit 45.6 % (42.0-52.0); Hemoglobin 14.5 g/dL (14.1-18.0); Lymphocytes # 1.6 K/mm3 (0.7-4.5); Lymphocytes % 14.5 % (10-50); Mean Corpuscular HGB Conc 31.8 g/dL (31.8-35.4); Mean Corpuscular Volume 97.7 fl (80-94); Mean Platelet Volume 8.1 fl (7.4-10.4); Monocytes # 0.7 K/mm3 (0.1-1.0); Monocytes % 6.8 % (1.7-9.3); Neutrophils # 8.4 K/mm3 (1.8-7.8); Neutrophils % 76.9 % (37.0-80.0); Platelet Count 352 K/mm3 (142-424); Red Blood Count 4.66 M/mm3 (4.60-6.20); Red Cell Distribution Width 14.2 % (11.5-17.5); White Blood Count 10.9 K/mm3 (4.8-10.8)
[2022-05-03 08:15] LABS: Chloride 102 mmol/L (98-107)
[2022-05-03 08:16] LABS: Potassium 4.1 mmoL/L (3.5-5.1); Sodium 138 mmol/L (136-145)
[2022-05-03 08:19] LABS: Anion Gap 12.1 mEq/L (5-15); Blood Urea Nitrogen 27 mg/dl (9-20); Calcium 9.8 mg/dl (8.4-10.2); Carbon Dioxide 28 mmol/L (22.0-30.0); Creatinine Clearance Estimated 53 mL/min (50-200); Estimated Glomerular Filt Rate 48 ml/min (>60); GFR (African American) 58 ML/MIN (>60); Glucose 156 mg/dl (74-100)
[2022-05-03 10:14] LABS: POC Glucose,Bedside 250 (70-110)
--- NOTE | 2022-05-03 10:37 | EXP.HP ---
History of Present Illness *Admission Date: 05/02/22 *Reason for visit:: Confusion *History of present illness: Mr Bautista is an 86 year old male patient of [facility] with an extensive medical history, who presented to [facility] ER yesterday with a 3 or 4 day history of confusion. His reports that he has been making unusual comments and has been able to keep up with conversations. He has seemed a little weak as well. He had some cough and congestion, no obvious fever or chills. [facility] Disclaimer: The information contained in this section may have been updated after the patient was seen, as this information can be updated by other users. Medical History (Updated 05/03/22 @ 10:48 by James Ambrocio MD) 2nd degree AV block Abnormal ankle brachial index (PIPO) Acquired bilateral pes cavus Acquired equinus deformity of both feet Acquired hallux valgus of right foot Acquired hammer toes of both feet Alzheimer's dementia Anxiety Atrial fibrillation Basal cell carcinoma (BCC) of left side of nose Cellulitis and abscess of foot Cholelithiasis Deep vein blood clot of right lower extremity Depression Diabetes mellitus, type 2 Diabetic ulcer of both feet Diabetic ulcer of left great toe History of cardiac pacemaker in situ History of NE (myocardial infarction) Hypothyroidism Multiple contusions Obesity (BMI 30.0-34.9) Onychogryposis Parkinson disease Skin ulcer of fourth toe of left foot, limited to breakdown of skin Skin ulcer of left heel with fat layer exposed Subdural hematoma Third degree heart block Type 2 diabetes mellitus with foot ulcer, with long-term current use of insulin Ulcer of right fifth toe due to diabetes mellitus Weakness of both lower extremities Surgical History H/O hernia repair History of cholecystectomy History of coronary artery stent placement History of left knee surgery Status post foot surgery Family History Other Coronary artery disease Family history of arthritis Family history of cancer Family history of diabetes mellitus type II Hypertension Stroke Social History (Updated 05/02/22 @ 15:20 by Mary Grace Pérez RN) Smoking Status: Never smoker second hand exposure: Yes alcohol intake: never substance use type: denies use current occupational status: retired Travel in the last 8 weeks: None household members: spouse housing: apartment current occupational exposures/hazards: No caffeine: Yes Review of Systems Constitutional Constitutional: Denies chills and Denies fever(s) Eyes Eyes: Denies change in vision ENT Ears, Nose, Mouth, and Throat: Denies dizziness and Denies epistaxis *Cardiovascular Cardiovascular: Denies chest pain and Denies dyspnea *Respiratory Respiratory: Reports cough and Denies dyspnea *Gastrointestinal Gastrointestinal: Denies diarrhea *Genitourinary Genitourinary: Denies difficulty urinating *Musculoskeletal Musculoskeletal: Reports back pain Integumentary/Breasts Skin/Breast: Denies rash *Neurologic Neurologic: Denies dizziness Meds Home Medications and Allergies Home Medications Medication Instructions Recorded Confirmed Type memantine 10 mg tablet 10 mg PO BID dementia 06/10/17 05/02/22 History famotidine 20 mg tablet 20 mg PO HS acid reflux 90 days 04/19/18 05/02/22 History #90 tabs levothyroxine 112 mcg capsule 112 mcg PO DAILY thyroid 04/19/18 05/02/22 History trazodone 50 mg tablet 50 mg PO HSP PRN Sleep 04/21/18 05/02/22 History montelukast 10 mg tablet 10 mg PO PM allergies 01/16/19 05/02/22 History isosorbide mononitrate 30 mg 30 mg PO QAM Hypertension #30 tabs 05/25/19 05/02/22 Rx tablet,extended release 24 hr citalopram 20 mg tablet 20 mg PO DAILY mood 05/30/19 05/02/22 History linagliptin 5 mg tablet (Tradjenta) 5 mg PO DAILY Diabetes 05/30/19 05/02/22 History insulin NPH-regular 70-30 U-100 50 u
--- NOTE | 2022-05-03 11:53 | HMH.PHAINT1 ---
Pharmacy Intervention Comments: MEDICATION RECONCILIATION COMPLETED ON PATIENT USING EXTERNAL FILL HISTORY FROM PHARMACY. -[facility]GEL, JUAND
[2022-05-03 15:11] VITALS: BP 152/82; PULSE 67; RESP 16; TEMP 36.8; O2SAT 96
[2022-05-03 20:00] VITALS: BP 137/64; PULSE 70; RESP 18; TEMP 37; O2SAT 94
[2022-05-03 22:22] LABS: POC Glucose,Bedside 171 (70-110)
[2022-05-04 04:00] VITALS: BP 142/55; PULSE 63; RESP 16; TEMP 36.4; O2SAT 96; BMI 29.4
[2022-05-04 07:12] LABS: Basophils # 0.1 K/mm3 (0-0.2); Basophils % 0.7 % (0.1-2.0); Eosinophils # 0.2 K/mm3 (0.0-0.4); Eosinophils % 1.4 % (0.1-12.0); Hematocrit 47.1 % (42.0-52.0); Hemoglobin 15.3 g/dL (14.1-18.0); Lymphocytes # 1.9 K/mm3 (0.7-4.5); Lymphocytes % 14.7 % (10-50); Mean Corpuscular HGB Conc 32.4 g/dL (31.8-35.4); Mean Corpuscular Hemoglobin 31.7 pg (27.0-31.2); Mean Corpuscular Volume 97.8 fl (80-94); Mean Platelet Volume 7.8 fl (7.4-10.4); Monocytes # 0.9 K/mm3 (0.1-1.0); Monocytes % 6.6 % (1.7-9.3); Neutrophils % 76.6 % (37.0-80.0); Platelet Count 367 K/mm3 (142-424); Red Blood Count 4.82 M/mm3 (4.60-6.20); Red Cell Distribution Width 14.2 % (11.5-17.5); White Blood Count 13.1 K/mm3 (4.8-10.8)
[2022-05-04 07:16] LABS: Chloride 103 mmol/L (98-107); Potassium 4.1 mmoL/L (3.5-5.1); Sodium 137 mmol/L (136-145)
[2022-05-04 07:19] LABS: Blood Urea Nitrogen 25 mg/dl (9-20); Creatinine Clearance Estimated 57 mL/min (50-200); Estimated Glomerular Filt Rate 52 ml/min (>60); GFR (African American) 63 ML/MIN (>60)
[2022-05-04 07:20] LABS: Anion Gap 9.1 mEq/L (5-15); Calcium 9.8 mg/dl (8.4-10.2); Carbon Dioxide 29 mmol/L (22.0-30.0); Glucose 135 mg/dl (74-100)
[2022-05-04 08:00] VITALS: BP 140/54; PULSE 68; RESP 16; TEMP 36.8; O2SAT 96
--- NOTE | 2022-05-04 08:10 | PC.NURSE ---
Pt alert to person for majority of shift. Able to say where he is this morning. No c/o have been voiced to staff. Pt has had multiple BMs t/o night. Soft and formed. Pt has been incontinent of urine, brief in place. Call light within reach. Bed alarm on for safety.
--- NOTE | 2022-05-04 08:44 | EXP.ACUTE.PN ---
Subjective *Date: 05/04/22 *Time: 08:44 Interval history: Pt with no new complaints today, dressings on heal wounds need to be changed today. Medical Exam Vital signs and Labs for Last 24 Hours: Vital Signs Temp Pulse Resp BP Pulse Ox 05/04/22 04:00 97.6 F 63 16 142/55 H 96 05/03/22 20:00 94 L 05/03/22 20:00 98.6 F 70 18 137/64 94 L 05/03/22 15:11 98.2 F 67 16 152/82 H 96 Intake and Output 05/03/22 05/04/22 05/04/22 23:59 07:59 15:59 Intake Total 1126 / 2026 950 / 950 Output Total 0 / 600 0 / 0 Balance 1126 / 1426 0 / 950 950 / 950 Intake: Intake, Oral Amount 240 / 1140 Intake, Total IV Amount 950 / 950 D5W/0.45% NaCl w/20mEq KCL 1, 950 / 950 000 ml @ 75 mls/hr IV .[id number] [facility] Rx#:[id number] Infusion Intake 886 / 886 D5W/0.45% NaCl w/20mEq KCL 1, 886 / 886 000 ml @ 75 mls/hr IV .[id number] [facility] Rx#:[id number] Output: Output, Urine Amount 0 / 600 0 / 0 Other: Number of Unmeasured Voids 1 1 Weight 217 lb 1 oz Patient Weight 05/04/22 23:59 Weight 217 lb 1 oz Laboratory Results - last 24 hr 05/02/22 11:25: Urine Color Yellow, Urine Appearance Cloudy, Urine pH 6.0, Ur Specific [place] 1.015, Urine Protein Trace, Urine Glucose (UA) Negative, Urine Ketones Negative, Urine Blood 3+, Urine Nitrate Negative, Urine Bilirubin Negative, Urine Urobilinogen 0.2, Ur Leukocyte Esterase 2+ A, Urine RBC 10-20, Urine WBC 20-50, Ur Squamous Epith Cells None, Urine Bacteria None 05/03/22 10:06: POC Glucose 250 H 05/03/22 22:14: POC Glucose 171 H 05/04/22 06:48: WBC 13.1 H, RBC 4.82, Hgb 15.3, Hct 47.1, MCV 97.8 H, MCH 31.7 H, MCHC 32.4, RDW 14.2, Plt Count 367, MPV 7.8, Neut % (Auto) 76.6, Lymph % (Auto) 14.7, [place] % (Auto) 6.6, Eos % (Auto) 1.4, Baso % (Auto) 0.7, Neut # (Auto) 10.0 H, Lymph # (Auto) 1.9, [place] # (Auto) 0.9, Eos # (Auto) 0.2, Baso # (Auto) 0.1 05/04/22 06:48: Sodium 137, Potassium 4.1, Chloride 103, Carbon Dioxide 29, Anion Gap 9.1, BUN 25 H, Creatinine 1.30 H, Estimated Creat Clear 57, Estimated GFR 52 L, Est GFR ( Amer) 63, Glucose 135 H, Calcium 9.8 I & O for Labs for Last 24 Hours: Intake & Output 05/01/22 05/02/22 05/03/22 05/04/22 23:59 23:59 23:59 23:59 Intake Total 480 / 480 2025 / 2025 950 / 950 Output Total 0 / 0 600 / 600 0 / 0 Balance 480 / 480 1426 / 1426 950 / 950 Weight 221 lb 3 oz 218 lb 3 oz 217 lb 1 oz Microbiology Reports for the Last 24 Hours: Microbiology 05/02/22 11:25 Urine,Catheterized Urine Culture - Preliminary Gram Positive Cocci Constitutional: Present no acute distress and cooperative Respiratory: Present CTA bilaterally Cardiac: Present Reg Rate and Rhythm and Regular Rate Assessment and Plan *Assessment and plan (1) Acute UTI: Status: Acute Category: Medical Code(s): N39.0 - Urinary tract infection, site not specified (2) LUANN (acute kidney injury): Status: Acute Category: Medical Code(s): N17.9 - Acute kidney failure, unspecified (3) Delirium: Status: Acute Category: Medical Code(s): R41.0 - Disorientation, unspecified (4) Alzheimer's dementia: Status: Chronic Category: Medical Code(s): G30.9 - Alzheimer's disease, unspecified; F02.80 - Dementia in other diseases classified elsewhere, unspecified severity, without behavioral disturbance, psychotic disturbance, mood disturbance, and anxiety (5) Anxiety: Status: Chronic Category: Medical Code(s): F41.9 - Anxiety disorder, unspecified (6) CAD (coronary artery disease): Status: Chronic Qualifiers: Coronary Disease-Associated Artery/Lesion type: squaxin artery [place] vs. transplanted heart: squaxin heart Associated angina: without angina Qualified Code(s): I25.10 - Atherosclerotic heart disease of squaxin coronary artery without angina pectoris Category: Medical
[2022-05-04 08:55] LABS: POC Glucose,Bedside 218 (70-110)
[2022-05-04 15:40] LABS: Adenovirus F 40/41, stool Not Detected (NotDetected); Astrovirus Not Detected (NotDetected); Campylobacter Not Detected (NotDetected); Clostridium Difficile A/B, PCR Not Detected (NotDetected); Cryptosporidium Not Detected (NotDetected); Cyclospora Cayetanesis Not Detected (NotDetected); Entamoeba histolytica Not Detected (NotDetected); Enteroaggregative E coli Not Detected (NotDetected); Enteropathogenic E coli Not Detected (NotDetected); Enterotoxigenic E coli Not Detected (NotDetected); Giardia lamblia Not Detected (NotDetected); Norovirus Not Detected (NotDetected); Plesimonas Shigalloides, PCR Not Detected (NotDetected); Rotavirus A Not Detected (NotDetected); Salmonella, PCR Not Detected (NotDetected); Sapovirus Not Detected (NotDetected); Shiga-like toxin E coli Not Detected (NotDetected); Shigella Enterovasive E coli Not Detected (NotDetected); Vibrio Cholerae Not Detected (NotDetected); Vibrio, PCR Not Detected (NotDetected); Yersinia Entercolitica, PCR Not Detected (NotDetected)
[2022-05-04 16:00] VITALS: BP 137/64; PULSE 70; RESP 18; TEMP 36.6; O2SAT 99
--- NOTE | 2022-05-04 17:47 | PC.NURSE ---
pt intermittently confused, alert x2-3. bed alarm and chair alarm on for pt safety as pt is unsteady when standing and has attempted to get up on own today with cb being in reach. safety concerns voiced to pt. pts had a loose odorous stool in the am, diarrhea panle obtained and sent to lab. bilat heels have been marla, floating on pillows. continuous reminding pt to keep heels propped up. pt has been up to chair for a couple hrs today, tolerating well, currently in chair at bedside with cb and personal items within reach, no concerns at this time.
[2022-05-04 19:18] VITALS: BMI 29.4
[2022-05-04 20:00] VITALS: BP 152/72; PULSE 70; RESP 18; TEMP 36.9; O2SAT 95
[2022-05-04 23:01] LABS: POC Glucose,Bedside 300 (70-110)
--- NOTE | 2022-05-05 03:12 | PC.NURSE ---
Pt resting in bed at this time after giving something for pain and a Trazadone. Pt lungs clear this morning, resp even and non labored. Staff encouraged pt to keep heels off the bed and reposition q 2 hours. Pt has a stage 2 decube on Coccyx, unstageable ulcers on bilat heels. Pt was educated on medications. IV is patent. Encouraged pt to report any needs, bed locked in low position, side rails up x 2, call light in reach.
[2022-05-05 04:00] VITALS: BMI 29.4
[2022-05-05 08:00] VITALS: BP 122/70; PULSE 69; RESP 20; TEMP 36.8; O2SAT 97
--- NOTE | 2022-05-05 08:31 | EXP.ACUTE.PN ---
Subjective *Date: 05/05/22 *Time: 08:31 Interval history: Patient feels better today, anxious to go home. Medical Exam Vital signs and Labs for Last 24 Hours: Vital Signs Temp Pulse Resp BP Pulse Ox 05/04/22 20:00 98.4 F 70 18 152/72 H 95 05/04/22 16:00 97.9 F 70 18 137/64 99 Intake and Output 05/04/22 05/05/22 05/05/22 23:59 07:59 15:59 Intake Total 1030 / 2580 795 / 1275 480 / 1275 Output Total 0 / 0 0 / 0 Balance 1030 / 2580 795 / 1275 480 / 1275 Intake: Intake, Oral Amount 240 / 840 480 / 480 Intake, Total IV Amount 790 / 1740 795 / 795 D5W/0.45% NaCl w/20mEq KCL 1, 790 / 1740 795 / 795 000 ml @ 75 mls/hr IV .[id number] [facility] Rx#:[id number] Output: Output, Urine Amount 0 / 0 0 / 0 Other: Number of Unmeasured Voids 1 1 Weight 217 lb 1.004 oz 217 lb Patient Weight 05/05/22 23:59 Weight 217 lb Laboratory Results - last 24 hr 05/04/22 08:26: POC Glucose 218 H 05/04/22 15:30: Stl Aeromonas (PCR) Not detected, Stl C. cayetanensis PCR Not detected, Stool Rotavirus (PCR) Not detected, Stl Adenov F 40/41 PCR Not detected, Stool Astrovirus (PCR) Not detected, Stool Campylobacter PCR Not detected, Stl C.difficile Tox PCR Not detected, Stool Cryptosporidium PCR Not detected, Stl E.coli Shiga Tox PCR Not detected, Stool E coli O157 PCR Not detected, Stl Enterotoxigenic E PCR Not detected, Stool EPEC (PCR) Not detected, Stool EAEC (PCR) Not detected, Stl E. histolytica PCR Not detected, Stool Giardia Lamblia PCR Not detected, Stool Salmonella PCR Not detected, Stool Sapovirus (PCR) Not detected, Stl P. shigelloides PCR Not detected, Stl Shigella/EIEC PCR Not detected, St Y.enterocolitica PCR Not detected, Stool Vibrio (PCR) Not detected, Stl Vibrio cholerae PCR Not detected, Stl Norovirus GI/GII PCR Not detected 05/04/22 22:50: POC Glucose 300 H I & O for Labs for Last 24 Hours: Intake & Output 05/02/22 05/03/22 05/04/22 05/05/22 23:59 23:59 23:59 23:59 Intake Total 480 / 480 2025 2580 / 2580 1275 / 1275 Output Total 0 / 0 600 / 600 0 / 0 0 / 0 Balance 480 / 480 1426 / 1426 2580 / 2580 1275 / 1275 Weight 221 lb 3 oz 218 lb 3 oz 217 lb 1.004 oz 217 lb Microbiology Reports for the Last 24 Hours: Microbiology 05/02/22 11:25 Urine,Catheterized Urine Culture - Final Enterococcus faecalis 05/02/22 10:54 Blood Blood Culture - Preliminary NO GROWTH AFTER 48 HOURS 05/02/22 10:54 Blood Blood Culture - Preliminary NO GROWTH AFTER 48 HOURS Constitutional: Present no acute distress and cooperative Comment:: Sitting in a chair, eating breakfast Respiratory: Present CTA bilaterally Cardiac: Present Reg Rate and Rhythm and Regular Rate Assessment and Plan *Assessment and plan (1) Acute UTI: Status: Acute Category: Medical Code(s): N39.0 - Urinary tract infection, site not specified (2) LUANN (acute kidney injury): Status: Acute Category: Medical Code(s): N17.9 - Acute kidney failure, unspecified (3) Delirium: Status: Acute Category: Medical Code(s): R41.0 - Disorientation, unspecified (4) Alzheimer's dementia: Status: Chronic Category: Medical Code(s): G30.9 - Alzheimer's disease, unspecified; F02.80 - Dementia in other diseases classified elsewhere, unspecified severity, without behavioral disturbance, psychotic disturbance, mood disturbance, and anxiety (5) Anxiety: Status: Chronic Category: Medical Code(s): F41.9 - Anxiety disorder, unspecified (6) CAD (coronary artery disease): Status: Chronic Qualifiers: Coronary Disease-Associated Artery/Lesion type: [place]q artery [place] vs. transplanted heart: [place]q heart Associated angina: without angina Qualified Code(s): I25.10 - Atherosclerotic heart disease of alutiiq coronary artery without angina pect
[2022-05-05 09:35] LABS: POC Glucose,Bedside 349 (70-110)
--- NOTE | 2022-05-05 09:53 | P.CONPHA_ITS ---
Pharmacy Intervention Comments: DISCHARGE MEDICATION COUNSELING PROVIDED BY RETIREMENT CONSULTANT STUDENT ESTEBAN
--- NOTE | 2022-05-05 09:53 | HMH.PHAINT1 ---
Pharmacy Intervention Comments: DISCHARGE MEDICATION COUNSELING PROVIDED BY AIR BRUSH ARTIST STUDENT ESTEBAN
--- NOTE | 2022-05-05 10:05 | PC.NURSE ---
one unmeasured void
--- NOTE | 2022-05-05 11:52 | PC.NURSE ---
Late entry: Notified EMS at 1141 they said they would be up here as soon as possible to cone picker patient
--- NOTE | 2022-05-05 12:18 | PC.NURSE ---
pt sent home via ambulance, unable to get ahold of pts . all information sent with pt in folder, my extension wrote on pts dc papers if has any questions she can call me.
--- NOTE | 2022-05-05 13:27 | SW/DCPLANNER ---
Patient is currently established with [facility]: updated information has been faxed to Molly yip/ Karley.
--- NOTE | 2022-05-06 13:27 | CARE MANAGER ---
Spoke with patient's who states he is doing better today. He is currently doing his exercises . They have spoken with home health and are aware of follow up appointment. They picked up his antibiotic as well. MELINA Ro
--- NOTE | 2022-05-07 13:03 | EXP.DC.SUM ---
General Admission date:: 05/02/22 Discharge date: 05/05/22 HPI HPI HPI: Mr Bautista is an 86 year old male patient of [facility] with an extensive medical history, who presented to [facility] ER yesterday with a 3 or 4 day history of confusion. His reports that he has been making unusual comments and has been able to keep up with conversations. He has seemed a little weak as well. He had some cough and congestion, no obvious fever or chills. Hospital Course Hospital Course Hospital Course: The patient was evaluated in the ER and found to have a UTI with acute kidney injury. He was started on Rocephin. He had dressings applied to both heel wounds which were changed daily. By 05/05/2022, he was feeling better and was anxious to go home. His blood culture showed no growth and his urine culture was positive for Enterococcus faecalis. He was discharged home on Ceftin and will resume home health and follow-up in the office in [address] Ambrocio entry - Post hospital antibiotic was changed to Levaquin after discharge order was entered. Exam Data for Last 24 hours Vital signs and Labs for Last 24 Hours: Temp Pulse Resp BP Pulse Ox 98.2 F 69 20 122/70 97 05/05/22 08:00 05/05/22 08:00 05/05/22 08:00 05/05/22 08:00 05/05/22 08:00 I & O for Last 24 hours: Intake & Output 05/05/22 05/06/22 05/07/22 05/08/22 11:59 11:59 11:59 11:59 Intake Total 2545 / 2545 Output Total 0 / 0 Balance 2545 / 2545 Weight 217 lb Microbiology Reports for the Last 24 Hours: Microbiology 05/02/22 10:54 Blood Blood Culture - Final NO GROWTH AFTER 5 DAYS 05/02/22 10:54 Blood Blood Culture - Final NO GROWTH AFTER 5 DAYS Narrative: Constitutional Constitutional: no acute distress Comments: Can answer a few questions, confused about many details of care *Routine HEENT Exam Head: Present normocephalic Eye: Present EOMI and PERRL ENT: Present mucous membranes dry *Routine Neck Exam Neck: Present supple; Absent lymphadenopathy *Routine Respiratory Exam Respiratory: Present CTA bilaterally *Routine Cardiovascular Exam Cardiovascular: Present RRR *Routine Abdominal Exam Abdominal: Present soft and normoactive bowel sounds; Absent tenderness *Routine Rectal Exam Rectal:: deferred *Routine Genitalia Exam Genitalia:: deferred *Routine Extremities Exam Extremities: Absent cyanosis, clubbing or edema *Routine Skin Exam Skin: Present warm; Absent rash *Routine Neurological Exam Neurological: Present alert Comments: pleasant, memory loss evident DS: Diagnosis Discharge Diagnosis (1) Acute UTI: Status: Acute (2) LUANN (acute kidney injury): Status: Acute (3) Delirium: Status: Acute (4) Alzheimer's dementia: Status: Chronic (5) Anxiety: Status: Chronic (6) CAD (coronary artery disease): Status: Chronic (7) Atrial fibrillation: Status: Chronic (8) Low back pain: Status: Acute (9) Diabetes mellitus, type 2: Status: Acute (10) Parkinson disease: Status: Acute (11) Enterococcus faecalis infection: Status: Acute Meds Home Medications and Allergies Home Medications Medication Instructions Recorded Confirmed Type memantine 10 mg tablet 10 mg PO BID dementia 06/10/17 05/02/22 History famotidine 20 mg tablet 20 mg PO HS acid reflux 90 days 04/19/18 05/02/22 History #90 tabs trazodone 50 mg tablet 50 mg PO HSP PRN Sleep 04/21/18 05/02/22 History montelukast 10 mg tablet 10 mg PO PM allergies 01/16/19 05/02/22 History citalopram 20 mg tablet 20 mg PO DAILY mood 05/30/19 05/02/22 History linagliptin 5 mg tablet (Tradjenta) 5 mg PO DAILY Diabetes 05/30/19 05/02/22 History insulin NPH-regular 70-30 U-100 50 unit SQ BID Diabetes 06/12/19 05/02/22 History insulin 100 unit/mL subcutaneous pen cholecalciferol (vitamin D3) 25 1,000 unit PO DAILY Diet supple
== END 2022-05-05 12:17 | disposition home health service (06) ==
LOC: ER 12:44 → 2ND 13:52
PROVIDERS: Admitting Provider Family Medicine; Emergency Provider Emergency Medicine; PCP Family Medicine; Visit Provider Family Medicine
DX: N39.0 Urinary tract infection, site not specified (principal); N17.9 Acute kidney failure, unspecified; Z79.4 Long term (current) use of insulin; I48.91 Unspecified atrial fibrillation; Z79.01 Long term (current) use of anticoagulants; I25.10 Atherosclerotic heart disease of native coronary artery without angina pectoris; G20 Parkinson's disease; G30.9 Alzheimer's disease, unspecified; F02.80 Dementia in other diseases classified elsewhere, unspecified severity, without behavioral disturbance, psychotic disturbance, mood disturbance, and anxiety; Z79.899 Other long term (current) drug therapy; Z95.1 Presence of aortocoronary bypass graft; I50.9 Heart failure, unspecified; Z95.810 Presence of automatic (implantable) cardiac defibrillator; E11.621 Type 2 diabetes mellitus with foot ulcer; L97.422 Non-pressure chronic ulcer of left heel and midfoot with fat layer exposed; L97.521 Non-pressure chronic ulcer of other part of left foot limited to breakdown of skin; Z20.822 Contact with and (suspected) exposure to COVID-19
CPT/HCPCS: G0378; 36415; 70450; 71045; 80048; 80053; 81001; 82550; 82962; 83605; 84436; 84443; 84484; 85025; 87040; 87086; 87088; 87186; 87507; 93005; 99285; C9803; J0696; U0003; U0005

== ENCOUNTER → 2022-05-18 10:36 | Outpatient (CLI) | payer MEDICARE, MEDICAID, SELFPAY ==
--- NOTE | 2022-05-18 10:38 | CA_ITS ---
APPROVED REPORT EXAM: Comprehensive 2D, Doppler, and color-flow Echocardiogram Front End Alignment Specialist: Chayo Pabon RT(R) Ht: 6 ft 0 in Wt: 228lbs BSA: 2.25 BP: 103/55 mmHg Indications: AI, Preop clearance for skin cancer surgery, HTN, hyperlipidemia, DM, CAD, CABG, pacemaker, hx of cardioversion, PAD, AFIB 2D Dimensions LVOT 2.06 cm (M/F) 1.5-2.5 LA Volume 44.90 mL LA Volume Index 19.96 mL/m2 (M/F) 16-34 M-Mode Dimensions RVDd 3.10 cm (0.9-2.6) LA Diam 3.79 cm (1.9-4.0) LVDd 4.98 cm (3.5-5.7) Ao Diam 3.20 cm (2.0-3.7) LVDs 3.70 cm (3.5-5.7) IVSd 1.06 cm (0.6-1.1) PWd 1.23 cm (0.6-1.1) EF (Teich) 50.40% FS 25.70% EDV (Teich) 117.10 mL ESV (Teich) 58.10 mL LV Diastology E Decel Time 290.00 (160-240 msec) E/A Ratio 0.6 MED E' 4.40 (< 7 cm/sec) E'/MED E' Ratio 15.11 (>14) LAT E' 5.40 (<10 cm/sec) E/LAT E' Ratio 12.31 (>14) Aortic Valve LVOT Max 109.00 (70-110 cm/s) LVOT VTI 28.20 cm AoV Peak Derian. 109.00 (50-130 cm/s) AI PHT 721.00 ms AO Peak GR. 4.80 mmHg AO Mean GR. 2.30 (<5 mmHg) AO VTI 23.94 (18-25 cm) VIRI (VTI) 3.93 (2.5-4.5 cm2) Mitral Valve MV E Max Derian. 66.00 (40-130 cm/s) MV A Velocity 116.00 (40-130 cm/s) E/A Ratio 0.57 MV Decel. Time 290.00 (160-240 ms) MV PHT 85.00 ms Left Ventricle Left atrium is mildly enlarged, left ventricle is normal size mild concentric left ventricular hypertrophy, estimated ejection fraction 55% with no regional wall motion abnormality, grade 1 diastolic dysfunction seen without tissue Doppler evidence of raise left atrial pressure. Right Ventricle Right atrium and right ventricle are mildly enlarged with normal contractility, pacemaker lead seen in the right ventricle. Aortic Valve Aortic valve is thickened and calcified without aortic stenosis, there is mild aortic insufficiency. Mitral Valve Mitral valve is minimally thickened, there is mild mitral regurgitation. Tricuspid Valve Tricuspid grossly normal, there is mild tricuspid regurgitation, tricuspid regurgitation jet velocity is inadequate for calculation of the right ventricular systolic pressure. Pulmonic Valve Pulmonic valve is poorly visualized. Great Vessels Aortic root is normal size. Inferior vena cava is poorly visualized. Pericardium No significant pericardial effusion noted. Conclusion 1. Mild biatrial enlargement, normal left ventricular size, mild concentric left ventricular hypertrophy, estimated ejection fraction 55% with no regional wall motion abnormality, grade 1 diastolic dysfunction seen without tissue Doppler evidence of raise left atrial pressure. 2. Mildly enlarged right ventricle with normal contractility. 3. Thickened and calcified aortic valve without aortic stenosis, there is mild aortic insufficiency. 4. Mild mitral and tricuspid regurgitation. 5. No significant pericardial effusion noted. 6. Inferior vena cava is poorly visualized. Electronically signed by : Mika Ruiz MD 05/18/2022 21:54:21
== END ==
LOC: RT 10:37
PROVIDERS: PCP Family Medicine; Visit Provider Physician Assistant
DX: I35.1 Nonrheumatic aortic (valve) insufficiency (principal); Z01.810 Encounter for preprocedural cardiovascular examination
CPT/HCPCS: 93306

== ENCOUNTER 2022-07-09 15:08 | Emergency (ER) | payer MEDICARE, MEDICAID, SELFPAY ==
[2022-07-09 15:08] VITALS: BP 174/81; PULSE 66; RESP 17; TEMP 36.6; O2SAT 97; BMI 32.5
--- NOTE | 2022-07-09 15:23 | XR_ITS ---
FINAL REPORT CLINICAL HISTORY: pain, fall COMPARISON: none FINDINGS: AP and frog leg views of the left hip were obtained. There is no prior exam for comparison. There are postoperative changes from bilateral ORIF of the proximal femurs. There is no acute fracture or dislocation of the left hip. There is degenerative disease in the bilateral hips. No acute soft tissue abnormality. IMPRESSION: Postoperative and degenerative changes with no acute process. Reviewed, Interpreted and Dictated by Amalia Sanchez MD Transcribed by April Sheehan Authenticated and [facility]
--- NOTE | 2022-07-09 15:24 | HMH.EDGENADL ---
Discharge Plan Disposition Patient Disposition: Home, Self-Care Condition: Fair Chief Complaint: Back Pain/Injury Prescriptions Prescriptions: No Action furosemide 40 mg tablet 40 mg PO DAILY gabapentin 600 mg tablet 600 mg PO TID trazodone 50 mg tablet 50 mg PO HS atorvastatin 10 mg tablet 10 mg PO HS amiodarone 200 mg tablet 200 mg PO DAILY isosorbide mononitrate 30 mg tablet extended release 24 hr 30 mg PO DAILY Novolin 70/30 U-100 Insulin 100 unit/mL (70-30) suspension See Rx Instructions .ROUTE .COMPLEX Rx Instructions: per dose citalopram 20 mg tablet 20 mg PO DAILY famotidine 20 mg tablet 20 mg PO DAILY montelukast 10 mg tablet 10 mg PO DAILY carbidopa-levodopa 25-100 mg tablet 1 tab PO BID levothyroxine 112 mcg tablet 112 mcg PO AM memantine 10 mg tablet 10 mg PO BID fenofibrate 54 mg tablet 54 mg PO DAILY Xarelto 15 mg tablet 15 mg PO BID Activity Restrictions/Add. Instructions Additional Instructions/Restrictions: You have been evaluated for left hip pain, low back pain. Please continue taking Tylenol for pain. Use heat, stretching, strengthening exercises. Please follow-up with your primary care doctor in 1 to 2 days for symptom recheck. Return to the emergency department at once for any new or worsening symptoms, difficulty walking, numbness, weakness, other concerns. Clinical Impressions Clinical Impression: Chronic left hip pain Instructions Patient Instructions: DI for Low Back Pain Discharge ED Provider: Vanessa Rosado Adult HPI General Chief complaint: Back Pain/Injury Stated complaint: chronic low back pain Time Seen by Provider: 07/09/22 15:15 Mode of Arrival: EMS Source of Information: Patient and EMS Limitations: No Limitations Description of Symptoms (Recalled from ER Triage Doc. by RN): 86 M presents via EMS for c/o of chronic low back pain. Patient has had to cancel appointments with his pain doctor recently for other reasons. Patient reports continued, severe LBP. Denies loss of sensation, CMS intact. No loss of bowel or bladder issues noted. Patient lives at home with support available to him. History of Present Illness HPI narrative: 86-year-old male presenting to the emergency department with low back, hip pain. Symptoms gotten worse over the last few days. It is located in the left hip. Radiates from the back into the hip joint and toward the top of his leg. Says he does not take pain medication. He has had multiple falls in his time but unsure how recently. Denies difficulty urinating. No numbness, weakness, tingling in the genital area or the legs. No head injuries. No recent illness, fevers, chills, nausea, vomiting, diarrhea, dysuria, hematuria. He called 911 today due to pain Related Data Home Medications Medication Instructions Recorded Confirmed amiodarone 200 mg tablet 200 mg PO DAILY Heart Rate Control 07/09/22 07/09/22 atorvastatin 10 mg tablet 10 mg PO HS Cholesterol 07/09/22 07/09/22 carbidopa 25 mg-levodopa 100 mg 1 tab PO BID Mood 07/09/22 07/09/22 tablet citalopram 20 mg tablet 20 mg PO DAILY Mood 07/09/22 07/09/22 famotidine 20 mg tablet 20 mg PO DAILY GERD 07/09/22 07/09/22 fenofibrate 54 mg tablet 54 mg PO DAILY Supplement 07/09/22 07/09/22 furosemide 40 mg tablet 40 mg PO DAILY Edema 07/09/22 07/09/22 gabapentin 600 mg tablet 600 mg PO TID Neuropathy/Pain 07/09/22 07/09/22 insulin human U-100 NPH-regulr See Rx Instructions .Route 07/09/22 07/09/22 70-30 mix 100 unit/mL subcutaneous .COMPLEX Diabetes susp (Novolin 70/30 U-100 Insulin) isosorbide mononitrate 30 mg 30 mg PO DAILY Heart 07/09/22 07/09/22 tablet,extended release 24 hr levothyroxine 112 mcg tablet 112 mcg PO AM Hypothyroid 07/09/22 07/09/22 memantine 10 mg tablet 10 mg PO BID Mood 07/09/22 07/09/22 montelukast 10 mg tablet 10 mg PO DAILY Allergies 07/09/22 03
[2022-07-09 15:31] VITALS: BP 154/75; PULSE 60; O2SAT 95
[2022-07-09 15:45] LABS: Microscopic, Urine URINE MICROSCOPIC (MICROSCOPIC)
[2022-07-09 15:46] LABS: Basophils # 0.1 K/mm3 (0-0.2); Basophils % 1.2 % (0.1-2.0); Eosinophils # 0.2 K/mm3 (0.0-0.4); Eosinophils % 2.2 % (0.1-12.0); Hematocrit 42.7 % (42.0-52.0); Hemoglobin 13.6 g/dL (14.1-18.0); Lymphocytes # 1.5 K/mm3 (0.7-4.5); Lymphocytes % 18.5 % (10-50); Mean Corpuscular HGB Conc 31.7 g/dL (31.8-35.4); Mean Corpuscular Hemoglobin 31.9 pg (27.0-31.2); Mean Corpuscular Volume 100.4 fl (80-94); Monocytes # 0.6 K/mm3 (0.1-1.0); Monocytes % 6.8 % (1.7-9.3); Neutrophils % 71.4 % (37.0-80.0); Platelet Count 347 K/mm3 (142-424); Red Blood Count 4.26 M/mm3 (4.60-6.20); Red Cell Distribution Width 14.2 % (11.5-17.5); White Blood Count 8.4 K/mm3 (4.8-10.8)
[2022-07-09 15:53] LABS: Chloride 102 mmol/L (98-107); Potassium 4.4 mmoL/L (3.5-5.1); Sodium 138 mmol/L (136-145)
[2022-07-09 15:53] LABS: Appearance,Urine CLEAR (Clear); Bilirubin,Urine Negative (Negative); Blood, Urine Negative (Negative); Color,Urine YELLOW (Yellow); Glucose,Urine (UA) TRACE (Negative); Ketones,Urine Negative (Negative); Leukocyte Esterase,Urine Negative (Negative); Nitrate,Urine Negative (Negative); PH,Urine 6.5 (5.0-8.5); Protein,Urine Negative (Negative); Specific Gravity, Urine 1.015 (1.005-1.030); Urobilinogen,Urine 0.2 EU/dl (0.2)
[2022-07-09 15:55] LABS: Blood Urea Nitrogen 22 mg/dl (9-20); Creatinine Clearance Estimated 54 mL/min (50-200); Estimated Glomerular Filt Rate 44 ml/min (>60); GFR (African American) 54 ML/MIN (>60)
[2022-07-09 15:56] LABS: Alanine Aminotransferase 11 U/L (12-78); Albumin Level 3.8 g/dl (3.5-5.0); Albumin/Globulin Ratio 1.2 (1.1-1.8); Alkaline Phosphatase 72 U/L (38-126); Anion Gap 11.4 mEq/L (5-15); Aspartate Amino Transferase 25 U/L (17-59); Bilirubin,Total 0.4 mg/dl (0.2-1.3); Calcium 8.9 mg/dl (8.4-10.2); Carbon Dioxide 29 mmol/L (22.0-30.0); Globulin 3.3 g/dL (1.3-3.2); Glucose 230 mg/dl (74-100); Total Protein,Serum 7.1 g/dl (6.3-8.2)
[2022-07-09 16:20] LABS: Squamous Epithelial Cell,Urine Occasional #/hpf (0-5)
--- NOTE | 2022-07-09 16:37 | PC.NURSE ---
rounded on pt states no complaints at this time call light at bedside
[2022-07-09 17:18] VITALS: BP 165/58; PULSE 66; RESP 18; TEMP 36.8; O2SAT 97
--- NOTE | 2022-07-09 17:18 | PC.NURSE ---
called to let him know pt was ready for discharge and she said she would be on her way
== END 2022-07-09 17:41 | disposition home or self-care (01) ==
PROVIDERS: Emergency Provider Emergency Medicine; PCP Family Medicine
DX: M25.552 Pain in left hip (principal); M54.50 Low back pain, unspecified; G89.29 Other chronic pain; I48.91 Unspecified atrial fibrillation; F41.8 Other specified anxiety disorders; E11.9 Type 2 diabetes mellitus without complications; I25.2 Old myocardial infarction; E03.9 Hypothyroidism, unspecified; R53.1 Weakness; I44.30 Unspecified atrioventricular block; Z86.79 Personal history of other diseases of the circulatory system; Z86.718 Personal history of other venous thrombosis and embolism; Z90.49 Acquired absence of other specified parts of digestive tract; Z80.9 Family history of malignant neoplasm, unspecified; Z82.49 Family history of ischemic heart disease and other diseases of the circulatory system; Z83.3 Family history of diabetes mellitus; Z82.3 Family history of stroke; Z82.61 Family history of arthritis
CPT/HCPCS: 73502; 80053; 81001; 85025; 96374; 99285

== ENCOUNTER 2022-07-15 08:05 | Day surgery (SDC) | payer MEDICARE, MEDICAID, SELFPAY ==
[2022-07-13 12:00] VITALS: BMI 31.1
--- NOTE | 2022-07-15 09:06 | ECG_ITS ---
APPROVED REPORT Exam: Resting ECG HR:63 bpm ECG Measurements Heart Rate 63 AXES SD 194 P 216 QRSd 224 QRS 190 QT 527 T 10 QTc 535 Conclusion ELECTRONIC ATRIAL PACEMAKER ELECTRONIC VENTRICULAR PACEMAKER ABNORMAL RHYTHM ECG UNCONFIRMED REPORT Electronically signed by : Emanuel Laughlin MD 07/15/2022 17:58:36
[2022-07-15 09:11] VITALS: BP 171/77; PULSE 61; RESP 18; TEMP 36.9; O2SAT 96
[2022-07-15 12:07] VITALS: BP 155/73; PULSE 66; RESP 17; TEMP 36.4; O2SAT 96
--- NOTE | 2022-07-15 12:09 | EXP.OP.NOTE ---
Date of procedure: 07/15/22 Pre-op Diagnosis:: Basal cell carcinoma left nasal alar crease Post-op Diagnosis:: Basal cell carcinoma left nasal alar crease Procedure performed:: Wide local excision with frozen section margins and complex multilayer closure Surgeon:: Chava Selby MD STUDENT LIFE VICE PRESIDENT:: Dawood Shirley Anesthesia: MAC Estimated blood loss (mL): 0 Operative findings:: Margins free Operative note:: The patient was brought to the operating room and after adequate IV sedation 1% lidocaine with epinephrine was used to locally infiltrate the left nasal crease surrounding the obvious basal cell cancer and then the lesion was elliptically excised and excision was designed to recreate the nasal crease. Resulting defect was 2.5 cm. Excision was performed down to the subcutaneous fat. Intranasal mucosa was not violated. Hemostasis was established with monopolar cautery. Frozen sections showed margins were likely clear but additional margins were obtained for permanent section analysis and marked 0-3 o'clock, 3:00 to 6:00, 6:00 to 9:00, and 9:00 to 12:00. Closure was then accomplished by rotating skin and subcutaneous tissue from the left mid face into the defect and closing the deep layers with 5-0 Vicryl and closing the skin edges with 6-0 nylon a sterile dressing was then placed and the procedure concluded. All counts correct and blood loss was minimal and he was sent to recovery in stable condition. Condition: stable Disposition: PACU Complications:: None
[2022-07-15 12:17] VITALS: BP 141/72; PULSE 67; RESP 18; O2SAT 97
[2022-07-15 12:27] VITALS: BP 140/64; PULSE 62; RESP 17; O2SAT 97
[2022-07-15 12:40] VITALS: BP 150/81; PULSE 63; RESP 18; O2SAT 96
--- NOTE | 2022-07-15 14:23 | SUR.OPER ---
1112-specimen transported to pathologist at this time 1140-pathologist called and spoke with
[2022-07-16 18:23] LABS: POC Glucose,Bedside 208 (70-110)
== END 2022-07-15 12:40 | disposition home or self-care (01) ==
PROVIDERS: PCP Family Medicine; Visit Provider Otolaryngology
DX: C44.311 Basal cell carcinoma of skin of nose (principal); E11.9 Type 2 diabetes mellitus without complications
CPT/HCPCS: 11643; 13151; 82962; 88305; 88331; 93005; J2405

== ENCOUNTER → 2022-09-08 23:41 | Outpatient (CLI) | payer MEDICARE, MEDICAID, SELFPAY | PROVIDERS: PCP Family Medicine; Visit Provider Podiatrist | DX: L97.529 Non-pressure chronic ulcer of other part of left foot with unspecified severity (principal); B96.89 Other specified bacterial agents as the cause of diseases classified elsewhere | CPT/HCPCS: 87070; 87077; 87186; 87205 ==

== ENCOUNTER → 2022-09-10 08:56 | Outpatient (POV) | payer MEDICARE, MEDICAID, SELFPAY ==
[2022-09-10 09:22] VITALS: BP 89/48; PULSE 71; RESP 18; O2SAT 97; BMI 30.5
--- NOTE | 2022-09-10 10:00 | EXP.PAIN.SOA ---
[facility] Pain Management SOAP Note Subjective:: Patient is a pleasant 86-year-old who presents today for follow-up. We are currently treating the patient for degenerative disc disease of lumbar spine multilevels with lumbar radiculopathy symptoms, multilevel lumbar disc bulge, right hip pain. Today he rates his pain an 8 out of 10. Patient denies any new trauma or injury. Patient denies any change to the location or type of pain he experiences. He does state that he is having significant pain in his low back with radiating symptoms into his bilateral hips and legs. He does rate his pain an 8 out of 10. He states this pain does interfere with his ability to perform activities of daily living such as cooking or cleaning or even simple ambulation. He describes his back pain as a sore, sharp, achy sensation. This has been going on for several years. Patient is currently prescribed gabapentin 600 mg 3 times a day from his primary care doctor. Patient denies any side effects from this medication. His Albaro is [id number]. Its been reviewed and appropriate. Review of Systems: General: No recent weight changes, no fever, no sleep disturbances Respiratory: No cough, no shortness of air, no recurring pulmonary infections Cardiovascular/peripheral vascular: No chest pain, no palpitations, no edema, no shortness of breath Gastrointestinal: No new onset incontinence, normal bowel movements reported Genitourinary: No new onset incontinence Musculoskeletal: Low back pain Psychiatric: [Normal mood/affect] Neurological: [Denies weakness in extremities], [denies balance issues] Objective:: Physical Exam: General: Alert and oriented x3, no acute distress, pleasant and cooperative Lungs: Respirations even and unlabored, symmetrical chest expansion Eyes: PERRL Musculoskeletal: Flexion and extension of lumbar [spine] somewhat guarded secondary to pain, [antalgic gait noted] Neurological: Speech clear, no gross sensory deficit TECHNIQUE: Axial images were performed through the lumbar spine by computed tomography.? Sagittal reconstruction images were also performed. This study was performed with techniques to keep radiation doses as low as reasonably achievable, (ALARA). Individualized dose reduction techniques using automated exposure control or adjustment of mA and/or kV according to the patient''s size were employed. CLINICAL HISTORY: LUMBAGO W/SCIATICA,DDD,LUMBAR FACET ARTHROPATHY FINDINGS: No fracture is identified.? There is moderate disc space narrowing at L5-S1.? There is moderate to advanced anterior osteophyte formation from L1-2 through L5-S1.? There is vacuum disc phenomenon at L4-5.? ? T12-L1:? There is no significant canal stenosis or neural foraminal narrowing.? ? L1-2:? There is no significant canal stenosis or neural foraminal narrowing. L2-3: Moderate diffuse disc bulge is present.? There is marked facet hypertrophy.? There is high-grade spinal canal compromise and moderate to high-grade bilateral neural foraminal narrowing, left greater than right.? ? L3-4:? Moderate diffuse disc bulge is present.? There is bilateral facet hypertrophy.? There is moderate to high-grade spinal and bilateral neural foraminal compromise.? ? L4-5:? Moderate diffuse disc bulge is present. There is a large left posterolateral disc protrusion resulting in high-grade compromise of the spinal canal.? There is bilateral facet hypertrophy.? There is high-grade left neural foraminal narrowing.? ? L5-S1: Diffuse disc bulge and endplate hypertrophy are present.? There is moderate to high-grade right and moderate left neural foraminal narrowing. 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 Neural foraminal compromise, most evident on the left at L4-5 and on the right at L5-S1. Reviewed, Interpreted and Dictated by Sanket Fernandez MD Transcribed by Alejandra Bowers Authenticated and
== END ==
PROVIDERS: PCP Family Medicine; Visit Provider Nurse Practitioner Family
DX: M51.16 Intervertebral disc disorders with radiculopathy, lumbar region (principal); M25.559 Pain in unspecified hip
CPT/HCPCS: 99212; G0463

== ENCOUNTER → 2022-09-29 12:54 | Day surgery (SDC) | payer MEDICARE, MEDICAID, SELFPAY ==
--- NOTE | 2022-10-02 08:11 | A.OFFVIS_ITS ---
[facility] Disclaimer: The information contained in this section may have been updated after the patient was seen, as this information can be updated by other users. 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 hammer toes of both feet Allergies Alzheimer's dementia Anxiety Aortic insufficiency Atrial fibrillation Basal cell carcinoma (BCC) of left side of nose Cellulitis and abscess of foot Cholelithiasis Deep vein blood clot of right lower extremity Depression Diabetes mellitus, type 2 Diabetic ulcer of both feet Diabetic ulcer of left great toe Encounter for pre-operative cardiovascular clearance History of back pain History of cardiac pacemaker in situ History of AR (myocardial infarction) Hypothyroidism Multiple contusions Obesity (BMI 30.0-34.9) Onychogryposis Parkinson disease Skin cancer Skin ulcer of fourth toe of left foot, limited to breakdown of skin Skin ulcer of left heel with fat layer exposed Sleep apnea Subdural hematoma Third degree heart block Type 2 diabetes mellitus with foot ulcer, with long-term current use of insulin Ulcer of right fifth toe due to diabetes mellitus Weakness of both lower extremities Surgical History H/O hernia repair History of cholecystectomy History of coronary artery stent placement History of left knee surgery Status post foot surgery Family History Other Coronary artery disease Family history of arthritis Family history of cancer Family history of diabetes mellitus type II Hypertension Stroke Social History Smoking Status: Never smoker second hand exposure: Yes alcohol intake: never substance use type: denies use current occupational status: retired Travel in the last 8 weeks: None household members: spouse housing: apartment marital status: current occupational exposures/hazards: No caffeine: Yes special jazmin needs: No agree to transfusion: No do you feel safe at home: Yes victim of physical abuse: No victim of emotional abuse: No victim of sexual abuse: No would you like helpful sources: No
--- NOTE | 2022-10-07 11:10 | EXP.PAIN.SOA ---
[facility] Pain Management SOAP Note Subjective:: Patient is a pleasant 86-year-old man who presents today for lumbar epidural steroid injection. He has a diagnosis of lumbar degenerative disc disease with lumbar radiculopathy. Unfortunately today patient's glucose was over 300 when checked in the clinic. Patient counseled on glucose management and will be rescheduled for lumbar epidural next week. [facility] Disclaimer: The information contained in this section may have been updated after the patient was seen, as this information can be updated by other users. 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 hammer toes of both feet Allergies Alzheimer's dementia Anxiety Aortic insufficiency Atrial fibrillation Basal cell carcinoma (BCC) of left side of nose Cellulitis and abscess of foot Cholelithiasis Deep vein blood clot of right lower extremity Depression Diabetes mellitus, type 2 Diabetic ulcer of both feet Diabetic ulcer of left great toe Encounter for pre-operative cardiovascular clearance History of back pain History of cardiac pacemaker in situ History of [place] (myocardial infarction) Hypothyroidism Multiple contusions Obesity (BMI 30.0-34.9) Onychogryposis Parkinson disease Skin cancer Skin ulcer of fourth toe of left foot, limited to breakdown of skin Skin ulcer of left heel with fat layer exposed Sleep apnea Subdural hematoma Third degree heart block Type 2 diabetes mellitus with foot ulcer, with long-term current use of insulin Ulcer of right fifth toe due to diabetes mellitus Weakness of both lower extremities Surgical History H/O hernia repair History of cholecystectomy History of coronary artery stent placement History of left knee surgery Status post foot surgery Family History Other Coronary artery disease Family history of arthritis Family history of cancer Family history of diabetes mellitus type II Hypertension Stroke Social History Smoking Status: Never smoker second hand exposure: Yes alcohol intake: never substance use type: denies use current occupational status: retired Travel in the last 8 weeks: None household members: spouse housing: apartment marital status: current occupational exposures/hazards: No caffeine: Yes special jazmin needs: No agree to transfusion: No do you feel safe at home: Yes victim of physical abuse: No victim of emotional abuse: No victim of sexual abuse: No would you like helpful sources: No
== END ==
PROVIDERS: PCP Family Medicine; Visit Provider Nurse Anesthetist, Certified Registered
DX: M51.16 Intervertebral disc disorders with radiculopathy, lumbar region (principal)
CPT/HCPCS: 99212; G0463

== ENCOUNTER 2022-10-06 09:22 | Day surgery (SDC) | payer MEDICARE, MEDICAID, SELFPAY ==
[2022-10-06 09:39] VITALS: BP 142/75; PULSE 60; RESP 18; TEMP 36.5; O2SAT 98; BMI 30.9
--- NOTE | 2022-10-06 09:55 | P.PCN_ITS ---
Procedure Date: 10/06/22 Time: 09:45 Anesthesiologist:: Marquise Chamorro CRNA Complications:: None Pre-procedure Diagnosis:: Degenerative disc disease lumbar spine multilevels. Lumbar radiculopathy. Lumbar spondylosis. Post-procedure Diagnosis:: Same. Indications for Procedure:: Patient is a pleasant 86-year-old male that comes our clinic today for lumbar epidural steroid injection at the L4-5 level. Patient describes his low back pain as constant, dull, aching. Patient has difficulty with ambulation secondary to low back pain. Patient also complains of bilateral hip and leg radicular symptoms. Procedure Details:: Procedure: Lumbar epidural steroid injection under fluoroscopy Informed consent was obtained and the risks and benefits of the procedure were explained to the patient. The patient was taken to the procedure room and n oninvasive monitors placed, including noninvasive blood pressure cuff and pulse oximeter. The back was viewed using C-arm Fluoroscopy and prepped using Chloraprep as a cleansing solution and the L4-L5 interspace was palpated. Skin and subcutaneous tissues were anesthetized using lidocaine 1.5% and a 25-gauge needle. After this, an 18-gauge Touhy epidural needle was placed into the L4-L5 interspace and advanced using fluoroscopic guidance and loss of resistance to air until the epidural space was encountered. After confirmation of needle placement in the epidural space, with dye, a solution containing normal saline, 3 mL and Depo-Medrol 80 mg were incrementally injected into the lumbar epidural space. The patient tolerated the procedure well with no complications. The patient was observed in the Pain Clinic and then discharged home neurologically intact. Plan and Disposition:: Patient was discharged without incident.
[2022-10-06 10:01] VITALS: BP 140/63; PULSE 59; RESP 18; O2SAT 98
== END 2022-10-06 10:01 | disposition home or self-care (01) ==
PROVIDERS: PCP Family Medicine; Visit Provider Nurse Anesthetist, Certified Registered
DX: M51.16 Intervertebral disc disorders with radiculopathy, lumbar region (principal); M47.26 Other spondylosis with radiculopathy, lumbar region
CPT/HCPCS: 62323; J1040

== ENCOUNTER → 2022-10-19 14:00 | Outpatient (POV) | payer MEDICARE, MEDICAID, SELFPAY ==
[2022-10-19 14:31] VITALS: BP 122/70; PULSE 64; RESP 20; O2SAT 96; BMI 31.0
--- NOTE | 2022-10-19 14:47 | EXP.PAIN.SOA ---
[facility] Pain Management SOAP Note Subjective:: Patient is a pleasant 86-year-old male who presents today for follow-up of lumbar epidural steroid injection of L4-L5 on 10/06/2022. We are currently treating the patient for degenerative disc disease of lumbar spine with lumbar radiculopathy symptoms. Today he rates his pain a 10 out of 10. Patient denies any new trauma or injury. Patient denies any change in location or type of pain he experiences. Patient states he did have 50% improvement following his injection however it only lasted short-term. He does state that he feels like he is back to his baseline at today's visit. Patient does describe this as an aching, throbbing sensation that is worse with increased activity. Patient states the pain does interfere with his ability to perform activities of daily living such as cooking or cleaning or even simple ambulation. Patient is currently managed with gabapentin 600 mg 3 times a day from his primary care doctor. Patient denies any side effects from these medications. Patient does have a heart history and is currently on Xarelto that is prescribed by his primary care doctor. He is also a diabetic and takes insulin daily. His Albaro is [id number]. Its been reviewed and appropriate. Review of Systems: General: No recent weight changes, no fever, no sleep disturbances Respiratory: No cough, no shortness of air, no recurring pulmonary infections Cardiovascular/peripheral vascular: No chest pain, no palpitations, no edema, no shortness of breath Gastrointestinal: No new onset incontinence, normal bowel movements reported Genitourinary: No new onset incontinence Musculoskeletal: Low back pain, bilateral leg pain Psychiatric: [Normal mood/affect] Neurological: [Denies weakness in extremities], [denies balance issues] Objective:: Physical Exam: General: Alert and oriented x3, no acute distress, pleasant and cooperative Lungs: Respirations even and unlabored, symmetrical chest expansion Eyes: PERRL Musculoskeletal: Flexion and extension of lumbar [spine] somewhat guarded secondary to pain, [antalgic gait noted] Neurological: Speech clear, no gross sensory deficit Assessment:: Degenerative disc disease of lumbar spine with lumbar radiculopathy symptoms Plan:: Patient did have significant improvement of at least 50% with his first epidural. I have discussed with the patient that he may benefit from a repeat lumbar epidural related to his low back and leg pain. Risk and benefits were discussed with the patient and he would like to proceed forward with this plan of care. Patient is on blood thinner and we will contact his primary care doctor to confirm he can come off this medication prior to the injection. We will schedule him for an LESI L4-L5. Patient has been instructed to contact the clinic with any concerns before the next appointment. Dr. Luna has reviewed this note and agrees with this plan of care. This note was dictated using voice recognition software and make contain errors or omissions. [facility] Disclaimer: The information contained in this section may have been updated after the patient was seen, as this information can be updated by other users. 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
== END ==
PROVIDERS: Visit Provider Nurse Practitioner Family
DX: M51.16 Intervertebral disc disorders with radiculopathy, lumbar region (principal)
CPT/HCPCS: 99212; G0463

== ENCOUNTER → 2022-11-17 10:20 | Outpatient (CLI) | payer MEDICARE, MEDICAID, SELFPAY ==
--- NOTE | 2022-11-17 10:26 | XR_ITS ---
FINAL REPORT CLINICAL HISTORY: amio testing COMPARISON: 05/02/2022 FINDINGS: TWO VIEW CHEST Cardiomegaly is present. The patient is status post median sternotomy. A left subclavian ICD is present. The lungs are clear. There is no pneumothorax. IMPRESSION: No acute cardiopulmonary process. Reviewed, Interpreted and Dictated by Rudy Dietrich III, MD Transcribed by Raymundo North Authenticated and [facility]
== END ==
LOC: LAB 10:21 → RAD 11:17
PROVIDERS: PCP Family Medicine; Visit Provider Otolaryngology
DX: Z79.899 Other long term (current) drug therapy (principal)
CPT/HCPCS: 71046

== ENCOUNTER 2023-04-06 13:05 | Observation (INO) | payer MEDICARE, MEDICAID, SELFPAY ==
[2023-04-06] VITALS (13 sets, daily range): BP systolic 113–149; BP diastolic 37–62; PULSE 60–75; RESP 18–20; TEMP 36.4–36.6; O2SAT 95–99; BMI 28.7; BMI 28.8
--- NOTE | 2023-04-06 14:13 | HMH.EDGENADL ---
Discharge Plan Disposition Patient Disposition: Admitted Chief Complaint: PAIN Clinical Impressions Clinical Impression: LUANN (acute kidney injury), Acute UTI Discharge ED Provider: Ryan Rodriguez General Adult HPI <Ryan Rodriguez MD - Last Filed: 04/06/23 17:19> General Chief complaint: PAIN Stated complaint: headache Time Seen by Provider: 04/06/23 13:27 Mode of Arrival: EMS Source of Information: Patient Limitations: Physical Limitations Description of Symptoms (Recalled from ER Triage Doc. by RN): Pt c/o bilateral knee pain, headache, and and incontentence of stool and bladder. States he has not been out of bed since 2200 last night. Bed sore noted to left hip and bilat heels. States his helps him at home. Bed bugs also noted per EMS and during nursing bed bath. History of Present Illness HPI narrative: The patient presents with a chief complaint of knee and head problems. He describes experiencing difficulty with choking and producing phelem from his mouth, which has been ongoing for an unspecified duration. The patient denies any abdominal pain but mentions frequent episodes of urinary incontinence. He denies any chest pain and vomiting, stating that he only spits up the substance. A few days ago, the patient experienced a fall, resulting in a hard bruise on his left hip. He recalls feeling sick the day after eating supper but does not provide further details. The patient does not report any pain during urination. Related Data Home Medications Medication Instructions Recorded Confirmed atorvastatin 10 mg tablet 10 mg PO HS Cholesterol 07/09/22 11/24/22 carbidopa 25 mg-levodopa 100 mg 1 tab PO BID Mood 07/09/22 11/24/22 tablet citalopram 20 mg tablet 20 mg PO DAILY Mood 07/09/22 11/24/22 famotidine 20 mg tablet 20 mg PO DAILY GERD 07/09/22 11/24/22 fenofibrate 54 mg tablet 54 mg PO DAILY Supplement 07/09/22 11/24/22 gabapentin 600 mg tablet 600 mg PO TID Neuropathy/Pain 07/09/22 11/24/22 insulin human U-100 NPH-regulr See Rx Instructions .Route 07/09/22 11/24/22 70-30 mix 100 unit/mL subcutaneous .COMPLEX Diabetes susp (Novolin 70/30 U-100 Insulin) isosorbide mononitrate 30 mg 30 mg PO DAILY Heart 07/09/22 11/24/22 tablet,extended release 24 hr levothyroxine 112 mcg tablet 112 mcg PO AM Hypothyroid 07/09/22 11/24/22 memantine 10 mg tablet 10 mg PO BID Mood 07/09/22 11/24/22 montelukast 10 mg tablet 10 mg PO DAILY Allergies 07/09/22 11/24/22 trazodone 50 mg tablet 50 mg PO HS Sleep 07/09/22 11/24/22 ciprofloxacin HCl 500 mg tablet 500 mg PO BID . 10/06/22 11/24/22 amiodarone 200 mg tablet 200 mg PO DAILY 04/06/23 furosemide 40 mg tablet 40 mg PO DAILY 04/06/23 rivaroxaban 15 mg tablet (Xarelto) 15 mg PO DAILY 04/06/23 Allergies Allergy/AdvReac Type Severity Reaction Status Date / Time codeine [CODEINE] Allergy Unknown Verified 11/24/22 10:48 Penicillins [PENICILLINS] Allergy Unknown Verified 11/24/22 10:48 [facility] <Ryan Rodriguez MD - Last Filed: 04/06/23 17:19> [facility] Disclaimer: The information contained in this section may have been updated after the patient was seen, as this information can be updated by other users. 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 hammer toes of both feet Allergies Alzheimer's dementia Anxiety Aortic insufficiency Atrial fibrillation Basal cell carcinoma (BCC) of left side of nose Cellulitis and abscess of foot Cholelithiasis Deep vein blood clot of right lower extremity Depression Diabetes mellitus, type 2 Diabetic ulcer of both feet Diabetic ulcer of left great toe Encounter for pre-operative cardiovascular clearance History of back pain History of cardiac pacemaker in situ History of AR (myocardial infarction) Hypothyroidism Multiple contusions Obesity (BMI 3
--- NOTE | 2023-04-06 14:18 | PC.NURSE ---
DR ARRIAZA AT BEDSIDE
--- NOTE | 2023-04-06 14:26 | CT_ITS ---
FINAL REPORT TECHNIQUE: Thin section axial CT with sagittal reconstruction without contrast CLINICAL HISTORY: frequent falls, dementia, concern for neck injury COMPARISON: 12/31/2021 FINDINGS: No fracture is seen. Alignment is normal. There is advanced degenerative disc disease with facet osteoarthropathy, multilevel canal and neural foraminal narrowing. No acute bony abnormality is identified. IMPRESSION: Advanced degenerative change as described, stable since the prior CT of December 2021. No acute bony abnormality present. Reviewed, Interpreted and Dictated by Lesly Julien MD Transcribed by Cyndy Briseno Authenticated and [facility]
--- NOTE | 2023-04-06 14:26 | CT_ITS ---
FINAL REPORT CLINICAL HISTORY: frequent falls, dementia, concern for head injury COMPARISON: 05/02/2022 FINDINGS: Advanced atrophy and chronic ischemic white matter changes are noted. No cortical edema is present. There is no mass or hemorrhage. Ventricles are normal. Encephalomalacia is present in the right frontal lobe, stable since the prior CT. Bone windows show no skull fracture or obvious obstructive lesion. IMPRESSION: 1. No acute intracranial abnormality or obvious mass. 2. Atrophy and chronic ischemic white matter changes as above. Reviewed, Interpreted and Dictated by Lesly Julien MD Transcribed by Cyndy Briseno Authenticated and [facility]
[2023-04-06 15:15] LABS: Microscopic, Urine URINE MICROSCOPIC (MICROSCOPIC)
[2023-04-06 15:16] LABS: Basophils # 0.1 K/mm3 (0-0.2); Basophils % 0.8 % (0.1-2.0); Chloride 108 mmol/L (98-107); Eosinophils # 0.2 K/mm3 (0.0-0.4); Eosinophils % 1.3 % (0.1-12.0); Hemoglobin 13.1 g/dL (14.1-18.0); Lymphocytes # 1.6 K/mm3 (0.7-4.5); Lymphocytes % 12.1 % (10-50); Mean Corpuscular HGB Conc 31.9 g/dL (31.8-35.4); Mean Corpuscular Hemoglobin 31.2 pg (27.0-31.2); Mean Corpuscular Volume 97.9 fl (80-94); Mean Platelet Volume 8.7 fl (7.4-10.4); Monocytes # 0.6 K/mm3 (0.1-1.0); Monocytes % 4.5 % (1.7-9.3); Neutrophils # 10.6 K/mm3 (1.8-7.8); Neutrophils % 81.2 % (37.0-80.0); Platelet Count 427 K/mm3 (142-424); Red Blood Count 4.19 M/mm3 (4.60-6.20); Red Cell Distribution Width 14.1 % (11.5-17.5); Sodium 148 mmol/L (136-145); White Blood Count 13.1 K/mm3 (4.8-10.8)
[2023-04-06 15:17] LABS: Potassium 4.2 mmoL/L (3.5-5.1)
[2023-04-06 15:18] LABS: Appearance,Urine CLEAR (Clear); Bilirubin,Urine Negative (Negative); Blood, Urine 1+ (Negative); Color,Urine YELLOW (Yellow); Glucose,Urine (UA) Negative (Negative); Ketones,Urine Negative (Negative); Leukocyte Esterase,Urine 2+ (Negative); Nitrate,Urine Negative (Negative); Protein,Urine Negative (Negative); Specific Gravity, Urine 1.015 (1.005-1.030); Urobilinogen,Urine 0.2 EU/dl (0.2)
[2023-04-06 15:19] LABS: Alanine Aminotransferase 10 U/L (12-78); Alkaline Phosphatase 71 U/L (38-126); Aspartate Amino Transferase 28 U/L (17-59); Bilirubin,Total 0.5 mg/dl (0.2-1.3); Blood Urea Nitrogen 51 mg/dl (9-20); Creatinine Clearance Estimated 22 mL/min (50-200); Estimated Glomerular Filt Rate 18 ml/min (>60); GFR (African American) 22 ML/MIN (>60)
[2023-04-06 15:20] LABS: Albumin Level 3.9 g/dl (3.5-5.0); Albumin/Globulin Ratio 0.8 (1.1-1.8); Anion Gap 10.2 mEq/L (5-15); Calcium 9.2 mg/dl (8.4-10.2); Carbon Dioxide 34 mmol/L (22.0-30.0); Globulin 4.9 g/dL (1.3-3.2); Glucose 88 mg/dl (74-100); Total Protein,Serum 8.8 g/dl (6.3-8.2)
[2023-04-06 15:34] LABS: Bacteria,Urine 3+ /lpf; Squamous Epithelial Cell,Urine Occasional #/hpf (0-5); WBC,Urine TNTC #/hpf (0-3)
--- NOTE | 2023-04-06 16:53 | PC.NURSE ---
DR TEOFILO MOYER FOR DR NOGUEIRA
--- NOTE | 2023-04-06 17:09 | PC.NURSE ---
UPDATED ON POC AT THIS TIME
--- NOTE | 2023-04-06 17:26 | PC.NURSE ---
paging for Dr. Mendosa again
--- NOTE | 2023-04-06 17:51 | PC.NURSE ---
Report given to MELINA Rojas on Med Surg.
--- NOTE | 2023-04-06 17:55 | PC.NURSE ---
lab at bedside
[2023-04-06 17:57] LABS: Lactic Acid 1.3 mmol/L (0.7-2.1)
--- NOTE | 2023-04-06 18:10 | PC.NURSE ---
1735, PT ACCEPTED PER DR RED [id number] PRIVATE DUTY RN NOTIFIED OF ADMISSION
--- NOTE | 2023-04-06 18:39 | PC.NURSE ---
Per Dr Mendosa, DC PO levaquin and change to levaquin 500mg IV bid
--- NOTE | 2023-04-06 18:45 | PC.NURSE ---
pt declined meds to beds
--- NOTE | 2023-04-06 19:04 | PC.NURSE ---
Pt. to the floor and vss, aox4, 20g right ac with LR @ 50 ml/ hr, lef hip wound open to air, right foot big toe wound open to air, right inner part of foot heal with a red area bruised, left heel with a dare area pressure ulcer inner foot, right foot outer are with bruising all open to air.
--- NOTE | 2023-04-06 19:37 | PC.WOUNDNOTE ---
photographed by lincoln pompa rn
[2023-04-06 20:23] LABS: POC Glucose,Bedside 126 (70-110)
[2023-04-07 04:00] VITALS: BP 147/82; PULSE 60; RESP 18; TEMP 37.2; O2SAT 94; BMI 29.1
--- NOTE | 2023-04-07 05:31 | PC.NURSE ---
Patient has had a decent night this shift. Has been able to sleep off and on through the night, Patient was AxO x4 when RN came on shift but has waxed and waned through out the shift with orientation. Has always been orientated to name and birthday. Patient has been incontinent multiple times with a BM once. Patient ulcer on L hip was dressed with a dressing to keep it protected. Heels and scabs on legs remain open to air. Patient has not complained of pain or nausea no other issues noted
[2023-04-07 06:13] LABS: POC Glucose,Bedside 170 (70-110)
[2023-04-07 08:00] VITALS: BP 119/62; PULSE 56; RESP 18; TEMP 37.1; O2SAT 95
--- NOTE | 2023-04-07 08:23 | EXP.HP ---
History of Present Illness *Admission Date: 04/06/23 *Reason for visit:: weakness, falls *History of present illness: The patient presents with a chief complaint of knee and head problems. He describes experiencing difficulty with choking and producing phlegm from his mouth, which has been ongoing for an unspecified duration. The patient denies any abdominal pain but mentions frequent episodes of urinary incontinence. He denies any chest pain and vomiting, stating that he only spits up the substance. A few days ago, the patient experienced a fall, resulting in a hard bruise on his left hip. He recalls feeling sick the day after eating supper but does not provide further details. The patient does not report any pain during urination. (above as per ER physician) The patient states he has not felt well for about 3 weeks. He has been weak and had a few falls. He states he has been in the bed most of the time and has not had a lot to eat or drink. Upon evaluation in the emergency room he was found to be dehydrated and have a UTI. He was subsequently admitted for further evaluation and treatment. [facility] Disclaimer: The information contained in this section may have been updated after the patient was seen, as this information can be updated by other users. 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 hammer toes of both feet Allergies Alzheimer's dementia Anxiety Aortic insufficiency Atrial fibrillation Basal cell carcinoma (BCC) of left side of nose Cellulitis and abscess of foot Cholelithiasis Deep vein blood clot of right lower extremity Depression Diabetes mellitus, type 2 Diabetic ulcer of both feet Diabetic ulcer of left great toe Encounter for pre-operative cardiovascular clearance History of back pain History of cardiac pacemaker in situ History of IN (myocardial infarction) Hypothyroidism Multiple contusions Obesity (BMI 30.0-34.9) Onychogryposis Parkinson disease Skin cancer Skin ulcer of fourth toe of left foot, limited to breakdown of skin Skin ulcer of left heel with fat layer exposed Sleep apnea Subdural hematoma Third degree heart block Type 2 diabetes mellitus with foot ulcer, with long-term current use of insulin Ulcer of right fifth toe due to diabetes mellitus Weakness of both lower extremities Surgical History H/O hernia repair History of cholecystectomy History of coronary artery stent placement History of left knee surgery Status post foot surgery Family History Family history of cancer Family history of arthritis Coronary artery disease Family history of diabetes mellitus type II Hypertension Stroke Social History Smoking Status: Former smoker second hand exposure: Yes alcohol intake: never substance use type: denies use current occupational status: retired Travel in the last 8 weeks: None household members: spouse housing: apartment marital status: current occupational exposures/hazards: No caffeine: Yes special jazmin needs: No agree to transfusion: No do you feel safe at home: Yes victim of physical abuse: No victim of emotional abuse: No victim of sexual abuse: No would you like helpful sources: No Review of Systems Constitutional Constitutional: Denies chills, Denies fever(s), Reports frequent falls, Denies headache(s) and Reports weakness Eyes Eyes: Denies blurry vision and Denies diplopia ENT Ears, Nose, Mouth, and Throat: Reports disequilibrium, Denies dizziness, Denies headache(s), Reports nasal congestion, Denies sore throat and Denies vertigo *Cardiovascular Cardiovascular: Denies chest pain and
--- NOTE | 2023-04-07 08:40 | XR_ITS ---
FINAL REPORT CLINICAL HISTORY: left hip pain after fall FINDINGS: Left hip Three views were obtained. There is no definite acute fracture or dislocation. Orthopedic hardware is seen securing the proximal femurs bilaterally. There is an intramedullary sandra and compression screw on the right and a sideplate and compression screw on the left. There are moderate hypertrophic changes at the acetabular margins, right greater than left. IMPRESSION: Degenerative and postsurgical changes. Reviewed, Interpreted and Dictated by Sanket Fernandez MD Transcribed by Alejandra Bowers Authenticated and . [facility]
--- NOTE | 2023-04-07 09:13 | HMH.PHAINT1 ---
Pharmacy Intervention Comments: Med reconciliation completed using external fill history and list from MD office. Mr Michele seemed confused and could not answer questions about his medications. List from MD office shows carbidopa-levodopa being taken 2qam, 1 at noon, and 2 qnt; novolin 70/30 50 u bid, and they say he receives samples of tradjenta 5 mg.
[2023-04-07 09:33] LABS: Chloride 106 mmol/L (98-107); Potassium 4.5 mmoL/L (3.5-5.1); Sodium 143 mmol/L (136-145)
[2023-04-07 09:35] LABS: Alanine Aminotransferase 15 U/L (12-78); Aspartate Amino Transferase 29 U/L (17-59); Basophils # 0.1 K/mm3 (0-0.2); Basophils % 0.7 % (0.1-2.0); Blood Urea Nitrogen 47 mg/dl (9-20); Creatinine Clearance Estimated 23 mL/min (50-200); Eosinophils # 0.2 K/mm3 (0.0-0.4); Eosinophils % 1.4 % (0.1-12.0); Estimated Glomerular Filt Rate 19 ml/min (>60); GFR (African American) 23 ML/MIN (>60); Hematocrit 40.5 % (42.0-52.0); Hemoglobin 12.7 g/dL (14.1-18.0); Lymphocytes # 1.6 K/mm3 (0.7-4.5); Lymphocytes % 12.5 % (10-50); Mean Corpuscular HGB Conc 31.3 g/dL (31.8-35.4); Mean Corpuscular Hemoglobin 31.5 pg (27.0-31.2); Mean Corpuscular Volume 100.6 fl (80-94); Mean Platelet Volume 8.9 fl (7.4-10.4); Monocytes # 0.6 K/mm3 (0.1-1.0); Neutrophils # 10.3 K/mm3 (1.8-7.8); Neutrophils % 80.5 % (37.0-80.0); Platelet Count 428 K/mm3 (142-424); Red Blood Count 4.03 M/mm3 (4.60-6.20); Red Cell Distribution Width 14.3 % (11.5-17.5); White Blood Count 12.8 K/mm3 (4.8-10.8)
[2023-04-07 09:36] LABS: Albumin Level 3.7 g/dl (3.5-5.0); Albumin/Globulin Ratio 0.8 (1.1-1.8); Alkaline Phosphatase 72 U/L (38-126); Anion Gap 8.5 mEq/L (5-15); Bilirubin,Total 0.5 mg/dl (0.2-1.3); Carbon Dioxide 33 mmol/L (22.0-30.0); Globulin 4.5 g/dL (1.3-3.2); Glucose 260 mg/dl (74-100); Total Protein,Serum 8.2 g/dl (6.3-8.2)
--- NOTE | 2023-04-07 09:54 | HMH.OTEV ---
OT Inpatient Evaluation Rehab OT IP Evaluation Start: 04/07/23 08:46 Freq: ONCE Status: Active Protocol: Document 04/07/23 09:49 PEARL (Rec: 04/07/23 09:54 [facility] [id number]) Rehab OT IP Assessment Subjective History Pt oriented x 2 on arrival. Pt agreeable to engage in therapy evaluation. Pt admitted on 04/06/23 due to weakness, falls, LUANN, and UTI. The patient presents with a chief complaint of knee and head problems. He describes experiencing difficulty with choking and producing phlegm from his mouth, which has been ongoing for an unspecified duration. The patient denies any abdominal pain but mentions frequent episodes of urinary incontinence. He denies any chest pain and vomiting, stating that he only spits up the substance. A few days ago, the patient experienced a fall, resulting in a hard bruise on his left hip. He recalls feeling sick the day after eating supper but does not provide further details. The patient does not report any pain during urination. Prior to being in the hospital , pt was living at home with his . Pt claims he required assistance with all ADLs. He was dependent on for completion of all IADLs. Pt is poor historian and unable to provide information about his functional mobility. Subjective She helped me. Objective Patient Orientation Person,Birthday Right Upper Extremity Gross ROM WFL Left Upper Extremity Gross ROM WFL Bed Mobility bed mobility-scooting,bed mobility - supine/sit Assist Level Maximum x 2 (75% assist) Transfer Training Sit/Stand Transfer Assist Level Moderate x 2 (50% assist) Rehab OT IP prob,goals,plan Problems
--- NOTE | 2023-04-07 09:58 | HMH.PTEV ---
Physical Therapy Evaluation Rehab PT IP Evaluation Start: 04/07/23 08:40 Freq: ONCE Status: Active Protocol: Document 04/07/23 09:46 DIAMANTE (Rec: 04/07/23 09:58 DIAMANTE [id number]) Subjective/History History History Patient is an 87 year old male admitted to [facility] 04/06/23 secondary to UTI/LUANN. Patient reports hx of multiple falls recently. Main complaint upon admission is R knee/hip pain and head problems. Patient was previously living at home with his , requiring assistance with all ADL's/IADL's. Previous ambulation short distances with RW. See reports for comorbidities. Subjective Subjective I've just not been feeling very good. Rehab PT IP Eval Objective Appearance Patient Behavior Confused Patient Orientation Person,Place,Birthday Difficulty following instructions none Speech Pattern Clear,Appropriate Ambulation Patient Able to Ambulate No Balance Ability to Arise Able, uses arms to help Sitting Balance Leans or slides in chair Standing Balance Unsteady Dynamic Sitting Balance Ability Poor Dynamic Standing Balance Ability Poor Transfers Bed Transfer Ability Moderate x 2 (50% assist) Sit to Stand Bed Transfer Ability Moderate x 2 (50% assist) Pain knee, head Pain Intensity 6 ROM All Extremities PT ROM Status WFL MMT All Extremities PT MMT WFL Rehab PT IP prob,goals,plan Problems Date of Evaluation: 04/07/23 PT IP Problems Bed Mobility,Transfers,Gait, Balance,Self care,Safety Rehab Potential Rehab Potential Fair Plan PT Intervention Plan Bed Mobility,Transfers,Gait, Balance,Self care,Safety, Therapeutic Exercise PT Plan Frequency BID Duration LOS Discharge Goals Bed Transfer Ability Minimal x 2 (25% assist) Sit to Stand Chair Transfer Ability Minimal x 2 (25% assist) Ambulation Assistive Device Rolling Walker Ambulation Distance (feet) 20 Discharge Plan PT Discharge Plan PT suggests placement in SNF to continue with rehab once found medically stable by MD. Beth Rosales
--- NOTE | 2023-04-07 11:21 | SW/DCPLANNER ---
Addendum entered by Dione Romero 04/09/23 11:28: I have updated Tony yip/ Rachel Poole that patient will discharge SNF level of care today. Addendum entered by Dione Romero 04/08/23 09:05: I have updated Tony yip/ Rachel Poole that the plan for this patient is to discharge tomorrow pending no setbacks. I will also call and update patient's . Addendum entered by Dione Romero 04/07/23 13:13: I contacted dispatch to go to patient's home due to not being able to get ahold of . called ([phone]) and stated that she forgot she changed phone numbers. is agreeable to placement for this patient and prefers [facility]. Tony yip/Rachel [facility] is able to accept this patient and is starting precert. Original Note: I spoke w/ this patient regarding plans once medically stable for discharge. PT/OT evaluated patient and recommended SNF level of care. Patient stated that he resides at home w/ his but is agreeable to placement once medically stable for discharge. Due to insurance patient is not a candidate for [facility] or [facility]. Patient is agreeable to placement at [facility], [facility] or [facility]. I have attempted to contact patient's regarding discharge plans: phone number we have is not currently a working number. Patient information will be faxed to [facility], [facility] and [facility] today.
[2023-04-07 11:47] LABS: POC Glucose,Bedside 303 (70-110)
[2023-04-07 15:34] VITALS: BP 158/62; PULSE 63; RESP 17; TEMP 37; O2SAT 97
[2023-04-07 16:59] LABS: POC Glucose,Bedside 257 (70-110)
[2023-04-07 20:00] VITALS: BP 151/71; PULSE 60; RESP 17; TEMP 36.6; O2SAT 97
[2023-04-07 20:26] LABS: POC Glucose,Bedside 238 (70-110)
[2023-04-08 04:00] VITALS: BP 162/75; PULSE 66; RESP 17; TEMP 36.7; O2SAT 96; BMI 27.1
--- NOTE | 2023-04-08 05:22 | PC.NURSE ---
Patient has had a decent night tonight. Has been incontinent about every hour to hour and a half. Is alert enough to tell staff that he is wet. Patient has been confused all shift. Knows his name and birthday, but nothing else. Patient has not complained of pain. No other issues noted
[2023-04-08 07:44] VITALS: BP 100/62; PULSE 60; RESP 19; TEMP 36.4; O2SAT 98
--- NOTE | 2023-04-08 08:14 | EXP.ACUTE.PN ---
Subjective *Date: 04/08/23 *Time: 08:34 Interval history: Patient is slightly confused this am. He did say he slept well and ate a good breakfast. He still has some pain in his abdomen. Medical Exam Vital signs and Labs for Last 24 Hours: Vital Signs Temp Pulse Resp BP Pulse Ox O2 Del Method 04/08/23 07:44 97.6 F 60 19 100/62 L 98 Room Air 04/08/23 04:00 98.1 F 66 17 162/75 H 96 Room Air 04/08/23 06:57 Room Air 04/08/23 05:00 Room Air 04/08/23 03:00 Room Air 04/08/23 01:00 Room Air 04/07/23 23:00 Room Air 04/07/23 21:00 Room Air 04/07/23 20:00 Room Air 04/07/23 20:00 97.9 F 60 17 151/71 H 97 04/07/23 18:31 Room Air 04/07/23 17:00 Room Air 04/07/23 15:00 Room Air 04/07/23 15:34 98.6 F 63 17 158/62 H 97 Room Air 04/07/23 13:00 Room Air 04/07/23 10:52 Room Air 04/07/23 09:00 Room Air Intake and Output 04/07/23 04/08/23 04/08/23 19:59 03:59 11:59 Intake Total 480 / 1650 750 / 1650 420 / 1650 Output Total 0 / 0 Balance 480 / 1650 750 / 1650 420 / 1650 Intake: Intake, Oral Amount 480 / 1000 100 / 1000 420 / 1000 Intake, Total IV Amount 650 / 650 Lactated Ringers 1000ML 1,000 600 / 600 ml @ 50 mls/hr IV .Q20H [facility] Rx# :[id number] Levofloxacin/D5w 250 mg In 50 50 / 50 ml @ 100 mls/hr IV Q24H [facility] Rx# :[id number] Output: Output, Urine Amount 0 / 0 Other: Number of Voids 1 0 Number of Unmeasured Voids 1 1 1 Weight 200 lb 11.2 oz Patient Weight 04/08/23 11:59 Weight 200 lb 11.2 oz Laboratory Results - last 24 hr 04/07/23 09:11: WBC 12.8 H, RBC 4.03 L, Hgb 12.7 L, Hct 40.5 L, MCV 100.6 H, MCH 31.5 H, MCHC 31.3 L, RDW 14.3, Plt Count 428 H, MPV 8.9, Neut % (Auto) 80.5 H, Lymph % (Auto) 12.5, [place] % (Auto) 5.0, Eos % (Auto) 1.4, Baso % (Auto) 0.7, Neut # (Auto) 10.3 H, Lymph # (Auto) 1.6, [place] # (Auto) 0.6, Eos # (Auto) 0.2, Baso # (Auto) 0.1, Sodium 143, Potassium 4.5, Chloride 106, Carbon Dioxide 33 H, Anion Gap 8.5, BUN 47 H, Creatinine 3.10 H, Estimated Creat Clear 23, Estimated GFR 19 L*, Est GFR ( Amer) 23 L, Glucose 260 H D, Calcium 9.0, Total Bilirubin 0.5, AST 29, ALT 15 D, Alkaline Phosphatase 72, Total Protein 8.2, Albumin 3.7, Globulin 4.5 H, Albumin/Globulin Ratio 0.8 L 04/07/23 11:15: POC Glucose 303 H* 04/07/23 16:45: POC Glucose 257 H 04/07/23 19:56: POC Glucose 238 H I & O for Labs for Last 24 Hours: Intake & Output 04/05/23 04/06/23 04/07/23 04/08/23 11:59 11:59 11:59 11:59 Intake Total 1400 / 1400 1650 / 1650 Output Total 0 / 0 0 / 0 Balance 1400 / 1400 1650 / 1650 Weight 215 lb 200 lb 11.2 oz Constitutional: Present no acute distress Respiratory: Present CTA bilaterally Cardiac: Present Reg Rate and Rhythm GI: Present soft and tenderness (mild diffuse); Absent distention, guarding or rebound Extremities: Absent edema Neuro: Present alert and awake (confused at times) Assessment and Plan *Assessment and plan (1) LUANN (acute kidney injury): Status: Acute Category: Medical Code(s): N17.9 - Acute kidney failure, unspecified (2) Acute UTI: Status: Acute Category: Medical Code(s): N39.0 - Urinary tract infection, site not specified (3) CAD (coronary artery disease): Status: Chronic Qualifiers: Associated angina: without angina Coronary Disease-Associated Artery/Lesion type: [place] artery [place] vs. transplanted heart: [place] heart Qualified Code(s): I25.10 - Atherosclerotic heart disease of [place] coronary artery without angina pectoris Category: Medical Code(s): I25.10 - Atherosclerotic heart disease of [place] coronary artery without angina pectoris (4) Hx of CABG: Status: Chronic Category: Surgical Code(s): Z95.1 - Presence of aortocoronary bypass graft (5) HTN (hypertension): Status: Chronic Qualif
[2023-04-08 09:02] LABS: Basophils # 0.1 K/mm3 (0-0.2); Basophils % 0.6 % (0.1-2.0); Eosinophils # 0.2 K/mm3 (0.0-0.4); Hematocrit 39.5 % (42.0-52.0); Hemoglobin 12.4 g/dL (14.1-18.0); Lymphocytes # 1.5 K/mm3 (0.7-4.5); Lymphocytes % 13.1 % (10-50); Mean Corpuscular HGB Conc 31.4 g/dL (31.8-35.4); Mean Corpuscular Hemoglobin 31.7 pg (27.0-31.2); Mean Platelet Volume 8.7 fl (7.4-10.4); Monocytes # 0.7 K/mm3 (0.1-1.0); Monocytes % 5.9 % (1.7-9.3); Neutrophils # 9.2 K/mm3 (1.8-7.8); Neutrophils % 78.5 % (37.0-80.0); Platelet Count 352 K/mm3 (142-424); Red Blood Count 3.91 M/mm3 (4.60-6.20); Red Cell Distribution Width 14.2 % (11.5-17.5); White Blood Count 11.7 K/mm3 (4.8-10.8)
[2023-04-08 09:22] LABS: Anion Gap 11.3 mEq/L (5-15); Blood Urea Nitrogen 42 mg/dl (9-20); Calcium 8.9 mg/dl (8.4-10.2); Carbon Dioxide 30 mmol/L (22.0-30.0); Chloride 105 mmol/L (98-107); Creatinine Clearance Estimated 28 mL/min (50-200); Estimated Glomerular Filt Rate 26 ml/min (>60); GFR (African American) 31 ML/MIN (>60); Glucose 308 mg/dl (74-100); Potassium 5.3 mmoL/L (3.5-5.1); Sodium 141 mmol/L (136-145)
[2023-04-08 15:24] VITALS: BMI 27.1
[2023-04-08 16:00] VITALS: BP 150/69; PULSE 69; RESP 20; TEMP 36.7; O2SAT 98
[2023-04-08 20:13] VITALS: BP 163/79; PULSE 65; RESP 14; TEMP 36.7; O2SAT 95
[2023-04-08 23:18] LABS: POC Glucose,Bedside 169 (70-110)
[2023-04-08 23:18] LABS: POC Glucose,Bedside 301 (70-110)
[2023-04-08 23:18] LABS: POC Glucose,Bedside 183 (70-110)
[2023-04-08 23:18] LABS: POC Glucose,Bedside 137 (70-110)
[2023-04-09 04:00] VITALS: BP 146/66; PULSE 66; TEMP 36.7; O2SAT 96; BMI 28.8
[2023-04-09 06:06] LABS: Basophils # 0.1 K/mm3 (0-0.2); Basophils % 0.7 % (0.1-2.0); Eosinophils # 0.3 K/mm3 (0.0-0.4); Eosinophils % 2.6 % (0.1-12.0); Hematocrit 38.5 % (42.0-52.0); Hemoglobin 12.4 g/dL (14.1-18.0); Lymphocytes # 1.9 K/mm3 (0.7-4.5); Mean Corpuscular HGB Conc 32.3 g/dL (31.8-35.4); Mean Corpuscular Hemoglobin 31.5 pg (27.0-31.2); Mean Corpuscular Volume 97.4 fl (80-94); Mean Platelet Volume 8.6 fl (7.4-10.4); Monocytes # 0.6 K/mm3 (0.1-1.0); Monocytes % 6.2 % (1.7-9.3); Neutrophils # 7.4 K/mm3 (1.8-7.8); Neutrophils % 72.5 % (37.0-80.0); Platelet Count 352 K/mm3 (142-424); Red Blood Count 3.95 M/mm3 (4.60-6.20); Red Cell Distribution Width 13.9 % (11.5-17.5); White Blood Count 10.2 K/mm3 (4.8-10.8)
[2023-04-09 06:07] LABS: Chloride 109 mmol/L (98-107); Potassium 3.9 mmoL/L (3.5-5.1); Sodium 143 mmol/L (136-145)
[2023-04-09 06:10] LABS: Anion Gap 8.9 mEq/L (5-15); Blood Urea Nitrogen 44 mg/dl (9-20); Carbon Dioxide 29 mmol/L (22.0-30.0); Creatinine Clearance Estimated 31 mL/min (50-200); Estimated Glomerular Filt Rate 27 ml/min (>60); GFR (African American) 33 ML/MIN (>60)
[2023-04-09 06:11] LABS: Calcium 8.9 mg/dl (8.4-10.2); Glucose 172 mg/dl (74-100)
[2023-04-09 06:32] LABS: POC Glucose,Bedside 163 (70-110)
--- NOTE | 2023-04-09 07:50 | EXP.PHA.PN ---
Subjective *Date: 04/09/23 *Time: 07:50 Medical Exam Vital signs and Labs for Last 24 Hours: Vital Signs Temp Pulse Resp BP Pulse Ox O2 Del Method 04/09/23 06:30 Room Air 04/09/23 05:00 Room Air 04/09/23 04:00 98.1 F 66 146/66 H 96 Room Air 04/09/23 03:00 Room Air 04/08/23 20:13 98.0 F 65 14 163/79 H 95 Room Air 04/09/23 01:00 Room Air 04/08/23 23:00 Room Air 04/08/23 21:00 Room Air 04/08/23 19:56 Room Air 04/08/23 18:16 Room Air 04/08/23 17:00 Room Air 04/08/23 16:00 98.1 F 69 20 150/69 H 98 Room Air 04/08/23 14:52 Room Air 04/08/23 13:00 Room Air 04/08/23 11:00 Room Air 04/08/23 09:00 Room Air 04/08/23 08:00 Room Air Intake and Output 04/08/23 04/08/23 04/09/23 15:59 23:59 07:59 Intake Total 420 / 2190 600 / 600 Output Total 0 / 1350 1350 / 1350 1000 / 1000 Balance 420 / 840 -1350 / 840 -400 / -400 Intake: Intake, Oral Amount 420 / 1240 300 / 300 Intake, Total IV Amount 300 / 300 Lactated Ringers 1000ML 1,000 250 / 250 ml @ 50 mls/hr IV .Q20H [facility] Rx# :[id number] Levofloxacin/D5w 250 mg In 50 50 / 50 ml @ 100 mls/hr IV Q24H [facility] Rx# :[id number] Output: Output, Urine Amount 0 / 1350 1350 / 1350 1000 / 1000 Other: Number of Voids 0 3 Number of Unmeasured Voids 2 0 1 Number of Bowel Movements 0 Weight 91 kg 96.434 kg Patient Weight 04/09/23 23:59 Weight 96.434 kg Laboratory Results - last 24 hr 04/08/23 06:09: POC Glucose 183 H 04/08/23 08:52: WBC 11.7 H, RBC 3.91 L, Hgb 12.4 L, Hct 39.5 L, MCV 101.0 H, MCH 31.7 H, MCHC 31.4 L, RDW 14.2, Plt Count 352, MPV 8.7, Neut % (Auto) 78.5, Lymph % (Auto) 13.1, [place] % (Auto) 5.9, Eos % (Auto) 2.0, Baso % (Auto) 0.6, Neut # (Auto) 9.2 H, Lymph # (Auto) 1.5, [place] # (Auto) 0.7, Eos # (Auto) 0.2, Baso # (Auto) 0.1, Sodium 141, Potassium 5.3 H, Chloride 105, Carbon Dioxide 30, Anion Gap 11.3, BUN 42 H, Creatinine 2.40 H D, Estimated Creat Clear 28, Estimated GFR 26 L, Est GFR ( Amer) 31 L D, Glucose 308 H, Calcium 8.9 04/08/23 11:34: POC Glucose 301 H* 04/08/23 16:35: POC Glucose 169 H 04/08/23 19:42: POC Glucose 137 H 04/09/23 05:45: WBC 10.2, RBC 3.95 L, Hgb 12.4 L, Hct 38.5 L, MCV 97.4 H, MCH 31.5 H, MCHC 32.3, RDW 13.9, Plt Count 352, MPV 8.6, Neut % (Auto) 72.5, Lymph % (Auto) 18.0, [place] % (Auto) 6.2, Eos % (Auto) 2.6, Baso % (Auto) 0.7, Neut # (Auto) 7.4, Lymph # (Auto) 1.9, [place] # (Auto) 0.6, Eos # (Auto) 0.3, Baso # (Auto) 0.1, Sodium 143, Potassium 3.9 D, Chloride 109 H, Carbon Dioxide 29, Anion Gap 8.9, BUN 44 H, Creatinine 2.30 H, Estimated Creat Clear 31, Estimated GFR 27 L, Est GFR ( Amer) 33 L, Glucose 172 H D, Calcium 8.9 04/09/23 06:19: POC Glucose 163 H I & O for Labs for Last 24 Hours: Intake & Output 11/28/23 11/29/23 11/30/23 12/01/23 23:59 23:59 23:59 23:59 Intake Total 650 / 650 1229 / 1979 1590 / 2190 600 / 600 Output Total 0 / 0 0 / 0 1350 / 1350 1000 / 1000 Balance 650 / 650 1229 / 1979 240 / 840 -400 / -400 Weight 96.332 kg 97.522 kg 91 kg 96.434 kg The patient's infection will respond to the chosen ABx?: Yes Is the patient receiving the right drug, dose, and route?: Yes Could a more targeted ABx be ordered?: No (PATIENT IS AFEBRILE, WBC DECREASED TO WNL, BLD CX PENDING.)
[2023-04-09 08:00] VITALS: BP 127/71; PULSE 79; RESP 20; TEMP 36.3; O2SAT 96
--- NOTE | 2023-04-09 08:21 | EXP.ACUTE.PN ---
Subjective *Date: 04/09/23 *Time: 11:35 Interval history: Patient states he is feeling about the same today. He denies any pain. He states he slept and ate his breakfast. He is wondering where his is this morning Medical Exam Vital signs and Labs for Last 24 Hours: Vital Signs Temp Pulse Resp BP Pulse Ox O2 Del Method 04/09/23 06:30 Room Air 04/09/23 05:00 Room Air 04/09/23 04:00 98.1 F 66 146/66 H 96 Room Air 04/09/23 03:00 Room Air 04/08/23 20:13 98.0 F 65 14 163/79 H 95 Room Air 04/09/23 01:00 Room Air 04/08/23 23:00 Room Air 04/08/23 21:00 Room Air 04/08/23 19:56 Room Air 04/08/23 18:16 Room Air 04/08/23 17:00 Room Air 04/08/23 16:00 98.1 F 69 20 150/69 H 98 Room Air 04/08/23 14:52 Room Air 04/08/23 13:00 Room Air 04/08/23 11:00 Room Air 04/08/23 09:00 Room Air Intake and Output 04/08/23 04/09/23 04/09/23 19:59 03:59 11:59 Intake Total 420 / 1020 600 / 1020 Output Total 1350 / 2350 1000 / 2350 Balance -930 / -1330 600 / -1330 -1000 / -1330 Intake: Intake, Oral Amount 420 / 720 300 / 720 Intake, Total IV Amount 300 / 300 Lactated Ringers 1000ML 1,000 250 / 250 ml @ 50 mls/hr IV .Q20H [facility] Rx# :[id number] Levofloxacin/D5w 250 mg In 50 50 / 50 ml @ 100 mls/hr IV Q24H [facility] Rx# :[id number] Output: Output, Urine Amount 1350 / 2350 1000 / 2350 Other: Number of Voids 0 3 Number of Unmeasured Voids 0 1 Number of Bowel Movements 0 Weight 200 lb 9.93 oz 212 lb 9.6 oz Patient Weight 04/09/23 11:59 Weight 212 lb 9.6 oz Laboratory Results - last 24 hr 04/08/23 06:09: POC Glucose 183 H 04/08/23 08:52: WBC 11.7 H, RBC 3.91 L, Hgb 12.4 L, Hct 39.5 L, MCV 101.0 H, MCH 31.7 H, MCHC 31.4 L, RDW 14.2, Plt Count 352, MPV 8.7, Neut % (Auto) 78.5, Lymph % (Auto) 13.1, [place] % (Auto) 5.9, Eos % (Auto) 2.0, Baso % (Auto) 0.6, Neut # (Auto) 9.2 H, Lymph # (Auto) 1.5, [place] # (Auto) 0.7, Eos # (Auto) 0.2, Baso # (Auto) 0.1, Sodium 141, Potassium 5.3 H, Chloride 105, Carbon Dioxide 30, Anion Gap 11.3, BUN 42 H, Creatinine 2.40 H D, Estimated Creat Clear 28, Estimated GFR 26 L, Est GFR ( Amer) 31 L D, Glucose 308 H, Calcium 8.9 04/08/23 11:34: POC Glucose 301 H* 04/08/23 16:35: POC Glucose 169 H 04/08/23 19:42: POC Glucose 137 H 04/09/23 05:45: WBC 10.2, RBC 3.95 L, Hgb 12.4 L, Hct 38.5 L, MCV 97.4 H, MCH 31.5 H, MCHC 32.3, RDW 13.9, Plt Count 352, MPV 8.6, Neut % (Auto) 72.5, Lymph % (Auto) 18.0, [place] % (Auto) 6.2, Eos % (Auto) 2.6, Baso % (Auto) 0.7, Neut # (Auto) 7.4, Lymph # (Auto) 1.9, [place] # (Auto) 0.6, Eos # (Auto) 0.3, Baso # (Auto) 0.1, Sodium 143, Potassium 3.9 D, Chloride 109 H, Carbon Dioxide 29, Anion Gap 8.9, BUN 44 H, Creatinine 2.30 H, Estimated Creat Clear 31, Estimated GFR 27 L, Est GFR ( Amer) 33 L, Glucose 172 H D, Calcium 8.9 04/09/23 06:19: POC Glucose 163 H I & O for Labs for Last 24 Hours: Intake & Output 04/06/23 04/07/23 04/08/23 04/09/23 11:59 11:59 11:59 11:59 Intake Total 1400 / 1400 1650 / 1650 1020 / 1020 Output Total 0 / 0 0 / 0 2350 / 2350 Balance 1400 / 1400 1650 / 1650 -1330 / -1330 Weight 215 lb 200 lb 11.2 oz 212 lb 9.6 oz Constitutional: Present no acute distress Respiratory: Present CTA bilaterally Cardiac: Present Reg Rate and Rhythm GI: Present soft; Absent distention, tenderness, guarding or rebound Extremities: Absent edema Skin: Present intact Neuro: Present alert and awake (confused at times) Assessment and Plan *Assessment and plan (1) LUANN (acute kidney injury): Status: Acute Category: Medical Code(s): N17.9 - Acute kidney failure, unspecified (2) Acute UTI: Status: Acute Category: Medical Code(s): N39.0 - Urinary tract infection, site not specified (3) CAD (coronary artery disease): Status: Chronic Qualifiers: Associated angina:
--- NOTE | 2023-04-09 12:33 | EXP.DC.SUM ---
General Admission date:: 04/06/23 Discharge date: 04/09/23 HPI HPI HPI: The patient presents with a chief complaint of knee and head problems. He describes experiencing difficulty with choking and producing phlegm from his mouth, which has been ongoing for an unspecified duration. The patient denies any abdominal pain but mentions frequent episodes of urinary incontinence. He denies any chest pain and vomiting, stating that he only spits up the substance. A few days ago, the patient experienced a fall, resulting in a hard bruise on his left hip. He recalls feeling sick the day after eating supper but does not provide further details. The patient does not report any pain during urination. (above as per ER physician) The patient states he has not felt well for about 3 weeks. He has been weak and had a few falls. He states he has been in the bed most of the time and has not had a lot to eat or drink. Upon evaluation in the emergency room he was found to be dehydrated and have a UTI. He was subsequently admitted for further evaluation and treatment. Hospital Course Hospital Course Hospital Course: The patient's cervical spine CT showed advanced degenerative change but no acute bony abnormality. His head CT showed nothing acute. It did show atrophy and chronic ischemic white matter changes. He was admitted and started on antibiotics for his UTI and IV fluids. PT and OT were also consulted. They felt he would be most appropriate for skilled care for rehab. He did begin feeling better. His abdominal pain improved and he began sleeping and eating. His renal function improved slightly but continued to remain elevated. A rehab bed was found for him at [facility]. Dr. Ambrocio did speak with the patient's about his disposition. His urine culture is still pending, therefore he will be discharged on Levaquin. He will need his renal function monitored closely as his creatinine has not yet returned to baseline. Exam Data for Last 24 hours Vital signs and Labs for Last 24 Hours: Temp Pulse Resp BP Pulse Ox O2 Del Method 97.4 F L 79 20 127/71 96 Room Air 04/09/23 08:00 04/09/23 08:00 04/09/23 08:00 04/09/23 08:00 04/09/23 08:00 04/09/23 08:00 Laboratory Results - last 24 hr 04/08/23 06:09: POC Glucose 183 H 04/08/23 11:34: POC Glucose 301 H* 04/08/23 16:35: POC Glucose 169 H 04/08/23 19:42: POC Glucose 137 H 04/09/23 05:45: WBC 10.2, RBC 3.95 L, Hgb 12.4 L, Hct 38.5 L, MCV 97.4 H, MCH 31.5 H, MCHC 32.3, RDW 13.9, Plt Count 352, MPV 8.6, Neut % (Auto) 72.5, Lymph % (Auto) 18.0, Bladen % (Auto) 6.2, Eos % (Auto) 2.6, Baso % (Auto) 0.7, Neut # (Auto) 7.4, Lymph # (Auto) 1.9, Bladen # (Auto) 0.6, Eos # (Auto) 0.3, Baso # (Auto) 0.1, Sodium 143, Potassium 3.9 D, Chloride 109 H, Carbon Dioxide 29, Anion Gap 8.9, BUN 44 H, Creatinine 2.30 H, Estimated Creat Clear 31, Estimated GFR 27 L, Est GFR ( Amer) 33 L, Glucose 172 H D, Calcium 8.9 04/09/23 06:19: POC Glucose 163 H I & O for Last 24 hours: Intake & Output 04/07/23 04/08/23 04/09/23 04/10/23 11:59 11:59 11:59 11:59 Intake Total 1400 / 1400 1650 / 1650 1720 / 1720 Output Total 0 / 0 0 / 0 2350 / 2350 Balance 1400 / 1400 1650 / 1650 -630 / -630 Weight 215 lb 200 lb 11.2 oz 212 lb 9.6 oz Narrative: Constitutional Constitutional: no acute distress *Routine HEENT Exam Head: Present normocephalic and atraumatic Eye: Present EOMI and PERRL ENT: Present mucous membranes dry *Routine Neck Exam Neck: Present supple and full ROM *Routine Respiratory Exam Respiratory: Present CTA bilaterally *Routine Cardiovascular Exam Cardiovascular: Present RRR *Routine Abdominal Exam Abdominal: Present soft, normoactive bowel sounds and tenderness (midabdominal pain) *Routine Rectal Exam Rectal:: deferred *Routine Genitalia Exam Genitalia:: deferred *Routine Extremities Exam Extremities: Absent cyanosis, clubbing or edema *Routine Skin Exam Skin: Present intact;
--- NOTE | 2023-04-09 13:08 | PC.NURSE ---
attempted to call report to [facility] four times but cannot get ahold of anyone
[2023-04-09 16:34] LABS: POC Glucose,Bedside 210 (70-110)
[2023-04-09 16:34] LABS: POC Glucose,Bedside 334 (70-110)
--- NOTE | 2023-04-10 09:47 | PC.NURSE ---
Urine results shows mixed urogenital maria antonia, Pt was admitted to [facility] and [place] with donita, aware no action needed due to contamination.
== END 2023-04-09 14:59 ==
LOC: ER 14:04 → 2ND 17:46
PROVIDERS: Physician Assistant; Admitting Provider Family Medicine; Emergency Provider Emergency Medicine; PCP Family Medicine; Visit Provider Family Medicine
DX: N39.0 Urinary tract infection, site not specified (principal); N17.9 Acute kidney failure, unspecified; I25.10 Atherosclerotic heart disease of native coronary artery without angina pectoris; Z79.01 Long term (current) use of anticoagulants; I12.9 Hypertensive chronic kidney disease with stage 1 through stage 4 chronic kidney disease, or unspecified chronic kidney disease; E78.2 Mixed hyperlipidemia; I73.9 Peripheral vascular disease, unspecified; G20.C Parkinsonism, unspecified; M47.816 Spondylosis without myelopathy or radiculopathy, lumbar region; M25.552 Pain in left hip; G89.29 Other chronic pain; G30.9 Alzheimer's disease, unspecified; F02.80 Dementia in other diseases classified elsewhere, unspecified severity, without behavioral disturbance, psychotic disturbance, mood disturbance, and anxiety; I25.2 Old myocardial infarction; N18.30 Chronic kidney disease, stage 3 unspecified; E11.22 Type 2 diabetes mellitus with diabetic chronic kidney disease; Z95.0 Presence of cardiac pacemaker; E03.9 Hypothyroidism, unspecified; I48.91 Unspecified atrial fibrillation; E43 Unspecified severe protein-calorie malnutrition; R29.6 Repeated falls; Z95.1 Presence of aortocoronary bypass graft; E86.0 Dehydration; Z79.899 Other long term (current) drug therapy; Z79.4 Long term (current) use of insulin
CPT/HCPCS: 36415; 70450; 72125; 73502; 80048; 80053; 81001; 82962; 83605; 85025; 87040; 87086; 97110; 97163; 97166; 97530; 99285; G0378; J1956

== ENCOUNTER 2025-04-24 11:55 | Outpatient (CLI) | payer MEDICARE, MEDICAID, SELFPAY ==
--- OUTSIDE RECORDS SUMMARY | 2025-04-24 11:59 | XMS_ITS ---
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 Immunizations Immunization Status Vaccine Details Vaccine Code CodeSystem Noe e Notes Influenza completed Influenza, high-dose, split virus, quadrivalent, injectable, preservative free 197 CVX created date: 08/15/2015 administered date: 02/19/2015 Pneumovax Dose 1 completed cre ated date: 08/15/2015 administered date: 02/18/2013 Mental Status Section Date Assessment Total Score Description 11/15/2015 BIMS 13 cognitively int act PHQ-9 09 mild depression Insurance Providers Coverage Status Coverage Type Relationship to Subscriber Member Identifier Subscriber Identifier Group Identifier Payer Identifier and Other information Code: 1 Code System OID:84 [id number]. 3.221.5 Code System Name: Source of Payment Typology (PHDSC) Display: Medicare Translation : Code: MB Code System: OID:06.25.83 [id number]. [id number] Code System Name: Insurance Type Code ([id number]) Display Name: Medicare Part B Code: 2 Code System OID:84 [id number]. 3.221.5 Code System Name: Source of Payment Typology (PHDSC) Display: Medicaid Translation : Code: 48 Code System: OID:84 [id number]. [id number] Code System Name: Insurance Type Code ([id number]) Display Name: Medicaid Problems Problem # Description Date of onset Resolved Date Code CodeSystem Concern Status 1 BRONCHOPNEUMONIA, UNSPECIFIED ORGANISM 11/10/[address] active 2 ACUTE KIDNEY FAILURE, UNSPECIFIED 11/06/[address] active 3 ALTERED MENTAL STATUS, UNSPECIFIED 10/28/[address] active 4 ANEMIA, UNSPECIFIED 10/28/[address] active 5 ANXIETY DISORDER, UNSPECIFIED 10/28/[address] active 6 ARTHRITIS DUE TO OTHER BACTERIA, UNSPECIFIED ANKLE AND FOOT 10/28/[address] active 7 DIABETES MELLITUS DUE TO UNDERLYING CONDITION WITH FOOT ULCER 10/28/[address] active 8 DYSPHAGIA, OROPHARYNGEAL PHASE 10/28/[address] active 9 HYPERKALEMIA 10/28/[address] active 10 HYPERLIPIDEMIA, UNSPECIFIED 10/28/[address] active 11 HYPO-OSMOLALITY AND HYPONATREMIA 10/28/[address] active 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 10/28/[address] active 13 OTHER RECURRENT DEPRESSIVE DISORDERS 10/28/[address] active 14 OTHER SPECIFIED HYPOTHYROIDISM 10/28/[address] active 15 XEROSIS CUTIS 08/27/[address] active 16 EXTRAVASATION OF URINE 08/01/[address] active 17 PERSONAL HISTORY OF PNEUMONIA (RECURRENT) 08/01/[address] active 18 PNEUMONIA, UNSPECIFIED ORGANISM 08/01/[address] active 19 UNSTEADINESS ON FEET 08/01/[address] active 20 URINARY TRACT INFECTION, SITE NOT SPECIFIED 08/01/[address] active 21 WEAKNESS 08/01/[address] active 22 DEMENTIA IN OTHER DISEASES CLASSIFIED ELSEWHERE, UNSPECIFIED SEVERITY, WITHOUT BEHAVIORAL DISTURBANCE, PSYCHOTIC DISTURBANCE, MOOD DISTURBANCE, AND ANXIETY 01/08/[address] active 23 FRACTURE OF FEMUR 01/08/[address] active 24 FRACTURE OF UNSPECIFIED PART OF NECK OF UNSPECIFIED FEMUR, INITIAL ENCOUNTER FOR CLOSED FRACTURE 01/08/[address] active 25 HISTORY OF FALLING 01/08/[address] active 26 MUSCLE WEAKNESS (GENERALIZED) 01/08/[address] active 27 OTHER SYMBOLIC DYSFUNCTIONS 01/08/[address] active 28 PARKINSON'S DISEASE 01/08/[address] active 29 UNSPECIFIED FRACTURE OF UNSPECIFIED FEMUR, INITIAL ENCOUNTER FOR CLOSED FRACTURE 01/08/[address] active 30 VASCULAR DEMENTIA, UNSPECIFIED SEVERITY, WITHOUT BEHAVIORAL DISTURBANCE, PSYCHOTIC DISTURBANCE, MOOD DISTURBANCE, AND ANXIETY 01/08/[address] active 31 DIFFICULTY IN WALKING, NOT ELSEWHERE CLASSIFIED 12/14/[address] active Reason for Referral No Reasons for Referral Entered Social History Social History Observation Description Start Date End Date Code Code System Current Smoking Status Tobacco smoking consumption unknown 678081966 SNOMED CT Sex Assigned At Male 1935 93696-9 [facility] Gender Identity Sexual Orientation Vital Signs Code Code System Vitals Name Values and Units Timing Information 18883-0 [facility] O2 % BldC Oximetry Value=94.0 Units= % 01/10/2016 9279-1 [facility] Respiratory Rate Value=20.0 Units=/m in 01/10/2016 8867-4 [facility] Heart rate Value=66.0 Units=/min 06/2015 8310-5 [facility] Body Temperature Value=97.9 Units= F 01/10/2016 8462-4 [facility] Blood Pressure-Diastolic Value=64 Un its=mmHg 01/10/2016 8480-6 [facility] Blood Pressure-Systolic Tmrqu=083 Un its=mmHg 01/10/2016 63554-6 [facility] Weight Yhsjd=668.6 Units=Lbs 05/2015 2339-0 [facility] Blood Sugar Yphxj=534.0 Units=mg/dL 01/05/2016 8302-2 [facility] Height Value=72.0 Units=Inches 08/01/2015
[2025-04-24 12:28] LABS: Hematocrit 31.1 % (42.0-52.0); Hemoglobin 9.1 g/dL (14.1-18.0); Immature Granulocytes % 7.7 %; Mean Corpuscular HGB Conc 29.3 g/dL (31.8-35.4); Mean Corpuscular Hemoglobin 23.3 pg (27.0-31.2); Mean Corpuscular Volume 79.7 fl (80-94); Nucleated Red Blood Cells % 0 %; Platelet Count 516 K/mm3 (142-424); Red Blood Count 3.90 M/mm3 (4.60-6.20); Red Cell Distribution Width-SD 48.4 fL; White Blood Count 21.8 K/mm3 (4.8-10.8)
[2025-04-24 13:03] LABS: Total Cells Counted 100
[2025-04-24 13:04] LABS: Hypochromasia 1+
[2025-04-24 13:14] LABS: Alanine Aminotransferase 8 U/L (12-78); Albumin Level 3.0 g/dl (3.5-5.0); Albumin/Globulin Ratio 0.8 (1.1-1.8); Alkaline Phosphatase 95 U/L (38-126); Anion Gap 12.6 mEq/L (5-15); Aspartate Amino Transferase 35 U/L (17-59); Bilirubin,Total 0.4 mg/dl (0.2-1.3); Blood Urea Nitrogen 61 mg/dl (9-20); Calcium 9.1 mg/dl (8.4-10.2); Carbon Dioxide 26 mmol/L (22.0-30.0); Chloride 110 mmol/L (98-107); Creatinine,Serum 2.20 mg/dl (0.66-1.25); Estimated Glomerular Filt Rate 28 ml/min (>60); GFR (African American) 34 ML/MIN (>60); Globulin 3.9 g/dL (1.3-3.2); Glucose 158 mg/dl (74-100); Iron 26 ug/dL (49-181); Potassium 4.6 mmoL/L (3.5-5.1); Sodium 144 mmol/L (136-145); Total Protein,Serum 6.9 g/dl (6.3-8.2)
[2025-04-24 13:24] LABS: Total Iron Binding Capacity 245 ug/dL (261-462)
[2025-04-24 13:49] LABS: Ferritin 60.3 ng/ml (17.9-464)
== END 2025-04-24 23:59 | disposition home or self-care (01) ==
LOC: LAB 11:57
PROVIDERS: PCP Internal Medicine Adolescent Medicine; Visit Provider Internal Medicine Medical Oncology
DX: D72.829 Elevated white blood cell count, unspecified (principal); D64.9 Anemia, unspecified
CPT/HCPCS: 36415; 80053; 82728; 83540; 83550; 85007; 85025